=== PATIENT | male | born 1950 | race Caucasian/White ===

== ENCOUNTER 2020-10-01 06:25 | Outpatient (REF) | payer MEDICARE, SELFPAY ==
[2020-10-01 12:31] LABS: Anion Gap 12 (12-20); Blood Urea Nitrogen 15 mg/dL (9-16); Calcium 8.5 mg/dL (8.4-10.2); Carbon Dioxide 25 mmol/L (22-29); Chloride 109 mmol/L (96-108); Cholesterol 161 mg/dL; Estimated Glomerular Filt Rate > 60; Glucose Fasting 89 mg/dL (60-99); HDL Cholesterol 40 mg/dL; LDL Cholesterol Calculated 92 mg/dl; Potassium 4.3 mmol/l (3.3-5.1); Sodium 142 mmol/L (135-145); Triglycerides 146 mg/dL
[2020-10-01 12:37] LABS: Prostate Specific Antigen Scr < 0.05 ng/mL (<0.05-4.0); TSH reflex Free T4 0.71 mIU/mL (0.32-4.0)
[2020-10-02 10:52] LABS: Alanine Aminotransferase 29 U/L (0-40); Albumin Level 4.1 g/dL (3.5-5.0); Alkaline Phosphatase 90 U/L (39-117); Aspartate Amino Transferase 32 U/L (5-37); Bilirubin Direct 0.2 mg/dL (0.0-0.5); Bilirubin Total 0.5 mg/dL (0.0-1.0); Total Protein 6.5 g/dL (6.5-8.0)
== END 2020-10-01 06:26 | disposition home or self-care (01) ==
LOC: HO.HMGCLDS 06:25
PROVIDERS: PCP Nurse Practitioner Family; Visit Provider Nurse Practitioner Family
DX: Z12.5 Encounter for screening for malignant neoplasm of prostate (principal); E78.5 Hyperlipidemia, unspecified; I10 Essential (primary) hypertension
CPT/HCPCS: 80048; 80061; 80076; 84153; 84443

== ENCOUNTER 2021-03-11 06:40 | Outpatient (REF) | payer MEDICARE, SELFPAY ==
[2021-03-11 12:22] LABS: Alanine Aminotransferase 27 U/L (0-40); Albumin Level 4.3 g/dL (3.5-5.0); Alkaline Phosphatase 116 U/L (39-117); Anion Gap 14 (12-20); Aspartate Amino Transferase 28 U/L (5-37); Bilirubin Direct 0.3 mg/dL (0.0-0.5); Bilirubin Total 0.9 mg/dL (0.0-1.0); Blood Urea Nitrogen 18 mg/dL (9-16); Calcium 9.1 mg/dL (8.4-10.2); Carbon Dioxide 24 mmol/L (22-29); Chloride 108 mmol/L (96-108); Cholesterol 148 mg/dL; Estimated Glomerular Filt Rate > 60; Glucose Fasting 87 mg/dL (60-99); HDL Cholesterol 41 mg/dL; LDL Cholesterol Calculated 78 mg/dl; Potassium 4.5 mmol/L (3.3-5.1); Sodium 141 mmol/L (135-145); Total Protein 6.8 g/dL (6.5-8.0); Triglycerides 145 mg/dL
[2021-03-11 12:49] LABS: Prostate Specific Antigen Scr < 0.05 ng/mL (<0.05-4.0); TSH reflex Free T4 1.12 uIU/mL (0.32-4.0)
== END 2021-03-11 06:41 | disposition home or self-care (01) ==
LOC: HO.HMGCLDS 06:40
PROVIDERS: PCP Nurse Practitioner Family; Visit Provider Nurse Practitioner Family
DX: Z12.5 Encounter for screening for malignant neoplasm of prostate (principal); I10 Essential (primary) hypertension; E78.5 Hyperlipidemia, unspecified
CPT/HCPCS: 36415; 80053; 80061; 80076; 82248; 84153; 84443

== ENCOUNTER 2021-12-17 14:31 | Outpatient (REF) | payer MEDICARE, SELFPAY ==
--- NOTE | ~2021-12-17 | XR_ITS ---
EXAMINATION: XR SHOULDER, RIGHT CLINICAL INFORMATION: Pain. COMPARISON: None TECHNIQUE: AP external rotation, Grashey, scapular Y, and axillary views of the right shoulder. FINDINGS: There is mild reduction in the glenohumeral and AC joint space with periarticular spurring. No visible acute fracture, dislocation or lytic process seen. The soft tissues are normal. XR/XR shoulder RT min 2V IMPRESSION: Degenerative arthritic changes right AC joint with inferior spurring. No visible acute fracture or dislocation. Mild loss of right glenohumeral joint space is well. No fracture or dislocation
== END 2021-12-17 14:32 | disposition home or self-care (01) ==
LOC: HO.HMGCX 14:31
PROVIDERS: PCP Nurse Practitioner Family; Visit Provider Nurse Practitioner Family
DX: M25.511 Pain in right shoulder (principal)
CPT/HCPCS: 73030

== ENCOUNTER 2022-02-26 07:48 | Outpatient (REF) | payer MEDICARE, SELFPAY ==
[2022-02-26 11:23] LABS: MANUAL DIFF FLAG NO
[2022-02-26 11:38] LABS: Appearance Urine CLOUDY; Basophils Percent Auto 0.4 % (0-2); Color Urine YELLOW; Eosinophils Absolute Auto 0.2 X10*3/uL (0.0-0.4); Eosinophils Percent Auto 3.2 % (0-4); Glucose Urine UA NEG (NEG); Hematocrit 43.5 % (42.0-52.0); Hemoglobin 14.5 g/dl (14.0-18.0); Imm Gran Abs Auto 0.01 X10*3/uL (0.00-0.03); Imm Gran Pct Auto 0.2 % (0.0-0.4); Leukocyte Esterase Urine NEG (NEG); Lymphocytes Absolute Auto 1.1 X10*3/uL (1.2-4.9); Lymphocytes Percent Auto 22.6 % (20-40); Mean Corpuscular HGB Conc 33.3 g/dl (31.0-36.0); Mean Corpuscular Hemoglobin 31.5 pg (27.0-33.0); Mean Corpuscular Volume 94.6 fL (80.0-98.0); Mean Platelet Volume 11.5 fL (9.4-12.4); Monocytes Absolute Auto 0.5 X10*3/uL (0.1-1.2); Monocytes Percent Auto 11.3 % (2-11); Neutrophils Absolute Auto 2.9 x10*3/uL (2.0-8.3); Neutrophils Percent Auto 62.3 % (45-73); Nitrite Urine NEG (NEG); PH 5.5 (5.0-8.0); Platelet Count 170 X10*3/uL (160-400); Red Cell Distribution Width 13.2 % (11.0-16.0); Specific Gravity - Urine >= 1.030 (1.005-1.025); UACC Culture Trigger NO; Urine Blood 1+ (NEG); Urine Ketones NEG (NEG); Urine Protein NEG (NEG-TRACE); White Blood Count 4.7 X10*3/uL (4.8-10.8)
[2022-02-26 12:06] LABS: Alanine Aminotransferase 26 U/L (0-40); Albumin Level 4.3 g/dL (3.5-5.0); Alkaline Phosphatase 95 U/L (39-117); Anion Gap 12 (12-20); Aspartate Amino Transferase 25 U/L (5-37); Bilirubin Total 0.5 mg/dL (0.0-1.0); Blood Urea Nitrogen 14 mg/dL (9-16); Calcium 9.2 mg/dL (8.4-10.2); Carbon Dioxide 23 mmol/L (22-29); Chloride 109 mmol/L (96-108); Cholesterol 141 mg/dL; Estimated Glomerular Filt Rate > 60; Glucose Fasting 107 mg/dL (60-99); HDL Cholesterol 36 mg/dL; LDL Cholesterol Calculated 87 mg/dl; Potassium 4.1 mmol/L (3.3-5.1); Sodium 140 mmol/L (135-145); Total Protein 6.9 g/dL (6.5-8.0); Triglycerides 94 mg/dL
[2022-02-26 12:25] LABS: Prostate Specific Antigen Scr < 0.05 ng/mL (<0.05-4.0); TSH reflex Free T4 1.05 uIU/mL (0.32-4.0)
[2022-02-26 12:27] LABS: Amorphous Sediment Urine 3+ /LPF; Mucus Urine 3+ /LPF; WBC Urine 0 /HPF (0-4)
== END 2022-02-26 07:49 | disposition home or self-care (01) ==
LOC: HO.HMGCLDS 07:48
PROVIDERS: Visit Provider Nurse Practitioner Family
DX: I10 Essential (primary) hypertension (principal); E78.5 Hyperlipidemia, unspecified; Z12.5 Encounter for screening for malignant neoplasm of prostate
CPT/HCPCS: 36415; 80053; 80061; 81001; 84153; 84443; 85025

== ENCOUNTER 2022-03-31 08:17 | Outpatient (REF) | payer MEDICARE, SELFPAY ==
[2022-03-31 11:13] LABS: Urine Cytology See Pathology rpt
[2022-03-31 11:46] LABS: Appearance Urine CLEAR; Color Urine YELLOW; Glucose Urine UA NEG (NEG); Leukocyte Esterase Urine NEG (NEG); Nitrite Urine NEG (NEG); PH 5.5 (5.0-8.0); Specific Gravity - Urine >= 1.030 (1.005-1.025); Urine Blood NEG (NEG); Urine Ketones NEG (NEG); Urine Protein NEG (NEG-TRACE)
[2022-03-31 12:18] LABS: RBC Urine 0-2 /HPF (0); Squamous Epithelial Cell Urine TRACE /LPF; WBC Urine 0-2 /HPF (0-4)
[2022-03-31 12:19] LABS: Bacteria Urine TRACE /LPF; Hyaline Casts Urine 0-2 /LPF; Mucus Urine 1+ /LPF
== END 2022-03-31 08:18 | disposition home or self-care (01) ==
LOC: HO.HMGCLDS 08:17
PROVIDERS: PCP Nurse Practitioner Family; Visit Provider Nurse Practitioner Family
DX: R31.29 Other microscopic hematuria (principal); I10 Essential (primary) hypertension
CPT/HCPCS: 81003; 87086; 88112

== ENCOUNTER 2022-09-19 07:30 | Outpatient (REF) | payer MEDICARE, SELFPAY ==
[2022-09-19 11:25] LABS: MANUAL DIFF FLAG NO
[2022-09-19 11:35] LABS: Basophils Percent Auto 0.9 % (0-2); Eosinophils Absolute Auto 0.2 X10*3/uL (0.0-0.4); Eosinophils Percent Auto 4.7 % (0-4); Hematocrit 43.7 % (42.0-52.0); Hemoglobin 14.6 g/dl (14.0-18.0); Imm Gran Abs Auto 0.02 X10*3/uL (0.00-0.03); Imm Gran Pct Auto 0.4 % (0.0-0.4); Lymphocytes Absolute Auto 1.2 X10*3/uL (1.2-4.9); Lymphocytes Percent Auto 25.5 % (20-40); Mean Corpuscular HGB Conc 33.4 g/dl (31.0-36.0); Mean Corpuscular Hemoglobin 31.1 pg (27.0-33.0); Mean Platelet Volume 11.1 fL (9.4-12.4); Monocytes Absolute Auto 0.5 X10*3/uL (0.1-1.2); Monocytes Percent Auto 11.2 % (2-11); Neutrophils Absolute Auto 2.7 x10*3/uL (2.0-8.3); Neutrophils Percent Auto 57.3 % (45-73); Platelet Count 164 X10*3/uL (160-400); Red Cell Distribution Width 12.4 % (11.0-16.0); White Blood Count 4.7 X10*3/uL (4.8-10.8)
[2022-09-19 11:54] LABS: Appearance Urine Clear; Color Urine Yellow; Glucose Urine UA Negative (Negative); Leukocyte Esterase Urine Negative (Negative); Nitrite Urine Negative (Negative); Urine Blood Negative (Negative); Urine Ketones Negative (Negative); Urine Protein Negative (Neg-Trace)
[2022-09-19 12:06] LABS: Alanine Aminotransferase 24 U/L (0-40); Albumin Level 4.2 g/dL (3.5-5.0); Alkaline Phosphatase 86 U/L (39-117); Anion Gap 15 (12-20); Aspartate Amino Transferase 27 U/L (5-37); Bilirubin Total 0.4 mg/dL (0.0-1.0); Blood Urea Nitrogen 20 mg/dL (9-16); Calcium 8.8 mg/dL (8.4-10.2); Carbon Dioxide 20 mmol/L (22-29); Chloride 110 mmol/L (96-108); Cholesterol 183 mg/dL; Estimated Glomerular Filt Rate > 60; Glucose Fasting 97 mg/dL (60-99); HDL Cholesterol 42 mg/dL; LDL Cholesterol Calculated 103 mg/dl; Potassium 4.3 mmol/L (3.3-5.1); Sodium 141 mmol/L (135-145); Total Protein 6.7 g/dL (6.5-8.0); Triglycerides 192 mg/dL
[2022-09-19 12:09] LABS: TSH reflex Free T4 1.16 uIU/mL (0.32-4.0)
== END 2022-09-19 07:31 | disposition home or self-care (01) ==
LOC: HO.HMGCLDS 07:30
PROVIDERS: PCP Nurse Practitioner Family; Visit Provider Nurse Practitioner Family
DX: I10 Essential (primary) hypertension (principal)
CPT/HCPCS: 36415; 80053; 80061; 81003; 84443; 85025

== ENCOUNTER 2022-09-30 10:28 | Outpatient (REF) | payer MEDICARE, SELFPAY ==
--- NOTE | ~2022-09-30 | XR_ITS ---
EXAMINATION: XR CHEST CLINICAL INFORMATION: Cough. COMPARISON: 09/22/2019 chest radiographs. TECHNIQUE: 2 views of the chest were obtained. FINDINGS: No significant abnormality is noted involving the heart, lungs, mediastinum, bony thorax or soft tissues. XR/XR chest 2V IMPRESSION: No acute cardiopulmonary process.
== END 2022-09-30 10:29 | disposition home or self-care (01) ==
LOC: HO.HMGCX 10:28
PROVIDERS: PCP Nurse Practitioner Family; Visit Provider Psychiatry & Neurology Neurology
DX: G70.00 Myasthenia gravis without (acute) exacerbation (principal); R05.9 Cough, unspecified
CPT/HCPCS: 71046

== ENCOUNTER 2022-10-24 09:12 | Outpatient (REF) | payer MEDICARE, SELFPAY ==
--- NOTE | ~2022-10-24 | XR_ITS ---
EXAMINATION: XR CHEST CLINICAL INFORMATION: Cough. COMPARISON: 09/30/2022 chest radiographs. TECHNIQUE: 2 views of the chest were obtained. FINDINGS: No significant abnormality is noted involving the heart, lungs, mediastinum, bony thorax or soft tissues. XR/XR chest 2V IMPRESSION: No acute cardiopulmonary process.
[2022-10-24 14:47] LABS: Influenza A PCR POSITIVE (Negative); Influenza B PCR NEGATIVE (Negative); Resp Syncy Virus RNA Qual PCR NEGATIVE (Negative); SARS COV2 PCR INHOUSE NEGATIVE (Negative)
== END 2022-10-24 09:13 | disposition home or self-care (01) ==
LOC: HO.HMGCX 09:12
PROVIDERS: PCP Nurse Practitioner Family; Visit Provider Internal Medicine
DX: Z20.822 Contact with and (suspected) exposure to COVID-19 (principal); R05.9 Cough, unspecified; R09.89 Other specified symptoms and signs involving the circulatory and respiratory systems
CPT/HCPCS: 0241U; 71046

== ENCOUNTER 2022-11-11 08:12 | Outpatient (REF) | payer MEDICARE, SELFPAY ==
--- NOTE | ~2022-11-11 | XR_ITS ---
EXAMINATION: LEFT RIBS. RIGHT FIRST DIGIT CLINICAL INFORMATION: Pain. Rib fracture evaluation COMPARISON: Chest radiograph 10/24/2022 TECHNIQUE: 4 views of the left ribs. 3 views of the right thumb. FINDINGS: Left RIBS: A marker is placed over the lateral hemithorax. Several healed rib fractures are seen but I do not see an acute fracture. There is atelectasis at the lung bases. No pneumothorax. Heart and pulmonary vessels are normal. No pneumothorax. Right thumb. There is degenerative change, and the first MCP joint as well as the IP joint but no acute fracture or destructive process. Degenerative change noted at the first CMC as well. Carpal alignment is preserved. XR/XR ribs LT min 3V w CXR1V IMPRESSION: No acute findings.
--- NOTE | ~2022-11-11 | XR_ITS ---
EXAMINATION: LEFT RIBS. RIGHT FIRST DIGIT CLINICAL INFORMATION: Pain. Rib fracture evaluation COMPARISON: Chest radiograph 10/24/2022 TECHNIQUE: 4 views of the left ribs. 3 views of the right thumb. FINDINGS: Left RIBS: A marker is placed over the lateral hemithorax. Several healed rib fractures are seen but I do not see an acute fracture. There is atelectasis at the lung bases. No pneumothorax. Heart and pulmonary vessels are normal. No pneumothorax. Right thumb. There is degenerative change, and the first MCP joint as well as the IP joint but no acute fracture or destructive process. Degenerative change noted at the first CMC as well. Carpal alignment is preserved. XR/XR finger RT min 2V IMPRESSION: No acute findings.
== END 2022-11-11 08:13 | disposition home or self-care (01) ==
LOC: HO.HMGCX 08:12
PROVIDERS: PCP Nurse Practitioner Family; Visit Provider Nurse Practitioner Family
DX: M79.644 Pain in right finger(s) (principal); S22.49XA Multiple fractures of ribs, unspecified side, initial encounter for closed fracture; X58.XXXA Exposure to other specified factors, initial encounter; Y93.9 Activity, unspecified; Y92.9 Unspecified place or not applicable; Y99.9 Unspecified external cause status
CPT/HCPCS: 71101; 73140

== ENCOUNTER 2023-05-19 08:51 | Outpatient (REF) | payer MEDICARE, SELFPAY | END 2023-05-19 08:52 | disposition home or self-care (01) | LOC: HO.XRAY 08:51 | PROVIDERS: PCP Nurse Practitioner Family; Visit Provider Nurse Practitioner Family | DX: J40 Bronchitis, not specified as acute or chronic (principal); G70.00 Myasthenia gravis without (acute) exacerbation | CPT/HCPCS: 71046; 99212 ==

== ENCOUNTER 2023-05-22 11:52 | Outpatient (REF) | payer MEDICARE, SELFPAY | END 2023-05-22 11:53 | disposition home or self-care (01) | LOC: HO.LNP 11:52 | PROVIDERS: Visit Provider Nurse Practitioner Family | DX: J40 Bronchitis, not specified as acute or chronic (principal) | CPT/HCPCS: 87070; 87205 ==

== ENCOUNTER 2023-06-12 08:45 | Outpatient (REF) | payer MEDICARE, SELFPAY ==
[2023-06-12 09:49] LABS: MANUAL DIFF FLAG NO
[2023-06-12 10:25] LABS: Influenza A PCR NEGATIVE (Negative); Influenza B PCR NEGATIVE (Negative); Resp Syncy Virus RNA Qual PCR NEGATIVE (Negative); SARS COV2 PCR INHOUSE NEGATIVE (Negative)
[2023-06-12 10:39] LABS: Basophils Absolute Auto 0.1 X10*3/uL (0.0-0.2); Basophils Percent Auto 1.1 % (0-2); Eosinophils Absolute Auto 0.2 X10*3/uL (0.0-0.4); Eosinophils Percent Auto 3.9 % (0-4); Hematocrit 42.2 % (42.0-52.0); Hemoglobin 13.7 g/dl (14.0-18.0); Imm Gran Abs Auto 0.03 X10*3/uL (0.00-0.03); Imm Gran Pct Auto 0.7 % (0.0-0.4); Lymphocytes Absolute Auto 1.1 X10*3/uL (1.2-4.9); Lymphocytes Percent Auto 23.4 % (20-40); Mean Corpuscular HGB Conc 32.5 g/dl (31.0-36.0); Mean Corpuscular Hemoglobin 31.2 pg (27.0-33.0); Mean Corpuscular Volume 96.1 fL (80.0-98.0); Mean Platelet Volume 10.9 fL (9.4-12.4); Monocytes Absolute Auto 0.5 X10*3/uL (0.1-1.2); Monocytes Percent Auto 10.8 % (2-11); Neutrophils Absolute Auto 2.8 x10*3/uL (2.0-8.3); Neutrophils Percent Auto 60.1 % (45-73); Platelet Count 179 X10*3/uL (160-400); Red Blood Count 4.39 X10*6/uL (4.60-5.80); Red Cell Distribution Width 13.2 % (11.0-16.0); White Blood Count 4.6 X10*3/uL (4.8-10.8)
[2023-06-15 20:18] LABS: Immunoglobulin E 25 kU/L (<OR=114)
== END 2023-06-12 08:46 | disposition home or self-care (01) ==
LOC: HO.LAB 08:45
PROVIDERS: PCP Nurse Practitioner Family; Visit Provider Nurse Practitioner Family
DX: Z20.822 Contact with and (suspected) exposure to COVID-19 (principal); R05.9 Cough, unspecified; J40 Bronchitis, not specified as acute or chronic; Z91.09 Other allergy status, other than to drugs and biological substances
CPT/HCPCS: 0241U; 36415; 82785; 85025; 94618; 99212

== ENCOUNTER 2023-06-12 08:45 | Outpatient (AMB) | payer MEDICARE, SELFPAY ==
[2023-06-12 08:50] VITALS: BP 116/64; PULSE 72; O2SAT 95
--- NOTE | 2023-06-12 08:50 | MHC.OFFVIS ---
Intake Vital Signs 06/12/23 08:50 Height 5 ft 11 in Weight 214 lb 15.211 oz BMI 30.0 BP 116/64 Blood Pressure Location Lt brachial Position Sitting Pulse 72 Pulse Source Pulse Oximeter Pulse Oximetry (%) 95 Oxygen Delivery Method Room Air Intake Visit Reasons: persistent cough Dairy Frozen Manager Required: No Heel Caser: Heel Caser offered & declined Accompanied by: Spouse Allergies dicloxacillin Adverse Reaction (Unknown, Verified 06/12/23 08:54) diarrhea Medication List - Last Reconciled 06/12/23 by Madelyn Dominguez LPN albuterol sulfate 90 mcg/actuation (Ventolin HFA) 1 inh inhalation QID PRN albuterol sulfate 90 mcg/actuation 2 puffs inhalation Q4-6H PRN atorvastatin 20 mg PO DAILY 90 days azathioprine 50 mg PO DAILY benzonatate 100 mg PO BID-TID PRN famotidine (Pepcid) 40 mg PO BEDTIME fluoxetine 60 mg (3 x 20 mg) PO DAILY 90 days gabapentin mg PO losartan 100 mg PO DAILY 90 days oxybutynin chloride 5 mg PO BID 90 days prednisone 20 mg PO DAILY HPI persistent cough HPI Details Francois is a very pleasant 72 year old male with underlying myasthenia gravis on Azathioprine. He was seen for an acute visit on 05/19/23 as he was having symptoms since early April with productive cough, wheezing and shortness of breath. He was given azithromycin and prednisone 50 mg x 5 days from urgent care with no change then he was given Augmentin and prednisone, again with no change in symptoms. He continues to produce copious amount of clear sputum with cough as well as nasal congestion and eye irritation. He has been using albuterol multiple days per day with partial relief of dyspnea. He continues to play golf four days per week. He has been sleeping upright in his recliner due to persistent cough. Denies orthopnea. His tested + for COVID but he has been tested multiple times and has been negative. [facility] Medical History (Updated 06/12/23 @ 09:33 by Bertha John NP) Bacterial pneumonia Depression Fatty liver GERD (gastroesophageal reflux disease) Hyperlipemia Myasthenia gravis Peripheral polyneuropathy Prostate cancer Surgical History (Updated 05/19/23 @ 09:08 by Madelyn Dominguez LPN) H/O prostatectomy History of hip replacement Family History Father Hypertension Mother Hypertension Social History Housing: House Alcohol intake: current Alcohol intake frequency: holidays/special occasions only Patient Tobacco Use Status: Former Tobacco user Years Smoked: 40 years ago e-Cigarette/Vaping Use: Never Used Second Hand Smoke Exposure: No service: No Current occupational status: retired Cognitive needs: No Hearing needs: No Vision needs: No Review of Systems Const Denies chills, Denies excessive sweating, Denies fever(s), Denies headache(s) and Denies night sweats Eyes Reports irritation ENT Reports Normal hearing present, Denies headache(s), Reports nasal congestion and Reports nasal discharge Card Denies chest pain, Denies chest pain at rest, Denies chest pain with activity, Denies leg edema, Reports dyspnea on exertion, Denies orthopnea and Denies paroxysmal nocturnal dyspnea Resp Reports cough, Reports excessive phlegm production, Denies pain on inspiration, Denies pain with cough, Reports dyspnea on exertion and Denies stridor Musc Denies myalgias Neuro Reports Normal hearing present and Denies headache(s) Endo Denies excessive sweating Lopez/Lymph Denies lymphadenopathy Physical Exam Vital Signs: Last Vital Signs Pulse 72 06/12/23 08:50 BP 116/64 06/12/23 08:50 Pulse Ox 95 06/12/23 08:50 Oxygen Delivery Method Room Air 06/12/23 08:50 BMI result Body Mass Index 30.0 Const General: cooperative, healthy appearing, comfortable, no acute distress, well developed and alert Orientation/consciousness: patient oriented x3 Limitations: no limitations HEENT Head: Yes normal to inspection, Yes normocephalic and Yes atraumatic Ears: hearing grossly normal bilaterally and external ears normal Eyes General: appearance normal, both eyes and all related structures Eyelids: Yes eyelids normal Sclerae: sclerae normal EOM: EOMs intact bilaterally Neck Neck: Yes normal visual inspection and Yes no lymphadenopathy Lymphatic: no lymphadenopathy noted Chest Chest palpation & inspection: normal inspection of the chest Resp Other: rhonchi throughout cleared after cough Effort & Inspection: normal respiratory effort, able to speak in complete sentences, no audible wheezes, no cough, no stridor, not tachypneic, no tripod positioning and no use of accessory muscles Auscultation: clear to auscultation bilaterally Cardio Jugular venous distension: no JVD Rate: regular rate Rhythm: regular rhythm Skin Other: warm, dry General skin exam: no rashes or lesions noted Neuro General: patient oriented x3 Cranial nerves: Yes Normal hearing present Cognition (Neuro): normal cognition Gait exam (Neuro): Normal gait present Extrem General: Yes normal to inspection, Yes capillary refill normal, Yes no clubbing, cyanosis or edema and Yes no pedal edema Psych Appearance: grossly normal and well kempt Speech and movement: Normal speech and movement present and Clear speech present Affect: normal affect Attitude: cooperative Thought process: Normal thought process present Thought content: Normal thought content present Insight: Good insight present (Psych) Judgement: Good judgement present (Psych) Office Procedures 6 Minute Walk Time:: 09:20 SPO2 % at rest: 95 Pulse at rest: 78 SPO2 % during excercise: 93 Pulse during excercise: 84 SPO2 % after excercise: 95 Pulse after excercise: 78 Distance in yards walked: 114 Delia Score: 1 Performance Observations:: Patient walked on level ground at a moderate pace. Maintained SPO2 at 93% with pulse of 84. Patient denies shortness of breath and was able to carry on a conversation during walking. Patient walked 114 yards without the need for supplemental oxygen. [address]2938 - 6 Minute Walk Results Reviewed Results Reviewed: 04/2017 Assessment & Plan Assessment & Plan (1) Cough: Code(s): R05.9 - Cough, unspecified (2) Myasthenia gravis: Code(s): G70.00 - Myasthenia gravis without (acute) exacerbation Plan Francois continues with symptoms of dyspnea on exertion as well as productive cough with copious amounts of clear sputum as well as nasal congestion and eye irritation. He was given two rounds of antibiotics and predisone with no change to symptoms. He attempted a sputum sample but it was contaminated with oral secretions. 6MWT performed today, as patient with continued dyspnea on moderate exertion such as hills, and maintained an oxygen saturation of 93-95% with heart rate sustained in the 80s. Discussed with Dr. Hayden and symptoms may be reflective of underlying allergic component. Will send for CBC and IgE as well as trial ipratropium nasal spray. If negative, consider chest CT as CXR normal and patient with persistent symptoms as well as underlying history of immunosuppressive therapy secondary to myasthenia gravis. All questions were answered and patient is in agreement of plan. Will call patient with results and treatment plan moving forward. Orders: Orders Complete Blood Count Auto Diff Today J40 - Bronchitis, not specified as acute or chronic, Z91.09 - Other allergy status, other than to drugs and biological substances Immunoglobulin E Today Z91.09 - Other allergy status, other than to drugs and biological substances SARS-CoV2/FLU/RSV Today R05.9 - Cough, unspecified AMB 6 minute walk Today J40 - Bronchitis, not specified as acute or chronic Coding Level of Care Code Est Pt Level 4 (11372) Diagnoses Cough R05.9 Myasthenia gravis G70.00 CPT Codes Coding ([id number])
[2023-06-12 10:06] VITALS: PULSE 78; O2SAT 95
== END 2023-06-12 09:36 | disposition home or self-care (01) ==
PROVIDERS: PCP Nurse Practitioner Family; Visit Provider Nurse Practitioner Family
DX: G70.00 Myasthenia gravis without (acute) exacerbation (principal); R05.8 Other specified cough
CPT/HCPCS: 94618; 99214

== ENCOUNTER 2023-07-02 07:05 | Outpatient (REF) | payer MEDICARE, SELFPAY ==
--- NOTE | ~2023-07-02 | CT_ITS ---
EXAMINATION: CT CHEST WITHOUT CONTRAST CLINICAL INFORMATION: Cough. COMPARISON: Previous chest x-ray most recent April [address] October 2019 TECHNIQUE: Multidetector volumetric CT imaging of the chest was done. Axial MIP volume rendering provided. Sagittal and coronal reformatted images were obtained. This CT examination was performed using dose optimization techniques as appropriate, variously including the following: *Automated exposure control *Adjustment of mA and/or kV according to patient size (this includes techniques or standardized protocols for targeted exams where dose is matched to indication/reason for exam; i.e. extremities or head) *Use of iterative reconstruction technique DLP: 226 mGy-cm FINDINGS: LUNGS: Mild emphysema. Stable linear parenchymal density in the posterior segment of the right upper lobe axial image 137 series 5 probably representing area of scarring or subsegmental atelectasis and similar area adjacent to the major fissure axial image 183 series 5. New 2 mm peripheral or subpleural calcified right lower lobe nodule axial image 424 series 5. This is adjacent to area of scarring or subsegmental atelectasis at the right lung base. Increased peripheral dependent markings in both lower lobes, question representing dependent atelectasis versus early interstitial disease. Prone imaging on follow-up exam could be performed if clinically indicated. Previously identified mild airways disease in the right lower lobe airways disease on 2019 exam no longer seen. No endobronchial or endotracheal lesion. MEDIASTINUM: The mediastinum is normal. CORONARY ARTERY CALCIFICATION: Mild PLEURA: There is no pleural effusion. No pleural mass or thickening. AXILLA: No lymphadenopathy. UPPER ABDOMEN: Unremarkable. OSSEOUS STRUCTURES: Degenerative changes of the spine and shoulders. Old sternal and rib fractures. CT/CT chest wo IV con IMPRESSION: New 2 mm calcified right lower lobe nodule adjacent to an area of scarring or subsegmental atelectasis at the right lung base. This may represent a calcified granuloma or parenchymal calcification related to lung disease. According to Fleischner 2017 criteria, no chest CT follow-up would be recommended. Increased peripheral dependent markings in both lower lobes, question representing dependent atelectasis versus early interstitial disease. Prone imaging on follow-up exam could be performed. Stable small areas of scarring or chronic subsegmental atelectasis in the right upper lobe. Fleischner guidelines were followed.
== END 2023-07-02 07:06 | disposition home or self-care (01) ==
LOC: HO.CT 07:05
PROVIDERS: Visit Provider Nurse Practitioner Family
DX: R05.9 Cough, unspecified (principal)
CPT/HCPCS: 71250

== ENCOUNTER 2023-09-17 09:00 | Outpatient (AMB) | payer MEDICARE, SELFPAY ==
[2023-09-17 09:05] VITALS: BP 122/68; PULSE 73; O2SAT 94; BMI 30.4
--- NOTE | 2023-09-17 09:05 | A.OFFVIS_ITS ---
Intake Vital Signs 09/17/23 09:05 Height 5 ft 11 in Weight 218 lb BMI 30.4 BP 122/68 Blood Pressure Location Lt brachial Position Sitting Pulse 73 Pulse Source Pulse Oximeter Pulse Oximetry (%) 94 Oxygen Delivery Method Room Air Intake Visit Reasons: productive cough Intake Note: pt is here for follow up and states cough is better, some slight short of breath. Harbor Pilot Required: No Allergies dicloxacillin Adverse Reaction (Unknown, Verified 09/17/23 09:39) diarrhea Medication List - Last Reconciled 09/17/23 by Biju Zuniga MD albuterol sulfate 90 mcg/actuation (Ventolin HFA) 1 inh inhalation QID PRN atorvastatin 20 mg PO DAILY 90 days azathioprine 50 mg PO DAILY diclofenac sodium 75 mg PO BID famotidine (Pepcid) 40 mg PO BEDTIME PRN fluoxetine 60 mg (3 x 20 mg) PO DAILY 90 days gabapentin mg PO ipratropium bromide 2 sprays intranasal BID losartan 100 mg PO DAILY 90 days oxybutynin chloride 5 mg PO BID 90 days Do you need a note to return to daycare/school/sports/work: No HPI productive cough HPI Details Francois is 72 years old very nice gentleman, who has had cough since the 4-5 months ago. The cough started without any definite respiratory infection. He gets it ticklish feeling in the throat resulting in cough which does not stop, and it happened quite frequently . In the beginning Since April of this year he has been treated with 2 courses of prednisone and antibiotics, without any improvement. Lastly , he was prescribed to use the ipratropium nasal spray p.r.n. for cough, which has helped. He does have some sneezing, especially in the morning hours , Even though he has myasthenia gravis for the past 15+ years, he denies any difficulty in swallowing, however sometimes he feels that there are some food particles sticking in the throat. He does not have active GERD symptoms and takes famotidine 40 mg daily . P.r.n. Her myasthenia gravis he has been on azathioprine 50 mg daily for the past many years, Initially at the onset of myasthenia gravis he was treated with steroids a few times. For hypertension he is on losartan and not on any Pj inhibitors. At the onset of his cough he did have intermittent wheezing and used albuterol p.r.n., but now he does not have any wheezing and using albuterol does not help his cough. [facility] Medical History Bursitis of hip, right Osteoarthritis Greater trochanteric pain syndrome Bacterial pneumonia Depression Prostate cancer GERD (gastroesophageal reflux disease) Hyperlipemia Fatty liver Myasthenia gravis Peripheral polyneuropathy Surgical History History of hip replacement H/O prostatectomy Family History Father Hypertension Mother Hypertension Social History Housing: House Alcohol intake: current Alcohol intake frequency: holidays/special occasions only Patient Tobacco Use Status: Former Tobacco user Years Smoked: 40 years ago e-Cigarette/Vaping Use: Never Used Second Hand Smoke Exposure: No service: No Current occupational status: retired Cognitive needs: No Hearing needs: No Vision needs: No Review of Systems Const All systems reviewed & are unremarkable except as noted in HPI and below ENT Reports nasal congestion (Mild nasal congestion with postnasal discharge off and on) and Reports nasal discharge Card Denies chest pain, Denies irregular heart rhythm and Denies leg edema Resp Reports as per HPI GI Reports heartburn (Controlled with famotidine) Reports urinary incontinence (Controlled with med) Musc Reports muscle weakness (Mild weakness in the lower extremity) Skin/Breast Reports system reviewed and no additional complaints, except as documented Neuro Reports paresthesias (In lower extremities) Psych Reports depression (Controlled with med) Endo Reports no additional complaints Lopez/Lymph Reports no additional complaints Aller/Immun Reports no additional complaints Physical Exam Vital Signs: Last Vital Signs Pulse 73 09/17/23 09:05 BP 122/68 09/17/23 09:05 Pulse Ox 94 09/17/23 09:05 Oxygen Delivery Method Room Air 09/17/23 09:05 BMI result Body Mass Index 30.4 Const General: healthy appearing, comfortable, no acute distress, alert and awake Orientation/consciousness: patient oriented x3 HEENT Other: There is the a mild to moderate hypertrophy of the nasal turbinates. Uvula is slightly reddish No other abnormality noted Head: Yes normal to inspection General nose exam: No nasal polyps present and No nasal discharge present Face and sinus: Yes sinuses nontender Mouth: oropharynx normal Throat: Yes posterior oropharynx normal Eyes General: appearance normal, both eyes and all related structures Neck Neck: Yes normal visual inspection, Yes no lymphadenopathy, Yes trachea midline and Yes no JVD Thyroid: Thyroid normal Chest Chest palpation & inspection: normal inspection of the chest, normal palpation of entire chest wall and no tenderness Resp Effort & Inspection: normal respiratory effort Auscultation: clear to auscultation bilaterally, no crackles, no rhonchi and no wheezes Cardio Palpation: normal PMI Rate: regular rate Rhythm: regular rhythm Heart sounds: no gallops and no murmurs Peripheral pulses: Peripheral pulses 2+ throughout GI Palpation (GI): Soft to palpation, nontender, No hepatosplenomegaly present and no masses Auscultation: normal bowel sounds Back/Spine/Pelvis Thoracic/Lumbar Spine: thoracic and lumbar spine normal to inspection Skin General skin exam: no rashes or lesions noted Neuro General: patient oriented x3 and no focal motor deficits Cranial nerves: Yes CN's II-XII intact bilaterally Extrem General: Yes normal to inspection, Yes no clubbing, cyanosis or edema and Yes no calf tenderness Psych Appearance: grossly normal and well kempt Speech and movement: Normal speech and movement present Results Reviewed Results Reviewed: CT SCAN OF THE CHEST ON 07/02/2023 THERE IS NO DEFINITE LYMPHADENOPATHY OR ANY INTERSTITIAL LUNG DISEASE. IT 2 MM CALCIFIED RIGHT LOWER LOBE NODULE MOST LIKELY A GRANULOMA, PATIENT IS NONSMOKER. PULMONARY FUNCTION TEST DONE IN 2017, WAS NORMAL. CBC, NO EOSINOPHILIA IGE LEVEL NORMAL. Assessment & Plan Assessment & Plan (1) Cough: Comment: COUGH SINCE ABOUT 4 MONTHS AGO, NONSPECIFIC, MOST LIKELY SECONDARY TO ALLERGIC RHINITIS WITH POSTNASAL DISCHARGE. OTHER POSSIBILITY COULD BE, A VERY LOW-GRADE SWALLOWING DISORDER RELATED TO MYASTHENIA GRAVIS. PATIENT DOES NOT SEEM TO HAVE ANY BRONCHOSPASM A REACTIVE AIRWAYS. PLAN : DISCUSSED WITH THE PATIENT AND HIS WHO IS RN , IN DETAIL. PULMONARY FUNCTION TEST TO BE DONE FOR AN UP TO DATE EVALUATION. MODIFIED BARIUM SWALLOW TO BE DONE TO RULE OUT ANY POSSIBILITY OF MICROASPIRATIONS FOR TREATMENT ; USE IPRATROPIUM NASAL SPRAY 1 SPRAY IN EACH NOSTRIL B.I.D. REGULARLY. MAY USE COUGH DROPS NEEDED. ALBUTEROL HFA 2 PUFFS ONLY FOR ANY SUSTAINED BOUTS OF COUGH. Code(s): R05.9 - Cough, unspecified (2) Myasthenia gravis: Comment: PATIENT HAS MYASTHENIA GRAVIS FOR THE PAST 15+ YEARS, CONTROLLED WITH AZATHIAPRINE 50 MG DAILY. THERE IS NO EVIDENCE OF ANY INTERSTITIAL LUNG DISEASE WHICH CAN BE SIDE EFFECT OF HIS OF THIGH UPPER RINSE SOMETIMES. ALSO THE COUGH DOES NOT SEEM TO BE A SIDE EFFECT OF AZATHIOPRINE. FOR POSSIBILITY OF MICRO ASPIRATIONS A MODIFIED BARIUM SWALLOW IS ORDERED. Code(s): G70.00 - Myasthenia gravis without (acute) exacerbation Orders: Orders PFT pulmonary function test Today G70.00 - Myasthenia gravis without (acute) exacerbation, R05.9 - Cough, unspecified [place] barium swallow modified Today G70.00 - Myasthenia gravis without (acute) exacerbation, R05.9 - Cough, unspecified Coding Level of Care Code Est Pt Level 4 (37401) Diagnoses Cough R05.9 Myasthenia gravis G70.00
== END 2023-09-17 09:40 | disposition home or self-care (01) ==
PROVIDERS: PCP Nurse Practitioner Family; Visit Provider Internal Medicine
DX: R05.9 Cough, unspecified (principal); G70.00 Myasthenia gravis without (acute) exacerbation
CPT/HCPCS: 99214

== ENCOUNTER → 2023-09-17 09:00 | Outpatient (BNVA) | payer MEDICARE, SELFPAY | PROVIDERS: PCP Nurse Practitioner Family; Visit Provider Internal Medicine | DX: R05.9 Cough, unspecified (principal); G70.00 Myasthenia gravis without (acute) exacerbation | CPT/HCPCS: 99212 ==

== ENCOUNTER 2023-09-23 10:14 | Outpatient (REF) | payer MEDICARE, SELFPAY ==
[2023-10-03 17:53] LABS: Acetylcholine Recept. Blocking 49 (<15)
[2023-10-07 18:12] LABS: Acetylcholine Recep Modulating 70
== END 2023-09-23 10:15 | disposition home or self-care (01) ==
LOC: HO.LAB 10:14
PROVIDERS: PCP Nurse Practitioner Family; Visit Provider Psychiatry & Neurology Neurology
DX: G70.00 Myasthenia gravis without (acute) exacerbation (principal)
CPT/HCPCS: 36415; 83519

== ENCOUNTER 2023-09-29 14:25 | Outpatient (AMB) | payer MEDICARE, SELFPAY ==
--- NOTE | 2023-09-29 14:28 | A.OFFPC_ITS ---
Vital Signs 09/29/23 14:29 Height 5 ft 11 in Weight 218 lb BMI 30.4 BP 118/74 Blood Pressure Location Lt brachial Position Sitting Pulse 75 Pulse Source Pulse Oximeter Pulse Oximetry (%) 95 Oxygen Delivery Method Room Air Intake Visit Reasons: Follow-up from Nov 2022 appt (per ag) Intake Note: Pt is here today for a follow up visit on HTN. Allergies dicloxacillin Adverse Reaction (Unknown, Verified 09/29/23 15:21) diarrhea Medication List - Last Reconciled 09/29/23 by Francois Adam, [facility] albuterol sulfate 90 mcg/actuation (Ventolin HFA) 1 inh inhalation QID PRN atorvastatin 20 mg PO DAILY 90 days azathioprine 50 mg PO DAILY buspirone 7.5 mg PO BID 30 days diclofenac sodium 75 mg PO BID famotidine (Pepcid) 40 mg PO BEDTIME PRN fluoxetine 60 mg (3 x 20 mg) PO DAILY 90 days gabapentin sometimes 3 tablets a day ipratropium bromide 2 sprays intranasal BID losartan 100 mg PO DAILY 90 days oxybutynin chloride 5 mg PO BID 90 days Tobacco use date assessed: 09/29/23 Fall risk assessment: No Falls in past year Last assessed Fall Risk: 09/29/23 Dental Screening Dental Screen Date: 09/29/23 Did you have a dental visit in the last 12 months?: Yes Did you have a dental problem in the last 6 months where you did not have access to dental care?: No Was dental information given to patient?: Patient has dentist HPI Follow-up from Nov 2022 appt (per ag) HPI Details HTN: Blood pressure is stable, managed with losartan 100mg. 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 Denies chest pain, shortness of breath, headache, dizziness, and blurred vision. Pt reports increased anxiety especially in the morning. He is currently taking fluoxetine 60mg. Will add buspirone 7.5mg bid. Denies any SI and HI. Pt will contact me via portal in 1 month with how he is doing (anxiety and BPs). [facility] Medical History Bursitis of hip, right Osteoarthritis Greater trochanteric pain syndrome Bacterial pneumonia Depression Prostate cancer GERD (gastroesophageal reflux disease) Hyperlipemia Fatty liver Myasthenia gravis Peripheral polyneuropathy Surgical History History of hip replacement H/O prostatectomy Family History Father Hypertension Mother Hypertension Social History Housing: House Alcohol intake: current Alcohol intake frequency: holidays/special occasions only Patient Tobacco Use Status: Former Tobacco user Years Smoked: 40 years ago e-Cigarette/Vaping Use: Never Used Second Hand Smoke Exposure: No service: No Current occupational status: retired Cognitive needs: No Hearing needs: No Vision needs: No Questionnaire PHQ-9 Over the last 2 weeks, how often have you been bothered by any of the following problems? 1. Little interest or pleasure in doing things: not at all 2. Feeling down, depressed, or hopeless: several days 3. Trouble falling or staying asleep, or sleeping too much: several days 4. Feeling tired or having little energy: not at all 5. Poor appetite or overeating: not at all 6. Feeling bad about yourself - or that you are a failure or have let yourself or your family down: several days 7. Trouble concentrating on things, such as reading the newspaper or watching television: not at all 8. Moving or speaking so slowly that other people could have noticed. Or the opposite - being so fidgety or restless that you have been moving around a lot more than usual: not at all 9. Thoughts that you would be better off or of hurting yourself in some way: not at all Total score: 3 Depression Screening Interpretation: Negative Depression Screening Done: Yes Source: Developed by Drs. Avelino Arteaga, Mehreen Groves, Robin Coronado and colleagues, with an educational kamilah from [employer]. Thrive Questionnaire Date Thrive assessed: 09/29/23 I am a: Patient What is your living situation today?: I have a steady place to live Within the past 12 months, did the food you bought not last and you didn't have the money to get more?: Never true Within the past 12 months, did you worry whether your food would run out before you got money to buy more?: Never true Do you have trouble paying for medicines?: No Do you have trouble getting transportation to medical appointments?: No Do you have trouble paying your heating and electricity bill?: No Do you have trouble taking care of your child, family member or friend?: No Do you have trouble with day-to-day activities such as bathing, preparing meals, shopping, managing finances, etc.?: No Are you currently unemployed and looking for a job?: No Are you interested in more education?: No Please select the resources that you would like help with: None MARTIN-7 AMB Questionnaire MARTIN-7 Date MARTIN - 7 assessed: 09/29/23 Feeling nervous, anxious, or on edge: 0 = Not at all Not being able to stop or control worryin = Not at all Worrying too much about different things: 0 = Not at all Trouble relaxin = Not at all Being so restless that it is hard to sit still: 0 = Not at all Becoming easily annoyed or irritable: 0 = Not at all Feeling afraid as if something awful might happen: 0 = Not at all Total MARTIN-7 score (0-4 normal; 5-9 mild; 10-14 moderate; 15-21 severe): 0 Source: Developed by Drs. Avelino Arteaga, Mehreen Groves, Robin Coronado and colleagues, with an educational kamilah from [employer]. Review of Systems Const Reports as per HPI Physical exam (Primary Care) Vital Signs: Last Vital Signs Pulse 75 09/29/23 14:29 BP 118/74 09/29/23 14:29 Pulse Ox 95 09/29/23 14:29 Oxygen Delivery Method Room Air 09/29/23 14:29 BMI result Body Mass Index 30.4 Tobacco/Smoking Status: Tobacco use Status Tobacco use date assessed 09/29/23 09/29/23 14:34 Patient Tobacco Use Status Former Tobacco user 09/29/23 14:34 e-Cigarette/Vaping Use Never Used 09/29/23 14:34 PHQ-9: PHQ-9 Score PHQ-9: Total score 3 09/29/23 15:21 Depression Screening Interpretation: Negative Thrive Assessment: Date of Thrive Assessment Date Thrive assessed 09/29/23 09/29/23 14:34 Const General: cooperative Orientation/consciousness: patient oriented x3 Resp Effort & Inspection: normal respiratory effort Auscultation: clear to auscultation bilaterally Cardio Rate: regular rate Rhythm: regular rhythm Heart sounds: S1 normal heart sound present and S2 normal heart sound present Neuro General: patient oriented x3 Extrem Right lower extremity: no edema Left lower extremity: no edema Psych Appearance: grossly normal Mental Status: mental status grossly normal Speech and movement: Normal speech and movement present Affect: Anxious affect present Attitude: cooperative Thought process: Normal thought process present Thought content: Normal thought content present Insight: Good insight present (Psych) Judgement: Good judgement present (Psych) Assessment and Plan Assessment & Plan (1) HTN (hypertension): Code(s): I10 - Essential (primary) hypertension Plan: will take pt's BP manually (2) Anxiety: Code(s): F41.9 - Anxiety disorder, unspecified Plan: starting buspirone Plan The patient agreed to the use of a medical office supervisor for this encounter. Scribed for LYNSEY Almendarez-BC by Sirisha Sparrow medical office supervisor, on 09/29/2023 at 14:40 EST. Orders: Orders Complete Blood Count Auto Diff Today I10 - Essential (primary) hypertension Lipid Panel Today I10 - Essential (primary) hypertension Comprehensive Starr. Panel Fast Today I10 - Essential (primary) hypertension TSH reflex Free T4 Today I10 - Essential (primary) hypertension UA CC w/rflx Micro + Cult Today I10 - Essential (primary) hypertension Medications: New buspirone 7.5 mg PO BID 30 days 60 tabs 2RF buspirone 7.5 mg PO BID 30 days 60 tabs 2RF Coding Level of Care Code Est Pt Level 3 (54913) Diagnoses HTN (hypertension) I10 Anxiety F41.9 Additional Codes PHQ-9 - 38348 - PHQ-9 Billing: ([id number])
[2023-09-29 14:29] VITALS: BP 118/74; PULSE 75; O2SAT 95; BMI 30.4
== END 2023-09-29 14:41 | disposition home or self-care (01) ==
PROVIDERS: PCP Nurse Practitioner Family; Visit Provider Nurse Practitioner Family
DX: I10 Essential (primary) hypertension (principal); F41.9 Anxiety disorder, unspecified
CPT/HCPCS: 99213

== ENCOUNTER 2023-10-29 08:42 | Outpatient (AMB) | payer MEDICARE, SELFPAY ==
[2023-10-29 09:58] VITALS: BP 110/68; PULSE 71; O2SAT 93; BMI 30.8
--- NOTE | 2023-10-29 09:58 | MHC.OFFVIS ---
Intake Vital Signs 10/29/23 09:58 Height 5 ft 11 in Weight 221 lb BMI 30.8 BP 110/68 Blood Pressure Location Lt brachial Position Sitting Pulse 71 Pulse Source Pulse Oximeter Pulse Oximetry (%) 93 Oxygen Delivery Method Room Air Intake Visit Reasons: Same day PFT Intake Note: pt is here for follow up and states he feels fine, has a cough with some junk in his throat, and he is having a hip issue. 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 Allergies dicloxacillin Adverse Reaction (Unknown, Verified 10/29/23 10:24) diarrhea Medication List - Last Reconciled 10/29/23 by Biju Zuniga MD albuterol sulfate 90 mcg/actuation (Ventolin HFA) 1 inh inhalation QID PRN atorvastatin 20 mg PO DAILY 90 days azathioprine 50 mg PO DAILY diclofenac sodium 75 mg PO BID famotidine (Pepcid) 40 mg PO BEDTIME PRN fluoxetine 60 mg (3 x 20 mg) PO DAILY 90 days gabapentin sometimes 3 tablets a day ipratropium bromide 2 sprays intranasal BID losartan 100 mg PO DAILY 90 days oxybutynin chloride 5 mg PO BID 90 days HPI Same day PFT HPI Details 69 YEARS OLD GENTLEMAN VERY PLEASANT, WITH HISTORY OF NASAL CONGESTION, POSTNASAL DISCHARGE AND INTERMITTENT COUGH, HE DOES HAVE A MILD DEGREE OF MYASTHENIA GRAVIS, SOMETIME THE FOOD IS SLOW TO BE SWALLOWED, BUT HE HAS HAD NO KIMBERLEY ASPIRATIONS. WILL BE HAVING BARIUM SWALLOW NEXT WEEK. CONTINUES TO HAVE MILD INTERMITTENT COUGH MAINL CAUSED BY AN URGE TO CLEAR HIS THROAT. THIS IS PARTLY DUE TO ONGOING CHRONIC NASAL ALLERGIES. 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 [facility] Medical History (Updated 10/29/23 @ 12:08 by Biju Zuniga MD) Allergic rhinitis Bursitis of hip, right Osteoarthritis Greater trochanteric pain syndrome Bacterial pneumonia Depression Prostate cancer GERD (gastroesophageal reflux disease) Hyperlipemia Fatty liver Myasthenia gravis Peripheral polyneuropathy Surgical History History of hip replacement H/O prostatectomy Family History Father Hypertension Mother Hypertension Social History Housing: House Alcohol intake: current Alcohol intake frequency: holidays/special occasions only Patient Tobacco Use Status: Former Tobacco user Years Smoked: 40 years ago e-Cigarette/Vaping Use: Never Used Second Hand Smoke Exposure: No service: No Current occupational status: retired Cognitive needs: No Hearing needs: No Vision needs: No Review of Systems Const All systems reviewed & are unremarkable except as noted in HPI and below ENT Reports nasal congestion (Mild nasal congestion with postnasal discharge off and on) and Reports nasal discharge Card Denies chest pain, Denies irregular heart rhythm and Denies leg edema Resp Reports as per HPI GI Reports heartburn (Controlled with famotidine) Reports urinary incontinence (Controlled with med) Musc Reports muscle weakness (Mild weakness in the lower extremity) Skin/Breast Reports system reviewed and no additional complaints, except as documented Neuro Reports paresthesias (In lower extremities) Psych Reports depression (Controlled with med) Endo Reports no additional complaints Lopez/Lymph Reports no additional complaints Aller/Immun Reports no additional complaints Physical Exam Vital Signs: Last Vital Signs Pulse 71 10/29/23 09:58 BP 110/68 10/29/23 09:58 Pulse Ox 93 10/29/23 09:58 Oxygen Delivery Method Room Air 10/29/23 09:58 BMI result Body Mass Index 30.8 Const General: healthy appearing, comfortable, no acute distress, alert and awake Orientation/consciousness: patient oriented x3 HEENT Other: There is the a mild to moderate hypertrophy of the nasal turbinates. Uvula is slightly reddish No other abnormality noted Head: Yes normal to inspection General nose exam: No nasal polyps present, mucous membranes and turbinates abnormal (MODERATE DEGREE OF HYPERTROPHY OF NASAL TURBINATES) and No nasal discharge present Face and sinus: Yes sinuses nontender Mouth: oropharynx normal Throat: Yes posterior oropharynx normal Eyes General: appearance normal, both eyes and all related structures Neck Neck: Yes normal visual inspection, Yes no lymphadenopathy, Yes trachea midline and Yes no JVD Thyroid: Thyroid normal Chest Chest palpation & inspection: normal inspection of the chest, normal palpation of entire chest wall and no tenderness Resp Effort & Inspection: normal respiratory effort Auscultation: clear to auscultation bilaterally, no crackles, no rhonchi and no wheezes Cardio Palpation: normal PMI Rate: regular rate Rhythm: regular rhythm Heart sounds: no gallops and no murmurs Peripheral pulses: Peripheral pulses 2+ throughout GI Palpation (GI): Soft to palpation, nontender, No hepatosplenomegaly present and no masses Auscultation: normal bowel sounds Back/Spine/Pelvis Thoracic/Lumbar Spine: thoracic and lumbar spine normal to inspection Skin General skin exam: no rashes or lesions noted Neuro General: patient oriented x3 and no focal motor deficits Cranial nerves: Yes CN's II-XII intact bilaterally Extrem General: Yes normal to inspection, Yes no clubbing, cyanosis or edema and Yes no calf tenderness Psych Appearance: grossly normal and well kempt Speech and movement: Normal speech and movement present Results Reviewed Results Reviewed: PULMONARY FUNCTION TEST, ESSENTIALLY NORMAL, NO EVIDENCE OF BRONCHIAL ASTHMA OR COPD. Assessment & Plan Assessment & Plan (1) Myasthenia gravis: Comment: PATIENT HAS MYASTHENIA GRAVIS FOR THE PAST 15+ YEARS, CONTROLLED WITH AZATHIAPRINE 50 MG DAILY. THERE IS NO EVIDENCE OF ANY INTERSTITIAL LUNG DISEASE WHICH CAN BE SIDE EFFECT OF HIS OF THIGH UPPER RINSE SOMETIMES. ALSO THE COUGH DOES NOT SEEM TO BE A SIDE EFFECT OF AZATHIOPRINE. FOR POSSIBILITY OF MICRO ASPIRATIONS A MODIFIED BARIUM SWALLOW WAS ORDERED, WHICH IS SCHEDULED FOR NEXT WEEK. Code(s): G70.00 - Myasthenia gravis without (acute) exacerbation Plan: ABOVE (2) Cough: Comment: COUGH SINCE ABOUT 4 MONTHS AGO, NONSPECIFIC, MOST LIKELY SECONDARY TO ALLERGIC RHINITIS WITH POSTNASAL DISCHARGE. PULMONARY FUNCTION TEST IS ESSENTIALLY NORMAL. Code(s): R05.9 - Cough, unspecified Plan: DISCUSSED AND EXPLAINED . TX : USE IPRATROPIUM NASAL SPRAY 1 SPRAY IN EACH NOSTRIL B.I.D. REGULARLY. MAY USE COUGH DROPS NEEDED. ALBUTEROL HFA 2 PUFFS ONLY FOR ANY SUSTAINED BOUTS OF COUGH. (3) Allergic rhinitis: Comment: CHRONIC, PERINEAL, BUT AGGRAVATED DUE TO SEASONAL CHANGES. Code(s): J30.9 - Allergic rhinitis, unspecified Plan: ABOVE UNDER COUGH Medications: Refilled ipratropium bromide administer into each nostril 2 sprays intranasal BID 30 mL 5RF allergic Rhinitis Coding Level of Care Code Est Pt Level 3 (98953) Diagnoses Myasthenia gravis G70.00 Cough R05.9 Allergic rhinitis J30.9
== END 2023-10-29 10:21 | disposition home or self-care (01) ==
PROVIDERS: PCP Nurse Practitioner Family; Visit Provider Internal Medicine
DX: G70.00 Myasthenia gravis without (acute) exacerbation (principal); R05.9 Cough, unspecified; J30.9 Allergic rhinitis, unspecified
CPT/HCPCS: 99213

== ENCOUNTER 2023-10-29 09:14 | Outpatient (REF) | payer MEDICARE, SELFPAY ==
--- NOTE | 2023-10-29 11:51 | PFT_ITS ---
Indication: Dyspnea Spirometry [FEV1 to FVC 74%; FEV1 3.09 L which is 102% predicted; FVC 4.2 L which is 102% predicted. No significant response to bronchodilators noted. Maximum voluntary ventilation 70% predicted] Lung Volumes [Total lung capacity 87% predicted; expiratory reserve volume 10% predicted] Diffusion Capacity [DLCO 70% predicted] Flow volume loop There is some evidence of saw tooth pattern during the inspiratory and expiratory flows with some plateauing of the inspiratory component. This suggest the possibility of vocal cord dysfunction and/or redundant tissue Comparisons [No] Interpretation [No obstructive nor restrictive ventilatory defect 75. No significant response to bronchodilators noted. There is a mild decrease in the maximum voluntary ventilation. Lung volumes are normal except for decrease in the expiratory reserve volume secondary to an elevated BMI. The patient has a mild diffusion impairment. Of note there was some such is patent and the flow volume loop both in the inspiratory-expiratory phase. Also some slight plateauing of the flows during the inspiratory phase pointing out the possibility of vocal cord dysfunction. Clinical correlation warranted.] MTDD
== END 2023-10-29 09:15 | disposition home or self-care (01) ==
LOC: HO.RESP 09:14
PROVIDERS: PCP Nurse Practitioner Family; Visit Provider Internal Medicine
DX: R05.9 Cough, unspecified (principal); G47.00 Insomnia, unspecified; J30.9 Allergic rhinitis, unspecified
CPT/HCPCS: 94010; 94727; 94729; 99212

== ENCOUNTER 2023-11-06 10:10 | Outpatient (REF) | payer MEDICARE, SELFPAY ==
--- NOTE | ~2023-11-06 | FL_ITS ---
EXAMINATION: XR BARIUM SWALLOW CLINICAL INFORMATION: Rule out microaspiration, cough. COMPARISON: None available. TECHNIQUE: Modified barium swallow examination was performed with the assistance of speech pathologist, with real-time fluoroscopic video recording in the fluoroscopy suite during the patient ingestion of both thick and thin barium, also mixed with solids and liquids of varying consistencies. FINDINGS: Single lateral cine image obtained. No definite aspiration was identified. Please refer to the full speech pathology report to follow for details. FLUOROSCOPY TIME: 56 seconds DOSE AREA PRODUCT: 7062 uGy-m2 (microgray-meter squared) FL/FL barium swallow modified IMPRESSION: Modified barium swallow study demonstrating no definite subglottic aspiration event. Please refer to the full speech pathology report to follow for details. Fluoroscopy examination was performed by Rell patricia PA-C under the supervision of Dr. Lima.
--- NOTE | 2023-11-17 19:52 | MHC.SL.IMP ---
Date of Plan of Treatment: 11/06/23 Onset of Symptoms/Illness: 11/06/23 Date Treatment Started: 11/06/23 Admitting Diagnosis: Myasthenia Gravis Primary Speech & Language Diagnosis: R13.12 Oropharyngeal Phase Dysphagia Reason for Today's Visit: 50275 Modified Barium Swallow Study Pre-evaluation Dietary Consistencies: Regular Pre-evaluation Liquid Consistency: Thin Pre-evaluation Medication Administration: Whole with Liquid Oral Motor Exam Facial Symmetry: Normal for Patient Symmetrical Oral Expression Ability: No Impairment Is patient able to manage secretions?: Yes Is patient able to produce volitional cough?: Yes Food and Liquid Trials: Oral Impairment: Lip Closure: 0=No labial escape Oral Impairment: Tongue Control During Bolus Hold: 0=Cohesive bolus between tongue to palatal seal Oral Impairment: Bolus Preparation/Mastication: 0=Timely and efficient chewing and mashing Oral Impairment: Bolus Transport/Lingual Motion: 0=Brisk tongue motion Oral Impairment: Oral Residue: 1=Trace residue lining oral structures Oral Impairment:Initiation of Pharyngeal Swallow: 2=Bolus head at posterior laryngeal surface of epiglottis Pharyngeal Impairment: Soft Palate Elevation: 0=No bolus between soft palate (SP)/pharyngeal wall (PW) Pharyngeal Impairment: Laryngeal Elevation: 0=Complete superior movement of thyroid cartilage (see description) Pharyngeal Impairment: Anterior Hyoid Excursion: 0=Complete anterior movement Pharyngeal Impairment: Epiglottic Movement: 0=Complete inversion Pharyngeal Impairment: Laryngeal Vestibular Closure:: 0=Complete: no air/contrast in laryngeal vestibule Pharyngeal Impairment: Pharyngeal Stripping Wave: 0=Present: complete Pharyngeal Impairment: Pharyngeal Contraction: 0=Complete Pharyngeal Impairment: Pharyngoesophageal Segment Openin=Partial distention/partial duration: partial obstruction of flow Pharyngeal Impairment: Tongue Base (TB) Retraction: 1=Trace column of contrast/air between TB and posterior PW Pharyngeal Impairment: Pharyngeal Residue: 1=Trace residue within or on pharyngeal structures Pharyngeal Impairment: Esophageal Clearance Upright Position: Did not test Impressions and Recommendations Clinical Observations: Current (pre-evaluation) Intake/Diet: Pre-Study Functional Oral Intake Scale (FOIS): 7- Total oral intake with no restrictions MBSImP Results: Lip closure for intraoral bolus containment resulted in no labial escape. Tongue control during bolus hold maintained a cohesive bolus held between tongue to palate seal. Bolus preparation and mastication resulted in timely and efficient chewing and mashing. Bolus transport/lingual motion was with brisk tongue motion. Oral residue was a trace, lining oral structures. Initiation of the pharyngeal swallow occurred as the bolus head was at the posterior laryngeal surface of the epiglottis. Soft palate elevation resulted in no bolus between the soft palate and the pharyngeal wall. Laryngeal elevation demonstrated complete superior movement of the thyroid cartilage with complete approximation of the arytenoids to the epiglottic petiole. Anterior hyoid excursion demonstrated complete anterior movement. Epiglottic movement resulted in complete inversion. Laryngeal vestibular closure was complete, as indicated by no air or contrast within the laryngeal vestibule at the height of the swallow. Pharyngeal stripping wave was present and complete. Pharyngeal contraction could not be determined due to logistical reasons not related to physiologic impairment. Pharyngoesophageal segment opening demonstrated partial distension/partial duration, with partial obstruction of bolus flow. Tongue base retraction allowed a trace column of contrast or air between the retracted tongue base and the posterior pharyngeal wall. Pharyngeal residue was a trace within or on pharyngeal structures. Esophageal clearance in the upright position could not be assessed due to logistical reasons not related to physiologic impairment. Oral Impairment Score: 2 Pharyngeal Impairment Score: 1 (absence of score, component 13) Esophageal Impairment Score: --- (absence of score, component 17) Laryngeal Penetration and Aspiration: Neither penetration nor aspiration was observed in today's study with Cookie, Pudding-thick, Thin. SUMMARY: Pt was provided Thin, Puree, and Regular Solids with Barium Contrast. No penetration or aspiration was observed across trials. Incidental finding of anterior cervical osteophytes between C5 and C6, possibly contributing to intermittent globus sensation with solids. Significant swallow specific findings include moderate retention of contrast in the vallecular space and mildly delayed swallow initiation with the head of the bolus at the posterior edge of the epiglottis. These findings do not show evidence of micro-aspiration. Overall, his swallowing ability is deemed within functional limits. Liquid Intake Recommendation: Thin Liquid Intake Strategies: Unrestricted Dietary Recommendations: Regular Medication Administration: Whole with Liquid Please contact the pharmacy regarding appropriate crushable or liquid drug formulations that are available whenever modified delivery is recommended. Compensatory Strategies Recommended: Sitting Upright (90 deg) Alternate Liquids/Solids Supervision during eating and or drinking: None Needed Recommended Treatments: Compens. Strategy Educat. Recommendation for Speech Therapy: NA:Typical Evaluation Text Comment: Follow-up with referring provider. Timeline to reassess: PRN Bellows Assembler Clinician/Clinical Fellow: No Supervisory Statement: N/A Speech Language Pathologist: Ruben Chopra M.A., [facility]
== END 2023-11-06 10:11 | disposition home or self-care (01) ==
LOC: HO.XRAY 10:10
PROVIDERS: PCP Nurse Practitioner Family; Visit Provider Internal Medicine
DX: R05.9 Cough, unspecified (principal); G70.00 Myasthenia gravis without (acute) exacerbation
CPT/HCPCS: 74230; 92611

== ENCOUNTER → 2023-11-06 10:12 | Outpatient (BNV) | payer MEDICARE, SELFPAY | PROVIDERS: PCP Nurse Practitioner Family; Visit Provider Radiology Diagnostic Radiology | DX: R05.9 Cough, unspecified (principal) | CPT/HCPCS: 74230 ==

== ENCOUNTER 2023-11-18 09:31 | Outpatient (AMB) | payer MEDICARE, SELFPAY ==
[2023-11-18 09:40] VITALS: BP 102/60; PULSE 89; O2SAT 95
--- NOTE | 2023-11-18 09:40 | MHC.OFFVIS ---
Intake Vital Signs 11/18/23 09:40 BP 102/60 Blood Pressure Location Lt brachial Position Sitting Pulse 89 Pulse Source Pulse Oximeter Pulse Oximetry (%) 95 Oxygen Delivery Method Room Air Intake Visit Reasons: Shortness of breath Intake Note: pt is here for sick visit and states he coughing with a deep cough garbled which gets worse in afternoon, clear and white in color. shortness of breath when coughing, will cause dizziness. RSV was 12 days ago. Consulting Actuary Required: No Allergies dicloxacillin Adverse Reaction (Unknown, Verified 11/18/23 12:56) diarrhea Medication List - Last Reconciled 11/18/23 by Biju Zuniga MD albuterol sulfate 90 mcg/actuation (Ventolin HFA) 1 inh inhalation QID PRN atorvastatin 20 mg PO DAILY 90 days azathioprine 50 mg PO DAILY codeine-guaifenesin 10-100 mg/5 mL 10 mL PO Q4-6H PRN 15 days diclofenac sodium 75 mg PO BID doxycycline hyclate 100 mg PO BID 10 days famotidine (Pepcid) 40 mg PO BEDTIME PRN fluoxetine 60 mg (3 x 20 mg) PO DAILY 90 days gabapentin sometimes 3 tablets a day ipratropium bromide 2 sprays intranasal BID losartan 100 mg PO DAILY 90 days oxybutynin chloride 5 mg PO BID 90 days Do you need a note to return to daycare/school/sports/work: No HPI Shortness of breath HPI Details Francois is 73 years old gentleman, followed up by me for intermittent bouts of cough, His ongoing diagnosis is that of myasthenia gravis and possibility of intermittent micro aspirations. Recent barium swallow does not show any pulmonary aspiration . The official. Reading is still pending On his last visit a few weeks ago he was doing well and advised to use albuterol only once in a while. Now but 12 days ago he was seen and it an urgent care clinic cause of acute, respiratory symptoms diagnosed to have RSV infection, Chest x-ray showed a nonspecific his in his in the right cardiophrenic angle, for which he was supposed to have a CT scan at a later date. He has completed a course of azithromycin and prednisone. Comes today because he still has persistent cough and feels congested in the upper chest, with some wheezing. He does not have any fever or chills. Also does not have any chest pain. [facility] Medical History (Updated 11/18/23 @ 12:46 by Biju Zuniga MD) Lung density on x-ray RSV (acute bronchiolitis due to respiratory syncytial virus) Allergic rhinitis Bursitis of hip, right Osteoarthritis Greater trochanteric pain syndrome Bacterial pneumonia Depression Prostate cancer GERD (gastroesophageal reflux disease) Hyperlipemia Fatty liver Myasthenia gravis Peripheral polyneuropathy Surgical History History of hip replacement H/O prostatectomy Family History Father Hypertension Mother Hypertension Social History Housing: House Alcohol intake: current Alcohol intake frequency: holidays/special occasions only Patient Tobacco Use Status: Former Tobacco user Years Smoked: 40 years ago e-Cigarette/Vaping Use: Never Used Second Hand Smoke Exposure: No service: No Current occupational status: retired Cognitive needs: No Hearing needs: No Vision needs: No Review of Systems Const All systems reviewed & are unremarkable except as noted in HPI and below ENT Reports nasal congestion (Mild nasal congestion with postnasal discharge off and on) and Reports nasal discharge Card Denies chest pain, Denies irregular heart rhythm and Denies leg edema Resp Reports as per HPI GI Reports heartburn (Controlled with famotidine) Reports urinary incontinence (Controlled with med) Musc Reports muscle weakness (Mild weakness in the lower extremity) Skin/Breast Reports system reviewed and no additional complaints, except as documented Neuro Reports paresthesias (In lower extremities) Psych Reports depression (Controlled with med) Endo Reports no additional complaints Lopez/Lymph Reports no additional complaints Aller/Immun Reports no additional complaints Physical Exam Vital Signs: Last Vital Signs Pulse 89 11/18/23 09:40 BP 102/60 11/18/23 09:40 Pulse Ox 95 11/18/23 09:40 Oxygen Delivery Method Room Air 11/18/23 09:40 Const General: healthy appearing, comfortable, no acute distress, alert and awake Orientation/consciousness: patient oriented x3 HEENT Other: There is the a mild to moderate hypertrophy of the nasal turbinates. Uvula is slightly reddish No other abnormality noted Head: Yes normal to inspection General nose exam: No nasal polyps present, mucous membranes and turbinates abnormal (MODERATE DEGREE OF HYPERTROPHY OF NASAL TURBINATES) and No nasal discharge present Face and sinus: Yes sinuses nontender Mouth: oropharynx normal Throat: Yes posterior oropharynx normal Eyes General: appearance normal, both eyes and all related structures Neck Neck: Yes normal visual inspection, Yes no lymphadenopathy, Yes trachea midline and Yes no JVD Thyroid: Thyroid normal Chest Chest palpation & inspection: normal inspection of the chest, normal palpation of entire chest wall and no tenderness Resp Other: Percussion note is resonant. Breath sounds are harsh in the upper part of the chest. There are a few scattered inspiratory wheezes, especially in the right upper chest. Cardio Palpation: normal PMI Rate: regular rate Rhythm: regular rhythm Heart sounds: no gallops and no murmurs Peripheral pulses: Peripheral pulses 2+ throughout GI Palpation (GI): Soft to palpation, nontender, No hepatosplenomegaly present and no masses Auscultation: normal bowel sounds Back/Spine/Pelvis Thoracic/Lumbar Spine: thoracic and lumbar spine normal to inspection Skin General skin exam: no rashes or lesions noted Neuro General: patient oriented x3 and no focal motor deficits Cranial nerves: Yes CN's II-XII intact bilaterally Extrem General: Yes normal to inspection, Yes no clubbing, cyanosis or edema and Yes no calf tenderness Psych Appearance: grossly normal and well kempt Speech and movement: Normal speech and movement present Results Reviewed Results Reviewed: CHEST XRAY : I REVIEWED THE IMAGE MYSELF. THERE IS A NONSPECIFIC HIS ANUS IN THE RIGHT CARDIOPHRENIC ANGLE , WAS DESCRIBED ON A CHEST X-RAY TAKEN AT [facility] 2 WEEKS AGO. THERE IS NO EVIDENCE OF ANY DEFINITE PNEUMONITIS. Assessment & Plan Assessment & Plan (1) Cough: Comment: COUGH SINCE ABOUT 4 MONTHS AGO, NONSPECIFIC, MOST LIKELY SECONDARY TO ALLERGIC RHINITIS WITH POSTNASAL DISCHARGE COUGH IS NOW AGGRAVATED BECAUSE OF OR S WE INFECTION. PULMONARY FUNCTION TEST SHOWS: No obstructive or restrictive pulmonary disorder. Inspiratory and expiratory loop showing some irregularity indicates possible vocal cord dysfunction. Code(s): R05.9 - Cough, unspecified Plan: BECAUSE OF SEVERE BOUTS OF COUGH OFF AND ON, HE NEEDS STRONGER COUGH CONTROLLING MED. GUAIFENESIN - CODEINE SYRUP 2 TSP Q 6 HOURS P.R.N. HAS BEEN PRESCRIBED ALSO USE COUGH DROPS P.R.N.. (2) RSV (acute bronchiolitis due to respiratory syncytial virus): Comment: NOTED ABOVE SHE HE HAS RECENT RSV INFECTION. BEING TREATED WITH SYMPTOMATIC TREATMENT. HAS HAD A COURSE OF Z-ROSA M. HE HAS HAD SHORT COURSE OF PREDNISONE. Code(s): J21.0 - Acute bronchiolitis due to respiratory syncytial virus Plan: POST RSV INFECTION SYMPTOMS ARE STILL CONTINUING. TX: PREDNISONE 10 MG A DAY FOR 1 MORE WEEK. GUAIFENESIN-CODEINE SYRUP 1-2 TEASPOONS Q 4-6 HOURS P.R.N.. (3) Lung density on x-ray: Comment: CHEST X-RAY SHOWS A NONSPECIFIC DENSITY IN THE RIGHT CARDIOPHRENIC ANGLE, IT COULD BE DUE TO LOCALIZED ATELECTASIS IS ARE POSSIBLE RESIDUAL PNEUMONIA. Code(s): J98.4 - Other disorders of lung Plan: FOR FURTHER CLARIFICATION HE WILL HAVE A CT SCAN OF THE CHEST AT A LATER DATE. I WILL EMPIRICALLY TREATED WITH DOXYCYCLINE 100 B.I.D. FOR 10 DAYS FOR POSSIBILITY OF PNEUMONITIS. Orders: Orders XR chest 2V Today J21.0 - Acute bronchiolitis due to respiratory syncytial virus, J40 - Bronchitis, not specified as acute or chronic, R05.9 - Cough, unspecified Medications: New doxycycline hyclate 100 mg PO BID 20 tabs 0RF bronchitis 10 days Refilled codeine-guaifenesin 10-100 mg/5 mL 10 mL PO Q4-6H PRN 473 mL 0RF flu symptoms/COUGH 15 days Coding Level of Care Code Est Pt Level 3 (87317) Diagnoses Cough R05.9 RSV (acute bronchiolitis due to respiratory syncytial virus) J21.0 Lung density on x-ray J98.4
== END 2023-11-18 10:23 | disposition home or self-care (01) ==
PROVIDERS: PCP Nurse Practitioner Family; Visit Provider Internal Medicine
DX: R05.9 Cough, unspecified (principal); J21.0 Acute bronchiolitis due to respiratory syncytial virus; J98.4 Other disorders of lung
CPT/HCPCS: 99213

== ENCOUNTER 2023-11-18 09:31 | Outpatient (REF) | payer MEDICARE, SELFPAY ==
--- NOTE | ~2023-11-18 | XR_ITS ---
EXAMINATION: XR CHEST CLINICAL INFORMATION: Bronchitis. COMPARISON: 07/02/2023 TECHNIQUE: 2 views of the chest were obtained. FINDINGS: Lungs are hyperaerated but grossly clear. No pleural effusions. Heart and pulmonary vessels normal. Spondylitic changes seen in the thoracic spine. XR/XR chest 2V IMPRESSION: No active disease.
== END 2023-11-18 09:32 | disposition home or self-care (01) ==
LOC: HO.XRAY 09:31
PROVIDERS: PCP Nurse Practitioner Family; Visit Provider Internal Medicine
DX: R05.9 Cough, unspecified (principal); J21.0 Acute bronchiolitis due to respiratory syncytial virus; J40 Bronchitis, not specified as acute or chronic
CPT/HCPCS: 71046; 99212

== ENCOUNTER 2023-12-09 14:33 | Outpatient (AMB) | payer MEDICARE, SELFPAY ==
[2023-12-09 14:41] VITALS: BP 136/70; PULSE 70; O2SAT 94; BMI 31.7
--- NOTE | 2023-12-09 14:41 | A.OFFVIS_ITS ---
Intake Vital Signs 12/09/23 14:41 Height 5 ft 11 in Weight 227 lb BMI 31.7 BP 136/70 Blood Pressure Location Rt brachial Position Sitting Pulse 70 Pulse Source Pulse Oximeter Pulse Oximetry (%) 94 Oxygen Delivery Method Room Air Intake Visit Reasons: Shortness of breath Allergies dicloxacillin Adverse Reaction (Unknown, Verified 12/09/23 15:03) diarrhea Medication List - Last Reconciled 12/09/23 by Biju Zuniga MD albuterol sulfate 90 mcg/actuation (Ventolin HFA) 1 inh inhalation QID PRN atorvastatin 20 mg PO DAILY 90 days azathioprine 50 mg PO DAILY codeine-guaifenesin 10-100 mg/5 mL 10 mL PO Q4-6H PRN 15 days diclofenac sodium 75 mg PO BID famotidine (Pepcid) 40 mg PO BEDTIME PRN fluoxetine 60 mg (3 x 20 mg) PO DAILY 90 days gabapentin sometimes 3 tablets a day ipratropium bromide 2 sprays intranasal BID losartan 100 mg PO DAILY 90 days oxybutynin chloride 5 mg PO BID 90 days Do you need a note to return to daycare/school/sports/work: No HPI Shortness of breath HPI Details SCOTTIE IS 73 YEARS OLD VERY PLEASANT GENTLEMAN, NONSMOKER, BEING TREATED FOR MYASTHENIA GRAVIS, . WHICH IS WELL CONTROLLED AND STABLE HE HAS HAD INCREASED COUGH FOLLOWING AN RSV INFECTION, HE WAS TREATED WITH A COURSE OF DOXYCYCLINE FOR POSSIBILITY OF THE CHEST INFECTION, AND ALSO WITH ALBUTEROL HFA P.R.N.. HIS SYMPTOMS ARE COMPLETELY RESOLVED. AT PRESENT HE DOES NOT HAVE MUCH COUGH OR SHORTNESS OF BREATH. HE HAS ONLY MILD NASAL CONGESTION OFF AND ON WHICH MAY BE DUE TO ALLERGIC RHI NITIS. BECAUSE OF MYASTHENIA GRAVIS POSSIBILITY OF SOME PULMONARY ASPIRATIONS WERE CONSIDER. HE HAD MODIFIED BARIUM SWALLOW WHICH DID NOT SHOW ANY ASPIRATION, BUT THERE IS DELAYED CLEARANCE OF THE FOOD PARTICLES. [facility] Medical History Lung density on x-ray RSV (acute bronchiolitis due to respiratory syncytial virus) Allergic rhinitis Bursitis of hip, right Osteoarthritis Greater trochanteric pain syndrome Bacterial pneumonia Depression Prostate cancer GERD (gastroesophageal reflux disease) Hyperlipemia Fatty liver Myasthenia gravis Peripheral polyneuropathy Surgical History History of hip replacement H/O prostatectomy Family History Father Hypertension Mother Hypertension Social History Housing: House Alcohol intake: current Alcohol intake frequency: holidays/special occasions only Patient Tobacco Use Status: Former Tobacco user Years Smoked: 40 years ago e-Cigarette/Vaping Use: Never Used Second Hand Smoke Exposure: No service: No Current occupational status: retired Cognitive needs: No Hearing needs: No Vision needs: No Review of Systems Const All systems reviewed & are unremarkable except as noted in HPI and below ENT Reports nasal congestion (Mild nasal congestion with postnasal discharge off and on) and Reports nasal discharge Card Denies chest pain, Denies irregular heart rhythm and Denies leg edema Resp Reports as per HPI GI Reports heartburn (Controlled with famotidine) Reports urinary incontinence (Controlled with med) Musc Reports muscle weakness (Mild weakness in the lower extremity) Skin/Breast Reports system reviewed and no additional complaints, except as documented Neuro Reports paresthesias (In lower extremities) Psych Reports depression (Controlled with med) Endo Reports no additional complaints Lopez/Lymph Reports no additional complaints Aller/Immun Reports no additional complaints Physical Exam Vital Signs: Last Vital Signs Pulse 70 12/09/23 14:41 BP 136/70 12/09/23 14:41 Pulse Ox 94 12/09/23 14:41 Oxygen Delivery Method Room Air 12/09/23 14:41 BMI result Body Mass Index 31.7 Const General: healthy appearing, comfortable, no acute distress, alert and awake Orientation/consciousness: patient oriented x3 HEENT Other: There is the a mild to moderate hypertrophy of the nasal turbinates. Uvula is slightly reddish No other abnormality noted Head: Yes normal to inspection General nose exam: No nasal polyps present, mucous membranes and turbinates abnormal (MODERATE DEGREE OF HYPERTROPHY OF NASAL TURBINATES) and No nasal discharge present Face and sinus: Yes sinuses nontender Mouth: oropharynx normal Throat: Yes posterior oropharynx normal Eyes General: appearance normal, both eyes and all related structures Neck Neck: Yes normal visual inspection, Yes no lymphadenopathy, Yes trachea midline and Yes no JVD Thyroid: Thyroid normal Chest Chest palpation & inspection: normal inspection of the chest, normal palpation of entire chest wall and no tenderness Resp Other: Percussion note is resonant. Breath sounds equal on both sides. He has no wheezes or crepitations, The abnormal findings described on the last visit are completely resolved. Cardio Palpation: normal PMI Rate: regular rate Rhythm: regular rhythm Heart sounds: no gallops and no murmurs Peripheral pulses: Peripheral pulses 2+ throughout GI Palpation (GI): Soft to palpation, nontender, No hepatosplenomegaly present and no masses Auscultation: normal bowel sounds Back/Spine/Pelvis Thoracic/Lumbar Spine: thoracic and lumbar spine normal to inspection Skin General skin exam: no rashes or lesions noted Neuro General: patient oriented x3 and no focal motor deficits Cranial nerves: Yes CN's II-XII intact bilaterally Extrem General: Yes normal to inspection, Yes no clubbing, cyanosis or edema and Yes no calf tenderness Psych Appearance: grossly normal and well kempt Speech and movement: Normal speech and movement present Results Reviewed Results Reviewed: CHEST Xray on 11/18/23 IMPRESSION: No active disease. BARIUM SWALLOW 11/06/23 IMPRESSION: Modified barium swallow study demonstrating no definite subglottic aspiration event. Please refer to the full speech pathology report to follow for details. Fluoroscopy examination was performed by Rell patricia PA-C under the supervision of Dr. Lima. Assessment & Plan Assessment & Plan (1) RSV (acute bronchiolitis due to respiratory syncytial virus): Comment: Had acute bronchitis due to RSV infection , and was initially treated with a course of prednisone and azithromycin, Subsequently treated with doxycycline 100 b.i.d. for 10 days because of persistent symptoms. At present the cough shortness of breath or wheezing is all completely resolved. Code(s): J21.0 - Acute bronchiolitis due to respiratory syncytial virus Plan: No further treatment needed at this time. (2) Allergic rhinitis: Comment: CHRONIC, PERINEAL, BUT AGGRAVATED DUE TO SEASONAL allergies., in active at this time Code(s): J30.9 - Allergic rhinitis, unspecified Plan: Use Atrovent nasal spray 2 sprays in each nostril b.i.d. only p.r.n.. (3) Cough: Comment: COUGH SINCE ABOUT 4 MONTHS AGO, NONSPECIFIC, MOST LIKELY SECONDARY TO ALLERGIC RHINITIS WITH POSTNASAL DISCHARGE COUGH ,THEN AGGRAVATED BECAUSE OF RSV INFECTION, IS NOW COMPLETELY RESOLVED. PULMONARY FUNCTION TEST SHOWED No obstructive or restrictive pulmonary disorder. Inspiratory and expiratory loop showing some irregularity indicates possible vocal cord dysfunction. Code(s): R05.9 - Cough, unspecified Plan: NO ACTIVE TREATMENT NEEDED. MAY USE COUGH MEDICINE ONLY P.R.N. (4) Lung density on x-ray: Comment: CHEST X-RAY AT [facility] SHOWED A NONSPECIFIC DENSITY IN THE RIGHT CARDIOPHRENIC ANGLE, IT COULD BE DUE TO LOCALIZED ATELECTASIS . CHEST XRAY ON 11/18 WAS COMPLETELY NORMAL AND NO DENSITY WAS NOTED. EXPLAINED TO AND REASSURED. Code(s): J98.4 - Other disorders of lung Plan: ABOVE Coding Level of Care Code Est Pt Level 3 (07541) Diagnoses RSV (acute bronchiolitis due to respiratory syncytial virus) J21.0 Allergic rhinitis J30.9 Cough R05.9 Lung density on x-ray J98.4
== END 2023-12-09 16:02 | disposition home or self-care (01) ==
PROVIDERS: PCP Nurse Practitioner Family; Visit Provider Internal Medicine
DX: J21.0 Acute bronchiolitis due to respiratory syncytial virus (principal); J30.9 Allergic rhinitis, unspecified; R05.9 Cough, unspecified; J98.4 Other disorders of lung
CPT/HCPCS: 99213

== ENCOUNTER → 2023-12-09 14:33 | Outpatient (BNVA) | payer MEDICARE, SELFPAY | PROVIDERS: PCP Nurse Practitioner Family; Visit Provider Internal Medicine | DX: J21.0 Acute bronchiolitis due to respiratory syncytial virus (principal); J30.9 Allergic rhinitis, unspecified; R05.9 Cough, unspecified; J98.4 Other disorders of lung | CPT/HCPCS: 99212 ==

== ENCOUNTER 2024-01-26 08:00 | Outpatient (REF) | payer MEDICARE, SELFPAY ==
[2024-01-26 11:40] LABS: MANUAL DIFF FLAG NO
[2024-01-26 11:50] LABS: Basophils Percent Auto 0.7 % (0-2); Eosinophils Absolute Auto 0.5 X10*3/uL (0.0-0.4); Hematocrit 43.1 % (42.0-52.0); Hemoglobin 14.2 g/dl (14.0-18.0); Imm Gran Abs Auto 0.05 X10*3/uL (0.00-0.03); Imm Gran Pct Auto 0.9 % (0.0-0.4); Lymphocytes Absolute Auto 1.2 X10*3/uL (1.2-4.9); Lymphocytes Percent Auto 21.9 % (20-40); Mean Corpuscular HGB Conc 32.9 g/dl (31.0-36.0); Mean Corpuscular Hemoglobin 31.6 pg (27.0-33.0); Mean Corpuscular Volume 95.8 fL (80.0-98.0); Mean Platelet Volume 11.4 fL (9.4-12.4); Monocytes Absolute Auto 0.6 X10*3/uL (0.1-1.2); Monocytes Percent Auto 10.8 % (2-11); Neutrophils Absolute Auto 3.2 x10*3/uL (2.0-8.3); Neutrophils Percent Auto 56.7 % (45-73); Platelet Count 194 X10*3/uL (160-400); Red Cell Distribution Width 13.7 % (11.0-16.0); White Blood Count 5.7 X10*3/uL (4.8-10.8)
[2024-01-26 11:53] LABS: Appearance Urine Turbid; Color Urine Dark Yellow; Glucose Urine UA Negative (Negative); Leukocyte Esterase Urine Trace (Negative); Nitrite Urine Negative (Negative); PH 5.5 (5.0-9.0); UMIC TRIGGER UACC YES; Urine Blood Negative (Negative); Urine Ketones Negative (Negative); Urine Protein Negative (Neg-Trace)
[2024-01-26 12:09] LABS: Bacteria Urine None Seen (None Seen); Calcium Oxalate Crystals Urine Present; Hyaline Casts Urine 0-2 /LPF (0-2); RBC Urine 0-2 /HPF (0-2); Squamous Epithelial Cell Urine 0-2 /HPF (0-2); UACC Culture Trigger YES
[2024-01-26 12:19] LABS: Alanine Aminotransferase 25 U/L (0-40); Albumin Level 3.9 g/dL (3.5-5.0); Alkaline Phosphatase 91 U/L (39-117); Anion Gap 13 (12-20); Aspartate Amino Transferase 25 U/L (5-37); Bilirubin Total 0.3 mg/dL (0.0-1.0); Blood Urea Nitrogen 12 mg/dL (9-16); Calcium 9.4 mg/dL (8.4-10.2); Carbon Dioxide 25 mmol/L (22-29); Chloride 110 mmol/L (96-108); Cholesterol 178 mg/dL (<200); Estimated Glomerular Filt Rate > 60; Glucose Fasting 94 mg/dL (60-99); HDL Cholesterol 33 mg/dL (>40); LDL Cholesterol Calculated 104 mg/dL (<100); Potassium 3.7 mmol/L (3.3-5.1); Sodium 144 mmol/L (135-145); TSH reflex Free T4 0.85 uIU/mL (0.32-4.0); Total Protein 6.8 g/dL (6.5-8.0); Triglycerides 206 mg/dL (<150)
== END 2024-01-26 08:01 | disposition home or self-care (01) ==
LOC: HO.HMGCLDS 08:00
PROVIDERS: PCP Nurse Practitioner Family; Visit Provider Nurse Practitioner Family
DX: I10 Essential (primary) hypertension (principal); R82.90 Unspecified abnormal findings in urine
CPT/HCPCS: 36415; 80053; 80061; 81001; 84443; 85025; 87086

== ENCOUNTER 2024-03-04 13:04 | Outpatient (AMB) | payer MEDICARE, SELFPAY ==
[2024-03-04 13:33] VITALS: BP 118/70; PULSE 61; TEMP 36.9; O2SAT 95; BMI 31.5
--- NOTE | 2024-03-04 13:33 | AM.OFFWIN_ITS ---
Intake Vital Signs 03/04/24 13:33 Height 5 ft 11 in Weight 226 lb BMI 31.5 BP 118/70 Blood Pressure Location Lt brachial Position Sitting Pulse 61 Pulse Source Pulse Oximeter Temp 98.4 F Temp Source Temporal Artery Scan Pulse Oximetry (%) 95 Oxygen Delivery Method Room Air Intake Visit Reasons: Light Headed (lobby) Intake Note: pt is here today for light headed started 3 days ago tingling Patient Tobacco Use Status: Former Tobacco user Allergies dicloxacillin Adverse Reaction (Unknown, Verified 03/04/24 13:38) diarrhea Do you need a note to return to daycare/school/sports/work: No HPI HPI Comments History of Present Illness Details 73-year-old male presents today complain ing of several near syncopal episodes over the last few days. He also relates to having very low blood blood pressure readings at home. The latest of which was 94/58. He has no longer on antihypertensives. He relates to having some chest pressure but denies chest pain denies shortness of breath his biggest complaint is dizziness and near- syncope [facility] Medical History (Updated 03/04/24 @ 14:25 by MORRO Dupree) Lung density on x-ray RSV (acute bronchiolitis due to respiratory syncytial virus) Allergic rhinitis Bursitis of hip, right Osteoarthritis Greater trochanteric pain syndrome Bacterial pneumonia Depression Prostate cancer GERD (gastroesophageal reflux disease) Hyperlipemia Fatty liver Myasthenia gravis Peripheral polyneuropathy Surgical History (Updated 02/10/24 @ 17:49 by Francois Adam, [facility]) H/O microdiscectomy History of lumbar laminectomy History of hip replacement H/O prostatectomy Family History Father Hypertension Mother Hypertension Social History Housing: House Alcohol intake: current Alcohol intake frequency: holidays/special occasions only Patient Tobacco Use Status: Former Tobacco user Years Smoked: 40 years ago e-Cigarette/Vaping Use: Never Used Second Hand Smoke Exposure: No service: No Current occupational status: retired Cognitive needs: No Hearing needs: No Vision needs: No Review of Systems Const All systems reviewed & are unremarkable except as noted in HPI and below Reports fatigue and Reports weakness Eyes Reports no additional complaints ENT Reports no additional complaints Card Reports chest pain at rest, Reports irregular heart rhythm and Reports lightheadedness Resp Reports no additional complaints GI Reports no additional complaints Neuro Reports weakness Endo Reports fatigue Physical Exam Vital Signs: Last Vital Signs Temp 98.4 F 03/04/24 13:33 Pulse 61 03/04/24 13:33 BP 118/70 03/04/24 13:33 Pulse Ox 95 03/04/24 13:33 Oxygen Delivery Method Room Air 03/04/24 13:33 BMI result Body Mass Index 31.5 HEENT Head: Yes normal to inspection, Yes normocephalic and Yes atraumatic Ears: hearing grossly normal bilaterally General nose exam: Normal external nose present Face and sinus: Yes normal facial exam Resp Effort & Inspection: normal respiratory effort Auscultation: clear to auscultation bilaterally Cardio Rate: bradycardic Rhythm: abnormal rhythm Results Reviewed Results Reviewed: EKG done today shows marked sinus arrhythmia with premature atrial complexes. Should be evaluated for heart block Assessment & Plan Assessment & Plan (1) Cardiac arrhythmia: Code(s): I49.9 - Cardiac arrhythmia, unspecified Plan: The patient will go to the emergency department. His will drive him. Follow up with his PCP after this visit Plan See plan Coding Level of Care Code Est Pt Level 3 (87286) Diagnoses Cardiac arrhythmia I49.9
== END 2024-03-04 14:32 | disposition home or self-care (01) ==
PROVIDERS: PCP Nurse Practitioner Family; Visit Provider Physician Assistant Medical
DX: I49.9 Cardiac arrhythmia, unspecified (principal)
CPT/HCPCS: 99213

== ENCOUNTER 2024-04-08 09:24 | Outpatient (REF) | payer MEDICARE, SELFPAY ==
--- NOTE | ~2024-04-08 | MR_ITS ---
EXAMINATION: MR BRAIN WITHOUT AND WITH CONTRAST CLINICAL INFORMATION: Encephalopathy, myasthenia gravis COMPARISON: CT head on 07/05/2019 TECHNIQUE: Multiplanar, multisequence MRI of the brain was obtained before and after the intravenous administration of 10 mL Gadavist. FINDINGS: No acute intracranial hemorrhage or infarct. Confluent periventricular and deep white matter T2/FLAIR hyperintensities, nonspecific however commonly seen with small vessel ischemic disease. No abnormal intraparenchymal enhancement. No midline shift or hydrocephalus. No acute extra-axial fluid collections. The osseous structures are unremarkable. The pituitary gland, pineal gland and remaining midline structures are unremarkable. No orbital pathology. The paranasal sinuses and mastoid air cells are clear. MR/MR head/brain wo/w con IMPRESSION: No acute intracranial abnormality.
[2024-04-08] MEDS: gadobutroL 10 ML VIAL IVPUSH (10:30)
== END 2024-04-08 09:25 | disposition home or self-care (01) ==
LOC: HO.MRI 09:24
PROVIDERS: PCP Nurse Practitioner Family; Visit Provider Psychiatry & Neurology Neurology
DX: G93.40 Encephalopathy, unspecified (principal); G70.00 Myasthenia gravis without (acute) exacerbation
CPT/HCPCS: 70553; A9585

== ENCOUNTER 2024-04-25 09:34 | Outpatient (REF) | payer MEDICARE, SELFPAY ==
[2024-04-25 11:51] LABS: Folate 10.6 ng/mL (> or = 4.0); Vitamin B12 538 pg/mL (200-900)
[2024-04-27 12:14] LABS: Lyme Blot 1.48 index
[2024-04-28 10:58] LABS: Lyme Abs Screen POSITIVE
[2024-04-28 20:44] LABS: 18 KD (IgG) Band NON-REACTIVE; 23 KD (IgG) Band NON-REACTIVE; 23 KD (IgM) Band REACTIVE; 28 KD (IgG) Band NON-REACTIVE; 30 KD (IgG) Band NON-REACTIVE; 39 KD (IgM) Band NON-REACTIVE; 39KD (IgG) Band NON-REACTIVE; 41 KD (IgM) Band NON-REACTIVE; 41KD (IgG) Band REACTIVE; 45 KD (IgG) Band NON-REACTIVE; 58 KD (IgG) Band NON-REACTIVE; 66 KD (IgG) Band NON-REACTIVE; 93 KD (IgG) Band NON-REACTIVE; Lyme IgG Blot Interp NEGATIVE (NEGATIVE); Lyme IgM Blot Interp NEGATIVE (NEGATIVE)
== END 2024-04-25 09:35 | disposition home or self-care (01) ==
LOC: HO.LAB 09:34
PROVIDERS: PCP Nurse Practitioner Family; Visit Provider Psychiatry & Neurology Neurology
DX: G30.9 Alzheimer's disease, unspecified (principal)
CPT/HCPCS: 36415; 82607; 82746; 86617; 86618

== ENCOUNTER 2024-04-28 13:01 | Outpatient (AMB) | payer MEDICARE, SELFPAY ==
--- NOTE | 2024-04-28 13:03 | A.OFFPC_ITS ---
Vital Signs 04/28/24 13:06 Height 5 ft 11 in Weight 217 lb BMI 30.3 BP 110/74 Blood Pressure Location Lt brachial Position Sitting Pulse 72 Pulse Source Pulse Oximeter Pulse Oximetry (%) 97 Oxygen Delivery Method Room Air Intake Visit Reasons: follow up rescheduled Intake Note: Patient here for HTN/arrhythmias Allergies dicloxacillin Adverse Reaction (Unknown, Verified 04/28/24 17:06) diarrhea Medication List - Last Reconciled 04/28/24 by SHANNAN Haile albuterol sulfate 90 mcg/actuation (Ventolin HFA) 1 inh inhalation QID PRN atorvastatin 20 mg PO DAILY 90 days azathioprine 50 mg PO DAILY fluoxetine 60 mg (3 x 20 mg) PO DAILY 90 days gabapentin sometimes 3 tablets a day losartan 100 mg PO DAILY 90 days oxybutynin chloride 5 mg PO BID 90 days Tobacco use date assessed: 04/28/24 Fall risk assessment: No Falls in past year Last assessed Fall Risk: 04/28/24 Dental Screening Dental Screen Date: 04/28/24 Did you have a dental visit in the last 12 months?: No Did you have a dental problem in the last 6 months where you did not have access to dental care?: No Was dental information given to patient?: No HPI follow up rescheduled HPI Details Pt had a recent MRI of his brain which was negative for acute findings. This was reviewed by pt's neurologist who recommended a PET scan. There was a ? of alzheimer's. Pt had a recent heart monitor that he wore for 1 week due to near syncopal episodes. This showed sinus rhythm with rates ranging from 55 to 133 bpm, supraventricular ectopy 4.1%, ventricular ectopy <0.1%, 130 runs of SVT with longest run 793 beats, longest run lasted 6 minutes, patient activated events correlated with PACs. Will refer to cardiology (Dr. Gibson per pt's request). Pt is following up with neurosurgery. Denies chest pain, shortness of breath, headache, dizziness, blurred vision, vertigo, and headache. [facility] Medical History (Updated 04/28/24 @ 13:53 by SHANNAN Haile) Lung density on x-ray RSV (acute bronchiolitis due to respiratory syncytial virus) Allergic rhinitis Bursitis of hip, right Osteoarthritis Greater trochanteric pain syndrome Bacterial pneumonia Depression Prostate cancer GERD (gastroesophageal reflux disease) Hyperlipemia Fatty liver Myasthenia gravis Peripheral polyneuropathy Surgical History (Updated 02/10/24 @ 17:49 by Francois Adam [facility]) H/O microdiscectomy History of lumbar laminectomy History of hip replacement H/O prostatectomy Family History Father Hypertension Mother Hypertension Social History Housing: House Alcohol intake: current Alcohol intake frequency: holidays/special occasions only Patient Tobacco Use Status: Former Tobacco user Years Smoked: 40 years ago e-Cigarette/Vaping Use: Never Used Second Hand Smoke Exposure: No service: No Current occupational status: retired Cognitive needs: No Hearing needs: No Vision needs: No Questionnaire PHQ-9 Over the last 2 weeks, how often have you been bothered by any of the following problems? 85247 - PHQ-9 Billing: Patient declined-do not bill Source: Developed by Drs. Avelino Arteaga, Robin Chang and colleagues, with an educational kamilah from [employer]. Thrive Questionnaire Date Thrive assessed: 09/29/23 MARTIN-7 AMB Questionnaire MARTIN-7 Date MARTIN - 7 assessed: 09/29/23 Source: Developed by Drs. Avelino Arteaga, Robin Chang and colleagues, with an educational kamilah from [employer]. MARTIN-7 Assessment Billing MARTIN-7 Assessment Tool: pt declined-do not bill Review of Systems Const Reports as per HPI Physical exam (Primary Care) Vital Signs: Last Vital Signs Pulse 72 04/28/24 13:06 BP 110/74 04/28/24 13:06 Pulse Ox 97 04/28/24 13:06 Oxygen Delivery Method Room Air 04/28/24 13:06 BMI result Body Mass Index 30.3 Tobacco/Smoking Status: Tobacco use Status Tobacco use date assessed 04/28/24 04/28/24 13:11 Patient Tobacco Use Status Former Tobacco user 04/28/24 13:04 e-Cigarette/Vaping Use Never Used 04/28/24 13:04 Thrive Assessment: Date of Thrive Assessment Date Thrive assessed 09/29/23 04/28/24 13:04 Const General: cooperative Orientation/consciousness: patient oriented x3 Resp Effort & Inspection: normal respiratory effort Auscultation: clear to auscultation bilaterally Cardio Rate: regular rate Rhythm: regular rhythm Heart sounds: S1 normal heart sound present and S2 normal heart sound present Neuro General: patient oriented x3 Extrem Right lower extremity: edema (trace) Left lower extremity: edema (trace) Psych Appearance: grossly normal Mental Status: mental status grossly normal Speech and movement: Normal speech and movement present Affect: normal affect Attitude: cooperative Thought process: Normal thought process present Thought content: Normal thought content present Insight: Good insight present (Psych) Judgement: Good judgement present (Psych) Assessment and Plan Assessment & Plan (1) Cardiac arrhythmia: Code(s): I49.9 - Cardiac arrhythmia, unspecified Plan: Referring to cardiology (2) SVT (supraventricular tachycardia): Code(s): I47.10 - Supraventricular tachycardia, unspecified Plan: Referring to cardiology (3) Myasthenia gravis: Code(s): G70.00 - Myasthenia gravis without (acute) exacerbation Plan: Following up with neurology (4) Screening PSA (prostate specific antigen): Code(s): Z12.5 - Encounter for screening for malignant neoplasm of prostate Plan: PSA ordered Plan The patient agreed to the use of a associate medical director for this encounter. Scribed for SHANNAN Almendarez by Sirisha Sparrow associate medical director, on 04/28/2024 at 13:20 EST. Orders: Orders Complete Blood Count Auto Diff Today I47.10 - Supraventricular tachycardia, unspecified Comprehensive Met. Panel Today I47.10 - Supraventricular tachycardia, unspecified TSH reflex Free T4 Today I47.10 - Supraventricular tachycardia, unspecified UA CC w/rflx Micro + Cult Today I47.10 - Supraventricular tachycardia, unspeci fied Tick-borne Disease Molecular Today I47.10 - Supraventricular tachycardia, unspecified, I49.9 - Cardiac arrhythmia, unspecified AMB EKG-In Office Today I47.10 - Supraventricular tachycardia, unspecified, I49.9 - Cardiac arrhythmia, unspecified CA echo transthoracic complete Today I47.10 - Supraventricular tachycardia, unspecified Prostate Specific Antigen Scr Today Z12.5 - Encounter for screening for malignant neoplasm of prostate Referrals Cardiology Referral I49.9 - Cardiac arrhythmia, unspecified Coding Level of Care Code Est Pt Level 3 (29031) Diagnoses Cardiac arrhythmia I49.9 SVT (supraventricular tachycardia) I47.10 Myasthenia gravis G70.00 Screening PSA (prostate specific antigen) Z12.5
[2024-04-28 13:06] VITALS: BP 110/74; PULSE 72; O2SAT 97; BMI 30.3
== END 2024-04-28 14:31 | disposition home or self-care (01) ==
PROVIDERS: PCP Nurse Practitioner Family; Visit Provider Nurse Practitioner Family
DX: I49.9 Cardiac arrhythmia, unspecified (principal); I47.10 Supraventricular tachycardia, unspecified; G70.00 Myasthenia gravis without (acute) exacerbation; Z12.5 Encounter for screening for malignant neoplasm of prostate
CPT/HCPCS: 99213

== ENCOUNTER 2024-04-28 14:18 | Outpatient (REF) | payer MEDICARE, SELFPAY ==
[2024-04-28 16:00] LABS: Appearance Urine Clear; Color Urine Dark Yellow; Glucose Urine UA Negative (Negative); Leukocyte Esterase Urine Negative (Negative); Nitrite Urine Negative (Negative); PH 5.5 (5.0-9.0); Specific Gravity - Urine 1.025 (1.005-1.025); Urine Blood Negative (Negative); Urine Ketones Negative (Negative); Urine Protein Negative (Neg-Trace)
[2024-04-28 16:04] LABS: MANUAL DIFF FLAG NO
[2024-04-28 16:19] LABS: Basophils Absolute Auto 0.1 X10*3/uL (0.0-0.2); Basophils Percent Auto 0.7 % (0-2); Eosinophils Absolute Auto 0.2 X10*3/uL (0.0-0.4); Hematocrit 45.2 % (42.0-52.0); Imm Gran Abs Auto 0.06 X10*3/uL (0.00-0.03); Imm Gran Pct Auto 0.9 % (0.0-0.4); Lymphocytes Absolute Auto 1.7 X10*3/uL (1.2-4.9); Lymphocytes Percent Auto 24.4 % (20-40); Mean Corpuscular HGB Conc 33.2 g/dl (31.0-36.0); Mean Corpuscular Hemoglobin 30.8 pg (27.0-33.0); Mean Corpuscular Volume 92.8 fL (80.0-98.0); Mean Platelet Volume 11.6 fL (9.4-12.4); Monocytes Absolute Auto 0.8 X10*3/uL (0.1-1.2); Monocytes Percent Auto 12.1 % (2-11); Neutrophils Percent Auto 58.9 % (45-73); Platelet Count 200 X10*3/uL (160-400); Red Blood Count 4.87 X10*6/uL (4.60-5.80); Red Cell Distribution Width 13.8 % (11.0-16.0); White Blood Count 6.8 X10*3/uL (4.8-10.8)
[2024-04-28 16:38] LABS: Alanine Aminotransferase 24 U/L (0-40); Albumin Level 4.4 g/dL (3.5-5.0); Alkaline Phosphatase 107 U/L (39-117); Anion Gap 10 (12-20); Aspartate Amino Transferase 23 U/L (5-37); Bilirubin Total 0.4 mg/dL (0.0-1.0); Blood Urea Nitrogen 20 mg/dL (9-16); Calcium 10.2 mg/dL (8.4-10.2); Carbon Dioxide 32 mmol/L (22-29); Chloride 105 mmol/L (96-108); Estimated Glomerular Filt Rate > 60; Glucose Random 81 mg/dL (60-115); Potassium 4.4 mmol/L (3.3-5.1); Sodium 143 mmol/L (135-145); Total Protein 7.2 g/dL (6.5-8.0)
[2024-04-28 16:53] LABS: Prostate Specific Antigen Scr < 0.10 ng/mL (<0.05-4.0)
[2024-05-02 15:12] LABS: A. Phagocytphilium DNA,RT-PCR NOT DETECTED (NOT DETECTED); Babesia Microti DNA, RT-PCR NOT DETECTED (NOT DETECTED); Borrelia Miyamotoi,DNA RT-PCR NOT DETECTED (NOT DETECTED); E.Chaffeensis DNA RT-PCR NOT DETECTED (NOT DETECTED); Lyme(Borrelia ssp)DNA RT-PCR NOT DETECTED (NOT DETECTED)
== END 2024-04-28 14:19 | disposition home or self-care (01) ==
LOC: HO.HMGCLDS 14:18
PROVIDERS: PCP Nurse Practitioner Family; Visit Provider Nurse Practitioner Family
DX: I10 Essential (primary) hypertension (principal); I47.10 Supraventricular tachycardia, unspecified; I49.9 Cardiac arrhythmia, unspecified; Z12.5 Encounter for screening for malignant neoplasm of prostate
CPT/HCPCS: 36415; 80053; 81003; 84153; 84443; 85025; 87468; 87469; 87478; 87484; 87798

== ENCOUNTER → 2024-05-06 07:53 | Outpatient (REF) | payer MEDICARE, SELFPAY ==
--- NOTE | 2024-05-06 07:56 | CA_ITS ---
Transthoracic Echocardiogram Patient (Last, First, Middle): Francois Gutierrez L Gender: Male Date of : 1950 Age: 73 Procedure Date: 05/06/2024 Procedure Type: Transthoracic Echocardiogram Location: OP Height: 180.34 cm Weight: 98.43 kg BSA: 2.18 m2 Heart Rate: 56 bpm BP: 114 / 78 mmHg Instant Potato Processor: SB Referring MD: Francois Adam [facility] Symptoms: I47.10 - Supraventricular tachycardia, unspecified Study Quality: Fair but adequate ECG Rhythm: Sinus Conclusions: - The left ventricular systolic function is normal. The calculated ejection fraction is 62% by biplane method. - No obvious valvular pathology seen on this study. Findings Left Ventricle Normal left ventricular cavity size. The left ventricular systolic function is normal. The calculated ejection fraction is 62% by biplane method. There is no evidence of regional wall motion abnormalities. Diastolic function is normal for age. There is mild septal asymmetric hypertrophy. Right Ventricle Normal right ventricular cavity size and systolic function. Atria Both atria are normal in size. Aortic Valve There is a normal trileaflet aortic valve. There is no aortic valve stenosis. There is no aortic valve regurgitation. Mitral Valve The mitral valve appears normal. There is no mitral valve regurgitation. There is no mitral valve stenosis. Pulmonic Valve The pulmonic valve is likely normal. Tricuspid Valve Normal tricuspid valve structure. There is trace tricuspid valve regurgitation. There is no evidence of pulmonary hypertension. Great Vessels The asc aorta is normal in size. Venous The inferior vena cava was not well visualized. Pericardium/Pleural There is no evidence of pericardial effusion. Prior Study Comparison No significant change compared to prior study dated: 04/13/2017. Recommendations, Care & Conclusions No obvious valvular pathology seen on this study. Measurements 2D Linear Measurements IVSd: 1.09 0.6-0.9/0.6-1.0 cm LVIDd: 5.33 3.9-5.3/4.2-5.9 cm LVIDd Index: 2.44 2.4-3.2/2.2-3.1 cm/m2 LVIDs: 3.19 2.0-3.6 cm LVPWd: 0.90 0.7-1.1 cm LA Diam: 3.70 2.7-3.8/3.0-4.0 cm LAIDs Index: 1.70 1.5-2.3 cm/m2 LV Mass: 249.60 67-162/88-224 g LV Mass Index: 114.50 43-95/49-115 g/m2 LVOT Diam: 2.40 3.0+(-)1.3 cm 2D Systolic Function EF 4C: 63.50 >55% EF 2C: 63.60 >55% EF BiP: 62.30 >55% Mitral Valve MV Pk E: 0.63 MV PK A: 0.73 MV Decel Time: 201.00 E/A: 0.90 E'Lateral: 9.03 E'Medial: 6.64 E/E' Med: 9.50 E/E' Lat: 7.00 PHT: 59.00 MVA PHT: 3.73 Decel [place]: 3.13 Aortic Valve AoV Pk Terrance: 1.15 AoV Pk Grad: 5.00 ERNIE: 4.29 LVOT LVOT Pk Terrance: 1.11 LVOT Mn Terrance: 0.77 LVOT VTI: 0.25 LVOT Pk Grad: 5.00 LVOT Mn Grad: 3.00 LVOT Diam: 2.40 LVOT Area: 4.52 Diastolic Function MV Pk E: 0.63 MV Pk A: 0.73 E/A: 0.90 E'Medial: 6.64 E/E' Med: 9.50 E' Laterial: 9.03 E/E' Lat: 7.00 Right Ventricle TAPSE (mm): 29.00 TVS' Terrance: 14.90 Tricuspid Valve TR Pk Terrance: 2.12 TR Pk Grad: 18.00 RA Press: 3.00 RVSP: 21.00 Great Vessels Aorta Sinus of Valsalva: 3.40 2.0-3.5 cm Ao Asc: 3.30 2.1-3.4 cm Ao Arch: 3.00 Pulmonary Valve PV Pk Terrance: 1.38 Peak PV Grad: 8.00 Updated in Other Vendor System with Status of Final Luis Daniel Mullen MD electronically signed on 05/07/2024 12:58:33 PM with status of Final
== END ==
LOC: HO.CARD 07:53
PROVIDERS: Visit Provider Nurse Practitioner Family
DX: I47.10 Supraventricular tachycardia, unspecified (principal)
CPT/HCPCS: 93306

== ENCOUNTER → 2024-05-06 07:56 | Outpatient (BNV) | payer MEDICARE, SELFPAY | PROVIDERS: Visit Provider Internal Medicine | DX: I42.2 Other hypertrophic cardiomyopathy (principal) | CPT/HCPCS: 93306 ==

== ENCOUNTER 2024-08-11 08:43 | Outpatient (AMB) | payer MEDICARE, SELFPAY ==
--- NOTE | 2024-08-11 08:47 | AM.OFFVISMDC ---
Intake Vital Signs 08/11/24 08:48 Height 5 ft 11 in Weight 214 lb BMI 29.8 BP 110/68 Blood Pressure Location Rt brachial Position Sitting Pulse 66 Pulse Source Pulse Oximeter Pulse Oximetry (%) 96 Intake Visit Reasons: SWV G0439 Allergies dicloxacillin Adverse Reaction (Unknown, Verified 08/11/24 09:51) diarrhea Medication List - Last Reconciled 08/11/24 by SHANNAN Haile albuterol sulfate 90 mcg/actuation (Ventolin HFA) 1 inh inhalation QID PRN atorvastatin 20 mg PO DAILY 90 days azathioprine 50 mg PO DAILY fluoxetine 60 mg (3 x 20 mg) PO DAILY 90 days gabapentin sometimes 3 tablets a day losartan 100 mg PO DAILY 90 days oxybutynin chloride 5 mg PO BID 90 days Do you need a note to return to daycare/school/sports/work: No HPI SWV G0439 HPI Details Pt is here for an SWV. Denies fever, chills, and dizziness. Callender of care in scan pile. PPP will be scanned in chart and copy will be given to pt. [facility] Medical History Lung density on x-ray RSV (acute bronchiolitis due to respiratory syncytial virus) Allergic rhinitis Bursitis of hip, right Osteoarthritis Greater trochanteric pain syndrome Bacterial pneumonia Depression Prostate cancer GERD (gastroesophageal reflux disease) Hyperlipemia Fatty liver Myasthenia gravis Peripheral polyneuropathy Surgical History H/O microdiscectomy History of lumbar laminectomy History of hip replacement H/O prostatectomy Family History Father Hypertension Mother Hypertension Social History Housing: House Alcohol intake: current Alcohol intake frequency: holidays/special occasions only Patient Tobacco Use Status: Former Tobacco user Years Smoked: 40 years ago e-Cigarette/Vaping Use: Never Used Second Hand Smoke Exposure: No service: No Current occupational status: retired Cognitive needs: No Hearing needs: No Vision needs: No Questionnaire Medicare Wellness Checkup [age] What gender do you identify with?: male During the past 4 weeks, how much have you been bothered by emotional problems such as feeling anxious, depressed, irritable, sad or downhearted, and blue?: slightly During the past 4 weeks, has your physical & emotional health limited your social activities with family, friends, neighbors, or groups?: not at all During the past 4 weeks, how much bodily pain have you generally had?: mild pain During the past 4 weeks, was someone available to help you if you needed & wanted help?: no, not at all During the past 4 weeks, what was the hardest physical activity you could do for at least 2 minutes?: heavy Can you get to places out of walking distance without help? (For eg., can you travel alone on buses, taxis or drive your car?): Yes Can you go shopping for groceries or clothes without someone's help?: Yes Can you prepare your own meals?: Yes Can you do your housework without help?: Yes Because of any health problems, do you need the help of another person with your personal care needs such as eating, bathing, dressing or getting around the house?: No Can you handle your own money without help?: Yes During the past 4 weeks, how would you rate your health in general?: very good During the past 4 weeks how have things been going for you?: very well; could hardly better Are you having difficulties driving your car?: no Do you always fasten your seat belt when you are in a car?: yes, usually During past 4 weeks, have you been bothered by the following: never: Falling or dizzy when standing up, Sexual problems?, Trouble eating well?, Teeth or denture problems?, Problems using the telephone? and Tiredness or fatigue? Have you fallen 2 or more times in the past year?: No Are you afraid of falling?: No Are you a smoker?: no During the past 4 weeks, how many drinks of wine, beer, or other alcoholic beverages did you have?: 2-5 drinks per week Do you exercise for about 20 minutes 3 or more times a week?: yes, most of the time Have you been given information to help with the following?: no: Hazards in your house that might hurt you? and no: Keeping track of your medications? How often do you have trouble taking medicines the way you have been told to take them?: I do not have to take medicine How confident are you that you can control & manage most of your health problems?: very confident What is your race?: White Mini Mental State Exam (MMSE) Orientation What is the (year) (season) (date) (day) (month)?: year, season, date, day and month Where are we (state) (county) (town or city) (hospital) (floor)?: state, county, town or city, hospital/clinic and floor Registration Name of 3 unrelated objects clearly and slowly, then ask patient to repeat all 3 of them. (1st repeat determines score. Make sure they can repeat all three): object 1, object 2 and object 3 Attention & Calculation (CHOOSE ONE) Spell WORLD backwards (DLROW): 5 letters Recall Ask patient to repeat the 3 items from question #3.: object 1, object 2 and object 3 Language Show patient a wristwatch & ask what it is. Repeat for pencil.: watch and pencil Ask the patient to repeat the phrase 'No ifs, ands, or buts' after you.: correct Ask the patient to 'take a piece of paper with their right hand' 'fold paper in half' 'place paper on floor': take paper in right hand, fold paper in half and place paper on floor Print the sentence 'CLOSE YOUR EYES' on a piece. If patient actually closes eyes then score.: followed written direction Give patient a blank piece of paper & ask to write a sentence. Score if it contains a noun & verb.: sentence contains subject and verb Ask patient to copy figure of intersecting pentagons exactly. Score if all 10 angles & 2 intersects are included.: all 10 angles present & 2 are intersected Score Score: 30 Activity of Daily Living Bathing - sponge bath, tub bath or shower: receives no assistance (gets in/out by self, if usual bathing means Dressing - getting clothes from closets & drawers, including inner/outer garments & fasteners.: gets clothes & gets completely dressed without help Toileting - going to the 'toilet room' for urine/bowel elimination & cleaning self/arranging clothes: goes to toilet room, cleans self, arranges clothes without help Transfer: moves in & out of bed and chair without help (may use support object) Continence: controls urination/bowel movements completely by self Feeding: feeds self without help Total Score: 0 Information obtained from: patient Using telephone: independent Traveling: independent Shopping: independent Preparing meals: independent Housework: independent Taking medicine: independent Managing money: independent PHQ-9 Over the last 2 weeks, how often have you been bothered by any of the following problems? 1. Little interest or pleasure in doing things: not at all 2. Feeling down, depressed, or hopeless: not at all 3. Trouble falling or staying asleep, or sleeping too much: not at all 4. Feeling tired or having little energy: not at all 5. Poor appetite or overeating: not at all 6. Feeling bad about yourself - or that you are a failure or have let yourself or your family down: several days 7. Trouble concentrating on things, such as reading the newspaper or watching television: not at all 8. Moving or speaking so slowly that other people could have noticed. Or the opposite - being so fidgety or restless that you have been moving around a lot more than usual: not at all 9. Thoughts that you would be better off or of hurting yourself in some way: not at all Total score: 1 Depression Screening Interpretation: Negative Depression Screening Done: Yes 87259 - PHQ-9 Billing: Yes Source: Developed by Drs. Avelino Arteaga, Mehreen Groves, Robin Coronado and colleagues, with an educational kamilah from [employer]. Review of Systems Const Reports as per HPI Physical Exam Vital Signs: Last Vital Signs Pulse 66 08/11/24 08:48 BP 110/68 08/11/24 08:48 Pulse Ox 96 08/11/24 08:48 BMI result Body Mass Index 29.8 Const General: cooperative Orientation/consciousness: patient oriented x3 Neuro Other: - romberg, can tandem walk, can walk and turn, can rise from sitting to standing, passed whisper test General: patient oriented x3 Psych Appearance: grossly normal Mental Status: mental status grossly normal Speech and movement: Normal speech and movement present Affect: normal affect Attitude: cooperative Thought process: Normal thought process present Thought content: Normal thought content present Insight: Good insight present (Psych) Judgement: Good judgement present (Psych) Assessment & Plan Assessment & Plan (1) Encounter for subsequent annual wellness visit (AWV) in Medicare patient: Code(s): Z00.00 - Encounter for general adult medical examination without abnormal findings Plan The patient agreed to the use of a medical insurance verifier for this encounter. Scribed for LYNSEY Almendarez-RAJAN by Sirisha Sparrow medical insurance verifier, on 08/11/2024 at 09:10 EST. Quality Reporting (2019) Depression/Bipolar (159/160/161/177) PHQ-9: Total score: 1 Coding Level of Care Code Medicare Subsequent (G0439) Diagnoses Encounter for subsequent annual wellness visit (AWV) in Medicare patient Z00.00 CPT Codes Advance Care Planning - Time spent: 1-15 minutes, on File ([id number]) Advance Care Planning Forms completed: Health Care Proxy (form given to pt), MOLST (form given to pt to fill out at home) and Living will (done, according to to pt) Time spent: 1-15 minutes, on File Actual minutes spent: 15
[2024-08-11 08:48] VITALS: BP 110/68; PULSE 66; O2SAT 96; BMI 29.8
== END 2024-08-11 10:58 | disposition home or self-care (01) ==
PROVIDERS: Visit Provider Nurse Practitioner Family
DX: Z00.00 Encounter for general adult medical examination without abnormal findings (principal)

== ENCOUNTER → 2024-08-11 08:43 | Outpatient (BNVA) | payer MEDICARE, SELFPAY | PROVIDERS: Visit Provider Nurse Practitioner Family ==

== ENCOUNTER 2024-12-15 07:57 | Outpatient (AMB) | payer MEDICARE, SELFPAY ==
[2024-12-15 07:59] VITALS: BP 112/72; PULSE 70; RESP 12; TEMP 36.6; O2SAT 97; BMI 30.4
--- NOTE | 2024-12-15 07:59 | A.OFFPC_ITS ---
Vital Signs 12/15/24 07:59 Height 5 ft 11 in Weight 218 lb BMI 30.4 BP 112/72 Blood Pressure Location Lt brachial Position Sitting Respiration 12 Pulse 70 Pulse Source Pulse Oximeter Temp 97.8 F Temp Source Oral Pulse Oximetry (%) 97 Oxygen Delivery Method Room Air Intake Visit Reasons: 4m follow up Intake Note: pt is here for 4 mon f/up Rf Engineer Required: No Accompanied by: Self / Same As Patient Allergies dicloxacillin Adverse Reaction (Unknown, Verified 12/15/24 08:16) diarrhea Medication List - Last Reconciled 12/15/24 by Francois Adam, P[employer]ER [employer]- albuterol sulfate 90 mcg/actuation (Ventolin HFA) 1 inh inhalation QID PRN amiodarone 100 mg PO DAILY atorvastatin 20 mg PO DAILY 90 days azathioprine 50 mg PO DAILY diclofenac sodium 75 mg PO BID diltiazem HCl ER 120 mg PO DAILY gabapentin sometimes 3 tablets a day losartan 100 mg PO DAILY 90 days oxybutynin chloride 5 mg PO BID 90 days Tobacco use date assessed: 12/15/24 Fall risk assessment: No Falls in past year Last assessed Fall Risk: 12/15/24 Dental Screening Dental Screen Date: 12/15/24 Did you have a dental visit in the last 12 months?: Yes Did you have a dental problem in the last 6 months where you did not have access to dental care?: No Was dental information given to patient?: Patient has dentist HPI 4m follow up HPI Details Chief Complaint The patient presents for a follow-up visit regarding atrial tachycardia and supraventricular tachycardia. History of Present Illness The patient is a 74-year-old male presenting with a follow-up for atrial tachycardia and supraventricular tachycardia. He is under the care of a ca rdiology team in [place] and currently has a loop recorder in place. He reports a significant decrease in the frequency of episodes, having experienced no episodes over the last two weeks. Previously, the episodes were occurring on a daily basis. The patient attributes this improvement to the commencement of amiodarone therapy, which has been beneficial. He denies experiencing any chest pain, shortness of breath, dizziness, or headaches at present. Additionally, the patient has ongoing right hip pain and right knee pain, for which he plans to see an medical specialist and undergo injections soon. He will be traveling to [place] for approximately one month in a week and a half. Social History - Planning to travel to [place] for appro ximately one month in the near future. - No further social history details prov ided. Health Maintenance - Encouraged to identify the nearest [facility] in [place] prior to travel. - Recommended obtaining laboratory tests before departure on the upcoming trip. Review of Systems - Cardiovascular: Denies chest pain. - Respiratory: Denies shortness of breat h. - Neurological: Denies dizziness and hea daches. Physical Exam General: Cooperative, healthy appearing, comfortable, no acute distress and well developed Orientation: Patient oriented x3 Limitations: abnormal gait due to hip discomfort Head: Normal to inspection Ears: Hearing grossly normal bilaterally Nose: Normal external nose present Face and sinus: Normal facial exam Eyes: Appearance normal, both eyes and all related structures Neck: Normal visual inspection and Yes full ROM Respiratory: Fairly clear Cardiovascular: Regular rate and rhythm. Normal S1 and S2 GI: Normal to inspection. Soft to palpation and nontender Skin: No rashes or lesions noted Neuro: Patient oriented x3 Extremities: Normal to inspection Results Plan - The patient will continue to follow up with the cardiology team regarding atrial tachycardia and SVT. - Encouraged to get laboratory tests bef ore travel. - The patient will see an orthopedic spe cialist for right hip and knee pain, with planned injections. - Advised to ascertain the location of [facility] nearest hospital during travel. Patient was informed and verbally consented to the use of an ambient scribe for clinic note documentation during this visit. Discussion Notes I discussed with the patient the improvement in symptoms of atrial tachycardia and SVT with amiodarone treatment. We agreed on the importance of follow-up care with both the cardiology and orthopedics teams. I emphasized the necessity to have laboratory tests completed before his upcoming travel. Furthermore, I advised him to be aware of the nearest hospital location during his stay in [place]. A follow-up appointment was planned for approximately three to four months from now. Patient Instructions - Continue current medication regimen as prescribed by cardiology. - Schedule and complete the recommended lab tests prior to traveling. - Follow up with the orthopedic speciali st for joint pain and planned injections. - Be informed of the nearest healthcare facility in [place] for safety. - Return for follow-up care in three to four months as previously discussed. [facility] Medical History Lung density on x-ray RSV (acute bronchiolitis due to respiratory syncytial virus) Allergic rhinitis Bursitis of hip, right Osteoarthritis Greater trochanteric pain syndrome Bacterial pneumonia Depression Prostate cancer GERD (gastroesophageal reflux disease) Hyperlipemia Fatty liver Myasthenia gravis Peripheral polyneuropathy Surgical History H/O microdiscectomy History of lumbar laminectomy History of hip replacement H/O prostatectomy Family History Father Hypertension Mother Hypertension Social History Housing: House Alcohol intake: current Alcohol intake frequency: holidays/special occasions only Patient Tobacco Use Status: Former Tobacco user Years Smoked: 40 years ago e-Cigarette/Vaping Use: Never Used Second Hand Smoke Exposure: No service: No Current occupational status: retired Cognitive needs: No Hearing needs: No Vision needs: No Questionnaire PHQ-9 Over the last 2 weeks, how often have you been bothered by any of the following problems? 1. Little interest or pleasure in doing things: not at all 2. Feeling down, depressed, or hopeless: not at all 3. Trouble falling or staying asleep, or sleeping too much: not at all 4. Feeling tired or having little energy: not at all 5. Poor appetite or overeating: not at all 6. Feeling bad about yourself - or that you are a failure or have let yourself or your family down: not at all 7. Trouble concentrating on things, such as reading the newspaper or watching television: not at all 8. Moving or speaking so slowly that other people could have noticed. Or the opposite - being so fidgety or restless that you have been moving around a lot more than usual: not at all 9. Thoughts that you would be better off or of hurting yourself in some way: not at all Total score: 0 Depression Screening Interpretation: Negative Depression Screening Done: Yes 71638 - PHQ-9 Billing: Yes Source: Developed by Drs. Avelino Arteaga, Mehreen Groves, Robin Coronado and colleagues, with an educational kamilah from [employer]. Thrive Questionnaire Date Thrive assessed: 12/15/24 I am a: Patient What is your living situation today?: I have a steady place to live Within the past 12 months, did the food you bought not last and you didn't have the money to get more?: Never true Within the past 12 months, did you worry whether your food would run out before you got money to buy more?: Never true Do you have trouble paying for medicines?: No Do you have trouble getting transportation to medical appointments?: No Do you have trouble paying your heating and electricity bill?: No Do you have trouble taking care of your child, family member or friend?: No Do you have trouble with day-to-day activities such as bathing, preparing meals, shopping, managing finances, etc.?: No Are you currently unemployed and looking for a job?: No Are you interested in more education?: No Please select the resources that you would like help with: None Currently or been in a relationship where the following occur: No concerns reported THRIVE Score: 0 AUDIT C Alcohol Use Questionnaire (AUDIT-C) 1. How often do you have a drink containing alcohol?: 2-3 times a week 2. How many drinks containing alcohol do you have on a typical day when you are drinking?: 1 or 2 3. How often do you have six or more drinks on one occasion?: Never Total Score: 3 Score Reviewed/Action Taken: Yes MARTIN-7 AMB Questionnaire MARTIN-7 Date MARTIN - 7 assessed: 12/15/24 Feeling nervous, anxious, or on edge: 0 = Not at all Not being able to stop or control worryin = Not at all Worrying too much about different things: 0 = Not at all Trouble relaxin = Not at all Being so restless that it is hard to sit still: 0 = Not at all Becoming easily annoyed or irritable: 0 = Not at all Feeling afraid as if something awful might happen: 0 = Not at all Total MARTIN-7 score (0-4 normal; 5-9 mild; 10-14 moderate; 15-21 severe): 0 Source: Developed by Drs. Avelino Arteaga, Mehreen Groves, Robin Coronado and colleagues, with an educational kamilah from [employer]. MARTIN-7 Assessment Billing MARTIN-7 Assessment Tool: MARTIN-7 Assessment 54583 Physical exam (Primary Care) Vital Signs: Last Vital Signs Temp 97.8 F 12/15/24 07:59 Pulse 70 12/15/24 07:59 Resp 12 12/15/24 07:59 BP 112/72 12/15/24 07:59 Pulse Ox 97 12/15/24 07:59 Oxygen Delivery Method Room Air 12/15/24 07:59 BMI result Body Mass Index 30.4 Tobacco/Smoking Status: Tobacco use Status Tobacco use date assessed 12/15/24 12/15/24 08:01 Patient Tobacco Use Status Former Tobacco user 12/15/24 08:01 e-Cigarette/Vaping Use Never Used 12/15/24 08:01 PHQ-9: PHQ-9 Score PHQ-9: Total score 0 12/15/24 08:10 Depression Screening Interpretation: Negative Thrive Assessment: Date of Thrive Assessment Date Thrive assessed 12/15/24 12/15/24 08:01 Currently or been in a relationship where the following occur: No concerns reported Coding Level of Care Code Est Pt Level 3 (25495) Diagnoses SVT (supraventricular tachycardia) I47.10 Atrial tachycardia I47.19 Cardiac arrhythmia I49.9 Additional Codes MARTIN-7 Assessment Billing - MARTIN-7 Assessment Tool: MARTIN-7 Assessment 25262 ([id number]) PHQ-9 - 27417 - PHQ-9 Billing: Yes ([id number]) Assessment & Plan Assessment & Plan (1) SVT (supraventricular tachycardia): Code(s): I47.10 - Supraventricular tachycardia, unspecified Category: Medical (2) Atrial tachycardia: Code(s): I47.19 - Other supraventricular tachycardia Category: Medical (3) Cardiac arrhythmia: Code(s): I49.9 - Cardiac arrhythmia, unspecified Category: Medical Plan . Orders: Orders Complete Blood Count Auto Diff Today I47.10 - Supraventricular tachycardia, unspecified, I47.19 - Other supraventricular tachycardia, I49.9 - Cardiac arrhythmia, unspecified Comprehensive [place]. Panel Fast Today I47.10 - Supraventricular tachycardia, unspecified, I47.19 - Other supraventricular tachycardia, I49.9 - Cardiac arrhythmia, unspecified UA CC w/rflx Micro + Cult Today I47.10 - Supraventricular tachycardia, unspecified, I47.19 - Other supraventricular tachycardia, I49.9 - Cardiac arrhythmia, unspecified TSH reflex Free T4 Today I47.10 - Supraventricular tachycardia, unspecified, I47.19 - Other supraventricular tachycardia, I49.9 - Cardiac arrhythmia, unspecified Lipid Panel Today I47.10 - Supraventricular tachycardia, unspecified, I47.19 - Other supraventricular tachycardia, I49.9 - Cardiac arrhythmia, unspecified Medications: Refilled oxybutynin chloride 5 mg PO BID 90 days 180 tabs 1RF
--- OUTSIDE RECORDS SUMMARY | 2024-12-15 08:02 | XMS_ITS | Data Portability ---
Author Organization [place] - [facility], [facility] Address [address] [place] [address] Care Team Providers Care Dean Of Student Services Name Role Phone SCOTTIE HERNANDEZ Primary Care Provider Assessment Encounter Date Assessment Date Assessment LastModified by Organization Details LastModified Time 03/16/2024 03/16/2024 73-year-old man status post lumbar microdiscectomy 6 weeks out. Doing quite well. Started on PT for functionality. Natural history reviewed and questions answered. Follow-up to be arranged. Not available 03/16/2024 16:54:57 04/21/2024 04/21/2024 73-year-old man status post lumbar microdiscectomy L4-5 left 10 weeks ago did well. Now has some right leg symptoms consistent with disc irritation. No focal deficits. Anticipate gradual resolution. Will increase his gabapentin to twice a day and start him on a prednisone burst. Follow-up in a few weeks time for recheck. Natural history reviewed and questions answered. Not available 04/21/2024 16:42:34 05/20/2024 05/20/2024 73-year-old man with lumbar radiculopathy stenosis status post decompression. Now doing well. Exercise and weight loss programs outlined. Tylenol and gabapentin as needed. Follow-up to be arranged. Not available 05/20/2024 15:52:27 11/01/2024 11/01/2024 Imaging: Imaging ordered, independently reviewed and interpreted by Fabrice Guadarrama MD reveals the following findings: XR Hip Right Hip: Two views of the hip were obtained including AP pelvis and groin lateral views. Mild DJD present. Changes consistent with osteoarthritis including subtle joint space narrowing, subchondral sclerosis, and osteophyte formation. Arthrosis primarily affects the superior compartment. Prior imaging is available to review of the patient's knees from 2020 XR Knee Right Knee: Four views of the knee were obtained including AP, graham, sunrise, and lateral views. Severe DJD present. Changes consistent with osteoarthritis including joint space narrowing, subchondral sclerosis, and osteophyte formation. Arthrosis primariliy affects the lateral compartment. Alignment: Valgus Impression: Right hip osteoarthritis, right knee osteoarthritis Plan: I had a fairly lengthy discussion with Scottie today regarding his hip and his knee. The next diagnostic and therapeutic step I would recommend for his hip is an intra-articular steroid injection. I explained to him that the lidocaine portion of this injection would alleviate any pain from inside his hip joint for the first few hours after the injection and if he notices that the pain in his lateral hip girdle and groin disappears immediately following the injection, that is consistent with intra-articular hip pathology. I also explained to him that he can experience referred pain to his knee, and that if he receives no pain relief from the knee injection I provided him today but then his knee pain disappears after his hip injection, then it is likely that his knee pain is coming from referred pain. Follow up as symptoms dictate [email or web address] Not available 11/01/2024 12:36:25 Plan of Treatment Reminders Order Date Submit Date Provider Last Modified By Organization Details Last Modified Time Details Appointments INTRA HIP INJECTIO N 2024 11:00A M Diego Garcia PA-C Not available Not available Not available RECHECK 15 2024 09:45A Carlie Frost PA-C Not available Not available Not available Lab None recorded . Referral None recorded . Procedures None recorded . Surgeries None recorded . Imaging XR, hip + pelvis, unilater al, 2 or 3 view - New right hip, room 201 2023 024 [facility], [address], [facility] [address], [place], [address], 11/22/2024 08:57:43 Medication Orders predniso ne 20 mg tablet 2023 [id number] [address], [place], [id number], 11/01/2024 10:49:54 Patient TargetsNo targets recorded. Patient Instructions Encounter Date Encounter Id Patient Instructions Last Modified By Organization Details Last Modified Time 11/02/2024 post-injection education, corticosteroid [email or web address] Not available 11/02/2024 14:32:14 Reason for Referral None Reported. Results Created Date Observation Date Name Description Value Unit Range Abnormal Flag Note LastModifiedBy Organization Detail LastModifiedTime 07/23/2008/19/2023 imagi ng/di agnos tic resul t No observ ation record ed. [email or web address] Not Available 06/25 00:24:18 07/23/20 24 10/30/2023 imagi ng/di agnos tic resul t No observ ation record ed. [email or web address] Not Available 06/25 00:24:22 07/23/20 24 07/21/2023 imagi ng/di agnos tic resul t No observ ation record ed. [email or web address] Not Available 06/25 00:24:26 07/23/20 24 07/21/2023 imagi ng/di agnos tic resul t No observ ation record ed. [email or web address] Not Available 06/25 00:24:27 07/23/20 24 09/16/2023 imagi ng/di agnos tic resul t No observ ation record ed. [email or web address] Not Available 06/25 00:24:35 07/23/20 24 09/16/2023 imagi ng/di agnos tic resul t No observ ation record ed. [email or web address] Not Available 06/25 00:24:36 07/23/20 24 09/16/2023 imagi ng/di agnos tic resul t No observ ation record ed. [email or web address] Not Available 06/25 00:24:37 07/23/20 24 11/29/2022 imagi ng/di agnos tic resul t No observ ation record ed. [email or web address] Not Available 06/25 00:24:41 07/23/20 24 11/29/2022 imagi ng/di agnos tic resul t No observ ation record ed. [email or web address] Not Available 06/25 00:24:42 07/23/20 24 09/13/2021 imagi ng/di agnos tic resul t No observ ation record ed. [email or web address] Not Available 06/25 00:25:42 07/23/20 24 09/12/2021 imagi ng/di agnos tic resul t No observ ation record ed. [email or web address] Not Available 06/25 00:25:43 11/01/20 24 11/01/2024 XR, hip + pelvi s, unila teral , 2 or 3 view http:/ [email or web address] ?Encry pted=s hAaTro YD8dLq bEUv6g %2BXZw aYqtaq 0bqfl% 2Fg9IQ a4ajBk vP9nXo QUaueC m3YtLR FvZlgJ JJ8mAn HZtai3 6m1682 AC0Kqb n2EU6u lKiQtr MwF INTERFACE [facility] Office [address], [place], [address], 11/01/2024 11:18:17 Result Notes None recorded. Problems Name Problem SNOMED Code Status Onset Date Resolution Date Notes Provider Name and Address Organization Details Recorded Time No complaints 766914094 Active Status : 'I'; Not Available [facility] 4 09:16:02 Arthritis of right hip 0038792770890 101 Active 2023 MEDINA salter [place] - [facility] 4 11:09:51 Osteoarthr itis of right knee joint 1444329006498 00 Active 2023 Fabrice Guadarrama MD [address], [place], [address] , [facility] - [facility] 4 12:36:15 Osteoarthr itis of hip 879375423 Active 2023 Kelsy Frost PA-C [address], [place], [address] , [facility] 14:42:33 Problem Notes None recorded. Procedures Surgical History Date Name Laterality Status Provider Name and Address Organization Details Recorded Time 4 JZHip US completed Kelsy Frost PA-C [address], [place], [address], [facility] 11/01/2024 14:42:11 4 Knee Kenalog 1cc L/R completed Fabrice Guadarrama MD [address], [place], [address], [facility] 11/01/2024 12:36:49 4 Spine Surgery completed MEDINA ORDOÑEZ [facility] 11/01/2024 11:01:57 Imaging Results Imaging Date Name Status LastModified by Organiz ation Details LastModified Time 08/19/2023 imaging/diag nostic result completed Information not available 07/23/2024 00:24:18 10/30/2023 imaging/diag nostic result completed Information not available 07/23/2024 00:24:22 07/21/2023 imaging/diag nostic result completed Information not available 07/23/2024 00:24:26 07/21/2023 imaging/diag nostic result completed Information not available 07/23/2024 00:24:27 09/16/2023 imaging/diag nostic result completed Information not available 07/23/2024 00:24:35 09/16/2023 imaging/diag nostic result completed Information not available 07/23/2024 00:24:36 09/16/2023 imaging/diag nostic result completed Information not available 07/23/2024 00:24:37 11/29/2022 imaging/diag nostic result completed Information not available 07/23/2024 00:24:41 11/29/2022 imaging/diag nostic result completed Information not available 07/23/2024 00:24:42 09/13/2021 imaging/diag nostic result completed Information not available 07/23/2024 00:25:42 09/12/2021 imaging/diag nostic result completed Information not available 07/23/2024 00:25:43 11/01/2024 XR, hip + pelvis, unilateral, 2 or 3 view completed INTERFACE [facility] Office [address], [place], [address], 11/01/2024 11:18:17 Procedure Notes None recorded. Medical Equipment None Reported. Allergies Allergen ID Allergen Name Allergen Category Reaction Reaction Severity Criticality Documentation Date Start Date Code Code System Note Provider Name and Address Organization Details Recorded Time 229948 doxycycli ne Not available Not available Not available Not available 11/01/2024 3640 RxNorm MEDINA salter [place] - [facility] 10:44:10 Medications Name Sig Start Date Stop Date Status Note LastModified by Organization Details LastModified Time amoxicillin 500 mg capsule TAKE 4 CAPSULES BY MOUTH 1 HOUR PRIOR TO DENTAL APPOINTME NT 11/01 completed Not Available Not Available Not Available atorvastati n 20 mg tablet active Not Available Not Available Not Available azithromyci n 250 mg tablet TAKE 2 TABLETS BY MOUTH FOR 1 DAY THEN TAKE 1 TABLET BY MOUTH DAILY FOR 4 DAYS 11/01 completed Not Available Not Available Not Available tizanidine 4 mg tablet TAKE 1 TABLET BY MOUTH THREE TIMES DAILY 11/01 completed Not Available Not Available Not Available benzonatate 200 mg capsule TAKE 1 CAPSULE BY MOUTH THREE TIMES DAILY FOR 10 DAYS 11/01 completed Not Available Not Available Not Available prednisone 20 mg tablet TAKE 1 TABLET BY MOUTH EVERY DAY FOR 5 DAYS 11/01 completed Not Available Not Available Not Available azathioprin e 50 mg tablet active Not Available Not Available Not Available tramadol 50 mg tablet TAKE 1 TABLET BY MOUTH EVERY 8 HOURS DIRECTED NEEDED FOR SEVERE PAIN. DO NOT DRIVE WHILE TAKING THIS MEDICATIO N 11/01 completed Not Available Not Available Not Available benzonatate 100 mg capsule TAKE 1 CAPSULE BY MOUTH 2 TO 3 TIMES A DAY NEEDED FOR COUGH 11/01 completed Not Available Not Available Not Available prednisone 50 mg tablet TAKE 1 TABLET BY MOUTH DAILY IN THE MORNING FOR 5 DAYS 11/01 completed Not Available Not Available Not Available diltiazem ER (XR/XT) 120 mg capsule,ext ended release 24 hr, controlled active Not Available Not Available N ot Available gabapentin 300 mg capsule active Not Available Not Available Not Available buspirone 7.5 mg tablet TAKE 1 TABLET BY MOUTH TWICE DAILY 11/01 completed Not Available Not Available Not Available diclofenac sodium 75 mg tablet,vikas yed release TAKE 1 TABLET TWICE A DAY DIRECTED active Not Available Not Available No t Available codeine 10 mg-guaifene sin 100 mg/5 mL oral liquid TAKE 10 ML BY MOUTH EVERY 4 TO 6 HOURS NEEDED FOR FLU SYMPTOMS 11/01 completed Not Available Not Available Not Available oxycodone-a cetaminophe n 7.5 mg-325 mg tablet TAKE 1 TABLET BY MOUTH EVERY 6 HOURS NEEDED FOR PAIN 11/01 completed Not Available Not Available Not Available albuterol sulfate HFA 90 mcg/actuati on aerosol inhaler INHALE 1 TO 2 PUFFS EVERY 4 TO 6 HOURS NEEDED 11/01 completed Not Available Not Available Not Available oxybutynin chloride 5 mg tablet active Not Available Not Available No t Available losartan 100 mg tablet active Not Available Not Available Not Available fluoxetine 20 mg capsule active Not Available Not Available Not Available doxycycline hyclate 100 mg tablet TAKE 1 TABLET BY MOUTH TWICE DAILY FOR 10 DAYS FOR BRONCHITI S 11/01 completed Not Available Not Available Not Available ipratropium bromide 21 mcg (0.03 %) nasal spray USE 2 SPRAYS IN EACH NOSTRIL TWICE DAILY FOR ALLERGIC RHINITIS 11/01 completed Not Available Not Available Not Available amoxicillin 875 mg-potassiu m clavulanate 125 mg tablet TAKE 1 TABLET BY MOUTH EVERY 12 HOURS 11/01 completed Not Available Not Available Not Available oxycodone 5 mg tablet TAKE 2 TABLETS BY MOUTH EVERY 4 HOURS NEEDED FOR MODERATE PAIN. MAY TAKE LESS 11/01 completed Not Available Not Available Not Available tizanidine 2 mg capsule TAKE 1 CAPSULE BY MOUTH THREE TIMES DAILY NEEDED FOR MUSCLE SPASM. MAY CAUSE DROWSINES S 11/01 completed Not Available Not Available Not Available Dilacor XR 2023 active Not Available Not Available Not Avai labjohn Vitals Date Recorded Body height Body mass index (BMI) Body weight Provider Name and Address Organization Details Last Updated DateTime 03/16/2024 180.34 cm 29.4 kg/m2 21539.99 g Nila riveraandrea [facility] 03/16/2024 15:01:40 Date Recorded Body height Body mass index (BMI) Body weight Provider Name and Address Organization Details Last Updated DateTime 04/21/2024 180.34 cm 30 kg/m2 38732.36 g [facility] 04/21/2024 15:49:55 Date Recorded Body height Body mass index (BMI) Body weight Provider Name and Address Organization Details Last Updated DateTime 05/20/2024 180.34 cm 30 kg/m2 40324.36 g [facility] 05/20/2024 14:49:07 Date Recorded Body height Body mass index (BMI) Body weight Provider Name and Address Organization Details Last Updated DateTime 11/01/2024 175.26 cm 32.2 kg/m2 65930.14 g MEDINA ORDOÑEZ [facility] 11/01/2024 11:09:34 Date Recorded Body height Body mass index (BMI) Body weight Provider Name and Address Organization Details Last Updated DateTime 11/02/2024 175.26 cm 32.2 kg/m2 32685.14 g DAVID PADRON [facility] 11/02/2024 14:03:31 Social History None recorded. Functional Status None recorded. Mental Status None recorded. Family History Nothing Reported. Medical History Condition Response Allergies/Hayfever N Coronary Artery Disease N Anxiety/Depression N Breathing or lung disorders N Emphysema N Nerve Disorders N Thyroid Problems N COPD N Pacemaker N Anemia N Kidney/Bladder Problems Y Vascular Disease N Heart Trouble Y Heart Attack (TN) N Gastrointestinal Disease N Cholesterol Y Diabetes N Autoimmune disease N Inflammatory Joint disease N Bleeding Disorder N Orthotics N Arthritis N Seizures/Epilepsy N Blood Clot N AIDS/HIV N Congestive Heart Failure (CHF) N Acid Reflux (GERD) N Cancer Y Stroke N Asthma N Circulation Problems N Peripheral Vascular Disease N Sleep Apnea N Hepatitis N Heart Disease N Rheumatoid Arthritis N Arrhythmia N Pulmonary Embolism N Headaches N Fibromyalgia N Hypertension Y Osteoporosis N Past Encounters Encounter ID Performer Location Encounter Start Date Encounter Closed Date Diagnosis/Indication Diagnosis SNOMED-CT Code Diagnosis ICD10 Code Diagnosis Note [id number] Avelino Petersen MD [place] [address] [place] [address] 02/17/2024 08:54:30 03/07/2024 14:25:57 Low back pain 801603168 M54.50 [id number] Avelino Petersen MD [place] [address] [place] [address] 03/16/2024 14:19:17 04/05/2024 15:55:59 [id number] Avelino Petersen MD [place] [address] [place] [address] 04/21/2024 14:47:31 05/19/2024 11:16:14 Lumbar radiculopathy 151953046 M54.16 [id number] Avelino Petersen MD [place] [address] [place] [address] 05/20/2024 14:12:44 06/23/2024 12:37:04 Lumbar radiculopathy 694094345 M54.16 [id number] Fabrice Guadarrama MD [facility] [address] [place] [address] 11/01/2024 10:33:45 11/22/2024 08:57:43 Arthritis of right hip 8589107732 036099 M16.11 Osteoarthr itis of right knee joint 8953466487 88377 M17.11 [id number] Kelsy Frost PA-C [facility] [address] [place] [address] 11/02/2024 14:00:18 11/28/2024 10:13:25 Osteoarthritis of hip 743819520 M16.9 M16.11 After a long discussion with the patient which included the risk and benefits of the procedure. The patient is interested in proceeding with ultrasound guided {{Right* L eft}} intra-jordy cular hip injection. After consent was obtained we proceeded with injection. Risks of the procedure were discussed with patient including worsening osteoarthr itis, small risk to blood vessels and tendons and nerves.Aft er consent was obtained from the patient. Under normal sterile fashion using chlorhexid ine, under ultrasound guidance, neurovascu lar bundle was first identified and then 2 cc of 1% lidocaine 1 cc of 40 mg of Kenalog was injected intra-jordy cularly into the patient's hip. Ultrasound documentat ion was saved into PACS. Patient tolerated procedure well. Postproced ure protocol was discussed with the patient. Patient will contact with any questions or worsening symptoms. Follow-up as discussed Health Concerns Section Related Observation LastModified by Organization Detai ls LastModified Time None Recorded Concern Status LastModified by Organization Details LastModified Time None Recorded Advance Directives Directive None Recorded Payers Encounter Date Sequence Insurance Name Policy Number Policy Solorzano Covered Member ID Solorzano Member ID Guarantor Name 03/16/2024 2 [place] [id number] Scottie Gutierrez [id number] Scottie Gutierrez 03/16/2024 1 [place] Scottie Gutierrez [id number] Scottie Gutierrez 04/21/2024 2 [place] [id number] Scottie Gutierrez [id number] Scottie Gutierrez 04/21/2024 1 [place] Scottie Gutierrez [id number] Scottie Gutierrez 05/20/2024 2 [place] [id number] Scottie Gutierrez [id number] Scottie Gutierrez 05/20/2024 1 [place] Scottie Gutierrez [id number] Scottie Gutierrez 11/01/2024 2 [place] [id number] Scottie Gutierrez [id number] Scottie Gutierrez 11/01/2024 1 [place] Scottie Gutierrez [id number] Scottie Gutierrez 11/02/2024 2 [place] [id number] Scottie Baileyon [id number] 19 Scottie Gutierrez 11/02/2024 1 [place] Scottie Gutierrez [id number] 4 Scottie Gutierrez Notes Date Note Type Note Provider Name and Address Organization Details Recorded Time 03/16/2024 text/html HPI: 73-year-old man now 6 weeks status post decompression discectomy L4-5 left. Doing quite well. 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 Transitions easily and ambulates without difficulty. Back range of motion about 80% of normal and nontender. No focal deficits identified distally Avelino Petersen MD [address], [place], [address], [facility] 03/16/2024 16:55:13 04/21/2024 text/html HPI: 73-year-old man status post L4-5 microdiscectomy left 10 weeks ago. Did well. Developed some right leg pain 3 weeks ago. Consistent with sciatica. Worse with activities and particularly standing. No bowel or bladder complaints numbness or weakness described. Takes gabapentin. Xnpk-non-zvcaldb products. 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 Developed some right leg pain last visit. Started on some anti-inflammatory medication and exercise program. Leg pain is now resolved. Has some back pain. Still playing golf and riding his bike. 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 He previously had his left hip replaced by Dr. Holloway and did extremely well from that procedure. He has been having some pain in the lateral hip girdle of his right hip as well as some pain in the groin, and this And concern for the possibility of right hip osteoarthritis. He also reports right knee pain which has recently been worsening, he states that he has never had injections in his right knee.Past family, medical, social history and review of systems has been reviewed and updated, and is located in the patient? s chart. Fabrice Guadarrama MD [address], [place], [address], [facility] 11/01/2024 12:37:05 11/02/2024 text/html I am seeing the patient under the general supervision of {{Dr. Nickerson* Dr. Thierry Oviedo}} who was available but who did not see the patient. Pleasant {{ 74#}} year old {{female male*}} who has known diagnosis of {{right* left bilater al}} hip {{osteoarthritis* lab ral tear}}. Presents today for ultrasound-guided intraarticular cortisone injection. Continues to localize pain to the medial groin. No adverse reactions or side effects from previous injections. No new fall or injury. No neurovascular changes. Kelsy Frost PA-C [address], [place], [address], [facility] 11/02/2024 14:32:27
== END 2024-12-15 08:38 | disposition home or self-care (01) ==
PROVIDERS: PCP Nurse Practitioner Family; Visit Provider Nurse Practitioner Family
DX: I47.10 Supraventricular tachycardia, unspecified (principal); I47.19 Other supraventricular tachycardia; I49.9 Cardiac arrhythmia, unspecified

== ENCOUNTER → 2024-12-15 07:57 | Outpatient (BNVA) | payer MEDICARE, SELFPAY | PROVIDERS: PCP Nurse Practitioner Family; Visit Provider Nurse Practitioner Family | DX: I47.19 Other supraventricular tachycardia (principal); I49.9 Cardiac arrhythmia, unspecified | CPT/HCPCS: 96127; 99212 ==

== ENCOUNTER 2024-12-16 06:48 | Outpatient (REF) | payer MEDICARE, SELFPAY ==
[2024-12-16 10:18] LABS: MANUAL DIFF FLAG NO
[2024-12-16 10:24] LABS: Basophils Percent Auto 0.5 % (0-2); Eosinophils Absolute Auto 0.3 X10*3/uL (0.0-0.4); Eosinophils Percent Auto 5.1 % (0-4); Hematocrit 39.8 % (42.0-52.0); Hemoglobin 13.3 g/dl (14.0-18.0); Imm Gran Abs Auto 0.06 X10*3/uL (0.00-0.03); Lymphocytes Absolute Auto 0.8 X10*3/uL (1.2-4.9); Lymphocytes Percent Auto 13.8 % (20-40); Mean Corpuscular HGB Conc 33.4 g/dl (31.0-36.0); Mean Corpuscular Hemoglobin 32.2 pg (27.0-33.0); Mean Corpuscular Volume 96.4 fL (80.0-98.0); Mean Platelet Volume 11.3 fL (9.4-12.4); Monocytes Absolute Auto 0.7 X10*3/uL (0.1-1.2); Monocytes Percent Auto 12.1 % (2-11); Neutrophils Absolute Auto 4.1 x10*3/uL (2.0-8.3); Neutrophils Percent Auto 67.5 % (45-73); Platelet Count 164 X10*3/uL (160-400); Red Blood Count 4.13 X10*6/uL (4.60-5.80); Red Cell Distribution Width 13.5 % (11.0-16.0); White Blood Count 6.1 X10*3/uL (4.8-10.8)
[2024-12-16 10:41] LABS: Appearance Urine Clear; Color Urine Yellow; Glucose Urine UA Negative (Negative); Leukocyte Esterase Urine Negative (Negative); Nitrite Urine Negative (Negative); PH 5.5 (5.0-9.0); Urine Blood Negative (Negative); Urine Ketones Negative (Negative); Urine Protein Negative (Neg-Trace)
[2024-12-16 13:21] LABS: TSH reflex Free T4 1.13 uIU/mL (0.32-4.0)
[2024-12-16 13:31] LABS: Alanine Aminotransferase 68 U/L (0-40); Albumin Level 3.9 g/dL (3.5-5.0); Anion Gap 11 (12-20); Aspartate Amino Transferase 83 U/L (5-37); Bilirubin Total 0.5 mg/dL (0.0-1.0); Blood Urea Nitrogen 17 mg/dL (9-16); Carbon Dioxide 26 mmol/L (22-29); Chloride 110 mmol/L (96-108); Cholesterol 117 mg/dL (<200); Estimated Glomerular Filt Rate > 60; Glucose Fasting 98 mg/dL (60-99); HDL Cholesterol 31 mg/dL (>40); LDL Cholesterol Calculated 63 mg/dL (<100); Potassium 4.6 mmol/L (3.3-5.1); Sodium 142 mmol/L (135-145); Total Protein 6.9 g/dL (6.5-8.0); Triglycerides 119 mg/dL (<150)
[2024-12-16 14:15] LABS: Alkaline Phosphatase 131 U/L (39-117)
== END 2024-12-16 06:49 | disposition home or self-care (01) ==
LOC: HO.HMGCLDS 06:48
PROVIDERS: PCP Nurse Practitioner Family; Visit Provider Nurse Practitioner Family
DX: I47.19 Other supraventricular tachycardia (principal); I47.10 Supraventricular tachycardia, unspecified; I49.9 Cardiac arrhythmia, unspecified
CPT/HCPCS: 36415; 80053; 80061; 81003; 84443; 85025

== ENCOUNTER 2024-12-22 12:15 | Outpatient (REF) | payer MEDICARE, SELFPAY ==
--- OUTSIDE RECORDS SUMMARY | 2024-12-22 16:05 | XMS_ITS | Patient Health Record ---
Author Organization [facility] [place] Address [address] [facility] [place] [address] Care Team Providers Care Nail Tech Name Role Phone Francois Christiansen Primary Care Provider Unav ailable Nini Keith Unavailable [phone] Allergies No Known Allergies Reason For Referral No Information Medications Medication SIG (Take, Route, Frequency, Duration) Notes Start Date End Date Status Metrogel PRN Active Co Q 10 Active Bee Pollen Active Lysine Active Lutein Active Lipitor Active Imuran 50 MG as directed Orally Active Finacea 15 % Externally PRN Active Omeprazole 20 MG Orally Not -Taking oxyBUTYnin Chloride ER 5 MG 1 tablet Orally Once a day Active Probiotic Active Imuran 50 MG Orally Active Lisinopril 10 MG 1 tablet Orally Once a day for 30 day(s) Active Mestinon PRN Active Magnesium Not-Taking Calcium Citrate Acti ve Fluorouracil Not-Jean ing Social History Tobacco Use: Social History Observation Description Date Details (start date - stop date) Former Smoker NA - NA Tobacco Use/Smoking Question Answer Notes Are you a: former smoker When did you stop smoking? 10 yrs Alcohol Screen Question Answer Notes Did you have a drink containing alcohol in the p ast year? Yes How often did you have 6 or more drinks on one occasion in the past year? Never (0 point) Points 0 Interpretation Negative Sexual History Question Answer Notes Had sex in the past 12 months (vaginal, oral, or anal)? Yes with Women only Tobacco use other than smoking: Question Answer Notes Are you an other tobacco user? 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) Active confirmed Plan Of Treatment Pending Test Test Name Order Date X ray : Foot, left 3V 02/04/2022 [id number] Destruction, 1-14 06/10/2017 Insurance Providers Payer Name Payer Address Payer Phone Subscriber Number Group Number Insured Name Patient Relationship to Insured Coverage Start Date Coverage End Date Medicare National Govt Svcs Inc [address] [place] [address] [id number] Francois Gutierrez Self - patient is the insured 7 [employer] Blue Shield [address] [place] [address] [phone] [id number] Francois Gutierrez Self - patient is the insured Medical (General) History Medical History History ICD Code Cancer prostate Warts Measles Mumps Chicken pox Myasthenia gravis Surgical History Surgery Date(Month/Year) Prostectomy 2009 Bilateral plantar warts removed 2016 Left hip replaced 03/11 cataract surgery both eyes 02/2020
--- OUTSIDE RECORDS SUMMARY | 2024-12-22 16:05 | XMS_ITS | Data Portability ---
Author Organization [place] - [facility], [facility] Address [address] [place] [address] Care Team Providers Care Tower Hoist Operator Name Role Phone SCOTTIE HERNANDEZ Primary [...] referred pain. Follow up as symptoms dictate [email or web address] Not available 11/01/2024 12:36:25 Plan of Treatment [...] 024 [facility], [address], [facility] [address], [place], [address], 11/22/2024 08:57:43 Medication Orders predniso ne 20 mg tablet 2023 024 [id number], [address] [place], [place], [id number], 11/01/2024 10:49:54 Patient TargetsNo targets recorded. Patient [...] [id number] QUaueC m3YtLR FvZlgJ JJ8mAn [id number] n2EU6u lKiQtr MwF INTERFACE [facility] Office [address], [place], [address], 11/01/2024 11:18:17 Result Notes None recorded. Problems Name Problem SNOMED Code Status Onset Date Resolution Date Notes Provider Name and Address Organization Details Recorded Time No complaints 022537132 Active Status : 'I'; Not Available [facility] 4 09:16:02 Arthritis of right hip 8762026848529 101 Active 2023 MEDINA salter [place] - [facility] 4 11:09:51 Osteoarthr itis of right knee joint 2535259571367 00 Active 2023 Fabrice Guadarrama MD [address], [place], [address] , [facility] - [facility] 4 12:36:15 Osteoarthr itis of hip 555131569 Active 2023 Kelsy Frost PA-C [address], [place], [address] , [facility] 14:42:33 Problem Notes None recorded. Procedures Surgical History Date Name Laterality Status Provider Name and Address Organization Details Recorded Time 4 JZHip US completed Kelsy Frost PA-C [address], [place], [address], [facility] 11/01/2024 14:42:11 4 Knee Kenalog 1cc L/R completed Fabrice Guadarrama MD [address], [place], [address], [facility] 11/01/2024 12:36:49 4 Spine Surgery completed MEDINA ORDOÑEZ [facility] 11/01/2024 11:01:57 Imaging Results Imaging Date Name [...] unilateral, 2 or 3 view completed INTERFACE [facility] Office [address], [place], [address], 11/01/2024 11:18:17 Procedure Notes None recorded. Medical Equipment None Reported. Allergies Allergen ID Allergen Name Allergen Category Reaction Reaction Severity Criticality Documentation Date Start Date Code Code System Note Provider Name and Address Organization Details Recorded Time 072210 doxycycli ne Not available Not available Not available Not available 11/01/2024 3640 RxNorm MEDINA salter [place] - [facility] 10:44:10 Medications Name Sig Start Date Stop [...] Updated DateTime 03/16/2024 180.34 cm 29.4 kg/m2 18867.99 g Nila riveraandrea [facility] 03/16/2024 15:01:40 Date Recorded Body height Body mass index (BMI) Body weight Provider Name and Address Organization Details Last Updated DateTime 04/21/2024 180.34 cm 30 kg/m2 52763.36 g [facility] 04/21/2024 15:49:55 Date Recorded Body height Body mass index (BMI) Body weight Provider Name and Address Organization Details Last Updated DateTime 05/20/2024 180.34 cm 30 kg/m2 38956.36 [facility] 05/20/2024 14:49:07 Date Recorded Body height Body mass index (BMI) Body weight Provider Name and Address Organization Details Last Updated DateTime 11/01/2024 175.26 cm 32.2 kg/m2 81193.14 g MEDINA ORDOÑEZ [facility] 11/01/2024 11:09:34 Date Recorded Body height Body mass index (BMI) Body weight Provider Name and Address Organization Details Last Updated DateTime 11/02/2024 175.26 cm 32.2 kg/m2 57589.14 g DAVID PADRON [facility] 11/02/2024 14:03:31 Social History None recorded. Functional Status None recorded. Mental Status None recorded. Family History Nothing Reported. Medical History Condition Response Coronary Artery Disease N Anxiety/Depression N Emphysema N COPD N Pacemaker N Vascular Disease N Heart Trouble Y Gastrointestinal Disease N Autoimmune disease N Inflammatory Joint disease N Orthotics N Arthritis N Blood Clot N Acid Reflux (GERD) N Cancer Y Stroke N Circulation Problems N Rheumatoid Arthritis N Arrhythmia N Headaches N Fibromyalgia N Allergies/Hayfever N Breathing or lung disorders N Nerve Disorders N Thyroid Problems N Kidney/Bladder Problems Y Anemia N Heart Attack (SC) N Cholesterol Y Diabetes N Bleeding Disorder N Seizures/Epilepsy N AIDS/HIV N Congestive Heart Failure (CHF) N Asthma N Peripheral Vascular Disease N Sleep Apnea N Hepatitis N Heart Disease N Pulmonary Embolism N Hypertension Y Osteoporosis N Past Encounters Encounter ID Performer Location Encounter Start Date Encounter Closed Date Diagnosis/Indication Diagnosis SNOMED-CT Code Diagnosis ICD10 Code Diagnosis Note [id number] Avelino Petersen MD [place] [address] [place] [address] 02/17/2024 08:54:30 03/07/2024 14:25:57 Low back pain 703125135 M54.50 [id number] Avelino Petersen MD [place] [address] [place] [address] 03/16/2024 14:19:17 04/05/2024 15:55:59 [id number] Avelino Petersen MD [place] [address] [place] [address] 04/21/2024 14:47:31 05/19/2024 11:16:14 Lumbar radiculopathy 756485560 M54.16 [id number] Avelino Petersen MD [place] [address] [place] [place] [address] 05/20/2024 14:12:44 06/23/2024 12:37:04 Lumbar radiculopathy 387800609 M54.16 [id number] Fabrice Guadarrama MD [place] [address] [place] [address] 11/01/2024 10:33:45 11/22/2024 08:57:43 Arthritis of right hip 7612812830 874159 M16.11 Osteoarthr itis of right knee joint 6071408817 98890 M17.11 [id number] Kelsy Frost PA-C [place] [address] [place] [address] 11/02/2024 14:00:18 11/28/2024 10:13:25 Osteoarthritis of hip 894394277 M16.9 M16.11 After a long discussion with [...] Name 03/16/2024 2 [place] [id number] Scottie Gutierrez [id number] 19 Scottie uGtierrez 03/16/2024 1 [place] Scottie Gutierrez [id number] Scottie Gutierrez 04/21/2024 2 [place] [id number] Scottie Gutierrez [id number] 19 Scottie Gutierrez 04/21/2024 1 [place] Scottie Gutierrez [id number] 4 Scottie Gutierrez 05/20/2024 2 [place] [id number] Scottie Gutierrez [id number] 19 Scottie Gutierrez 05/20/2024 1 [place] Scottie Gutierrez [id number] Scottie Gutierrez 11/01/2024 2 [place] [id number] Scottie Gutierrez [id number] 19 Scottie Gutierrez 11/01/2024 1 [place] Scottie Gutierrez [id number] Scottie Gutierrez 11/02/2024 2 [place] [id number] Scottie Baileyon [id number] 19 Scottie Gutierrez 11/02/2024 1 [place] Scottie Gutierrez [id number] Scottie Gutierrez Notes Date Note Type [...] deficits identified distally Avelino Petersen MD [address], [place], [address], [facility] 03/16/2024 16:55:13 04/21/2024 text/html HPI: 73-year-old man status post L4-5 microdiscectomy left 10 weeks ago. Did well. Developed some right leg pain 3 weeks ago. Consistent with sciatica. Worse with activities and particularly standing. No bowel or bladder complaints numbness or weakness described. Takes gabapentin. Ekxh-wbn-zucnqrp products. WORK STATUS: Not working PFMSH and ROS has been reviewed, updated, and is located in the patient's chart RADIOGRAPHS: Not indicated PHYSICAL EXAMINATION: Avelino Petersen MD [address], [place], [address], [facility] 04/21/2024 16:43:04 05/20/2024 text/html [...] RADIOGRAPHS: PHYSICAL EXAMINATION: Avelino Petersen MD [address], [place], [address], [facility] 05/20/2024 15:52:45 11/01/2024 text/html [...] Guadarrama MD [address], [place], [address], [facility] 11/01/2024 12:37:05 11/02/2024 text/html I am seeing [...] No neurovascular changes. Kelsy Frost PA-C [address], [place], [address], [facility] 11/02/2024 14:32:27
--- OUTSIDE RECORDS SUMMARY | 2024-12-22 16:05 | XMS_ITS | Patient Health Record ---
Author Organization [facility] Address [address] [place] [address] Care Team Providers Care Rf Engineer Name Role Phone SCOTTIE HERNANDEZ Primary Care Provider Avelino Trivedi [phone] REASON FOR REFERRAL No Information MEDICATIONS Medication SIG (Take, Route, Frequency, Duration) Notes Start Date End Date Status Lutein 20 MG 1 capsule with a magda l Orally Once a day Active CoQ10 200 MG 1 capsule with a magda l Orally Once a day Active Bee Pollen Active MoviPrep 100 GM as directed Orally a s directed for 1 dose 09/08/2014 Active Multi Vitamin/Minerals Orally Active Calcium Citrate + D3 250-200 MG-UNIT 1 tablet Orally Twice a day Active FLUoxetine HCl 40 MG 1 capsule in the mo rning Orally Once a day Active PriLOSEC OTC 20 MG 1 tablet Orally Once a day Active Imuran 50 MG Orally Active Lipitor 20 MG 1 tablet Orally Once a day Active SOCIAL HISTORY Sex Assigned At : Social History Observation Description Sex Assigned At Unknown PROBLEMS Problem Type ICD Code Onset Dates Problem Status W/U Status Risk SNOMED Code Notes Problem Clostridium difficile infection (041.84) Active confirmed Clostridium difficile infection (238699053) Problem Diarrhea of presumed infectious origin (009.3) Active confirmed Diarrhea of presumed infectious origin (01501135) Problem Screening for colorectal cancer (V76.51) Active confirmed Screening fo r malignant neoplasm of colon (489731592) Encounters Encounter Location Date Provider Diagnosis [facility] [address] [place] [address] 11/29/2024 Avelino Colin PLAN OF TREATMENT Pending Test Test Name Order Date CLOSTRIDIUM DIFF TOXIN A&B (C DIFF) 08/23 Future Test Test Name Order Date COLONOSCOPY 09/08/2014 Next Appt Details Provider Name:Avelino Colin , 03/03/2025 01:40:00 PM, [address] [facility], [address], [place], [address], Insurance Providers Payer Name Payer Address Payer Phone Subscriber Number Group Number Insured Name Patient Relationship to Insured Coverage Start Date Coverage End Date MED[place] OF [place] [address] [facility] [place] [address] [id number] SCOTTIE RAMSEY Self - patient is the insured MEDEX ATTN CLAIMS [address] [place] [address] [phone] [id number] SCOTTIE RAMSEY Self - patient is the insured MEDICAL (GENERAL) HISTORY Medical History History ICD Code Denies [place],DM,CVA,Lung disease,renal dise ase prostate cancer Myasthenia gravis--ocular Hyperlipidemia GERD--uses Prilosec prn Prostate cancer 2005 Neg. colonoscopy in 1995 except for a hy perplastic polyp Facial cellulitis Relapsing C. diff 2013--fini shed a tapering regimen of Vancomycin in early August Surgical History Surgery Date(Month/Year) prostatectomy for cancer 2005
--- OUTSIDE RECORDS SUMMARY | 2024-12-22 16:05 | XMS_ITS ---
Author Organization [facility] Address [address] [place] [address] Care Team Providers Care Credit Resolution Representative Name Role Phone SCOTTIE HERNANDEZ Primary Care Provider Avelino Trivedi [phone] REASON FOR VISIT SCREENING COLON Encounters Encounter Location Date Provider Diagnosis [facility] [address] [place] [address] 11/29/2024 Avelino Colin PLAN OF TREATMENT Next Appt Details Provider Name:Avelino Colin , 03/03/2025 01:40:00 PM, [address], [address], [place], [address],
[2024-12-22 18:54] LABS: Alanine Aminotransferase 59 U/L (0-40); Alkaline Phosphatase 141 U/L (39-117); Anion Gap 14 (12-20); Aspartate Amino Transferase 39 U/L (5-37); Bilirubin Total 0.6 mg/dL (0.0-1.0); Blood Urea Nitrogen 22 mg/dL (9-16); Calcium 9.4 mg/dL (8.4-10.2); Carbon Dioxide 24 mmol/L (22-29); Chloride 107 mmol/L (96-108); Estimated Glomerular Filt Rate > 60; Glucose Random 96 mg/dL (60-115); Sodium 141 mmol/L (135-145); Total Protein 7.1 g/dL (6.5-8.0)
[2024-12-23 04:27] LABS: HBc Num1 0.13 S/CO (0.00-0.79); Hepatitis A Antibody IgM 0.14 Index (0-0.79); Hepatitis B Core Antibody Nonreactive (Nonreactive); Hepatitis B Surface Antigen Negative (Negative); ~HepC Num1 0.08 S/CO (0.00-0.79); ~Hepatitis A Antibody IgM Nonreactive (Nonreactive); ~Hepatitis B Surface Antibody NONREACTIVE (Nonreactive); ~Hepatitis C Antibody Nonreactive (Nonreactive)
[2024-12-26 12:54] LABS: Smooth Muscle Antibody <20 U (<20)
== END 2024-12-22 12:16 | disposition home or self-care (01) ==
LOC: HO.HMGCLDS 12:15
PROVIDERS: PCP Nurse Practitioner Family; Visit Provider Nurse Practitioner Family
DX: R74.8 Abnormal levels of other serum enzymes (principal)
CPT/HCPCS: 36415; 80053; 86015; 86704; 86706; 86709; 86803; 87340

== ENCOUNTER 2025-01-23 08:25 | Outpatient (REF) | payer MEDICARE, SELFPAY ==
--- NOTE | ~2025-01-23 | US_ITS ---
CLINICAL HISTORY: R74.8 - Abnormal levels of other serum enzymes Ultrasound of the abdomen Comparison: None Findings: The liver is the upper limit of normal size, measuring 17.5 cm. Increased echogenicity without focal lesions. Normal flow is visualized within the portal vein. No intrahepatic biliary ductal dilatation. No cholelithiasis. No gallbladder wall thickening or pericholecystic fluid. Negative Leggett's sign. The common bile duct is normal, measuring 0.3cm. Unremarkable limited evaluation of the pancreas. Horseshoe kidney which is normal in echogenicity without hydronephrosis or nephrolithiasis. Measuring 9.1 cm in length at the right aspect with cysts measuring 1.3 x 0.9 x 1.0 cm and 0.8 x 0.5 x 0.7 cm. Measuring 11.3 cm in length at the left aspect. The spleen is without focal lesions and normal in size, measuring 12.0cm. The aorta and IVC are unremarkable. No ascites. Impression: Hepatic steatosis. Horseshoe kidney. This document has been electronically signed by: Leigh Matson MD on 01/23/2025 17:08:38
--- OUTSIDE RECORDS SUMMARY | 2025-01-23 08:47 | XMS_ITS | Patient Health Record ---
Author Organization 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) Active confirmed Plan Of Treatment Pending Test Test Name Order Date X ray : Foot, left 3V 02/04/2022 [id number] Destruction, 1-14 06/10/2017 Insurance Providers Payer Name Payer Address Payer Phone Subscriber Number Group Number Insured Name Patient Relationship to Insured Coverage Start Date Coverage End Date Medicare National Govt Svcs Inc [address] [place] [address] [id number] Francois Gutierrez Self - patient is the insured 7 [employer] Blue Shield [address] [place] [address] [phone] [id number] Francois Gutierrez Self - patient is the insured Medical (General) History Medical History History ICD Code Cancer prostate Warts Measles Mumps Chicken pox Myasthenia gravis Surgical History Surgery Date(Month/Year) Prostectomy 2009 Bilateral plantar warts removed 2016 Left hip replaced 03/11 cataract surgery both eyes 02/2020
--- OUTSIDE RECORDS SUMMARY | 2025-01-23 08:48 | XMS_ITS | Patient Health Record ---
Author Organization [facility] Address [address] [place] [address] Care Team Providers Care Last Trimmer Name Role Phone SCOTTIE HERNANDEZ Primary Care Provider Avelino Trivedi [phone] REASON FOR REFERRAL No Information MEDICATIONS Medication [...] W/U Status Risk SNOMED Code Notes Problem Diarrhea of presumed infectious origin (009.3) Active confirmed Diarrhea of presumed infectious origin (18893038) Problem Screening for colorectal cancer (V76.51) Active confirmed Screening fo r malignant neoplasm of colon (499529466) Problem Clostridium difficile infection (041.84) Active confirmed Clostridium difficile infection (179274674) Encounters Encounter Location Date Provider Diagnosis [facility] [address] [place] [address] 11/29/2024 Avelino Colin PLAN OF TREATMENT Pending Test Test Name Order Date CLOSTRIDIUM DIFF TOXIN A&B (C DIFF) 08/23 Future Test Test Name Order Date COLONOSCOPY 09/08/2014 Next Appt Details Provider Name:Avelino Colin , 03/03/2025 01:40:00 PM, [address] [facility], [address], [place], [address], Insurance Providers Payer Name Payer Address Payer Phone Subscriber Number Group Number Insured Name Patient Relationship to Insured Coverage Start Date Coverage End Date [place] OF [place] [address] [facility] [place] [address] [id number] SCOTTIE RAMSEY Self - patient is the insured MEDEX ATTN CLAIMS [address] [place] [phone] [id number] SCOTTIE RAMSEY Self - patient is the insured MEDICAL (GENERAL) HISTORY Medical History History ICD Code Denies ID,DM,CVA,Lung disease,renal dise ase prostate cancer Myasthenia gravis--ocular Hyperlipidemia GERD--uses Prilosec prn Prostate cancer 2005 Neg. colonoscopy in 1995 except for a hy perplastic polyp Facial cellulitis Relapsing C. diff 2013--fini shed a tapering regimen of Vancomycin in early August Surgical History Surgery Date(Month/Year) prostatectomy for cancer 2005
--- OUTSIDE RECORDS SUMMARY | 2025-01-23 08:48 | XMS_ITS ---
Author Organization [facility] Address [address] [place] [address] Care Team Providers Care Hansard Reporter Name Role Phone SCOTTIE HERNANDEZ Primary Care Provider Avelino Trivedi [phone] REASON FOR VISIT SCREENING COLON Encounters Encounter Location Date Provider Diagnosis [facility] [address] [place] [address] 11/29/2024 Avelino Colin PLAN OF TREATMENT Next Appt Details Provider Name:Avelino Colin , 03/03/2025 01:40:00 PM, [address], [address], [place], [address],
[2025-01-23 10:20] LABS: MANUAL DIFF FLAG NO
[2025-01-23 10:30] LABS: Basophils Absolute Auto 0.1 X10*3/uL (0.0-0.2); Basophils Percent Auto 0.8 % (0-2); Eosinophils Absolute Auto 0.3 X10*3/uL (0.0-0.4); Eosinophils Percent Auto 4.7 % (0-4); Hematocrit 44.6 % (42.0-52.0); Hemoglobin 14.3 g/dl (14.0-18.0); Imm Gran Abs Auto 0.11 X10*3/uL (0.00-0.03); Imm Gran Pct Auto 1.7 % (0.0-0.4); Lymphocytes Absolute Auto 1.1 X10*3/uL (1.2-4.9); Lymphocytes Percent Auto 16.5 % (20-40); Mean Corpuscular HGB Conc 32.1 g/dl (31.0-36.0); Mean Corpuscular Hemoglobin 31.6 pg (27.0-33.0); Mean Corpuscular Volume 98.5 fL (80.0-98.0); Monocytes Percent Auto 14.8 % (2-11); Neutrophils Percent Auto 61.5 % (45-73); Platelet Count 186 X10*3/uL (160-400); Red Blood Count 4.53 X10*6/uL (4.60-5.80); Red Cell Distribution Width 14.3 % (11.0-16.0); White Blood Count 6.4 X10*3/uL (4.8-10.8)
[2025-01-23 10:58] LABS: Prothrombin Time 11.6 SEC (10.9-12.4)
[2025-01-23 11:15] LABS: Anion Gap 11 (12-20); Blood Urea Nitrogen 18 mg/dL (9-16); Calcium 9.3 mg/dL (8.4-10.2); Carbon Dioxide 30 mmol/L (22-29); Chloride 110 mmol/L (96-108); Estimated Glomerular Filt Rate > 60; Glucose Random 91 mg/dL (60-115); Potassium 4.9 mmol/L (3.3-5.1); Sodium 146 mmol/L (135-145)
== END 2025-01-23 08:26 | disposition home or self-care (01) ==
LOC: HO.HMGCX 08:25
PROVIDERS: Internal Medicine; PCP Nurse Practitioner Family; Visit Provider Nurse Practitioner Family
DX: I47.10 Supraventricular tachycardia, unspecified (principal); R74.8 Abnormal levels of other serum enzymes; Z01.818 Encounter for other preprocedural examination
CPT/HCPCS: 36415; 76700; 80048; 85025; 85610

== ENCOUNTER → 2025-01-23 08:33 | Outpatient (BNV) | payer MEDICARE, SELFPAY | PROVIDERS: PCP Nurse Practitioner Family; Visit Provider Radiology Diagnostic Radiology | DX: K76.0 Fatty (change of) liver, not elsewhere classified (principal); Q63.1 Lobulated, fused and horseshoe kidney | CPT/HCPCS: 76700 ==

== ENCOUNTER 2025-04-07 11:24 | Outpatient (REF) | payer MEDICARE, SELFPAY ==
--- OUTSIDE RECORDS SUMMARY | 2025-04-07 11:44 | XMS_ITS | Patient Health Record ---
Author Organization 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) Active confirmed Plan Of Treatment Pending Test Test Name Order Date X ray : Foot, left 3V 02/04/2022 [id number] Destruction, 1-14 06/10/2017 Insurance Providers Payer Name Payer Address Payer Phone Subscriber Number Group Number Insured Name Patient Relationship to Insured Coverage Start Date Coverage End Date Medicare National Govt Svcs Inc [address] [facility] [address] [id number] Frnacois Gutierrez Self - patient is the insured 7 [employer] Blue Shield [address] [place] [address] [id number] Francois Gutierrez Self - patient is the insured Medical (General) History Medical History History ICD Code Cancer prostate Warts Measles Mumps Chicken pox Myasthenia gravis Surgical History Surgery Date(Month/Year) Prostectomy 2009 Bilateral plantar warts removed 2016 Left hip replaced 03/11 cataract surgery both eyes 02/2020
--- OUTSIDE RECORDS SUMMARY | 2025-04-07 11:44 | XMS_ITS ---
Author Organization [facility] Address [address] [place] [address] Care Team Providers Care Road Train Driver Name Role Phone SCOTTIE HERNANDEZ Primary Care Provider Avelino Trivedi [phone] REASON FOR VISIT Patient presents today for a SCREENING COLON Encounters Encounter Location Date Provider Diagnosis [facility] [address] [place] [address] 03/03/2025 Avelino Colin Plan Of Treatment Next Appt Details Provider Name:Avelino Colin , 06/15/2025 09:40:00 AM, [address], [address], [place], [address], Progress Notes * SCOTTIE RAMSEYDOB:1950 ([age] yo M)Acc No.[id number]:03/03/2025 Progress Notes Patient:?SCOTTIE RAMSEY Provider:?Avelino Colin MD :1950???Age:74 Y???Sex:Male Jose e:03/03/2025 Address:[address] [id number] Pcp:SCOTTIE HERNANDEZ Subjective: * Chief Complaints: * ???1. Patient presents today for a SCREENING COLON. * Medical History:? Objective: * Vitals:? Assessment: Plan: * Treatment: * * The named appointment provid er may or may not be the originator of this progress note, and it is not deemed complete until electronically signed by the appointment provider. Sign off status: Pending * Provider:?Avelino Colin MD Date:? 025 Generated for Devin munoz/Rose Mary/Kamini on:?04/07/2025 11:44 AM EDT
--- OUTSIDE RECORDS SUMMARY | 2025-04-07 11:45 | XMS_ITS ---
Author Organization [facility] Address [address] [place] [address] Care Team Providers Care Chemical Compounder Helper Name Role Phone SCOTTIE HERNANDEZ Primary Care Provider Avelino Trivedi [phone] REASON FOR VISIT SCREENING COLON Encounters Encounter Location Date Provider Diagnosis [facility] [address] [place] [address] 11/29/2024 Avelino Colin Plan Of Treatment Next Appt Details Provider Name:Avelino Colin , 06/15/2025 09:40:00 AM, [address], [address], [place], [address], Progress Notes * SCOTTIE RAMSEYDOB:1950 ([age] yo M)Acc No.[id number]:11/29/2024 Progress Notes Patient:?BRAULIO SCOTTIE Provider:?Avelino Colin MD :1950???Age:74 Y???Sex:Male Jose e:11/29/2024 Address:[address] [place] Pcp:SCOTTIE HERNANDEZ Subjective: * Chief Complaints: * ???1. SCREENING COLON. * Medical History:? Objective: * Vitals:? Assessment: Plan: * Treatment: * * The named appointment provid er may or may not be the originator of this progress note, and it is not deemed complete until electronically signed by the appointment provider. Sign off status: Pending * Provider:?Avelino Colin MD Date:? 025 Generated for Devin munoz/Rose Mary/Tabbyitting on:?04/07/2025 11:44 AM EDT
--- OUTSIDE RECORDS SUMMARY | 2025-04-07 11:45 | XMS_ITS | Patient Health Record ---
Author Organization [facility] Address [address] [place] [address] Care Team Providers Care Patient Access Associate Name Role Phone SCOTTIE HERNANDEZ Primary Care Provider Avelino Trivedi Unavailable [phone] Reason For Referral No Information Medications Medication [...] 1 tablet Orally Once a day Active Problems Problem Type SNOMED Code ICD Code Onset Dates Problem Status W/U Status Risk Notes Problem Diarrhea of presumed infectious origin (31048988) Diarrhea of presumed infectious origin (009.3) Active confirmed Problem Screening for colorectal cancer (V76.51) Active confirmed Problem Clostridium difficile infection (032292252) Clostridium difficile infection (041.84) Active confirmed Plan Of Treatment Pending Test Test Name Order Date CLOSTRIDIUM DIFF TOXIN A&B (C DIFF) 08/23 Future Test Test Name Order Date COLONOSCOPY 09/08/2014 Next Appt Details Provider Name:Avelino Colin , 06/15/2025 09:40:00 AM, [address], [address], [place], [address], Insurance Providers Payer Name Payer Address Payer Phone Subscriber Number Group Number Insured Name Patient Relationship to Insured Coverage Start Date Coverage End Date MEDICARE OF [place] [address] [place] [address] [id number] RAMSEYSCOTTIE Self - patient is the insured MEDEX ATT[employer] CLAIMS [address] [place] [address] [id number] SCOTTIE RAMSEY Self - patient is the insured Medical (General) History Medical History History ICD Code Denies PA,DM,CVA,Lung disease,renal dise ase prostate cancer Myasthenia gravis--ocular Hyperlipidemia GERD--uses Prilosec prn Prostate cancer 2005 Neg. colonoscopy in 1995 except for a hy perplastic polyp Facial cellulitis Relapsing C. diff 2013--fini shed a tapering regimen of Vancomycin in early August Surgical History Surgery Date(Month/Year) prostatectomy for cancer 2005
[2025-04-07 13:13] LABS: MANUAL DIFF FLAG NO
[2025-04-07 13:20] LABS: Basophils Percent Auto 0.9 % (0-2); Eosinophils Absolute Auto 0.2 X10*3/uL (0.0-0.4); Eosinophils Percent Auto 3.6 % (0-4); Hematocrit 42.9 % (42.0-52.0); Hemoglobin 14.4 g/dl (14.0-18.0); Imm Gran Abs Auto 0.01 X10*3/uL (0.00-0.03); Imm Gran Pct Auto 0.2 % (0.0-0.4); Lymphocytes Absolute Auto 1.2 X10*3/uL (1.2-4.9); Lymphocytes Percent Auto 24.5 % (20-40); Mean Corpuscular HGB Conc 33.6 g/dl (31.0-36.0); Mean Corpuscular Hemoglobin 31.2 pg (27.0-33.0); Mean Corpuscular Volume 92.9 fL (80.0-98.0); Mean Platelet Volume 11.6 fL (9.4-12.4); Monocytes Absolute Auto 0.6 X10*3/uL (0.1-1.2); Monocytes Percent Auto 12.1 % (2-11); Neutrophils Absolute Auto 2.8 x10*3/uL (2.0-8.3); Neutrophils Percent Auto 58.7 % (45-73); Platelet Count 174 X10*3/uL (160-400); Red Blood Count 4.62 X10*6/uL (4.60-5.80); Red Cell Distribution Width 13.5 % (11.0-16.0); White Blood Count 4.7 X10*3/uL (4.8-10.8)
[2025-04-07 13:32] LABS: Prothrombin Time 11.6 SEC (10.9-12.4)
[2025-04-07 13:44] LABS: Anion Gap 11 (12-20); Blood Urea Nitrogen 17 mg/dL (9-16); Calcium 9.2 mg/dL (8.4-10.2); Carbon Dioxide 26 mmol/L (22-29); Chloride 109 mmol/L (96-108); Estimated Glomerular Filt Rate > 60; Glucose Random 92 mg/dL (60-115); Potassium 3.8 mmol/L (3.3-5.1); Sodium 142 mmol/L (135-145)
== END 2025-04-07 11:25 | disposition home or self-care (01) ==
LOC: HO.HMGCLDS 11:24
PROVIDERS: PCP Nurse Practitioner Family; Visit Provider Student in an Organized Health Care Education/Training Program
DX: Z01.818 Encounter for other preprocedural examination (principal); I47.19 Other supraventricular tachycardia
CPT/HCPCS: 36415; 80048; 85025; 85610

== ENCOUNTER 2025-04-27 11:24 | Outpatient (AMB) | payer MEDICARE, SELFPAY ==
--- NOTE | 2025-04-27 11:26 | A.OFFPC_ITS ---
Vital Signs 04/27/25 11:27 Height 5 ft 11 in Weight 221 lb BMI 30.8 BP 126/78 Blood Pressure Location Lt brachial Position Sitting Respiration 14 Pulse 57 Pulse Source Pulse Oximeter Temp 97.6 F Temp Source Oral Pulse Oximetry (%) 96 Oxygen Delivery Method Room Air Intake Visit Reasons: 4m follow up Allergies dicloxacillin Adverse Reaction (Unknown, Verified 04/27/25 12:12) diarrhea Medication List - Last Reconciled 04/27/25 by BETZAIDA HaileP- albuterol sulfate 90 mcg/actuation (Ventolin HFA) 1 inh inhalation QID PRN amlodipine 5 mg PO DAILY atorvastatin 20 mg PO DAILY 90 days azathioprine 50 mg PO DAILY diclofenac sodium 75 mg PO BID gabapentin sometimes 3 tablets a day losartan 50 mg PO DAILY 90 days oxybutynin chloride 5 mg PO BID 90 days Tobacco use date assessed: 04/27/25 Fall risk assessment: No Falls in past year Last assessed Fall Risk: 04/27/25 Dental Screening Dental Screen Date: 04/27/25 Did you have a dental visit in the last 12 months?: Yes Did you have a dental problem in the last 6 months where you did not have access to dental care?: No Was dental information given to patient?: Patient has dentist HPI 4m follow up HPI Details Chief Complaint Request for a new neurologist for management of Myasthenia Gravis and evaluation of Raynaud's phenomenon symptoms. History of Present Illness The patient is a 74-year-old male presenting with a generalized follow-up. He seeks management updates for his Myasthenia Gravis, for which he requesting a new neurologist. He also reports experiencing symptoms of Raynaud's phenomenon in both hands. His blood pressure management is under review due to a previous regimen of losartan, and he will begin a new medication, amlodipine, to address this while reducing his current dose of losartan. Social History - Employment, family status, and housing : Not discussed. - Education, exercise, level of activity , nutritional intake, and weight managem ent: Not discussed. Health Maintenance - PSA screening and lipid panel to be or dered as due. - Adjustment of antihypertensive therapy to include amlodipine and reduce losartan. Review of Systems - Cardiovascular: Reports episodes of higgins nds turning white and cold, with a good radial pulse maintained bilaterally. - Musculoskeletal: Denies other related symptoms. Physical Exam General: Cooperative, healthy appearing, comfortable, no acute distress and well developed Orientation: Patient oriented x3 Limitations: No limitations Head: Normal to inspection Ears: Hearing grossly normal bilaterally Nose: Normal external nose present Face and sinus: Normal facial exam Eyes: Appearance normal, both eyes and all related structures Neck: Normal visual inspection and Yes full ROM Respiratory: Normal respiratory effort and able to speak in complete sentences. Clear to auscultation bilaterally Cardiovascular: Regular rate and rhythm. Normal S1 and S2 GI: Normal to inspection. Soft to palpation and nontender Skin: No rashes or lesions noted Neuro: Patient oriented x3 Extremities: trace edema to BLE, + radial pulses to BUE Results Plan For the management of his Myasthenia Gravis, I discussed continuing care with a new neurologist to ensure comprehensive management. As the patient experiences symptoms suggestive of Raynaud's phenomenon, we recognized maintaining good bilateral radial pulses as a positive. The plan includes reducing losartan to 50 mg and starting amlodipine at 5 mg; should swelling occur, the patient will stop amlodipine and contact me. A PSA and lipid panel are to be ordered, and a new urologist consultation is anticipated. Discussion Notes We had a thorough discussion regarding the management of his Myasthenia Gravis and agreed on the necessity of a neurology referral. We addressed potential lifestyle adjustments with Raynaud's phenomenon, acknowledging his strong radial pulses as reassuring. In discussing his hypertension management, I explained the rationale for adjusting his current antihypertensive regimen and monitored amlodipine's potential side effects. He consented to proceed with this medication adjustment, understanding to report any substantial side effects. Upcoming health maintenance involved decisions to order a PSA and lipid panel due this month, along with arranging an appointment with a urologist to continue comprehensive care. Patient Instructions - Begin taking the new amlodipine 5 mg d aily. - Reduce losartan dosage to 50 mg per da y. - Monitor for swelling in legs or arms; if significant, stop amlodipine and call to report. - Undergo PSA and lipid blood tests as s cheduled. - Schedule an appointment with a new red rologist for Myasthenia Gravis management. - Plan to see a new urologist as recomme nded. [facility] Medical History Spinal stenosis of lumbar region Lumbar radiculopathy Horseshoe kidney Osteoarthritis of right hip Atrial tachycardia Lung density on x-ray RSV (acute bronchiolitis due to respiratory syncytial virus) Allergic rhinitis Bursitis of hip, right Osteoarthritis Greater trochanteric pain syndrome Bacterial pneumonia Depression Prostate cancer GERD (gastroesophageal reflux disease) Hyperlipemia Fatty liver Myasthenia gravis Peripheral polyneuropathy Surgical History H/O microdiscectomy History of lumbar laminectomy History of hip replacement H/O prostatectomy Family History Father Hypertension Mother Hypertension Social History Housing: House Alcohol intake: current Alcohol intake frequency: holidays/special occasions only Patient Tobacco Use Status: Former Tobacco user Years Smoked: 40 years ago e-Cigarette/Vaping Use: Never Used Second Hand Smoke Exposure: No service: No Current occupational status: retired Cognitive needs: No Hearing needs: No Vision needs: No Questionnaire PHQ-9 Over the last 2 weeks, how often have you been bothered by any of the following problems? 1. Little interest or pleasure in doing things: not at all 2. Feeling down, depressed, or hopeless: not at all 3. Trouble falling or staying asleep, or sleeping too much: not at all 4. Feeling tired or having little energy: not at all 5. Poor appetite or overeating: not at all 6. Feeling bad about yourself - or that you are a failure or have let yourself or your family down: not at all 7. Trouble concentrating on things, such as reading the newspaper or watching television: not at all 8. Moving or speaking so slowly that other people could have noticed. Or the opposite - being so fidgety or restless that you have been moving around a lot more than usual: not at all 9. Thoughts that you would be better off or of hurting yourself in some way: not at all Total score: 0 Depression Screening Interpretation: Negative Depression Screening Done: Yes 41603 - PHQ-9 Billing: Yes Source: Developed by Drs. Avelino Arteaga, Mehreen B.WRobin Choi and colleagues, with an educational kamilah from [employer]. Thrive Questionnaire Date Thrive assessed: 04/27/25 Within the past 12 months, did you worry whether your food would run out before you got money to buy more?: Never true Do you have trouble paying for medicines?: No Do you have trouble getting transportation to medical appointments?: No Do you have trouble paying your heating and electricity bill?: No Do you have trouble taking care of your child, family member or friend?: No Do you have trouble with day-to-day activities such as bathing, preparing meals, shopping, managing finances, etc.?: No Are you currently unemployed and looking for a job?: No Are you interested in more education?: No Please select the resources that you would like help with: None Currently or been in a relationship where the following occur: I choose not to answer THRIVE Score: 0 AUDIT C Alcohol Use Questionnaire (AUDIT-C) 1. How often do you have a drink containing alcohol?: Monthly or less 2. How many drinks containing alcohol do you have on a typical day when you are drinking?: 1 or 2 3. How often do you have six or more drinks on one occasion?: Never Total Score: 1 Score Reviewed/Action Taken: Yes MARTIN-7 AMB Questionnaire MARTIN-7 Date MARTIN - 7 assessed: 04/27/25 Feeling nervous, anxious, or on edge: 1 = Several days Not being able to stop or control worryin = Not at all Worrying too much about different things: 0 = Not at all Trouble relaxin = Not at all Being so restless that it is hard to sit still: 0 = Not at all Becoming easily annoyed or irritable: 0 = Not at all Feeling afraid as if something awful might happen: 0 = Not at all Total MARTIN-7 score (0-4 normal; 5-9 mild; 10-14 moderate; 15-21 severe): 1 Source: Developed by Drs. Avelino Arteaga, Robin Chang and colleagues, with an educational kamilah from [employer]. MARTIN-7 Assessment Billing MARTIN-7 Assessment Tool: MARTIN-7 Assessment 28904 Physical exam (Primary Care) Vital Signs: Last Vital Signs Temp 97.6 F 04/27/25 11:27 Pulse 57 04/27/25 11:27 Resp 14 04/27/25 11:27 BP 126/78 04/27/25 11:27 Pulse Ox 96 04/27/25 11:27 Oxygen Delivery Method Room Air 04/27/25 11:27 BMI result Body Mass Index 30.8 Tobacco/Smoking Status: Tobacco use Status Tobacco use date assessed 04/27/25 04/27/25 11:28 Patient Tobacco Use Status Former Tobacco user 04/27/25 11:28 e-Cigarette/Vaping Use Never Used 04/27/25 11:28 PHQ-9: PHQ-9 Score PHQ-9: Total score 0 04/27/25 11:56 Depression Screening Interpretation: Negative Thrive Assessment: Date of Thrive Assessment Date Thrive assessed 04/27/25 04/27/25 11:28 Currently or been in a relationship where the following occur: I choose not to answer Coding Level of Care Code Est Pt Level 3 (56711) Diagnoses Dyslipidemia E78.5 Screening PSA (prostate specific antigen) Z12.5 Myasthenia gravis G70.00 Raynauds disease I73.00 Additional Codes MARTIN-7 Assessment Billing - MARTIN-7 Assessment Tool: MARTIN-7 Assessment 74411 ( [id number]) PHQ-9 - 64038 - PHQ-9 Billing: Yes ([id number]) Assessment & Plan Assessment & Plan (1) Dyslipidemia: Code(s): E78.5 - Hyperlipidemia, unspecified Category: Medical (2) Screening PSA (prostate specific antigen): Code(s): Z12.5 - Encounter for screening for malignant neoplasm of prostate Category: Medical (3) Myasthenia gravis: Code(s): G70.00 - Myasthenia gravis without (acute) exacerbation Category: Medical (4) Raynauds disease: Code(s): I73.00 - Raynaud's syndrome without gangrene Category: Medical Plan . Orders: Orders Lipid Panel Today E78.5 - Hyperlipidemia, unspecified Prostate Specific Antigen Scr Today Z12.5 - Encounter for screening for malignant neoplasm of prostate Referrals Neurology Referral G70.00 - Myasthenia gravis without (acute) exacerbation Medications: New amlodipine 5 mg PO DAILY 90 tabs 0RF Changed From losartan 100 mg PO DAILY 90 tabs 3RF 90 days To losartan 50 mg PO DAILY 90 tabs 3RF 90 days
[2025-04-27 11:27] VITALS: BP 126/78; PULSE 57; RESP 14; TEMP 36.4; O2SAT 96; BMI 30.8
--- OUTSIDE RECORDS SUMMARY | 2025-04-27 13:37 | XMS_ITS | Patient Health Record ---
Author Organization [facility] [place] Address [address] [facility] [place] [address] Care Team Providers Care Protection Officer Name Role Phone Francois Christiansen Primary Care Provider Unav ailable Nini Keith Unavailable [phone] Allergies No Known Allergies Reason For Referral [...] Problem Status W/U Status Risk Notes Problem 928352756 Neuropathy (G62.9) Active confirmed Problem 243586831 Osteoarthritis o f joint of toe of left foot (M19.072) Active confirmed Plan Of Treatment Pending Test Test Name Order Date X ray : Foot, left 3V 02/04/2022 [id number] Destruction, 1-14 06/10/2017 Insurance Providers Payer Name Payer Address Payer Phone Subscriber Number Group Number Insured Name Patient Relationship to Insured Coverage Start Date Coverage End Date Medicare National Govt Svcs Inc [address] [facility] [place] [address] [id number] Francois Gutierrez Self - patient is the insured 7 [employer] Blue Shield [address] [place] [address] [phone] [id number] Francois Gutierrez Self - patient is the insured Medical (General) History Medical History History ICD Code Cancer prostate Warts Measles Mumps Chicken pox Myasthenia gravis Surgical History Surgery Date(Month/Year) Prostectomy 2009 Bilateral plantar warts removed 2016 Left hip replaced 03/11 cataract surgery both eyes 02/2020
== END 2025-04-27 12:08 | disposition home or self-care (01) ==
LOC: HO.HMCC 11:25
PROVIDERS: PCP Nurse Practitioner Family; Visit Provider Nurse Practitioner Family
DX: E78.5 Hyperlipidemia, unspecified (principal); Z12.5 Encounter for screening for malignant neoplasm of prostate; G70.00 Myasthenia gravis without (acute) exacerbation; I73.00 Raynaud's syndrome without gangrene

== ENCOUNTER → 2025-04-27 11:24 | Outpatient (BNVA) | payer MEDICARE, SELFPAY | PROVIDERS: PCP Nurse Practitioner Family; Visit Provider Nurse Practitioner Family | DX: E78.5 Hyperlipidemia, unspecified (principal); I73.00 Raynaud's syndrome without gangrene; G70.00 Myasthenia gravis without (acute) exacerbation | CPT/HCPCS: 96127; 99212 ==

== ENCOUNTER 2025-05-09 06:55 | Outpatient (REF) | payer MEDICARE, SELFPAY ==
--- OUTSIDE RECORDS SUMMARY | 2025-05-09 06:57 | XMS_ITS | Patient Health Record ---
Author Organization [facility] [place] Address [address] [facility] [place] [address] Care Team Providers Care Teletypesetter Name Role Phone Francois Christiansen Primary Care Provider Unav ailable Nini Keith Unavailable [phone] Allergies No Known Allergies Reason For Referral [...] Problem Status W/U Status Risk Notes Problem 103900574 Neuropathy (G62.9) Active confirmed Problem 444232627 Osteoarthritis o f joint of toe of left foot (M19.072) Active confirmed Plan Of Treatment Pending Test Test Name Order Date X ray : Foot, left 3V 02/04/2022 06930-Ahss Destruction, 1-14 06/10/2017 Insurance Providers Payer Name Payer Address Payer Phone Subscriber Number Group Number Insured Name Patient Relationship to Insured Coverage Start Date Coverage End Date Medicare National Govt Svcs Inc [address] [facility] [place] [address] [id number] Francois Gutierrez Self - patient is the insured 7 [employer] Blue Shield [address] [place] [address] [id number] Francois Gutierrez Self - patient is the insured Medical (General) History Medical History History ICD Code Cancer prostate Warts Measles Mumps Chicken pox Myasthenia gravis Surgical History Surgery Date(Month/Year) Prostectomy 2009 Bilateral plantar warts removed 2016 Left hip replaced 03/11 cataract surgery both eyes 02/2020
[2025-05-09 10:55] LABS: Cholesterol 154 mg/dL (<200); HDL Cholesterol 39 mg/dL (>40); LDL Cholesterol Calculated 81 mg/dL (<100); Triglycerides 174 mg/dL (<150)
[2025-05-09 11:13] LABS: Prostate Specific Antigen Scr < 0.10 ng/mL (<0.05-4.0)
== END 2025-05-09 06:56 | disposition home or self-care (01) ==
LOC: HO.HMGCLDS 06:55
PROVIDERS: PCP Nurse Practitioner Family; Visit Provider Nurse Practitioner Family
DX: E78.5 Hyperlipidemia, unspecified (principal); Z12.5 Encounter for screening for malignant neoplasm of prostate
CPT/HCPCS: 36415; 80061; 84153

== ENCOUNTER 2025-06-22 12:45 | Outpatient (AMB) | payer MEDICARE, SELFPAY ==
--- OUTSIDE RECORDS SUMMARY | 2024-11-29 06:30 | XMS_ITS ---
Author Organization [facility] Address [address] [place] [phone] Care Team Providers Care Insulation Batting Machine Operator Name Role Phone SCOTTIE HERNANDEZ Primary Care Provider Avelino Trivedi [phone] REASON FOR VISIT SCREENING COLON Encounters Encounter Location Date Provider Diagnosis [facility] [address] [facility] [address] [place] [phone] 11/29/2024 Avelino Colin Plan Of Treatment Next Appt Details Provider Name:Avelino Colin , 09/27/2025 08:30:00 AM, [address] [place] [address] , [place], [place], [phone], Progress Notes * SCOTTIE RAMSEYDOB:1950 ([age] yo M)Acc No.[id number]:11/29/2024 Progress Notes Patient: SCOTTIE GARNETT Provider: Thom Colin MD :1950 A ge:74 Y S ex:Male Date:11/29/2024 Address:[address] [id number] Pcp:SCOTTIE HERNANDEZ Subjective: * Chief Complaints: * [...] Generated for Devin munoz/Rose Mary/Kamini on: 0 06/22/2025 12:56 PM EDT
--- NOTE | 2025-06-22 12:54 | A.OFFVIS_ITS ---
Intake Visit Reasons: 6 mnts / MG Allergies dicloxacillin Adverse Reaction (Unknown, Verified 04/27/25 12:12) diarrhea Medication List - Last Reconciled 06/22/25 by Day Del Toro MD albuterol sulfate 90 mcg/actuation (Ventolin HFA) 1 inh inhalation QID PRN amlodipine 5 mg PO DAILY atorvastatin 20 mg PO DAILY 90 days azathioprine 50 mg PO DAILY diclofenac sodium 75 mg PO BID diltiazem HCl CD 180 mg PO DAILY gabapentin sometimes 3 tablets a day losartan 50 mg PO DAILY 90 days oxybutynin chloride 5 mg PO BID 90 days HPI Comments Details: 74 years old right-handed man with antibody positive mostly ocular myasthenia gravis who I initially saw in 2003 when he was admitted at [facility] with an episode of blurred vision and double vision. Initial suspicion was of microvascular ischemic disease resulting in transient ischemic attack but his workup later suggested myasthenia gravis with high acetyl choline receptor antibody titers. Over the years, he has been managed with azathioprine and has done reasonably well. He also had left sciatic sciatica type of pain syndrome and laminectomy [place] [address] Petersen when it [facility]. In addition, he was evaluated for mild cognitive symptoms with an amyloid brain PET scan in April of 2024, which was negative. He is also treated for mild axonal sensory motor peripheral neuropathy resulting in discomfort in feet and legs. His right eye was getting droopy in his specially at the end of the day sometime he would feel that it was almost closed and sometime he would close 1 eye to watch television. He denied double vision. Sometime he had difficulty swallowing but not breathing.Energy level was not perfect. He has developed right sided sciatica pain and was seeing his surgeon again. [facility] Medical History (Updated 06/22/25 @ 13:17 by Day Del Toro MD) MCI (mild cognitive impairment) Osteoarthritis of right knee Spinal stenosis of lumbar region Lumbar radiculopathy Horseshoe kidney Osteoarthritis of right hip Atrial tachycardia Lung density on x-ray RSV (acute bronchiolitis due to respiratory syncytial virus) Allergic rhinitis Bursitis of hip, right Osteoarthritis Greater trochanteric pain syndrome Bacterial pneumonia Depression Prostate cancer GERD (gastroesophageal reflux disease) Hyperlipemia Fatty liver Myasthenia gravis Peripheral polyneuropathy Surgical History H/O microdiscectomy History of lumbar laminectomy History of hip replacement H/O prostatectomy Family History Father Hypertension Mother Hypertension Social History Housing: House Alcohol intake: current Alcohol intake frequency: holidays/special occasions only Patient Tobacco Use Status: Former Tobacco user Years Smoked: 40 years ago e-Cigarette/Vaping Use: Never Used Second Hand Smoke Exposure: No service: No Current occupational status: retired Cognitive needs: No Hearing needs: No Vision needs: No Review of Systems Const Details: Having right sided sciatica type pain, right eye getting droopy. Hands are cold and feet are painful. Physical Exam Neuro Other: Mental Status: Alert and oriented to person, place, and time. Normal attention. Normal spontaneous speech, fluency, and comprehension. No obvious issues with mood and memory. Affect is appropriate. Cranial Nerves: CN II: Visual garrison full to confrontation, visual acuity intact. CN III, IV, : Pupils equal, round, reactive to light and accommodation. Extraocular movements are normal. CN V: Facial sensation is normal. CN VII: Facial movements symmetrical. CN VIII: Hearing intact to bedside conversation is normal. CN IX, X: Palate elevates symmetrically. CN XI: Shoulder shrug and head turn symmetrical. CN XII: Tongue midline without atrophy or fasciculations. Moderate bilateral extensor digitorum brevis was atrophy. Deep tendon reflexes are absent in ankles with flexor plantars. Knee reflexes are trace. Extrapyramidal: Full facial expressions and blinking. No rigidity. Movements are appropriate with no tremor or abnormality. Speech: Normal; no dysarthria or tremor. 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 ACR ABs titre at [facility] in 2010: OK ACR ABs titre at [facility] in 2012: high binding and modulating abs. ACR ABs titre at [facility] in 2009: OK ACR ABs titre at [facility] in 2011: high binding and modulating abs ACR Abs at [facility] in Sep 2023: All 3 are high. 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: Code(s): G70.00 - Myasthenia gravis without (acute) exacerbation; T56.891A - Toxic effect of other metals, accidental (unintentional), initial encounter (4) Dysautonomia: Code(s): G90.1 - Familial dysautonomia [] Category: Medical Plan Impression: a: Antibody positive Myasthenia gravis, mostly ocular b: Peripheral neuropathy, axonal, chronic, unknown cause c: Neuropathic pain from peripheral neuropathy d: Raynaud's phenemenonon likely due to autonomic neuropathy resulting in dysautonomia Rec: a: EMG/NCS legs b: Prednisone 20mg a day for MG c: Contrinue azathioprine 50mg a day d: Continue gabapentin 300mg tid as needed Orders: Orders NE nerve conduction velocity Today G62.9 - Polyneuropathy, unspecified NE electromyogram (EMG) Today G62.9 - Polyneuropathy, unspecified Medications: New prednisone 20 mg PO DAILY 60 tabs 0RF Changed From gabapentin sometimes 3 tablets a day PRN To gabapentin sometimes 3 tablets a day 300 mg PO TID 270 caps 1RF 90 days Refilled azathioprine 50 mg PO DAILY 90 tabs 1RF Coding Level of Care Code Est Pt Level 5 (01728) Diagnoses Myasthenia gravis G70.00 Peripheral polyneuropathy G62.9 Peripheral neuropathy type: polyneuropathy, unspecified 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
--- OUTSIDE RECORDS SUMMARY | 2025-06-22 12:56 | XMS_ITS | Encounter Summary ---
Author Organization [facility] Address [address] [place] [address] Phone Care Team Providers Care Toy Designer Name Role Phone Francois Adam ADVISOR [employer]ER Primary Care Provider + Encounter Details Date Type Department Care Team (Late st Contact Info) Description 06/21/2025 Orders Only [facility] [address] [facility] 3rd Floor, [address] [place] [address] ProviderSteven MD [facility] [place] [id number] Social History Tobacco Use Types Packs/Day Years Used Date Smoking Tobacco: Former Smokeless Tobacco: Never Alcohol Use Standard Drinks/Week Comments Not Currently 0 (1 standard drink = 0.6 oz pur e alcohol) Education Answer Date Recorded Are you interested in more education? Not on chaya e 03/20/2023 Are you concerned about learning? Not on file 03/20/2023 No 03/20/2023 No 03/20/2023 Digital Access Answer Date Recorded No 04/20/2023 No 04/20/2023 Reliable internet access at home? Not on file 04/20/2023 Device with a working camera? Not on file Intimate Partner Violence Answer Date R ecorded Are you denied basic needs s uch as food, clothing, or medical care? No 11/13/2024 In the past 12 months have y ou been in a relationship with a person who hurts, threatens, or tries to control you? No 11/13/2024 Are you denied basic needs s uch as food, clothing, or medical care? No 11/13/2024 In the past 12 months have y ou been in a relationship with a person who hurts, threatens, or tries to control you? No 11/13/2024 Sex and Gender Information Value Date Recorded Sex Assigned at Male 11/13/2024 11:37 AM EST Legal Sex Male 11:25 AM EDT Gender Identity Male 11/13/2024 11:37 AM EST Sexual Orientation Not on file documented as of this encounter Plan of Treatment Upcoming Encounters Date Type Department Care Team (Late st Contact Info) Description 06/29/2025 3:00 PM EDT Office Visit [facility] [address] [place] [address], [address] [place] [address] Madeleine Ovalle DNP [address] [place] [id number] [email or web address] 09/04/2025 3:00 PM EDT Office Visit [facility] [address] 3rd [facility], [address] [place] [address] Bryon Banks MD [address] [place] [address], [address] [address] [email or web address] documented as of this encounter Procedures Procedure Name Priority Date/Time Associated Diagnosis Comments OUTSIDE EP STUDY Routine 05/28/2025 11:47 AM EDT documented in this encounter Results * Outside EP Study Report Only (05/28/2025 11:47 AM EDT) us Historical Provider CV ELECTROPHYSIOLOGY CHRISTOPHER PARIKH Final Result documented in this encounter Visit Diagnoses Not on filedocumented in this encounter Care Teams Toy Designer Relationship Specialty Start Date End Date Francois Adam NP [address] [place] [address] [email or web address] PCP - General Nurse Practitioner 03/04/24 documented as of this encounter Additional Source Comments The information contained in this document represents components of the legal health record. It is not the complete legal health record.[facility]
--- OUTSIDE RECORDS SUMMARY | 2025-06-22 12:56 | XMS_ITS | Patient Health Record ---
Author Organization [facility] Address [address] [facility] [place] [address] Care Team Providers Care Warehouse Operations Associate Name Role Phone Francois Christiansen Primary Care Provider Unav ailable Nini Keith Unavailable [phone] Allergies No Known Allergies Reason For Referral [...] 10 MG 1 tablet Orally Once a day; Duration: 30 day(s) Active Mestinon PRN Active Magnesium [...] Problem Status W/U Status Risk Notes Problem Neuropathy (193009184) Neuropathy (G62.9) Active confirmed Problem Localized, primary osteoarthritis of the ankle and/or foot (199426852) 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) Active confirmed Plan Of Treatment Pending Test Test Name Order Date X ray : Foot, left 3V 02/04/2022 [id number] Destruction, 1-14 06/10/2017 Insurance Providers Payer Name Payer Address Payer Phone Subscriber Number Group Number Insured Name Patient Relationship to Insured Coverage Start Date Coverage End Date Medicare National Govt Svcs Inc [address] [place] [address] [id number] Francois Gutierrez Self - patient is the insured 7 [employer] Blue Shield [address] [place] [address] [id number] Francois Gutierrez Self - patient is the insured Medical (General) History Medical History History ICD Code Cancer prostate Warts Measles Mumps Chicken pox Myasthenia gravis Surgical History Surgery Date(Month/Year) Prostectomy 2009 Bilateral plantar warts removed 2016 Left hip replaced 03/11 cataract surgery both eyes 02/2020
== END 2025-06-22 13:35 | disposition home or self-care (01) ==
LOC: HO.HSM 12:46
PROVIDERS: PCP Nurse Practitioner Family; Visit Provider Psychiatry & Neurology Neurology
DX: G70.00 Myasthenia gravis without (acute) exacerbation (principal); G62.9 Polyneuropathy, unspecified; T56.891A Toxic effect of other metals, accidental (unintentional), initial encounter; G90.1 Familial dysautonomia [Riley-Day]
CPT/HCPCS: 99214

== ENCOUNTER → 2025-06-22 12:45 | Outpatient (BNVA) | payer MEDICARE, SELFPAY | PROVIDERS: PCP Nurse Practitioner Family; Visit Provider Psychiatry & Neurology Neurology | DX: G70.00 Myasthenia gravis without (acute) exacerbation (principal); G62.9 Polyneuropathy, unspecified; G90.1 Familial dysautonomia [Riley-Day]; T56.891A Toxic effect of other metals, accidental (unintentional), initial encounter | CPT/HCPCS: 99212 ==

== ENCOUNTER 2025-07-05 10:47 | Outpatient (REF) | payer MEDICARE, SELFPAY ==
--- OUTSIDE RECORDS SUMMARY | 2024-11-29 06:30 | XMS_ITS ---
Author Organization [facility] Address [address] [place] [phone] Care Team Providers Care Preschool Substitute Teacher Name Role Phone SCOTTIE HERNANDEZ Primary Care Provider Avelino Trivedi [phone] REASON FOR VISIT SCREENING COLON Encounters Encounter Location Date Provider Diagnosis [facility] [address] [facility] [address] [place] [phone] 11/29/2024 Avelino Colin Plan Of Treatment Next Appt Details Provider Name:Avelino Colin , 09/27/2025 08:30:00 AM, [address] [place] [address] , [place], [place], [phone], Progress Notes * SCOTTIE RAMSEYDOB:1950 ([age] yo M)Acc No.[id number]:11/29/2024 Progress Notes Patient: SCOTTIE GARNETT Provider: Thom Colin MD :1950 A ge:74 Y S ex:Male Date:11/29/2024 Address:[address] [id number] Pcp:SCOTTIE HERNANDEZ Subjective: * Chief Complaints: * 1 . SCREENING COLON. * Medical History: Objective: * Vitals: Assessment: Plan: * Treatment: * * The named appointment provid er may or may not be the originator of this progress note, and it is not deemed complete until electronically signed by the appointment provider. Sign off status: Pending * Provider: Thom Colin MD Date: 0 11/29/2024 Generated for Devin munoz/Rose Mary/Tabbyitting on: 0 07/05/2025 11:39 AM EDT
--- OUTSIDE RECORDS SUMMARY | 2025-07-05 11:40 | XMS_ITS | Patient Health Record ---
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) Active confirmed Plan Of Treatment Pending Test Test Name Order Date X ray : Foot, left 3V 02/04/2022 [id number] Destruction, 1-14 06/10/2017 Insurance Providers Payer Name Payer Address Payer Phone Subscriber Number Group Number Insured Name Patient Relationship to Insured Coverage Start Date Coverage End Date Medicare National Govt Svcs Inc [address] [place] [address] [id number] Francois Gutierrez Self - patient is the insured 7 [employer] Blue Shield [address] [place] [address] [id number] Francois Gutierrez Self - patient is the insured Medical (General) History Medical History History ICD Code Cancer prostate Warts Measles Mumps Chicken pox Myasthenia gravis Surgical History Surgery Date(Month/Year) Prostectomy 2009 Bilateral plantar warts removed 2016 Left hip replaced 03/11 cataract surgery both eyes 02/2020
--- OUTSIDE RECORDS SUMMARY | 2025-07-05 11:40 | XMS_ITS | Encounter Summary ---
Author Organization [facility] Address [address] [place] [address] Phone Care Team Providers Care Speech And Language Specialist Name Role Phone Francois Adam COMMUNITY DEVELOPMENT OFFICER Primary Care Provider + Avelino Colin MD Unavailable [phone] Encounter Details Date Type Department Care Team (Late st Contact Info) Description 06/21/2025 Orders Only [facility] [address] [facility] 3rd Floor, [address] [place] [address] Provider, MD Steven [address] [place], [place] [id number] Social History Tobacco Use Types Packs/Day Years [...] Care Team (Late st Contact Info) Description 09/04/2025 3:00 PM EDT Office Visit [facility] [address] 3[address] Floor, [address] [place] [address] Bryon Banks MD [address] [facility], [address] [address] 01/02/2026 4:00 PM EST Office Visit [facility] [address] 3rd [facility], [address] [place] [address] Christiano Pringle MD [address] [place] [phone] documented as of this encounter Procedures Procedure Name Priority Date/Time Associated Diagnosis Comments OUTSIDE EP STUDY Routine 05/28/2025 11:47 AM EDT documented in this encounter Results * Outside EP Study Report Only (05/28/2025 11:47 AM EDT) us Historical Provider MD DERICK PARIKH Final Result documented in this encounter Visit Diagnoses Not on filedocumented in this encounter Care Teams Speech And Language Specialist Relationship Specialty Start Date End Date Francois Adam NP [address] [facility] [place] [address] PCP - General Nurse Practitioner 03/04/24 Avelino Colin MD [address] [place] [address] Drive [address] [place] [address] Gastroenterology 06/29/25 documented as of this encounter Additional Source Comments The information contained in this document represents components of the legal health record. It is not the complete legal health record.[facility]
--- NOTE | 2025-07-05 11:47 | EMG_ITS ---
Bilateral tibial and peroneal motor studies were performed bilateral superficial peroneal and sural sensory studies were performed tibial H reflexes were obtained and paraspinal muscles were tested with EMG needle. Impression 1. [id number]-mxeydkdo chronic axonal sensory motor peripheral neuropathy 2. Bilateral lower lumbar radiculopathy that seems more prominent on the right side but acute findings are noted on the left side. With previous history of back surgery, either recurrence of discogenic foraminal stenosis or spinal stenosis is suspected. MTDD
== END 2025-07-05 10:48 | disposition home or self-care (01) ==
LOC: HO.NEURO 10:47
PROVIDERS: PCP Nurse Practitioner Family; Visit Provider Psychiatry & Neurology Neurology
DX: G62.9 Polyneuropathy, unspecified (principal); M54.16 Radiculopathy, lumbar region
CPT/HCPCS: 95886; 95911

== ENCOUNTER → 2025-07-05 11:47 | Outpatient (BNV) | payer MEDICARE, SELFPAY | PROVIDERS: PCP Nurse Practitioner Family; Visit Provider Psychiatry & Neurology Neurology | DX: G62.89 Other specified polyneuropathies (principal); M54.16 Radiculopathy, lumbar region | CPT/HCPCS: 95886; 95911 ==

== ENCOUNTER 2025-07-10 15:46 | Outpatient (AMB) | payer MEDICARE, SELFPAY ==
--- OUTSIDE RECORDS SUMMARY | 2024-11-29 06:30 | XMS_ITS ---
Author Organization [facility] Address [address] [place] [phone] Care Team Providers Care Securities Consultant Name Role Phone SCOTTIE HERNANDEZ Primary Care Provider Avelino Trivedi [phone] REASON FOR VISIT SCREENING COLON Encounters Encounter Location Date Provider Diagnosis [facility] [address] [facility] [address] [place] [phone] 11/29/2024 Avelino Colin Plan Of Treatment Next Appt Details Provider Name:Avelino Colin , 09/27/2025 08:30:00 AM, [address] [place] [address] , [place], [place], [phone], Progress Notes * SCOTTIE RAMSEYDOB:1950 ([age] yo M)Acc No.[id number]:11/29/2024 Progress Notes Patient: SCOTTIE GARNETT Provider: Thom Colin MD :1950 A ge:74 Y S ex:Male Date:11/29/2024 Address:[address] [id number] Pcp:SCOTTIE HERNANDEZ Subjective: * Chief Complaints: * [...] Generated for Devin munoz/Rose Mary/Kamini on: 0 07/10/2025 04:10 PM EDT
--- NOTE | 2025-07-10 16:05 | MHC.OFFVIS ---
Intake Visit Reasons: RESULTS Allergies dicloxacillin Adverse Reaction (Unknown, Verified 04/27/25 12:12) diarrhea HPI Comments Details: 74 years old right-handed man with antibody positive mostly ocular myasthenia gravis who I initially saw in 2003 when he was admitted at [facility] with an episode of blurred vision and double vision. Initial suspicion was of microvascular ischemic disease resulting in transient ischemic attack but his workup later suggested myasthenia gravis with high acetyl choline receptor antibody titers. Over the years, he has been managed with azathioprine and has done reasonably well. He also had left sciatic sciatica type of pain syndrome and laminectomy [place] [address] Petersen when it [facility]. In addition, he was evaluated for mild cognitive symptoms with an amyloid brain PET scan in April of 2024, which was negative. He is also treated for mild axonal sensory motor peripheral neuropathy resulting in discomfort in feet and legs. He is presenting with chronic sciatic pain. He reports having experienced right-sided sciatic pain for six months, with some days being considerably more severe than others. He notes that physical activity, particularly cycling, exacerbates his symptoms while deep massages have provided some relief. Despite cortisone injections, the sciatic pain persists. The patient is on prednisone and reports dry eyes at the end of each day. He is also managing neuropathic symptoms with gabapentin, though its effectiveness is uncertain. The patient has a history of back surgery and is scheduled for an MRI to evaluate spinal stenosis and arthritis in conjunction with his upcoming visit to his back surgeon, Dr. Knapp. [facility] Medical History (Updated 07/10/25 @ 16:11 by Day Del Toro MD) MCI (mild cognitive impairment) Osteoarthritis of right knee Spinal stenosis of lumbar region Lumbar radiculopathy Horseshoe kidney Osteoarthritis of right hip Atrial tachycardia Lung density on x-ray RSV (acute bronchiolitis due to respiratory syncytial virus) Allergic rhinitis Bursitis of hip, right Osteoarthritis Greater trochanteric pain syndrome Bacterial pneumonia Depression Prostate cancer GERD (gastroesophageal reflux disease) Hyperlipemia Fatty liver Myasthenia gravis Peripheral polyneuropathy Surgical History H/O microdiscectomy History of lumbar laminectomy History of hip replacement H/O prostatectomy Family History Father Hypertension Mother Hypertension Social History Housing: House Alcohol intake: current Alcohol intake frequency: holidays/special occasions only Patient Tobacco Use Status: Former Tobacco user Years Smoked: 40 years ago e-Cigarette/Vaping Use: Never Used Second Hand Smoke Exposure: No service: No Current occupational status: retired Cognitive needs: No Hearing needs: No Vision needs: No Review of Systems Const Details: - Musculoskeletal: Reports right-sided sciatic pain for six months, worse with exercise. - Neurological: Reports neuropathy symptoms, more apparent at night. - Skin/Soft Tissue: Reports dry eyes, particularly by the end of the day. Physical Exam Neuro Other: Mental Status: Alert and oriented to person, place, and time. Normal attention. Normal spontaneous speech, fluency, and comprehension. Cranial Nerves: CN II: Visual garrison full to confrontation, visual acuity intact. CN III, IV, : Pupils equal, round, reactive to light and accommodation. Extraocular movements are normal. CN V: Facial sensation is normal. CN VII: Facial movements symmetrical. CN VIII: Hearing intact to bedside conversation is normal. CN IX, X: Palate elevates symmetrically. CN XI: Shoulder shrug and head turn symmetrical. CN XII: Tongue midline without atrophy or fasciculations. Extrapyramidal: Full facial expressions and blinking. No rigidity. Movements are appropriate with no tremor or abnormality. Speech: Normal; no dysarthria or tremor. Assessment & Plan Assessment & Plan (1) Myasthenia gravis: Comment: Amyloid PET in April 2024: WNL MRI brain WO at [facility] in March 2024: Mild atrophy suggestive of AD CT brain WO at [facility] in Jun 2019: mild bifrontal atrophy MRI/MRA brain WO at [facility] in 2003: WNL (reported) ACR ABs titer at [facility] in 2009: OK ACR ABs titer at [facility] in 2011: high binding and modulating abs. ACR ABs titer at [facility] in 2009: OK ACR ABs titer at [facility] in 2011: high binding and modulating abs ACR Abs at [facility] in Sep 2023: All 3 are high. Code(s): G70.00 - Myasthenia gravis without (acute) exacerbation Category: Medical (2) Peripheral neuropathy: Comment: EMG/NCS at [facility] in Jun 2025: Mild to mod axonal SM PN, B/L lower lumbar radiculopathy NCV/EMG LE 03/16/19 Mild chronic axonal sensory and motor peripheral neuropathy. Code(s): G62.9 - Polyneuropathy, unspecified Category: Medical Qualifiers: Peripheral neuropathy type: polyneuropathy, unspecified Qualified Code(s): G62.9 - Polyneuropathy, unspecified (3) Lumbar radiculopathy: Code(s): M54.16 - Radiculopathy, lumbar region Category: Medical Plan Impression: a: Antibody + MG b: Chroic axonal SM peripheral neuropathy c: Rigt sided sciatica pain with B/L lower lumbar radiculapathy on EMG Rec: a: MRI LS spine to r/o spinal stenosis b: Azathioprine 50mg a day c: Prednisone 20mg for a month and then 15mg a day d: Gabapentin 300mg 2-3 a day, try to take only at bedtime e: Pyridostigmine 60mg 2-3 a day Medications: New pyridostigmine bromide 60 mg PO BID 180 tabs 0RF Coding Level of Care Code Est Pt Level 5 (36986) Diagnoses Myasthenia gravis G70.00 Peripheral polyneuropathy G62.9 Peripheral neuropathy type: polyneuropathy, unspecified Lumbar radiculopathy M54.16
--- OUTSIDE RECORDS SUMMARY | 2025-07-10 16:10 | XMS_ITS | Patient Health Record ---
Author Organization 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) Active confirmed Plan Of Treatment Pending Test Test Name Order Date X ray : Foot, left 3V 02/04/2022 [id number] Destruction, 1-14 06/10/2017 Insurance Providers Payer Name Payer Address Payer Phone Subscriber Number Group Number Insured Name Patient Relationship to Insured Coverage Start Date Coverage End Date Medicare National Govt Svcs Inc [address] [place] [address] [id number] Francois Gutierrez Self - patient is the insured 7 [employer] Blue Shield [address] [place] [address] [id number] Francois Gutierrez Self - patient is the insured Medical (General) History Medical History History ICD Code Cancer prostate Warts Measles Mumps Chicken pox Myasthenia gravis Surgical History Surgery Date(Month/Year) Prostectomy 2009 Bilateral plantar warts removed 2016 Left hip replaced 03/11 cataract surgery both eyes 02/2020
--- OUTSIDE RECORDS SUMMARY | 2025-07-10 16:11 | XMS_ITS | Encounter Summary ---
Author Organization [facility] Address [address] [place] [address] Phone Care Team Providers Care Pinion And Wheel Truer Name Role Phone Francois Adam BOOK CRITIC Primary Care Provider + Avelino Colin MD Unavailable Encounter Details Date Type Department Care Team (Late st Contact Info) Description 06/21/2025 Orders Only [facility] [address] [facility] 3rd Floor, [address] [place] [address] Provider, MD Steven [address] [place], [place] [id number] Social History Tobacco Use Types Packs/Day Years [...] Description 09/04/2025 3:00 PM EDT Office Visit [facility] [address] 3[address] Floor, [address] [place] [address] Bryon Banks MD [address] [facility], [address] [address] 01/02/2026 4:00 PM EST Office Visit [facility] [address] 3rd [facility], [address] [place] [address] Christiano Pringle MD [address] [place] [address] documented as of this encounter Procedures Procedure Name Priority Date/Time Associated Diagnosis Comments OUTSIDE EP STUDY Routine 05/28/2025 11:47 AM EDT documented in this encounter Results * Outside EP Study Report Only (05/28/2025 11:47 AM EDT) us Historical Provider MD DERICK PARIKH Final Result documented in this encounter Visit Diagnoses Not on filedocumented in this encounter Care Teams Pinion And Wheel Truer Relationship Specialty Start Date End Date Francois Adam NP [address] [facility] [place] [address] PCP - General Nurse Practitioner 03/04/24 Avelino Colin MD [address] [place] [address] Drive [address] [place] [address] Gastroenterology 06/29/25 documented as of this encounter Additional Source Comments The information contained in this document represents components of the legal health record. It is not the complete legal health record.[facility]
== END 2025-07-10 16:32 | disposition home or self-care (01) ==
LOC: HO.HSM 15:47
PROVIDERS: PCP Nurse Practitioner Family; Visit Provider Psychiatry & Neurology Neurology
DX: G70.00 Myasthenia gravis without (acute) exacerbation (principal); G62.9 Polyneuropathy, unspecified; M54.16 Radiculopathy, lumbar region
CPT/HCPCS: 99214

== ENCOUNTER → 2025-07-10 15:46 | Outpatient (BNVA) | payer MEDICARE, SELFPAY | PROVIDERS: PCP Nurse Practitioner Family; Visit Provider Psychiatry & Neurology Neurology | DX: G70.00 Myasthenia gravis without (acute) exacerbation (principal); G62.9 Polyneuropathy, unspecified; M54.16 Radiculopathy, lumbar region | CPT/HCPCS: 99212 ==

== ENCOUNTER 2025-08-21 07:58 | Outpatient (AMB) | payer MEDICARE, SELFPAY ==
--- OUTSIDE RECORDS SUMMARY | 2024-11-29 06:30 | XMS_ITS ---
Author Organization [facility] Address [address] [place] [phone] Care Team Providers Care Medical Driver Name Role Phone SCOTTIE HERNANDEZ Primary Care Provider Avelino Trivedi [phone] REASON FOR VISIT SCREENING COLON Encounters Encounter Location Date Provider Diagnosis [facility] [address] [facility] [address] [place] [phone] 11/29/2024 Avelino Colin Plan Of Treatment Next Appt Details Provider Name:Avelino Colin , 09/27/2025 08:30:00 AM, [address] [place] [address] , [place], [place], [phone], Progress Notes * SCOTTIE RAMSEYDOB:1950 ([age] yo M)Acc No.[id number]:11/29/2024 Progress Notes Patient: SCOTTIE GARNETT Provider: Thom Colin MD :1950 A ge:74 Y S ex:Male Date:11/29/2024 Address:[address] [id number] Pcp:SCOTTIE HERNANDEZ Subjective: * Chief Complaints: * [...] 11/29/2024 Generated for Devin munoz/Rose Mary/Kamini on: 0 08/21/2025 08:00 AM EDT
--- OUTSIDE RECORDS SUMMARY | 2025-03-03 09:40 | XMS_ITS ---
Author Organization [facility] Address [address] [place] [address] Care Team Providers Care Boat Rental Clerk Name Role Phone SCOTTIE HERNANDEZ Primary Care Provider Avelino Trivedi [phone] REASON FOR VISIT Patient presents today for a SCREENING COLON Encounters Encounter Location Date Provider Diagnosis [facility] [address] [place] [address] 03/03/2025 Avelino Colin Plan Of Treatment Next Appt Details Provider Name:Avelino Colin , 09/27/2025 08:30:00 AM, [address] [place] [address] , [place], [place], [phone], Progress Notes * RAMSEYSCOTTIE WEEMSDOB:1950 ([age] yo M)Acc No.[id number]:03/03/2025 Progress Notes Patient: SCOTTIE GARNETT Provider: Thom Colin MD :1950 A ge:74 Y S ex:Male Date:03/03/2025 Address:[address] [id number] Pcp:SCOTTIE HERNANDEZ Subjective: * Chief Complaints: * [...] 03/03/2025 Generated for Devin munoz/Rose Mary/Kamini on: 0 08/21/2025 08:00 AM EDT
--- OUTSIDE RECORDS SUMMARY | 2025-08-21 08:00 | XMS_ITS | Patient Health Record ---
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) Active confirmed Plan Of Treatment Pending Test Test Name Order Date X ray : Foot, left 3V 02/04/2022 [id number] Destruction, 1-14 06/10/2017 Insurance Providers Payer Name Payer Address Payer Phone Subscriber Number Group Number Insured Name Patient Relationship to Insured Coverage Start Date Coverage End Date Medicare National Govt Svcs [employer] [address] [place] [address] [id number] Francois Gutierrez Self - patient is the insured 7 [employer] Blue Shield [address] [place] [address] [id number] Francois Gutierrez Self - patient is the insured Medical (General) History Medical History History ICD Code Cancer prostate Warts Measles Mumps Chicken pox Myasthenia gravis Surgical History Surgery Date(Month/Year) Prostectomy 2009 Bilateral plantar warts removed 2016 Left hip replaced 03/11 cataract surgery both eyes 02/2020
--- OUTSIDE RECORDS SUMMARY | 2025-08-21 08:01 | XMS_ITS | Encounter Summary ---
Author Organization [facility] Address [address] [facility] [address] [place] [address] Phone Care Team Providers Care Pewter Fabricator Name Role Phone Francois Adam ENVIRONMENTAL CONSERVATION OFFICER Primary Care Provider + Avelino Colin MD Unavailable [phone] Encounter Details Date Type Department Care Team (Late st Contact Info) Description 07/27/2024 Procedure Pass Non-Invasive Cardiology [address] [place] [address] Social History Tobacco Use Types Packs/Day Years [...] as food, clothing, or medical care? No 03/04/2024 In the past 12 months have y ou been in a relationship with a person who hurts, threatens, or tries to control you? No 03/04/2024 Are you denied basic needs s uch as food, clothing, or medical care? No 03/04/2024 In the past 12 months have y ou been in a relationship with a person who hurts, threatens, or tries to control you? No 03/04/2024 Sex and Gender Information Value Date Recorded Sex Assigned at Male 11/13/2024 11:37 AM EST Legal Sex Male 11:25 AM EDT Gender Identity Male 11/13/2024 11:37 AM EST Sexual Orientation Not on file documented as of this encounter Plan of Treatment Upcoming Encounters Date Type Department Care Team (Late st Contact Info) Description 09/04/2025 3:00 PM EDT Office Visit [facility] [address] [place] [address] 3rd [facility], [address] [place] [address] Bryon Banks MD [address] [place] [address], [address] [address] 01/02/2026 4:00 PM EST Office Visit [facility] [address] 3rd [facility], [address] [place] [address] Christiano Pringle MD [address] [place] [address] documented as of this encounter Visit Diagnoses Not on filedocumented in this encounter Care Teams Pewter Fabricator Relationship Specialty Start Date End Date Francois Adam NP [facility] [place] [address] PCP - General Nurse Practitioner 03/04/24 Avelino Colin MD [address] [place] [address] Drive [address] [place] [address] Gastroenterology 06/29/25 documented as of this encounter Additional Source Comments The information contained in this document represents components of the legal health record. It is not the complete legal health record.[facility]
--- OUTSIDE RECORDS SUMMARY | 2025-08-21 08:01 | XMS_ITS | Encounter Summary ---
Author Organization [facility] Address [address] [facility] [address] [place] [address] Phone Care Team Providers Care Plaque Maker Name Role Phone Francois Adam MARBLE INSTALLATION HELPER Primary Care Provider + Avelino Colin MD Unavailable [phone] Encounter Details Date Type Department Care Team (Late st Contact Info) Description 12/08/2024 Procedure Pass Non-Invasive Cardiology [address] [place] [address] Social History Tobacco Use Types Packs/Day Years [...] Description 09/04/2025 3:00 PM EDT Office Visit [facility] [address] [place] [address] 3rd [facility], [address] [place] [address] Bryon Banks MD [address] [place] [address], [address] [address] [email or web address] 01/02/2026 4:00 PM EST Office Visit [facility] [address] 3rd [facility], [address] [place] [address] Christiano Pringle MD [address] [place] [address] documented as of this encounter Visit Diagnoses Not on filedocumented in this encounter Care Teams Plaque Maker Relationship Specialty Start Date End Date Francois Adam NP [facility] [place] [address] PCP - General Nurse Practitioner 03/04/24 Avelino Colin MD [address] [place] [address] [address] [place] [address] Gastroenterology 06/29/25 documented as of this encounter Additional Source Comments The information contained in this document represents components of the legal health record. It is not the complete legal health record.[facility]
--- OUTSIDE RECORDS SUMMARY | 2025-08-21 08:01 | XMS_ITS | Patient Health Record ---
Author Organization [facility] Address [address] [place] [address] Care Team Providers Care Coal And Ash Supervisor Name Role Phone SCOTTIE HERNANDEZ Primary Care Provider Avelino Trivedi Unavailable [phone] Reason For Referral No Information Medications Medication SIG (Take, Route, Frequency, Duration) Notes Start Date End Date Status Lipitor 20 MG 1 tablet Orally Once a day Active Probiotic 250 MG as directed Orally Active FLUoxetine HCl 40 MG 1 capsule in the mo rning Orally Once a day Not-Taking Blueberry Flavor - as directed Active PriLOSEC OTC 20 MG 1 tablet Orally Once a day Active Lipoic Acid 150 MG 1 capsule Orally Onc e a day Active Multi Vitamin/Minerals Orally Active Co Q 10 100 MG as directed Orally Active Calcium Citrate + D3 250-200 MG-UNIT 1 tablet Orally Twice a day Active Magnesium 400 MG as directed Orally Active CoQ10 200 MG 1 capsule with a magda l Orally Once a day Active Diclofenac Potassium 50 MG 1 tablet with food or milk as needed Orally Twice a day Active Bee Pollen Active Mestinon 60 MG 1 tablet Orally Thre e times a day Not-Taking Lutein 20 MG 1 capsule with a magda l Orally Once a day Active Gabapentin 300 MG 1 capsule Orally Onc e a day Active oxyBUTYnin Chloride ER 10 MG 1 tablet Orally Once a day Not-Taking Imuran 50 MG Orally Active Immunizations Vaccine Route Administration Date Status Comme nts Influenza Unknown 09/14/2024 Administered Problems Problem Type SNOMED Code ICD Code Onset Dates Problem Status W/U Status Risk Notes Problem Colon cancer screening (026678913) Colon cancer screening (Z12.11) Active confirmed Problem technician terminal and repeater current use of non-steroidal anti-inflammatory drug (068204321909420) long-term (current) use of non-steroidal anti-inflammatori es (NSAID) (Z79.1) Active confirmed Problem Preprocedural examination (064775605610558) Preprocedural examination (Z01.818) Active confirmed Vital Signs Temperature 98.6 degrees Fahrenheit 06/15/2025 Blood pressure diastolic 01 mm Hg 06/15/2025 Height 71.5 in 06/15/2025 Blood pressure systolic 001 mm Hg 06/15/2025 Weight 224.6 lbs 06/15/2025 BMI 30.89 kg/m2 06/15/2025 Procedures Procedure Date Ordered Date Performed Result Body Sit e COLONOSCOPY 06/15/2025 N/A Encounters Encounter Location Date Provider Diagnosis [facility] [address] [place] [address] 06/15/2025 Avelino Colin Colon cancer screeni ng Z12.11 ; technician terminal and repeater (current) use of non-steroidal anti-inflammatories (NSAID) Z79.1 and Preprocedural examination Z01.818 Assessments Encounter Date Diagnosis (ICD Code) Assessment Notes Treatment Notes Treatment Clinical Notes Section Notes 06/15/2025 Colon cancer screening (ICD-10 - Z12.11) Overall, Scottie appears quite well. He is not having any new or worrisome GI complaints. I did recommend a follow-up colonoscopy for screening purposes given his last exam being over 10 years ago. We did review the rationale for this in regard to colon cancer prevention. Full consent has been obtained for this, including risks of bleeding and perforation. The procedure will be done with monitored anesthesia care. He was given the below instructions regarding adjustment of his medication for the procedure. Scottie was comfortable with this plan. Thank you again for allowing me to participate in Scottie's care. I shall continue to keep you advised of his progress. 06/15/2025 technician terminal and repeater (current) use of non-steroidal anti-inflammatori es (NSAID) (ICD-10 - Z79.1) Overall, Scottie appears quite well. He is not having any new or worrisome GI complaints. I did recommend a follow-up colonoscopy for screening purposes given his last exam being over 10 years ago. We did review the rationale for this in regard to colon cancer prevention. Full consent has been obtained for this, including risks of bleeding and perforation. The procedure will be done with monitored anesthesia care. He was given the below instructions regarding adjustment of his medication for the procedure. Scottie was comfortable with this plan. Thank you again for allowing me to participate in Scottie's care. I shall continue to keep you advised of his progress. 06/15/2025 Preprocedural examination (ICD-10 - Z01.818) Overall, Scottie appears quite well. He is not having any new or worrisome GI complaints. I did recommend a follow-up colonoscopy for screening purposes given his last exam being over 10 years ago. We did review the rationale for this in regard to colon cancer prevention. Full consent has been obtained for this, including risks of bleeding and perforation. The procedure will be done with monitored anesthesia care. He was given the below instructions regarding adjustment of his medication for the procedure. Socttie was comfortable with this plan. Thank you again for allowing me to participate in Scottie's care. I shall continue to keep you advised of his progress. Plan Of Treatment Pending Test Test Name Order Date COLONOSCOPY 06/15/2025 CLOSTRIDIUM DIFF TOXIN A&B (C DIFF) 08/23 Future Test Test Name Order Date COLONOSCOPY 09/08/2014 Next Appt Details Provider Name:Avelino Colin , 09/27/2025 08:30:00 AM, [address] [place] [address] , [place], [place], [id number], Insurance Providers Payer Name Payer Address Payer Phone Subscriber Number Group Number Insured Name Patient Relationship to Insured Coverage Start Date Coverage End Date MEDICARE OF [place] [address] [place] [address] [id number] SOCTTIE RAMSEY Self - patient is the insured [employer] ATT[employer] CLAIMS [address] [place] [address] [id number] SCOTTIE RAMSEY Self - patient is the insured Medical (General) History Medical History History ICD Code Denies [place],DM,CVA,Lung disease,renal dise ase Prostate cancer Myasthenia gravis- ocular- Dr. Del Toro Hyperlipidemia GERD- uses Prilosec prn Prostate cancer 2005 Neg. colonoscopy in 1995 except for a hy perplastic polyp Facial cellulitis Relapsing C. diff 2013- fini shed a tapering regimen of Vancomycin in early August Neuropathy- in feet Negative colonoscopy in 09/2014 Sciatica SVT-ablation 03/2025- successful- sees Dr Samuel Banks Surgical History Surgery Date(Month/Year) Left hip replacement Lower back discectomy Prostatectomy for cancer 2005
--- OUTSIDE RECORDS SUMMARY | 2025-08-21 08:01 | XMS_ITS | Encounter Summary ---
Author Organization [facility] Address [address] [facility] [address] [place] [address] Phone Care Team Providers Care Documentation Spec Name Role Phone Francois Adam DIRECTOR CLIENT Primary Care Provider + Avelino Colin MD Unavailable [phone] Encounter Details Date Type Department Care Team (Late st Contact Info) Description 07/15/2024 Procedure Pass Non-Invasive Cardiology [address] [place] [address] Social History Tobacco Use Types Packs/Day Years [...] Description 09/04/2025 3:00 PM EDT Office Visit [facility] [address] [place] [address] [address] [facility], [address] [place] [address] Bryon Banks MD [address] [place] [address], [address] [address] [email or web address] 01/02/2026 4:00 PM EST Office Visit [facility] [address] 3[address] [facility], [address] [place] [address] Christiano Pringle MD [address] [place] [address] documented as of this encounter Visit Diagnoses Not on filedocumented in this encounter Care Teams Documentation Spec Relationship Specialty Start Date End Date Francois Adam NP [facility] [place] [address] PCP - General Nurse Practitioner 03/04/24 Aevlino Colin MD [address] [place] [address] [address] [place] [address] Gastroenterology 06/29/25 documented as of this encounter Additional Source Comments The information contained in this document represents components of the legal health record. It is not the complete legal health record.[facility]
--- OUTSIDE RECORDS SUMMARY | 2025-08-21 08:01 | XMS_ITS | Encounter Summary ---
Author Organization [facility] Address [address] [place] [address] Phone Care Team Providers Care Radiology Transporter Name Role Phone Francois Adam COGNOS BI ADMINISTRATOR Primary Care Provider + Avelino Colin MD Unavailable [phone] Encounter Details Date Type Department Care Team (Late st Contact Info) Description 05/19/2025 Procedure Pass [facility] [address] [place] [address] Social History Tobacco Use Types Packs/Day Years [...] Description 09/04/2025 3:00 PM EDT Office Visit [facility] [address] [place] [address] 3rd [facility], [address] [place] [address] Bryon Banks MD [address] [place] [address], [address] [address] [email or web address] 01/02/2026 4:00 PM EST Office Visit [facility] [address] 3[address] [facility], [address] [place] [address] Christiano Pringle MD [address] [place] [address] documented as of this encounter Visit Diagnoses Not on filedocumented in this encounter Care Teams Radiology Transporter Relationship Specialty Start Date End Date Francois Adam NP [facility] [place] [address] PCP - General Nurse Practitioner 03/04/24 Avelino Colin MD [address] [place] [address] Drive [address] [place] [address] Gastroenterology 06/29/25 documented as of this encounter Additional Source Comments The information contained in this document represents components of the legal health record. It is not the complete legal health record.[facility]
--- OUTSIDE RECORDS SUMMARY | 2025-08-21 08:01 | XMS_ITS | Clinical Summary ---
Author Organization [facility] Address [address] [facility] [address] [place] [address] Phone Care Team Providers Care Line Installer Trolley Name Role Phone Francois Adam SUPERVISOR CAR AND YARD Primary Care Provider + Avelino Colin MD Unavailable [phone] Allergies Active Allergy Reactions Criticality Noted Date Comments Doxycycline Unknown 11/13/2024 Medications atorvastatin (LIPITOR) 20 MG tablet Take 20 mg by mouth daily. 01/25/2024 Active azaTHIOprine (IMURAN) 50 mg tablet Take 50 mg by mouth daily. 10/20/2022 Active gabapentin (NEURONTIN) 300 MG capsule Take 1 capsule (300 mg total) by mouth 2 (two) times a day. 03/05/2024 Active diclofenac sodium (VOLTAREN) 75 MG EC tablet as needed. Active coQ10, ubiquinol, 100 mg Cap Take 100 mg by mouth as needed. 04/18/2025 Active predniSONE (DELTASONE) 20 MG tablet Take 20 mg by mouth daily. Active Active Problems Problem Noted Date Diagnosed Date Implantable loop recorder present 06/29/2025 Assessment & Plan (06/29/2025 3:05 PM EDT): Device interrogated today. Battery status at 100%. Some HVR episodes that appear consistent with sinus tachycardia. Pt denies any cardiac symptoms and has been working in the yard and with PT. No parameter changes. Plan: Continue remote checks Follow-up in [address] 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 Pt had some PAC's after the ablation but this has improved per ILR. He has brief episodes of sinus tachycardia that may be associated with activity. No changes in management at this time. Pre-operative cardiovascular examination Assessment & Plan (06/29/2025 3:07 PM EDT): Revised Cardiac Risk Index for Pre-Operative Risk Pearls/Pitfalls High-risk surgery Intraperitoneal; intrathoracic; suprainguinal vascular NO History of ischemic heart disease History of myocardial infarction ([place]); history of positive exercise test; current chest pain considered due to myocardial ischemia; use of nitrate therapy or ECG with pathological Q waves NO History of congestive heart failure Pulmonary edema, bilateral rales or S3 gallop; paroxysmal nocturnal dyspnea; chest x-ray (CXR) showing pulmonary vascular redistribution NO History of cerebrovascular disease Prior transient ischemic attack (TIA) or stroke NO Pre-operative treatment with insulin NO Pre-operative creatinine >2 mg/dL / 176.8 mol/L NO Total Score 0 SCORE: 0=.4% RISK OF MAJOR CARDIAC EVENT/CLASS I RISK 1=.9% RISK OF MAJOR CARDIAC EVENT/CLASS II RISK 2=6.6% RISK OF MAJOR CARDIAC EVENT/CLASS III RISK 3 OR GREATER=11% RISK OF MAJOR CARDIAC EVENT/CLASS IV RISK REFERENCE: Maricruz Hogshead Weigher Med. 2009Nov 27;152(1):26-35 Pt ok to proceed with colonoscopy from cardiac standpoint. Atrial tachycardia 12/08/2024 Assessment & Plan (04/07/2025 10:37 AM EDT): Noted on ILR. Patient was previously scheduled for an ablation on 01/26/2025 but this was canceled due to the patient still being on amiodarone. This was rescheduled to 04/18/2021. We discussed the procedure in detail.We have discussed maintenance of sinus rhythm with medical versus ablative therapy and management of atrial fibrillation. Given medical therapy has failed, after discussion with patient, opted for more durable arrhythmia management in the form of ablation. I have explained risks of ablative therapy including bleeding, infection, perforation requiring emergent surgery, vascular injury, potential need for pacemaker placement, stroke, heart attack, cardiac arrest, and . Risks are less than 0.5% of patients especially at experience medical centers such as [facility]'s where ablations are performed. The patient verbalized understanding of the information provided. Patient reports that he continues to have occasional palpitations at least for a few seconds multiple times per day and fatigue. Plan: Proceed with ablation on 04/18/25 Assessment & Plan (12/08/2024 8:33 AM EST): It appears he has been having some arrhythmias including possible atrial fibrillation, SVT, atrial tachycardia as well as having some syncopal episodes over the past few years. He does have an ILR in place. He was started on amiodarone 200 mg daily after seeing Dr. Pringle who is our compensation specialist. It was part of the plan to go ahead and have a ablation done which is scheduled for January 26. He and his are concerned that he is still on amiodarone and do not want when to discontinue this medication prior to his procedure. For now I have asked him to continue his amiodarone but could try to reduce it to 100 mg daily to see if this still has the same effect on his rhythm control as to 200 mg dose. If it does not I have asked him to go back to 200 mg daily. We are going to be very hesitant and cautious about starting him on AV hermelindo blockers or calcium channel blockers due to his history of myasthenia gravis and trying to avoid a crisis or an exacerbation. His is concerned about ankle swelling and having headaches and possibly monitoring LFTs for amiodarone however I discussed with her today that we are going to hold off on changing the amiodarone and we could potentially get LFTs in the future but at this time I am going to reach out to Dr. Pringle to see what he would like to do with his amiodarone given his challenges on medications due to his medical history. Episodic lightheadedness 03/04/2024 Assessment & Plan (03/04/2024 9:30 PM EDT): -Patient has been having episodes of dizziness for some time but previously attributed this to either changing of BP meds, hypotension, or dehydration. In the past several days these have been more frequent. Today he was walking in a store and had 4 episodes of lightheadedness associated with palpitations, pallor, spots in his vision. These resolved spontaneously -In the ED he was initially mildly bradycardic with HR of 58, now in the 80's -Orthostatics in the ED negative -Monitor on tele -Follow up cardiology consult -May need holter monitor upon discharge HTN (hypertension) 03/04/2024 Assessment & Plan (06/29/2025 3:03 PM EDT): BP well controlled today. Pt is not currently on any antihypertensives. Will continue current management and keep current follow-up on 09/04/25. Assessment & Plan (12/08/2024 8:31 AM EST): Blood pressure is well-controlled today at 118/82. He is on no AV hermelindo blockers or antihypertensive medications. He is encouraged follow heart healthy including low-sodium and exercise. Assessment & Plan (03/04/2024 9:28 PM EDT): -His blood pressure has been running on the low side lately and he was taken off all his antihypertensives including losartan recently Tinnitus 02/09/2014 Overview (01/12/2015): Tinnitus Encounters Date Type Department Care Team Description 07/27/2025 Telephone [facility] [address], [address] [place] [address] Nilo Marc 07/03/2025 Telephone [facility] [address], [address] [place] [address] Madeleine Ovalle DNP 06/29/2025 3:00 PM EDT Office Visit [facility] [address], [address] [place] [address] Madeleine Ovalle DNP Primary hypertension (Primary Dx); Implantable loop recorder present; Paroxysmal supraventricular tachycardia; Pre-operative cardiovascular examination 06/21/2025 Orders Only [facility] [address], [address] [place] [address] Steven Berger MD 06/15/2025 Orders Only [facility] [address], [address] [place] [address] Steven Berger MD 06/08/2025 Orders Only [facility] [address], [address] [place] [address] Steven Berger MD 06/07/2025 Telephone [facility] [address], [address] [place] [address] Madeleine Ovalle DNP 05/29/2025 10:21 AM EDT - 05/29/2025 11:59 PM EDT Hospital Encounter [facility] [address] [place] [address] Christiano Pringle MD Discharge Disposition: Home or Self Care 05/19/2025 Procedure Pass [facility] [address] [place] [address] from Last 3 Months Social History Tobacco Use Types Packs/Day Years [...] AM EST Sexual Orientation Not on file Last Filed Vital Signs Vital Sign Reading Time Taken Comments Blood Pressure 132/80 06/29/2025 2:46 PM EDT Pulse 68 06/29/2025 2:46 PM EDT Temperature 36.9 C (98.4 F) 11/13/2024 11:38 AM EST Respiratory Rate 14 11/13/2024 5:00 PM EST Oxygen Saturation 95% 06/29/2025 2:46 PM EDT Inhaled Oxygen Concentration - - Weight 102.1 kg (225 lb) 06/29/2025 2:46 PM EDT Height 177 cm (5' 9.69 ) 06/29/2025 2:46 PM EDT Body Mass Index 32.58 06/29/2025 2:46 PM EDT Plan of Treatment Upcoming Encounters Date Type Department Care Team (Late st Contact Info) Description 09/04/2025 3:00 PM EDT Office Visit [facility] [address] [place] [address], [address] [place] [address] Bryon Banks MD [address] [place] [address] 01/02/2026 4:00 PM EST Office Visit [facility] [address] [place] [address], [address] [place] [address] Christiano Pringle MD [address] [place] [address] Health Maintenance Due Date Last Done Comments ALKALINE PHOSPHATASE LEVEL 1949 LIPID PANEL 1949 DEPRESSION SCREENING 1961 SMOKING Hx and SMOKELESS TOBACCO SCREENING 1962 HEPATITIS C SCREENING 1967 ZOSTER VACCINES (1 of 2) 1968 COLOGUARD 1994 COLONOSCOPY 1994 COLORECTAL CANCER SCREENING 1994 FIT TEST 1994 FOBT 1994 SIGMOIDOSCOPY 1994 VIRTUAL COLONOSCOPY 1994 COVID-19 VACCINE (2 - Moderna risk series) 02/19/2021 01/22/2021 RSV VACCINE (1 - 1-dose 75+ series) 2024 INFLUENZA VACCINE (#1) 2025 , 08/11/2019, 09/24/2018, Additional history exists CREATININE LEVEL 11/13/2025 11/13/2024, 03/04/2024 BLOOD PRESSURE 12/30/2025 06/29/2025 Adult Td,Tdap Booster 03/04/2026 03/04/2016 PNEUMOCOCCAL VACCINES (50+ years) Completed 12/12/2020, 12/13/2019, 07/27/2018 HEPATITIS A VACCINES Aged Out No long er eligible based on patient's age to complete this topic HIB VACCINES Aged Out No longer eligi ble based on patient's age to complete this topic MENINGOCOCCAL VACCINES (ACWY) Aged Out No longer eligible based on patient's age to complete this topic MENINGOCOCCAL VACCINES (B) Aged Out N o longer eligible based on patient's age to complete this topic Medical Devices Not on file Procedures Procedure Name Priority Date/Time Associated Diagnosis Comments TTE COMPREHENSIVE Routine 05/29/2025 11: 06 AM EDT Dyspnea, unspecified type OUTSIDE EP STUDY Routine 05/28/2025 11:4 7 AM EDT BASIC METABOLIC PANEL STAT 11/13/2024 11:52 AM EST from Last 3 Months or Most Recently Relevant to Health Maintenance Results * TTE COMPREHENSIVE (05/29/2025 11:06 AM EDT) Body Surface Area 2.20 m2 Height 177 cm Weight 103 kg Systolic BP 132 mmHg Diastolic BP 74 mmHg Left Atrium Dimension Anterior-Posterior 33 15 - 40 mm Aortic Valve Mean Gradient 4 mmHg Aortic Valve Time Velocity Integral 267.0 mm Aortic Valve Peak Velocity 1.3 m/s Aortic Valve Peak Gradient 7 mmHg Aortic Sinus Diameter 32 <40 mm Ascending Aorta Diameter 30 <36 mm Interventricular Septum Thickness 10 6 - 11 mm Left Ventricle Internal Diameter End Diastole 46 42 - 58 mm Left Ventricle Internal Diameter End Systole 30 <40 mm Left Ventricular Outflow Tract Diameter 21.0 mm LVOT VTI REST 190.0 mm Left Ventricular Outflow Tract Velocity 1.1 m/s Left Ventricular Outflow Tract Gradient at Rest 5 mmHg Left Ventricular Posterior Wall Thickness 11 6 - 11 mm Left Ventricle Ea Lateral Wave Speed 8.4 cm/s Left Ventricle Ea Septal Wave Speed 9.0 cm/s Mitral Valve Deceleration Time 141 ms Ejection Fraction 63 50 - 75 Percent Left Ventricle A Wave Speed 86.1 cm/s Left Ventricle E Wave Speed 74.1 cm/s Right Ventricle Basal Diameter 35 25 - 41 mm Tricuspid Valve Peak Velocity 2.7 m/s Raw LV EF% 57 % MV E/E' Tissue Velocity Lateral 8.82 Relative Wall Thickness 0.48 0.22 - 0.42 Left Ventricle indexed to BSA 77.2 g/m2 MV E/A ratio 0.9 MV E/e' septal 8.23 Left Ventricle E/e' Average 8.5 Aortic Valve Prosthetic Peak Gradient 7 mmHg Aortic Valve Prosthetic Mean Gradient 4 mmHg Aortic Valve Sinus Index by BSA 15 mm/m2 Aorta Sinus Index by Height 1.81 cm/m Aorta Sinus CSA index by Height 4.54 cm2/m Ascending Aorta Index 14 mm/m2 Asc Aorta CSA Index by Height 3.99 cm2/m Right Ventricle to Right Atrium Pressure Gradient 29 mmHg Right Ventricle Peak Systolic Pressure (Assuming RAP 10) 39 mmHg MGB CV ECHO TV RVSP (ASSUMING RAP OF 5) 34 mmHg RVSP (Exclusive of RAP) 29 mmHg MGB CV AV DIMENSIONLESS INDEX (PEAK) - STRESS ECHO DOBUT - REST 0.85 Ascending Aorta Index 14 mm Aortic Sinus Index 15 mm Ascending Aorta Diameter 14 mm Aortic Valve Sinus Index 1 15 20 - 32 mm AO ASC DIAM BSA INDEX 13.64 Echo E/Ea 8.23 GLS 20.1 % Right Ventricle TAPSE 25 >=17 mm Right Ventricle Pulse Doppler S Wave 18.6 >=9.5 cm/s Left Atrial Volume Index 24 16 - 34 mL/m2 Right Ventricle Mid Diameter 20 19 - 35 mm Right Ventricle Longitudinal Diameter 74 59 - 83 mm Left Atrial Volume 52 mL Left Atrial Volume Index by Height 29 mL/m Right Atrium Area 13 cm2 Right Atrium Area index 6 cm2/m2 Anatomical Region Laterality Modality Heart Ultrasound Narrative 05/29/2025 1:07 PM EDT Images from the original result were not included. Normal LV size and function EF 60 to 65%. Normal PA pressure estimation. Normal RV size and function. Normal diastolic function for age. Trace mitral regurgitation. No clear cardiac cause for shortness of breath could be found on this study. Left Ventricle The left ventricle is normal in size. There is normal wall thickness. There is normal left ventricular systolic function. The LV ejection fraction is 63% (calculated via the single dimension method). Average global longitudinal strain (GLS) is -20.1% (normal). LV diastolic function appears within normal limits for age. The e' septal wave velocity is 9.0 cm/s. The e' lateral wave velocity is 8.4 cm/s. The average E/e' ratio is 8.5. Right Ventricle The right ventricle is normal in size. The RV basal dimension is 35 mm. The RV mid dimension is 20 mm. The RV longitudinal dimension is 74 mm. There is normal right ventricular systolic function. TAPSE is 25 mm. RV S' wave is 18.6 cm/s. Left Atrium The left atrium is normal in size. The left atrial anterior-posterior dimension is 33 mm. The left atrial volume index by BSA is 24 mL/m2. There are normal flow patterns in the pulmonary vein. Right Atrium The right atrium is normal in size. The right atrial area is 13 cm2. The IVC is suboptimally visualized. Mitral Valve The mitral valve appears normal. There is no mitral stenosis. There is trace mitral regurgitation. Tricuspid Valve The tricuspid valve appears normal. There is no tricuspid stenosis. There is trace to mild tricuspid regurgitation. The RV systolic pressure was calculated at 29 mmHg (using TR peak velocity of 2.7 m/s and exclusive of RA pressure). Normal pulmonary pressure. Aortic Valve The aortic valve is tricuspid. There is no aortic stenosis. There is no aortic regurgitation. The visualized portions of the thoracic aorta appear normal in size. Pulmonic Valve The pulmonic valve appears normal. There is no pulmonic stenosis. There is no pulmonic regurgitation. Pericardium There is no pericardial effusion. General Findings Technically adequate echocardiogram. Strain performed. Technique(s) used in the evaluation: Color flow Doppler and Spectral Doppler. The predominant rhythm during the study was sinus. Comparison Findings There are no prior studies for comparison. IAS/IVS The interatrial septum appears normal. Christiano Pringle MD CV ECHO ORDERABLES Final Resu lt * Outside EP Study Report Only (05/28/2025 11:47 AM EDT) Historical Provider CV ELECTROPHYSIOLOGY CHRISTOPHER PARIKH Final Result * (ABNORMAL) Basic metabolic panel (11/13/2024 11:52 AM EST) SODIUM 138 133 - 146 mmol/L [facility] CHLORIDE 105 96 - 108 mmol/L [facility] POTASSIUM 4.1 3.3 - 5.1 mmol/L [facility] CO2 23 21 - 35 mmol/L [facility] BUN 20(H) 6 - 19 mg/dL [facility] CREATININE 0.80 0.5 - 1.5 mg/dL [facility] GLUCOSE 89 70 - 99 mg/dL [facility] CALCIUM 8.8 8.4 - 10.3 mg/dL [facility] EGFR 92 >59 mL/min/1.7 3m2 [facility] Comment:Estimated glomerular filtration rate calculated using the CKD-EPI refit equation. ANION GAP 14 10 - 20 mmol/L [facility] Blood 11/13/2024 11:5 2 AM EST 11/13/2024 12:01 PM EST Jing Winchester MD LAB BLOOD ORDERABLES Final Re sult [address] [address] from Last 3 Months or Most Recently Relevant to Health Maintenance Insurance MEDICARE PART A & B [employer] CROSS MEDEX SUPPLEMENT MEDICARE PART A & B [employer] CROSS MEDEX SUPPLEMENT MEDICARE PART A & B [employer] CROSS MEDEX SUPPLEMENT MEDICARE PART A & B [employer] MEDEX SUPPLEMENT MEDICARE PART A & B [employer] MEDEX SUPPLEMENT MEDICARE PART A & B [employer] MEDEX SUPPLEMENT Advance Directives For more information, please contact: [phone] (9AM - 5PM [facility], Thursday-Thursday) * Full Code (Latest Code Status on File) Date Activated Date Inactivated Comments 03/04/2024 9:23 PM Question Answer Comments Code Status Confirmed With: Patient Care Teams Line Installer Trolley Relationship Specialty Start Date End Date Francois Adam NP [address] [facility] [place] [address] PCP - General Nurse Practitioner 03/04/24 Avelino Colin MD [address] [place] [address] Drive [address] [place] [address] Gastroenterology 06/29/25 Additional Source Comments The information contained in this document represents components of the legal health record. It is not the complete legal health record.[facility]
--- OUTSIDE RECORDS SUMMARY | 2025-08-21 08:01 | XMS_ITS | Encounter Summary ---
Author Organization [facility] Address [address] [facility] [address] [place] [address] Phone Care Team Providers Care Mortgage Closing Clerk Name Role Phone Francois Adam ASSEMBLY LINE UPHOLSTERER Primary Care Provider + Avelino Colin MD Unavailable [phone] Encounter Details Date Type Department Care Team (Late st Contact Info) Description 08/18/2024 Procedure Pass Non-Invasive Cardiology [address] [place] [address] Social History Tobacco Use Types Packs/Day Years [...] Description 09/04/2025 3:00 PM EDT Office Visit [facility] [address] [place] [address] [address]rd [facility], [address] [place] [address] Bryon Banks MD [address] [place] [address], [address] [address] [email or web address] 01/02/2026 4:00 PM EST Office Visit [facility] [address] 3rd [facility], [address] [place] [address] Christiano Pringle MD [address] [place] [address] documented as of this encounter Visit Diagnoses Not on filedocumented in this encounter Care Teams Mortgage Closing Clerk Relationship Specialty Start Date End Date Francois Adam NP [facility] [place] [address] PCP - General Nurse Practitioner 03/04/24 Avelino Colin MD [address] [place] [address] Drive [address] [place] [address] Gastroenterology 06/29/25 documented as of this encounter Additional Source Comments The information contained in this document represents components of the legal health record. It is not the complete legal health record.[facility]
--- OUTSIDE RECORDS SUMMARY | 2025-08-21 08:01 | XMS_ITS | Encounter Summary ---
Author Organization [facility] Address [address] [place] [address] Phone Care Team Providers Care Brazing Machine Tender Name Role Phone Francois Adam HALF BACKER Primary Care Provider + Avelino Colin MD Unavailable [phone] Encounter Details Date Type Department Care Team (Late st Contact Info) Description 06/07/2025 Telephone [facility] [address] [place] [address] 3rd Floor, [address] [place] [address] Madeleine Ovalle DNP [address] [facility], [address] [address] Social History Tobacco Use Types Packs/Day Years [...] on file documented as of this encounter Progress Notes * Paulina Izaguirre RN - 06/07/2025 9:09 AM EDT Images from the original note were not included. [employer] ILR Remote Reports Atrial Tach post slow pathway ablation 04-18-2025. Appt with you 06-19-2025. Thank you documented in this encounter Plan of Treatment Upcoming Encounters Date Type Department Care Team (Late st Contact Info) Description 09/04/2025 3:00 PM EDT Office Visit [facility] [address] [place] [address] [facility], [address] [place] [address] Bryon Banks MD [address] [place] [address], [address] [address] 01/02/2026 4:00 PM EST Office Visit [facility] [address] Floor, [address] [place] [address] Christiano Pringle MD [address] [place] [address] documented as of this encounter Visit Diagnoses Not on filedocumented in this encounter Care Teams Brazing Machine Tender Relationship Specialty Start Date End Date Francois Adam NP [address] [facility] [place] [address] PCP - General Nurse Practitioner 03/04/24 Avelino Colin MD [address] [place] [address] Drive [address] [place] [address] Gastroenterology 06/29/25 documented as of this encounter Additional Source Comments The information contained in this document represents components of the legal health record. It is not the complete legal health record.[facility]
[2025-08-21 08:06] VITALS: BP 122/78; PULSE 77; RESP 16; TEMP 36.7; O2SAT 96; BMI 31.7
--- NOTE | 2025-08-21 08:06 | AM.OFFVISMDC ---
Intake Vital Signs 08/21/25 08:06 Height 5 ft 11 in Weight 227 lb BMI 31.7 BP 122/78 Blood Pressure Location Lt brachial Position Sitting Respiration 16 Pulse 77 Pulse Source Pulse Oximeter Temp 98.0 F Temp Source Oral Pulse Oximetry (%) 96 Oxygen Delivery Method Room Air Intake Visit Reasons: V G0439 [employer] Advisor Required: No Accompanied by: Self / Same As Patient Allergies dicloxacillin Adverse Reaction (Unknown, Verified 08/21/25 08:13) diarrhea Medication List - Last Reconciled 08/21/25 by SHANNAN Haile albuterol sulfate 90 mcg/actuation (Ventolin HFA) 1 inh inhalation QID PRN amlodipine 5 mg PO DAILY atorvastatin 20 mg PO DAILY 90 days azathioprine 50 mg PO DAILY diclofenac sodium 75 mg PO BID diltiazem HCl CD 180 mg PO DAILY gabapentin 300 mg PO TID 90 days losartan 50 mg PO DAILY 90 days oxybutynin chloride 5 mg PO BID 90 days prednisone 20 mg PO DAILY pyridostigmine bromide 60 mg PO BID HPI SWV G0439 HPI Details here for a AWV: PPP and CCC in scan pile. Pt reports doing well overall. recent lumbar back surg and ablation [facility] Medical History Osteoarthritis of right knee Spinal stenosis of lumbar region Lumbar radiculopathy Horseshoe kidney Osteoarthritis of right hip Atrial tachycardia Lung density on x-ray RSV (acute bronchiolitis due to respiratory syncytial virus) Allergic rhinitis Bursitis of hip, right Osteoarthritis Greater trochanteric pain syndrome Bacterial pneumonia Depression Prostate cancer GERD (gastroesophageal reflux disease) Hyperlipemia Fatty liver Myasthenia gravis Peripheral polyneuropathy Surgical History H/O microdiscectomy History of lumbar laminectomy History of hip replacement H/O prostatectomy Family History Father Hypertension Mother Hypertension Social History Housing: House Alcohol intake: current Alcohol intake frequency: holidays/special occasions only Patient Tobacco Use Status: Former Tobacco user Years Smoked: 40 years ago e-Cigarette/Vaping Use: Never Used Second Hand Smoke Exposure: No service: No Current occupational status: retired Cognitive needs: No Hearing needs: No Vision needs: No Questionnaire Medicare Wellness Checkup [age] What gender do you identify with?: male During the past 4 weeks, how much have you been bothered by emotional problems such as feeling anxious, depressed, irritable, sad or downhearted, and blue?: not at all During the past 4 weeks, has your physical & emotional health limited your social activities with family, friends, neighbors, or groups?: not at all During the past 4 weeks, how much bodily pain have you generally had?: no pain During the past 4 weeks, was someone available to help you if you needed & wanted help?: no, not at all During the past 4 weeks, what was the hardest physical activity you could do for at least 2 minutes?: very heavy Can you get to places out of walking distance without help? (For eg., can you travel alone on buses, taxis or drive your car?): Yes Can you go shopping for groceries or clothes without someone's help?: Yes Can you prepare your own meals?: Yes Can you do your housework without help?: Yes Because of any health problems, do you need the help of another person with your personal care needs such as eating, bathing, dressing or getting around the house?: No Can you handle your own money without help?: Yes During the past 4 weeks, how would you rate your health in general?: excellent During the past 4 weeks how have things been going for you?: very well; could hardly better Are you having difficulties driving your car?: no Do you always fasten your seat belt when you are in a car?: yes, usually During past 4 weeks, have you been bothered by the following: never: Falling or dizzy when standing up, Sexual problems?, Trouble eating well?, Teeth or denture problems?, Problems using the telephone? and Tiredness or fatigue? Have you fallen 2 or more times in the past year?: No Are you afraid of falling?: No Are you a smoker?: no During the past 4 weeks, how many drinks of wine, beer, or other alcoholic beverages did you have?: 1 drink or less per week Do you exercise for about 20 minutes 3 or more times a week?: yes, most of the time Have you been given information to help with the following?: yes: Hazards in your house that might hurt you? and yes: Keeping track of your medications? How often do you have trouble taking medicines the way you have been told to take them?: I always take medicine as prescribed How confident are you that you can control & manage most of your health problems?: very confident What is your race?: White Mini Mental State Exam (MMSE) Orientation What is the (year) (season) (date) (day) (month)?: year, season, date, day and month Where are we (state) (county) (town or city) (hospital) (floor)?: state, county, town or city, hospital/clinic and floor Registration Name of 3 unrelated objects clearly and slowly, then ask patient to repeat all 3 of them. (1st repeat determines score. Make sure they can repeat all three): object 1, object 2 and object 3 Attention & Calculation (CHOOSE ONE) Spell WORLD backwards (DLROW): 5 letters Recall Ask patient to repeat the 3 items from question #3.: object 1, object 2 and object 3 Language Show patient a wristwatch & ask what it is. Repeat for pencil.: watch Ask the patient to repeat the phrase 'No ifs, ands, or buts' after you.: correct Ask the patient to 'take a piece of paper with their right hand' 'fold paper in half' 'place paper on floor': take paper in right hand, fold paper in half and place paper on floor Print the sentence 'CLOSE YOUR EYES' on a piece. If patient actually closes eyes then score.: followed written direction Give patient a blank piece of paper & ask to write a sentence. Score if it contains a noun & verb.: sentence contains subject and verb Ask patient to copy figure of intersecting pentagons exactly. Score if all 10 angles & 2 intersects are included.: all 10 angles present & 2 are intersected Score Score: 29 Activity of Daily Living Bathing - sponge bath, tub bath or shower: receives no assistance (gets in/out by self, if usual bathing means Dressing - getting clothes from closets & drawers, including inner/outer garments & fasteners.: gets clothes & gets completely dressed without help Toileting - going to the 'toilet room' for urine/bowel elimination & cleaning self/arranging clothes: goes to toilet room, cleans self, arranges clothes without help Transfer: moves in & out of bed and chair without help (may use support object) Continence: controls urination/bowel movements completely by self Feeding: feeds self without help Total Score: 0 Information obtained from: patient Using telephone: independent Traveling: independent Shopping: independent Preparing meals: independent Housework: independent Taking medicine: independent Managing money: independent PHQ-9 Over the last 2 weeks, how often have you been bothered by any of the following problems? 1. Little interest or pleasure in doing things: not at all 2. Feeling down, depressed, or hopeless: not at all 3. Trouble falling or staying asleep, or sleeping too much: not at all 4. Feeling tired or having little energy: not at all 5. Poor appetite or overeating: not at all 6. Feeling bad about yourself - or that you are a failure or have let yourself or your family down: not at all 7. Trouble concentrating on things, such as reading the newspaper or watching television: not at all 8. Moving or speaking so slowly that other people could have noticed. Or the opposite - being so fidgety or restless that you have been moving around a lot more than usual: not at all 9. Thoughts that you would be better off or of hurting yourself in some way: not at all Total score: 0 Depression Screening Interpretation: Negative Depression Screening Done: Yes 04415 - PHQ-9 Billing: Yes Source: Developed by Drs. Avelino Arteaga, Mehreen Groves, Robin Coronado and colleagues, with an educational kamilah from [employer]. Physical Exam Vital Signs: Last Vital Signs Temp 98.0 F 08/21/25 08:06 Pulse 77 08/21/25 08:06 Resp 16 08/21/25 08:06 BP 122/78 08/21/25 08:06 Pulse Ox 96 08/21/25 08:06 Oxygen Delivery Method Room Air 08/21/25 08:06 BMI result Body Mass Index 31.7 Neuro Other: able to tandem walk, able to stand from sitting position, passed whisper test, neg rhomberg Assessment & Plan Assessment & Plan (1) Need for hepatitis B screening test: Code(s): Z11.59 - Encounter for screening for other viral diseases (2) Encounter for subsequent annual wellness visit (AWV) in Medicare patient: Code(s): Z00.00 - Encounter for general adult medical examination without abnormal findings Plan . Orders: Orders Hepatitis A,B,C Profile Today Z11.59 - Encounter for screening for other viral diseases Quality Reporting (2019) Depression/Bipolar (159/160/161/177) PHQ-9: Total score: 0 Coding Level of Care Code Medicare Subsequent (G0439) Diagnoses Need for hepatitis B screening test Z11.59 Encounter for subsequent annual wellness visit (AWV) in Medicare patient Z00.00 CPT Codes Advance Care Planning - Time spent: 1-15 minutes, on File ([id number]) Additional Codes PHQ-9 - 74941 - PHQ-9 Billing: Yes ([id number]) Advance Care Planning Forms completed: Health Care Proxy, MOLST and Living will Time spent: 1-15 minutes, on File
== END 2025-08-21 11:32 | disposition home or self-care (01) ==
LOC: HO.HMCC 07:59
PROVIDERS: PCP Nurse Practitioner Family; Visit Provider Nurse Practitioner Family
DX: Z00.00 Encounter for general adult medical examination without abnormal findings (principal); Z11.59 Encounter for screening for other viral diseases

== ENCOUNTER → 2025-08-21 07:58 | Outpatient (BNVA) | payer MEDICARE, SELFPAY | PROVIDERS: PCP Nurse Practitioner Family; Visit Provider Nurse Practitioner Family | DX: Z00.00 Encounter for general adult medical examination without abnormal findings (principal); G70.00 Myasthenia gravis without (acute) exacerbation; M54.16 Radiculopathy, lumbar region; G62.9 Polyneuropathy, unspecified | CPT/HCPCS: 96127; 99212 ==

== ENCOUNTER 2025-08-21 10:50 | Outpatient (AMB) | payer MEDICARE, SELFPAY ==
--- NOTE | 2025-08-21 11:03 | MHC.OFFVIS ---
Intake Visit Reasons: after MRI Allergies dicloxacillin Adverse Reaction (Unknown, Verified 08/21/25 08:13) diarrhea HPI Comments Details: 74 years old right-handed man with antibody positive mostly ocular myasthenia gravis who I initially saw in 2003 when he was admitted at [facility] with an episode of blurred vision and double vision. Initial suspicion was of microvascular ischemic disease resulting in transient ischemic attack but his workup later suggested myasthenia gravis with high acetyl choline receptor antibody titers. Over the years, he has been managed with azathioprine and has done reasonably well. He also had left sciatic sciatica type of pain syndrome and laminectomy in [address] Petersen when it [facility]. In addition, he was evaluated for mild cognitive symptoms with an amyloid brain PET scan in April of 2024, which was negative. He is also treated for mild axonal sensory motor peripheral neuropathy resulting in discomfort in feet and legs. Last time with suspicion of lumbar spinal stenosis an MRI was ordered but apparently he had an MRI few weeks prior to that. Based upon that MRI in with diagnosis of chronic spinal stenosis, and also a previous surgery, he had surgical decompression and fusion with titanium hardware done at [facility]. His sciatica type of symptoms were resolved. He also has stopped taking prednisone. He said that the end of the day his right eye is seem to close but he was not seeing double. He was avoiding to take prednisone because of his tendency to cause weight gain. His last dose of 5 mg was 4 days ago. [facility] Medical History Osteoarthritis of right knee Spinal stenosis of lumbar region Lumbar radiculopathy Horseshoe kidney Osteoarthritis of right hip Atrial tachycardia Lung density on x-ray RSV (acute bronchiolitis due to respiratory syncytial virus) Allergic rhinitis Bursitis of hip, right Osteoarthritis Greater trochanteric pain syndrome Bacterial pneumonia Depression Prostate cancer GERD (gastroesophageal reflux disease) Hyperlipemia Fatty liver Myasthenia gravis Peripheral polyneuropathy Surgical History H/O microdiscectomy History of lumbar laminectomy History of hip replacement H/O prostatectomy Family History Father Hypertension Mother Hypertension Social History Housing: House Alcohol intake: current Alcohol intake frequency: holidays/special occasions only Patient Tobacco Use Status: Former Tobacco user Years Smoked: 40 years ago e-Cigarette/Vaping Use: Never Used Second Hand Smoke Exposure: No service: No Current occupational status: retired Cognitive needs: No Hearing needs: No Vision needs: No Physical Exam Neuro Other: Mental Status: Alert and oriented to person, place, and time. Normal attention. Normal spontaneous speech, fluency, and comprehension. Cranial Nerves: CN II: Visual garrison full to confrontation, visual acuity intact. CN III, IV, : Pupils equal, round, reactive to light and accommodation. Extraocular movements are normal. CN V: Facial sensation is normal. CN VII: Facial movements symmetrical. CN VIII: Hearing intact to bedside conversation is normal. CN IX, X: Palate elevates symmetrically. CN XI: Shoulder shrug and head turn symmetrical. CN XII: Tongue midline without atrophy or fasciculations. Extrapyramidal: Full facial expressions and blinking. No rigidity. Movements are appropriate with no tremor or abnormality. Speech: Normal; no dysarthria or tremor. Assessment & Plan Assessment & Plan (1) Myasthenia gravis: Comment: Amyloid PET in April 2024: WNL MRI brain WO at [facility] in March 2024: Mild atrophy suggestive of AD CT brain WO at [facility] in Jun 2019: mild bifrontal atrophy MRI/MRA brain WO at [facility] in 2003: WNL (reported) ACR ABs titer at [facility] in 2009: OK ACR ABs titer at [facility] in 2011: high binding and modulating abs. ACR ABs titer at [facility] in 2009: OK ACR ABs titer at [facility] in 2011: high binding and modulating abs ACR Abs at [facility] in Sep 2023: All 3 are high. 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 Code(s): G62.9 - Polyneuropathy, unspecified Category: Medical Qualifiers: Peripheral neuropathy type: polyneuropathy, unspecified Qualified Code(s): G62.9 - Polyneuropathy, unspecified Plan Impression: a: Antibody + MG b: Chroic axonal SM peripheral neuropathy c: Lumbar spinal stenosis s/p decompressive surgery Rec: a: Azathioprine 50mg a day b: Prednisone 2.5mg a day d: Gabapentin 300mg 2-3 a day, try to take only at bedtime e: Pyridostigmine 60mg 2-3 a day, as needed Medications: New prednisone 2.5 mg PO DAILY 90 tabs 0RF Discontinued prednisone Discontinued Reason: Doctor's Order 20 mg PO DAILY 60 tabs 0RF Coding Level of Care Code Est Pt Level 5 (94009) Diagnoses Myasthenia gravis G70.00 Lumbar radiculopathy M54.16 Peripheral polyneuropathy G62.9 Peripheral neuropathy type: polyneuropathy, unspecified
== END 2025-08-21 11:25 | disposition home or self-care (01) ==
LOC: HO.HSM 10:51
PROVIDERS: PCP Nurse Practitioner Family; Visit Provider Psychiatry & Neurology Neurology
DX: G70.00 Myasthenia gravis without (acute) exacerbation (principal); M54.16 Radiculopathy, lumbar region; G62.9 Polyneuropathy, unspecified
CPT/HCPCS: 99214

== ENCOUNTER 2025-09-07 12:44 | Outpatient (AMB) | payer MEDICARE, SELFPAY ==
--- OUTSIDE RECORDS SUMMARY | 2024-11-29 06:30 | XMS_ITS ---
Author Organization [facility] Address [address] [place] [phone] Care Team Providers Care Marine Engine Machinist Apprentice Name Role Phone SCOTTIE HERNANDEZ Primary Care Provider Avelino Trivedi [phone] REASON FOR VISIT SCREENING COLON Encounters Encounter Location Date Provider Diagnosis [facility] [address] [facility] [address] [place] [phone] 11/29/2024 Avelino Colin Plan Of Treatment Next Appt Details Provider Name:Avelino Colin , 09/27/2025 08:30:00 AM, [address] [place] [address] , [place], [place], [phone], Progress Notes * SCOTTIE RAMSEYDOB:1950 ([age] yo M)Acc No.[id number]:11/29/2024 Progress Notes Patient: SCOTTIE GARNETT Provider: Thom Colin MD :1950 A ge:74 Y S ex:Male Date:11/29/2024 Address:[id number] Pcp:SCOTTIE HERNANDEZ Subjective: * Chief Complaints: * [...] Date: 0 11/29/2024 Generated for Devin munoz/Rose Mary/Kamini on: 1 03:53 PM EDT
--- OUTSIDE RECORDS SUMMARY | 2025-03-03 09:40 | XMS_ITS ---
Author Organization [facility] Address [address] [place] [address] Care Team Providers Care Health And Wellness Manager Name Role Phone SCOTTIE HERNANDEZ Primary Care Provider Avelino Trivedi [phone] REASON FOR VISIT Patient presents today for a SCREENING COLON Encounters Encounter Location Date Provider Diagnosis [facility] [address] [place] [address] 03/03/2025 Avelino Colin Plan Of Treatment Next Appt Details Provider Name:Avelino Colin , 09/27/2025 08:30:00 AM, [address] [place] [address] , [place], [place], [id number], Progress Notes * RAMSEYSCOTTIE WEEMSDOB:1950 ([age] yo M)Acc No.[id number]:03/03/2025 Progress Notes Patient: SCOTTIE GARNETT Provider: Thom Colin MD :1950 A ge:74 Y S ex:Male Date:03/03/2025 Address:[id number] Pcp:SCOTTIE HERNANDEZ Subjective: * Chief Complaints: * 1 . Patient presents today for a SCREENING COLON. * Medical History: Objective: * Vitals: Assessment: Plan: * Treatment: * * The named appointment provid er may or may not be the originator of this progress note, and it is not deemed complete until electronically signed by the appointment provider. Sign off status: Pending * Provider: Thom Colin MD Date: 0 03/03/2025 Generated for Devin munoz/Rose Mary/Kamini on: 1 03:54 PM EDT
--- OUTSIDE RECORDS SUMMARY | 2025-09-04 15:00 | XMS_ITS | Encounter Summary ---
Author Organization [facility] Address [address] [place] [address] Phone Care Team Providers Care Occupational Therapist'S Assistant Name Role Phone Francois Adam IMPLEMENTATION PROJECT MANAGER Primary Care Provider + Avelino Colin MD Unavailable [phone] Reason for Referral * Consultation (Routine) - Authorized Specialty Diagnoses / Procedures Referred By Krysta kim Referred To Contact Neurology Bryon Banks MD [address] [place] [address], [address] [address] Phone: tel: fax: [email or web address] Referral ID Status Reason Start Date Expiration Date V isits Requested Visits Authorized [id number] Authorized 09/04/2025 09/04/2026 1 1 Encounter Details Date Type Department Care Team (Latest Contact Info) Description 09/04/2025 3:00 PM EDT Office Visit [facility] [address] [place] [address] 3rd Floor, [address] [place] [id number] Bryon Banks MD [address] [place] [address], [address] [address] [email or web address] Implantable loop recorder present (Primary Dx); Paroxysmal supraventricular tachycardia; Primary hypertension; Myasthenia gravis Social History Tobacco Use Types Packs/Day Years Used Date Smoking Tobacco: Former Smokeless Tobacco: Never Tobacco Cessation:Counseling Given: Not Answered Alcohol Use Standard Drinks/Week Comments Not Currently [...] on file documented as of this encounter Last Filed Vital Signs Vital Sign Reading Time Taken Comments Blood Pressure 112/62 09/04/2025 2:52 PM EDT Pulse 72 09/04/2025 2:52 PM EDT Temperature - - Respiratory Rate - - Oxygen Saturation 94% 09/04/2025 2:52 PM EDT Inhaled Oxygen Concentration - - Weight 102.1 kg (225 lb) 09/04/2025 2:52 PM EDT Height 177 cm (5' 9.69 ) 09/04/2025 2:52 PM EDT Body Mass Index 32.58 09/04/2025 2:52 PM EDT documented in this encounter Progress Notes * Bryon Banks MD - 09/04/2025 3:[address] [facility] Cardiology follow-up Date: 09/04/2025 Referring Primary Care Physician: Francois Adam NP Primary Software Solutions Architect: Jocelyn History of Presenting Illness: Francois Gutierrez is a 74 y.o. male with past medical history of pSVT s/p slow pathway modification 2024, Syncope of unclear etiology s/p Biotronik ILR, hypertension, ocular myasthenia gravis, and prostate cancer status post prostatectomy who presents today for follow-up. I last saw him in the office in April, at which time he was still recovering from his SVT ablation (slow pathway modification) by Dr. Pringle at the end of March. He had not had any recurrence of SVT, butwas having very frequent symptomatic PACs. Given his history of ocular myasthenia gravis, I did notthink he was a good candidate for AV hermelindo blockers. He had already had significant side effects fro m amiodarone. To review: I met him in consultation back in June after an episode of syncope. We reviewed his extensive cardiovascular workup that did not show any cardiac cause for syncope. We did talk about his symptomatic PACs with a burden of only 2% and made a joint decision to start medical therapy just yet. I notedhe had bilateral carotid bruits so I recommended a carotid ultrasound. He tells me he has had approximately 3 episodes of near syncope over the last few years. The first 2 episodes were related to dehydration and so a workup was not pursued. His most recent episode occurred in February 2024 when he was with his in a store and very suddenly became diaphoretic and nearly syncopized. He relates that he did see stars , but did not have chest discomfort, palpitations, or shortness of breath. His symptoms lasted several minutes and he was taken to [facility] emergency room where a workup revealed only occasional PACs. He was admitted to the hospital for several days and telemetry at 1 point did reveal an arrhythmia concerning for atrial fibrillation, but this was put down to SVT. After the hospitalization, he wore a 30-day monitor, which I reviewed personally. He does have a 5 to 6-minute episode of what appears to be atrial fibrillation. He also has a 2% PAC burden, which were somewhat symptomatic. In April 2024, he had an echocardiogram at [facility], which showed normal biventricularsize and function and no hemodynamically significant valvular disease. He had his ILR implanted 07/15/24 and device interrogations have not revealed any significant abnormalities that would explain syncope. He has not had any further syncopal events. On 10/11/2024, he called in complaining of exertional neck and back discomfort and I suggested getting a stress test, which was performed on 10/28/2024. He exercised to 10 METS, had no ischemic EKG changes or anginal symptoms, and his nuclear MPI showed no evidence of infarct or ischemia. Francois also tells me that he has a neurologist due to his history of ocular myasthenia gravis. His neurologist has been working up his dizziness as well and he has very recently had CT and MRI of the brain without any significant findings except for a small amount of cerebral atrophy. He also had a PET scan to look for signs of Alzheimer's, which was negative. Past Medical History: Past Medical History: Diagnosis Date History of prostate cancer HTN (hypertension) Hyperlipidemia Ocular myasthenia gravis Past Surgical History: Past Surgical History: Procedure Laterality Date LUMBAR DISCECTOMY PROSTATECTOMY TOTAL HIP ARTHROPLASTY Left Current Medications: Outpatient Medications Marked as Taking for the 09/04/25 encounter (Office Visit) with Bryon Banks MD Medication Sig Dispense Refill Last Dispense atorvastatin (LIPITOR) 20 MG tablet Take 20 mg by mouth daily. Unknown (patient-reported) azaTHIOprine (IMURAN) 50 mg tablet Take 50 mg by mouth daily. Unknown (patient-reported) coQ10, ubiquinol, 100 mg Cap Take 100 mg by mouth as needed. Unknown (patient-reported) diclofenac sodium (VOLTAREN) 75 MG EC tablet as needed. Unknown (patient-reported) gabapentin (NEURONTIN) 300 MG capsule Take 1 capsule (300 mg total) by mouth 2 (two) times a day. Unknown (no pharmacy) MYRBETRIQ 50 mg Tb24 Take 1 tablet by mouth every morning. Unknown (patient-reported) predniSONE (DELTASONE) 2.5 MG tablet Take 2.5 mg by mouth daily. Unknown (patient-reported) pyRIDostigmine (MESTINON) 60 mg tablet Take 60 mg by mouth as needed. Unknown (patient-reported) Allergies: Allergies Allergen Reactions Doxycycline Unknown Family History: No family history on file. Social History: Social History Social History Narrative Not on file Social History Tobacco Use Smoking status: Former Smokeless tobacco: Never Substance Use Topics Alcohol use: Not Currently Physical Examination: Vital Signs: Vitals: 09/04/25 1452 BP: 112/62 Pulse: 72 SpO2: 94% Weight: 102.1 kg (225 lb) Height: 177 cm (5' 9.69 ) BMI: Body mass index is 32.58 kg/m??. Cardiovascular: Normal PMI, no thrills/heave. Normal S1 and S2. No added murmurs, gallops, or rubs. General Appearance: No acute distress, well-nourished. Neurologic: Alert, awake, and oriented, normal affect. Neck: No JVD or hepatojugular reflux. No enlargement of the thyroid. Carotid pulse 2+ bilaterally. No carotid bruits. Respiratory: Appropriate respiratory effort. Lungs clear to auscultation bilaterally, no wheezing/rhonchi/rales. Musculoskeletal: Normal curvature of the spine without kyphosis or scoliosis. Normal gait. Extremities/Skin: Warm and well perfused peripherally, no edema. Relevant Testing: EK07/11/2024 shows sinus rhythm 64 bpm with normal axis and normal voltage. Echo: In April 2024, he had an echocardiogram at [facility], which showed normal biventricularsize and function and no hemodynamically significant valvular disease. Other Cardiovascular Testing: After the hospitalization, he wore a 30-day monitor, which I reviewed personally. He does have a 5 to 6-minute episode of what appears to be atrial fibrillation. He also has a 2% PAC burden, which were somewhat symptomatic. Francois also tells me that he has a neurologist due to his history of ocular myasthenia gravis. His neurologist has been working up his dizziness as well and he has very recently had CT and MRI of the brain without any significant findings except for a small amount of cerebral atrophy. He also had a PET scan to look for signs of Alzheimer's, which was negative. On 10/11/2024, he called in complaining of exertional neck and back discomfort and I suggested getting a stress test, which was performed on 10/28/2024. He exercised to 10 METS, had no ischemic EKG changes or anginal symptoms, and his nuclear MPI showed no evidence of infarct or ischemia. Labs: WBC Date Value Ref Range Status 11/13/2024 8.67 4.00 - 11.00 K/uL Final HGB Date Value Ref Range Status 11/13/2024 14.8 13.5 - 17.5 g/dL Final HCT Date Value Ref Range Status 11/13/2024 44.5 41.0 - 53.0 % Final Lab Results Component Value Date NA 138 11/13/2024 K 4.1 11/13/2024 CL 105 11/13/2024 CO2 23 11/13/2024 BUN 20 (H) 11/13/2024 CRE 0.80 11/13/2024 GLU 89 11/13/2024 CA 8.8 11/13/2024 GFR 92 11/13/2024 ANION 14 11/13/2024 Assessment: Francois Gutierrez is a 74 y.o. male with past medical history of pSVT s/p slow pathway modification 2024, Syncope of unclear etiology s/p Biotronik ILR, hypertension, ocular myasthenia gravis, and prostate cancer status post prostatectomy who presents today for follow-up. He is doing well and denies any symptoms concerning for angina or congestive heart failure. His blood pressure is well controlled and his arrhythmia has been adequately suppressed by his ablation. His PACs are improving slowly, but we are avoiding AV hermelindo blockers and antiarrhythmics due to his history of myasthenia gravis. He is looking for a second opinion on his myasthenia gravis and I suggested he be seen at the [facility]. He is going to get his former neurology testing and records uploaded to our system. Plan: No changes to his current cardiac medications. I entered a referral to the [facility]. Follow-up: 6 months Electronically signed by: Bryon Banks MD [facility] 09/04/2025 Total time spent on this encounter: 40 minutes documented in this encounter Plan of Treatment Upcoming Encounters Date Type Department Care Team (Late st Contact Info) Description 01/31/2026 9:00 AM EDT Office Visit [facility] [address] [facility] [address], [address] [place] [address] Christiano Pringle MD [address] [place] [address] [email or web address] 03/07/2026 10:20 AM EDT Office Visit [facility] [address] [facility] 3rd Floor, [address] [place] [address] Bryon Banks MD [address] [facility], [address] [place] [address] [email or web address] 07/23/2026 1:00 PM EDT Office Visit [facility] Neurology [address] [facility], [address] [place] [address] Daryl Dickson MD [address] [facility] [address] [place] [address] [email or web address] Scheduled Referrals Name Type Priority Associated Diagnoses Order Schedule Ambulatory referral to [facility] Neurology - Employed Practices Outpatient Referral Routine Ordered: 09/04/2025 documented as of this encounter Visit Diagnoses Diagnosis Implantable loop recorder present- Primary Paroxysmal supraventricular tachycardia Primary hypertension Unspecified essential hypertension Myasthenia gravis Myasthenia gravis without exacerbation documented in this encounter Care Teams Occupational Therapist'S Assistant Relationship Specialty Start Date End Date Francois Adam NP [address] [place] [address] PCP - General Nurse Practitioner 03/04/24 Avelino Colin MD [address] [place] [address] Drive [address] [place] [address] Gastroenterology 06/29/25 documented as of this encounter Additional Source Comments The information contained in this document represents components of the legal health record. It is not the complete legal health record.[facility]
--- NOTE | 2025-09-07 12:57 | MHC.PC.OV ---
Vital Signs 09/07/25 12:58 Height 5 ft 11 in Weight 225 lb BMI 31.4 BP 116/68 Blood Pressure Location Lt brachial Position Sitting Respiration 17 Pulse 73 Pulse Source Pulse Oximeter Temp 98.4 F Temp Source Oral Pulse Oximetry (%) 94 Oxygen Delivery Method Room Air Intake Visit Reasons: 4m follow up Intake Note: Pt is here today for 4 months follow up visit. Allergies dicloxacillin Adverse Reaction (Unknown, Verified 09/07/25 13:02) diarrhea Medication List - Last Reconciled 09/07/25 by Francois Adam, [facility]- albuterol sulfate 90 mcg/actuation (Ventolin HFA) 1 inh inhalation QID PRN atorvastatin 20 mg PO DAILY 90 days azathioprine 50 mg PO DAILY Bacillus coagulans (Probiotic (B. coagulans)) PO bee pollen mg PO [Bluberry pill PO] coQ10 (ubiquinol) (Qunol Joshua CoQ10) 200 mg PO DAILY diclofenac sodium 75 mg PO DAILY PRN gabapentin 300 mg PO DAILY PRN magnesium oxide 400 mg PO DAILY mirabegron ER (Myrbetriq) 50 mg PO DAILY mv,Ca,zzc-ljpr-BY-lycopene (Men's Daily Multivitamin) PO prednisone 2.5 mg PO DAILY pyridostigmine bromide 60 mg PO BID PRN R-lipoic acid 800mg daily Tobacco use date assessed: 09/07/25 Fall risk assessment: No Falls in past year Last assessed Fall Risk: 09/07/25 Dental Screening Dental Screen Date: 04/27/25 HPI 4m follow up HPI Details Chief Complaint The patient presents for follow-up on hypertension and dyslipidemia management. History of Present Illness The patient is a 74-year-old male presenting with hypertension and dyslipidemia management. He reports doing well on his current statin therapy, with no adverse effects noted. He denies any current headaches, blurred vision, dizziness, chest pain, or shortness of breath. The patient also reports experiencing muscle spasms, particularly around the eyelids, which he attributes to stress. He is not currently on any hypertensive medications, and his blood pressure remains stable. Additionally, the patient describes symptoms consistent with Raynaud's phenomenon, including coldness and slight discoloration of the fingertips. He has good radial pulses bilaterally and is not interested in starting blood pressure medications for this condition at this time. The patient is encouraged to maintain his physical activity routine, particularly using a stationary bike during the winter months. He is currently undergoing physical therapy for back pain. Social History - Exercise: Engages in biking, plans to use a stationary bike during winter Health Maintenance - Encouraged to maintain physical activity using a stationary bike Review of Systems - Neurological: Reports muscle spasms, denies headaches, dizziness - Cardiovascular: Denies chest pain, shortness of breath - Ophthalmologic: Denies blurred vision Physical Exam General: Cooperative, healthy appearing, comfortable, no acute distress and well developed Orientation: Patient oriented x3 Limitations: No limitations Head: Normal to inspection Ears: Hearing grossly normal bilaterally Nose: Normal external nose present Face and sinus: Normal facial exam Eyes: Appearance normal, both eyes and all related structures, reports some eyelid muscle spasms or twitching Neck: Normal visual inspection and Yes full ROM Respiratory: Normal respiratory effort and able to speak in complete sentences. Clear to auscultation bilaterally Cardiovascular: Regular rate and rhythm. Normal S1 and S2, good radial pulses bilaterally GI: Normal to inspection. Soft to palpation and nontender Skin: No rashes or lesions noted, faint discoloration and to fingertip, + sensation Neuro: Patient oriented x3 Extremities: Normal to inspection, no edema noted Results Plan 1. Hypertension The patient is currently not on any antihypertensive medications, and his blood pressure remains stable. We will continue to monitor his blood pressure and encourage lifestyle modifications, including regular physical activity. 2. Dyslipidemia The patient is on statin therapy and reports doing well without any adverse effects. We will continue with the current regimen and monitor lipid levels periodically. 3. Raynaud's Phenomenon The patient reports coldness and slight discoloration of the fingertips. He has good radial pulses bilaterally and is not interested in starting blood pressure medications for this condition at this time. We discussed non-pharmacological measures such as keeping warm. Discussion Notes We discussed the management of hypertension and dyslipidemia, emphasizing the importance of regular physical activity and adherence to statin therapy. The patient is advised to continue using a stationary bike during the winter months. We also reviewed the symptoms of Raynaud's phenomenon and discussed non-pharmacological management options. Patient Instructions - Continue using the stationary bike regularly, especially during winter. - Monitor blood pressure regularly and report any significant changes. - Keep warm to manage Raynaud's symptoms. [facility] Medical History Osteoarthritis of right knee Spinal stenosis of lumbar region Lumbar radiculopathy Horseshoe kidney Osteoarthritis of right hip Atrial tachycardia Lung density on x-ray RSV (acute bronchiolitis due to respiratory syncytial virus) Allergic rhinitis Bursitis of hip, right Osteoarthritis Greater trochanteric pain syndrome Bacterial pneumonia Depression Prostate cancer GERD (gastroesophageal reflux disease) Hyperlipemia Fatty liver Myasthenia gravis Peripheral polyneuropathy Surgical History History of lumbar fusion H/O microdiscectomy History of lumbar laminectomy History of hip replacement H/O prostatectomy Family History Father Hypertension Mother Hypertension Social History Housing: House Alcohol intake: current Alcohol intake frequency: holidays/special occasions only Patient Tobacco Use Status: Former Tobacco user Years Smoked: 40 years ago e-Cigarette/Vaping Use: Never Used Second Hand Smoke Exposure: No service: No Current occupational status: retired Cognitive needs: No Hearing needs: No Vision needs: No Questionnaire Thrive Questionnaire Date Thrive assessed: 12/15/24 I am a: Patient What is your living situation today?: I have a steady place to live Within the past 12 months, did the food you bought not last and you didn't have the money to get more?: Never true Within the past 12 months, did you worry whether your food would run out before you got money to buy more?: Never true Do you have trouble paying for medicines?: No Do you have trouble getting transportation to medical appointments?: No Do you have trouble paying your heating and electricity bill?: No Do you have trouble taking care of your child, family member or friend?: No Do you have trouble with day-to-day activities such as bathing, preparing meals, shopping, managing finances, etc.?: No Are you currently unemployed and looking for a job?: No Are you interested in more education?: No Please select the resources that you would like help with: None Currently or been in a relationship where the following occur: I choose not to answer THRIVE Score: 0 MARTIN-7 AMB Questionnaire MARTIN-7 Date MARTIN - 7 assessed: 04/27/25 Source: Developed by Drs. Avelino Arteaga, Mehreen Groves, Robin Coronado and colleagues, with an educational kamilah from [employer]. Physical exam (Primary Care) Vital Signs: Last Vital Signs Temp 98.4 F 09/07/25 12:58 Pulse 73 09/07/25 12:58 Resp 17 09/07/25 12:58 BP 116/68 09/07/25 12:58 Pulse Ox 94 09/07/25 12:58 Oxygen Delivery Method Room Air 09/07/25 12:58 BMI result Body Mass Index 31.4 Tobacco/Smoking Status: Tobacco use Status Tobacco use date assessed 04/27/25 04/27/25 11:28 Patient Tobacco Use Status Former Tobacco user 04/27/25 11:28 e-Cigarette/Vaping Use Never Used 04/27/25 11:28 Thrive Assessment: Date of Thrive Assessment Date Thrive assessed 12/15/24 09/07/25 12:45 Currently or been in a relationship where the following occur: I choose not to answer Coding Level of Care Code Est Pt Level 3 (33799) Diagnoses HTN (hypertension) I10 Vitamin D deficiency E55.9 Raynauds disease I73.00 Dyslipidemia E78.5 Assessment & Plan Assessment & Plan (1) HTN (hypertension): Code(s): I10 - Essential (primary) hypertension Category: Medical (2) Vitamin D deficiency: Code(s): E55.9 - Vitamin D deficiency, unspecified Category: Medical (3) Raynauds disease: Code(s): I73.00 - Raynaud's syndrome without gangrene Category: Medical (4) Dyslipidemia: Code(s): E78.5 - Hyperlipidemia, unspecified Category: Medical Plan . Orders: Orders Complete Blood Count Auto Diff Today SHANNAN Haile I10 - Essential (primary) hypertension Comprehensive [place]. Panel Fast Today SHANNAN Haile I10 - Essential (primary) hypertension TSH reflex Free T4 Today SHANNAN Haile I10 - Essential (primary) hypertension Lipid Panel Today SHANNAN Haile I10 - Essential (primary) hypertension Vitamin D 25-OH Total Today SHANNAN Haile E55.9 - Vitamin D deficiency, unspecified, I10 - Essential (primary) hypertension UA CC w/rflx Micro + Cult Today SHANNAN Haile I10 - Essential (primary) hypertension Medications: Changed From gabapentin sometimes 3 tablets a day 300 mg PO TID 90 days 270 caps 1RF To gabapentin 1 in AM and 1 at Bedtime 300 mg PO DAILY PRN Day Del Toro MD From pyridostigmine bromide 60 mg PO BID 180 tabs 0RF To pyridostigmine bromide 60 mg PO BID PRN Day Del Toro MD
[2025-09-07 12:58] VITALS: BP 116/68; PULSE 73; RESP 17; TEMP 36.9; O2SAT 94; BMI 31.4
--- OUTSIDE RECORDS SUMMARY | 2025-09-07 15:54 | XMS_ITS | Encounter Summary ---
Author Organization [facility] Address [address] [facility] [address] [place] [address] Phone Care Team Providers Care City Sanitarian Name Role Phone Francois Adam PHARMACY INFORMATICIST Primary Care Provider + Avelino Colin MD Unavailable [phone] Encounter Details Date Type Department Care Team (Late st Contact Info) Description 12/08/2024 Procedure Pass Non-Invasive Cardiology [address] [place] [address] Social History Tobacco Use Types Packs/Day Years [...] Description 01/31/2026 9:00 AM EDT Office Visit [facility] [address] [place] [address] [address] [facility], [address] [place] [address] Christiano Pringle MD [address] [place] [id number] 03/07/2026 10:20 AM EDT Office Visit [facility] [address], [address] [place] [address] Bryon Banks MD [address] [place] [address], [address] [address] 07/23/2026 1:00 PM EDT Office Visit [facility] General Neurology [address] [facility], [address] [place] [address] Daryl Dickson MD [address] [place] [id number] [email or web address] documented as of this encounter Visit Diagnoses Not on filedocumented in this encounter Care Teams City Sanitarian Relationship Specialty Start Date End Date Francois Adam NP [address] [facility] [place] [address] PCP - General Nurse Practitioner 03/04/24 Avelino Colin MD [address] [place] [address] Drive [address] [place] [address] (work) Gastroenterology 06/29/25 documented as of this encounter Additional Source Comments The information contained in this document represents components of the legal health record. It is not the complete legal health record.[facility]
--- OUTSIDE RECORDS SUMMARY | 2025-09-07 15:54 | XMS_ITS | Encounter Summary ---
Author Organization [facility] Address [address] [facility] [address] [place] [address] Phone Care Team Providers Care Field Adjuster Name Role Phone Francois Adam PUBLICATIONS EDITOR Primary Care Provider + Avelino Colin MD Unavailable [phone] Encounter Details Date Type Department Care Team (Late st Contact Info) Description 07/27/2024 Procedure Pass Non-Invasive Cardiology [address] [place] [address] Social History Tobacco Use Types Packs/Day Years [...] Description 01/31/2026 9:00 AM EDT Office Visit [facility] [address] [place] [address] 3rd [facility], [address] [place] [address] Christiano Pringle MD [address] [place] [address] [email or web address] 03/07/2026 10:20 AM EDT Office Visit [facility] [address], [address] [place] [address] Bryon Banks MD [address] [place] [address], [address] [address] 07/23/2026 1:00 PM EDT Office Visit [facility] General Neurology [address] [facility], [address] [place] [address] Daryl Dickson MD [address] [place] [address] [email or web address] documented as of this encounter Visit Diagnoses Not on filedocumented in this encounter Care Teams Field Adjuster Relationship Specialty Start Date End Date Francois Adam NP [address] [place] [address] PCP - General Nurse Practitioner 03/04/24 Avelino Colin MD [address] [place] [address] Drive [address] [place] [address] (work) Gastroenterology 06/29/25 documented as of this encounter Additional Source Comments The information contained in this document represents components of the legal health record. It is not the complete legal health record.[facility]
--- OUTSIDE RECORDS SUMMARY | 2025-09-07 15:54 | XMS_ITS | Patient Health Record ---
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 Plan Of Treatment Pending Test Test Name Order Date X ray : Foot, left 3V 02/04/2022 [id number] Destruction, 1-14 06/10/2017 Insurance Providers Payer Name Payer Address Payer Phone Subscriber Number Group Number Insured Name Patient Relationship to Insured Coverage Start Date Coverage End Date Medicare National Govt Svcs Inc [address] [place] [address] [id number] Francois Gutierrez Self - patient is the insured 7 [employer] Blue Shield [address] [place] [address] [id number] Francois Gutierrez Self - patient is the insured Medical (General) History Medical History History ICD Code Cancer prostate Warts Measles Mumps Chicken pox Myasthenia gravis Surgical History Surgery Date(Month/Year) Prostectomy 2009 Bilateral plantar warts removed 2016 Left hip replaced 03/11 cataract surgery both eyes 02/2020
--- OUTSIDE RECORDS SUMMARY | 2025-09-07 15:54 | XMS_ITS | Clinical Summary ---
Author Organization [facility] Address [address] [facility] [address] [place] [address] Phone Care Team Providers Care Preparer Making Department Name Role Phone Francois Adam PIPE AND TANK FABRICATOR Primary Care Provider + Avelino Colin MD Unavailable [phone] Allergies Active Allergy Reactions Criticality Noted Date Comments Doxycycline Unknown 11/13/2024 Medications atorvastatin (LIPITOR) 20 MG tablet Take 20 mg by mouth daily. 4 Active azaTHIOprine (IMURAN) 50 mg tablet Take 50 mg by mouth daily. 2 Active gabapentin (NEURONTIN) 300 MG capsule Take 1 capsule (300 mg total) by mouth 2 (two) times a day. 4 Active diclofenac sodium (VOLTAREN) 75 MG EC tablet as needed. Active coQ10, ubiquinol, 100 mg Cap Take 100 mg by mouth as needed. 5 Active MYRBETRIQ 50 mg Tb24 Take 1 tablet by mouth every morning. 5 Active pyRIDostigmine (MESTINON) 60 mg tablet Take 60 mg by mouth as needed. 5 Active predniSONE (DELTASONE) 2.5 MG tablet Take 2.5 mg by mouth daily. 5 Active predniSONE (DELTASONE) 20 MG tablet Take 20 mg by mouth daily. 09/04/20 25 Discontinu ed(No longer taking) Active Problems Problem Noted Date Diagnosed Date [...] with Dr. 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 Pt had some PAC's after the ablation but this has improved per ILR. He has brief episodes of sinus tachycardia that may be associated with activity. No changes in management at this time. Pre-operative cardiovascular examination 025 Assessment & Plan (06/29/2025 3:07 PM EDT): Revised Cardiac Risk Index for Pre-Operative Risk Pearls/Pitfalls High-risk surgery Intraperitoneal; intrathoracic; suprainguinal vascular NO History of ischemic heart disease History of myocardial infarction (NV); history of positive exercise test; current chest [...] MAJOR CARDIAC EVENT/CLASS IV RISK REFERENCE: Maricruz Distillation Operator Helper Med. 2009Nov 27;152(1):26-35 Pt ok to proceed [...] less than 0.5% of patients especially at [facility] medical centers such as [facility]'s where ablations are performed. The patient [...] after seeing Dr. Pringle who is our demo event specialist. It was part of the plan [...] Encounters Date Type Department Care Team Description 09/04/2025 3:00 PM EDT Office Visit [facility] [address] Floor, [address] [place] [address] Bryon Banks MD Implantable loop recorder present (Primary Dx); Paroxysmal supraventricular tachycardia; Primary hypertension; Myasthenia gravis 08/27/2025 Orders Only [facility] [address] 3[address] Floor, [address] [place] [address] ProviderSteven MD 07/27/2025 Telephone [facility] [address] [place] [address], [address] [place] [address] Nilo Marc 07/03/2025 Telephone [facility] [address] [place] [address], [address] [place] [address] Madeleine Ovalle DNP 06/29/2025 3:00 PM EDT Office Visit [facility] [address] 3rd [facility], [address] [place] [address] Madeleine Ovalle DNP Primary hypertension (Primary Dx); Implantable loop recorder present; Paroxysmal supraventricular tachycardia; Pre-operative cardiovascular examination 06/21/2025 Orders Only [facility] [address] [place] [address], [address] [place] [address] Steven Berger MD 06/15/2025 Orders Only [facility] [address] [place] [address], [address] [place] [address] Steven Berger MD 06/08/2025 Orders Only [facility] [address] [place] [address], [address] [place] [address] Steven Berger MD 06/07/2025 Telephone [facility] [address] [place] [address], [address] [place] [address] Madeleine Ovalle DNP from Last 3 Months Social History Tobacco [...] Pulse 72 09/04/2025 2:52 PM EDT Temperature 36.9 C (98.4 F) 11/13/2024 11:38 AM EST Respiratory Rate 14 11/13/2024 5:00 PM EST Oxygen Saturation 94% 09/04/2025 2:52 PM EDT Inhaled Oxygen Concentration - - Weight 102.1 kg (225 lb) 09/04/2025 2:52 PM EDT Height 177 cm (5' 9.69 ) 09/04/2025 2:52 PM EDT Body Mass Index 32.58 09/04/2025 2:52 PM EDT Plan of Treatment Upcoming Encounters Date Type Department Care Team (Late st Contact Info) Description 01/31/2026 9:00 AM EDT Office [facility] 3rd Floor, [address] [place] [address] Christiano Pringle MD [address] [place] [address] 03/07/2026 10:20 AM EDT Office Visit [facility] [address] 3[address] Floor, [address] [place] [address] Bryon Banks MD [address] [place] [address], [address] [place] [address] [place] [address] 07/23/2026 1:00 PM EDT [facility] Visit [facility] [address] [facility], [address] [place] [address] Daryl Dickson MD [address] [address] [email or web address] Health Maintenance Due Date Last Done Comments [...] history exists CREATININE LEVEL 11/13/2025 11/13/2024, 03/04/2024 Adult Td,Tdap Booster 03/04/2026 03/04/2016 BLOOD PRESSURE 03/05/2026 09/04/2025 PNEUMOCOCCAL VACCINES (50+ years) Completed 12/12/2020, 12/13/2019, [...] Associated Diagnosis Comments OUTSIDE EP STUDY Routine 07/02/2025 7:52 PM EDT BASIC METABOLIC PANEL STAT 11/13/2024 11:52 AM EST from Last 3 Months or Most Recently Relevant to Health Maintenance Results * Outside EP Study Report Only (07/02/2025 7:52 PM EDT) Historical Provider CV ELECTROPHYSIOLOGY CHRISTOPHER PARIKH Final Result * (ABNORMAL) Basic metabolic panel (11/13/2024 11:52 AM EST) SODIUM 138 133 - 146 mmol/L [facility] CHLORIDE 105 96 - 108 mmol/L [facility] POTASSIUM 4.1 3.3 - 5.1 mmol/L [facility] CO2 23 21 - 35 mmol/L [facility] BUN 20(H) 6 - 19 mg/dL [facility] CREATININE 0.80 0.5 - 1.5 mg/dL [facility] GLUCOSE 89 70 - 99 mg/dL [facility] CALCIUM 8.8 8.4 - 10.3 mg/dL [facility] EGFR 92 >59 mL/min/1.7 3m2 [facility] Comment:Estimated glomerular filtration rate calculated using the CKD-EPI refit equation. ANION GAP 14 10 - 20 mmol/L [facility] Blood 11/13/2024 11:5 2 AM EST 11/13/2024 12:01 PM EST Jing Winchester MD LAB BLOOD ORDERABLES Final Re sult [address] [address] from Last 3 Months or Most Recently Relevant to Health Maintenance Insurance MEDICARE PART A & B Member Subscriber Plan / Payer (Ef fective 2017-Present) Name:Francois Gutierrez Member ID:[id number] Relation to Subscriber:Self Name:Francois Gutierrez Subscriber ID:[id number] Payer ID:[id number] Group ID:Not on file Type:Medicare Address: [facility] [employer] [address] [place] [phone] Any.DO MEDEX SUPPLEMENT MEDICARE PART A & B Any.DO MEDEX SUPPLEMENT MEDICARE PART A & B Any.DO MEDEX SUPPLEMENT MEDICARE PART A & B Any.DO MEDEX SUPPLEMENT MEDICARE PART A & B Any.DO MEDEX SUPPLEMENT MEDICARE PART A & B Any.DO MEDEX SUPPLEMENT Advance Directives For more information, please contact: [phone] (9AM - 5PM Barbra/[facility] [place] [facility], Thursday-Thursday) * Full Code (Latest Code Status on File) Date Activated Date Inactivated Comments 03/04/2024 9:23 PM Question Answer Comments Code Status Confirmed With: Patient Care Teams Preparer Making Department Relationship Specialty Start Date End Date Francois Adam NP [address] [place] [id number] PCP - General Nurse Practitioner 03/04/24 Avelino Colin MD [address] [place] [address] Drive [address] [place] [address] Gastroenterology 06/29/25 Additional Source Comments The information contained in this document represents components of the legal health record. It is not the complete legal health record.[facility]
--- OUTSIDE RECORDS SUMMARY | 2025-09-07 15:54 | XMS_ITS | Encounter Summary ---
Author Organization [facility] Address [address] [place] [address] Phone Care Team Providers Care Building Drafting Officer Name Role Phone Francois Adam DIE POLISHER Primary Care Provider + Avelino Colin MD Unavailable [phone] Encounter Details Date Type Department Care Team (Late st Contact Info) Description 08/27/2025 Orders Only [facility] [address] [facility] 3rd Floor, [address] [place] [address] Provider, MD Steven [address] [place], [place] [id number] Social History Tobacco Use Types Packs/Day Years [...] Description 01/31/2026 9:00 AM EDT Office Visit [facility] [address] [place] [address] [place] [address], [address] [place] [address] Christiano Pringle MD [address] [place] [address] 03/07/2026 10:20 AM EDT Office Visit [facility] [address] 3rd [facility], [address] [place] [address] Bryon Banks MD [address] [place] [address] 07/23/2026 1:00 PM EDT Office Visit [facility] General Neurology [address] [place] [address], [facility] [address] [place] [address] Daryl Dickson MD [address] [place] [address] [email or web address] documented as of this encounter Procedures Procedure Name Priority Date/Time Associated Diagnosis Comments OUTSIDE EP STUDY Routine 07/02/2025 7:52 PM EDT documented in this encounter Results * Outside EP Study Report Only (07/02/2025 7:52 PM EDT) us Historical Provider CV ELECTROPHYSIOLOGY CHRISTOPHER PARIKH Final Result documented in this encounter Visit Diagnoses Not on filedocumented in this encounter Care Teams Building Drafting Officer Relationship Specialty Start Date End Date Francois Adam NP [address] [place] [address] PCP - General Nurse Practitioner 03/04/24 Avelino Colin MD [address] [place] [address] Drive [address] [place] [address] Gastroenterology 06/29/25 documented as of this encounter Additional Source Comments The information contained in this document represents components of the legal health record. It is not the complete legal health record.[facility]
--- OUTSIDE RECORDS SUMMARY | 2025-09-07 15:54 | XMS_ITS | Patient Health Record ---
Author Organization [facility] Address [address] [place] [address] Care Team Providers Care Motorboat Mechanic Name Role Phone SCOTTIE HERNANDEZ Primary Care Provider Avelino Trivedi Unavailable [phone] Reason For Referral No Information Medications Medication [...] Status Risk Notes Problem Colon cancer screening (815758080) Colon cancer screening (Z12.11) Active confirmed Problem FDC current use of non-steroidal anti-inflammatory drug (312871623224349) termite helper (current) use of non-steroidal anti-inflammatori es (NSAID) (Z79.1) Active confirmed Problem Preprocedural examination (429664020717717) Preprocedural examination (Z01.818) Active confirmed Vital Signs Temperature 98.6 degrees Fahrenheit 06/15/2025 Blood pressure diastolic 01 mm Hg 06/15/2025 Height 71.5 in 06/15/2025 Blood pressure systolic 001 mm Hg 06/15/2025 Weight 224.6 lbs 06/15/2025 BMI 30.89 kg/m2 06/15/2025 Procedures Procedure Date Ordered Date Performed Result Body Sit e COLONOSCOPY 06/15/2025 N/A Encounters Encounter Location Date Provider Diagnosis [facility] [address] [place] [address] 06/15/2025 Avelino Colin Colon cancer screeni ng Z12.11 ; FDC (current) use of non-steroidal anti-inflammatories (NSAID) Z79.1 [...] keep you advised of his progress. 06/15/2025 termite helper (current) use of non-steroidal anti-inflammatori es (NSAID) [...] Provider Name:Avelino Colin , 09/27/2025 08:30:00 AM, [address] [place] [address] , [place], [place], [id number], Insurance Providers Payer Name Payer Address Payer Phone Subscriber Number Group Number Insured Name Patient Relationship to Insured Coverage Start Date Coverage End Date MEDICARE OF [place] [address] [place] [address] [id number] SCOTTIE RAMSYE Self - patient is the insured MEDEX ATTN CLAIMS [address] [place] [address] [id number] SCOTTIE RAMSEY Self - patient is the insured Medical (General) History Medical History History ICD Code Denies [place],DM,CVA,Lung disease,renal dise ase Prostate cancer Myasthenia gravis- [...]
--- OUTSIDE RECORDS SUMMARY | 2025-09-07 15:54 | XMS_ITS | Encounter Summary ---
Author Organization [facility] Address [address] [place] [address] Phone Care Team Providers Care Machine Design Teacher Name Role Phone Francois Adam SHOTGUN SHELL LOADING MACHINE OPERATOR Primary Care Provider + Avelino Colin MD Unavailable [phone] Encounter Details Date Type Department Care Team (Late st Contact Info) Description 05/19/2025 Procedure Pass [facility] [address] [place] [address] Social History Tobacco Use Types Packs/Day Years [...] Description 01/31/2026 9:00 AM EDT Office Visit [facility] [address] [place] [address] 3rd [facility], [address] [place] [address] Christiano Pringle MD [address] [place] [address] 03/07/2026 10:20 AM EDT Office Visit [facility] [address], [address] [place] [address] Bryon Banks MD [address] [place] [address], [address] [address] 07/23/2026 1:00 PM EDT Office Visit [facility] General Neurology [address] [facility], [address] [place] [address] Daryl Dickson MD [address] [place] [address] [email or web address] documented as of this encounter Visit Diagnoses Not on filedocumented in this encounter Care Teams Machine Design Teacher Relationship Specialty Start Date End Date Francois Adam NP [address] [facility] [place] [address] PCP - General Nurse Practitioner 03/04/24 Avelino Colin MD [address] [place] [address] Drive [address] [place] [address] (work) Gastroenterology 06/29/25 documented as of this encounter Additional Source Comments The information contained in this document represents components of the legal health record. It is not the complete legal health record.[facility]
--- OUTSIDE RECORDS SUMMARY | 2025-09-07 15:54 | XMS_ITS | Encounter Summary ---
Author Organization [facility] Address [address] [facility] [address] [place] [address] Phone Care Team Providers Care Comber Operator Name Role Phone Francois Adam DENTAL TECHNICIAN METAL Primary Care Provider + Avelino Colin MD Unavailable [phone] Encounter Details Date Type Department Care Team (Late st Contact Info) Description 08/18/2024 Procedure Pass Non-Invasive Cardiology [address] [place] [address] Social History Tobacco Use Types Packs/Day Years [...] Description 01/31/2026 9:00 AM EDT Office Visit [facility] [address] [place] [address] 3rd [facility], [address] [place] [address] Christiano Pringle MD [address] [place] [address] [email or web address] 03/07/2026 10:20 AM EDT Office Visit [facility] [address], [address] [place] [address] Bryon Banks MD [address] [place] [address], [address] [address] 07/23/2026 1:00 PM EDT Office Visit [facility] General Neurology [address] [facility], [address] [place] [address] Daryl Dickson MD [address] [place] [address] [email or web address] documented as of this encounter Visit Diagnoses Not on filedocumented in this encounter Care Teams Comber Operator Relationship Specialty Start Date End Date Francois Adam NP [address] [facility] [place] [address] PCP - General Nurse Practitioner 03/04/24 Avelino Colin MD [address] [place] [address] Drive [address] [place] [address] (work) Gastroenterology 06/29/25 documented as of this encounter Additional Source Comments The information contained in this document represents components of the legal health record. It is not the complete legal health record.[facility]
--- OUTSIDE RECORDS SUMMARY | 2025-09-07 15:54 | XMS_ITS | Encounter Summary ---
Author Organization [facility] Address [address] [place] [address] Phone Care Team Providers Care Clinical Team Manager Name Role Phone Francois Adam TELEGRAPH INSTALLER Primary Care Provider + Avelino Colin MD Unavailable Encounter Details Date Type Department Care Team (Late st Contact Info) Description 06/07/2025 Telephone [facility] [address] [place] [address] 3rd Floor, [address] [place] [address] Madeleine Ovalle DNP [address] [facility], [address] [address] Social History Tobacco Use Types Packs/Day Years [...] the original note were not included. ТАТЬЯНА [employer] IL[employer] Remote Reports Atrial Tach post slow pathway ablation 04-18-2025. Appt with you 06-19-2025. Thank you documented in this encounter Plan of Treatment Upcoming Encounters Date Type Department Care Team (Late st Contact Info) Description 01/31/2026 9:00 AM EDT Office Visit [facility] [address] [facility], [address] [place] [address] Christiano Pringle MD [address] [place] [address] 03/07/2026 10:20 AM EDT Office Visit [facility] [address] 3rd Floor, [address] [place] [address] Bryon Banks MD [address] [place] [address], [address] [place] [address] 07/23/2026 1:00 PM EDT Office Visit [facility] General Neurology [address] [place] [address], [address] [place] [address] Daryl Dickson MD [address] [place] [address] [email or web address] documented as of this encounter Visit Diagnoses Not on filedocumented in this encounter Care Teams Clinical Team Manager Relationship Specialty Start Date End Date Francois Adam NP [address] [facility] [place] [address] PCP - General Nurse Practitioner 03/04/24 Avelino Colin MD [address] [place] [address] [address] [place] [address] Gastroenterology 06/29/25 documented as of this encounter Additional Source Comments The information contained in this document represents components of the legal health record. It is not the complete legal health record.[facility]
--- OUTSIDE RECORDS SUMMARY | 2025-09-07 15:54 | XMS_ITS | Encounter Summary ---
Author Organization [facility] Address [address] [facility] [address] [place] [address] Phone Care Team Providers Care Patrol Supervisor Name Role Phone Francois Adam LOSS PREVENTION LEAD Primary Care Provider + Avelino Colin MD Unavailable [phone] Encounter Details Date Type Department Care Team (Late st Contact Info) Description 07/15/2024 Procedure Pass Non-Invasive Cardiology [address] [place] [address] Social History Tobacco Use Types Packs/Day Years [...] Description 01/31/2026 9:00 AM EDT Office Visit [facility] [address] [place] [address] 3rd [facility], [address] [place] [address] Christiano Pringle MD [address] [place] [address] [email or web address] 03/07/2026 10:20 AM EDT Office Visit [facility] [address], [address] [place] [address] Bryon Banks MD [address] [place] [address], [address] [address] 07/23/2026 1:00 PM EDT Office Visit [facility] General Neurology [address] [facility], [address] [place] [address] Daryl Dickson MD [address] [place] [address] [email or web address] documented as of this encounter Visit Diagnoses Not on filedocumented in this encounter Care Teams Patrol Supervisor Relationship Specialty Start Date End Date Francois Adam NP [address] [facility] [place] [address] PCP - General Nurse Practitioner 03/04/24 Avelino Colin MD [address] [place] [address] Drive [address] [place] [address] (work) Gastroenterology 06/29/25 documented as of this encounter Additional Source Comments The information contained in this document represents components of the legal health record. It is not the complete legal health record.[facility]
== END 2025-09-07 14:14 | disposition home or self-care (01) ==
LOC: HO.HMCC 12:45
PROVIDERS: PCP Nurse Practitioner Family; Visit Provider Nurse Practitioner Family
DX: I10 Essential (primary) hypertension (principal); E55.9 Vitamin D deficiency, unspecified; I73.00 Raynaud's syndrome without gangrene; E78.5 Hyperlipidemia, unspecified

== ENCOUNTER → 2025-09-07 12:44 | Outpatient (BNVA) | payer MEDICARE, SELFPAY | PROVIDERS: PCP Nurse Practitioner Family; Visit Provider Nurse Practitioner Family | DX: I10 Essential (primary) hypertension (principal); E78.5 Hyperlipidemia, unspecified; I73.00 Raynaud's syndrome without gangrene; E55.9 Vitamin D deficiency, unspecified | CPT/HCPCS: 99212 ==

== ENCOUNTER 2025-10-23 08:59 | Outpatient (AMB) | payer MEDICARE, SELFPAY ==
--- NOTE | 2025-10-23 09:19 | A.OFFVIS_ITS ---
Intake Visit Reasons: 2m MG Allergies dicloxacillin Adverse Reaction (Unknown, Verified 09/07/25 13:02) diarrhea HPI Comments Details: 75 years old right-handed man with antibody positive mostly ocular myasthenia gravis who I initially saw in 2003 when he was admitted at [facility] with an episode of blurred and double vision. Initial suspicion was of microvascular ischemic disease resulting in cranial neuropathy but his workup later suggested myasthenia gravis with high acetyl choline receptor antibody titers. Over the years, he has been managed with azathioprine and has done reasonably well. He also had left sciatic sciatica type of pain syndrome and laminectomy [place] [address] Petersen at [facility]. In addition, he was evaluated for mild cognitive symptoms with an amyloid brain PET scan in April of 2024, which was negative. He is also treated for mild axonal sensory motor peripheral neuropathy resulting in discomfort in feet and legs. He is presenting for a follow-up visit for myasthenia gravis. The patient report s feeling pretty good, with stable breathing and swallowing, and denies any double vision. The patient's current medications include azathioprine 50 mg, prednisone 2.5 mg daily, gabapentin at night, and atorvastatin. The patient reports a new symptom of eyelid twitching, which is described as a benign spasm. The patient also notes cramping in the legs and development of bilateral leg edema. For the past year, the patient has experienced cold fingers, suggestive of Raynaud's. The patient has a history of back pain, which is reportedly getting better with physical therapy two to three times a week, as well as a right knee that has been bothersome and makes it difficult to stand on toes. A CBC in March showed a white cell count of 4.7. Liver enzymes were noted to be high in November. [facility] Medical History Osteoarthritis of right knee Spinal stenosis of lumbar region Lumbar radiculopathy Horseshoe kidney Osteoarthritis of right hip Atrial tachycardia Lung density on x-ray RSV (acute bronchiolitis due to respiratory syncytial virus) Allergic rhinitis Bursitis of hip, right Osteoarthritis Greater trochanteric pain syndrome Bacterial pneumonia Depression Prostate cancer GERD (gastroesophageal reflux disease) Hyperlipemia Fatty liver Myasthenia gravis Peripheral polyneuropathy Surgical History History of lumbar fusion H/O microdiscectomy History of lumbar laminectomy History of hip replacement H/O prostatectomy Family History Father Hypertension Mother Hypertension Social History Housing: House Alcohol intake: current Alcohol intake frequency: holidays/special occasions only Patient Tobacco Use Status: Former Tobacco user Years Smoked: 40 years ago e-Cigarette/Vaping Use: Never Used Second Hand Smoke Exposure: No service: No Current occupational status: retired Cognitive needs: No Hearing needs: No Vision needs: No Review of Systems Narrative - General: Reports feeling pretty good. - Eyes: Reports eyelid twitching. Denies double vision. - Respiratory: Reports breathing is okay. - GI: Reports swallowing is okay. - Musculoskeletal: Reports back is getting better and right knee has been bothersome. Reports leg cramping. - Neurological: Reports peripheral neuropathy symptoms are worse at the end of the day. - Extremities: Reports bilateral leg edema. Reports cold fingers. Physical Exam Neuro Other: Mental Status: Alert and oriented to person, place, and time. Normal attention. Normal spontaneous speech, fluency, and comprehension. Cranial Nerves: CN II: Visual garrison full to confrontation, visual acuity intact. CN III, IV, : Pupils equal, round, reactive to light and accommodation. Extraocular movements are normal. CN V: Facial sensation is normal. CN VII: Facial movements symmetrical. CN VIII: Hearing intact to bedside conversation is normal. CN IX, X: Palate elevates symmetrically. CN XI: Shoulder shrug and head turn symmetrical. CN XII: Tongue midline without atrophy or fasciculations. Motor: Bulk and tone normal in all extremities. No significant muscle weakness in arms and legs. No drift. Reflexes: Deep tendon reflexes 2+ and symmetric. Plantar response down-going bilaterally. Coordination: Giierx-ze-ndbh and lcqb-nd-tmfz testing normal. No dysmetria. Gait and Station: No obvious gait abnormality. No ataxia or instability. Sensory: Intact to light touch, pinprick, and vibration. Romberg is negative. Extrapyramidal: Full facial expressions and blinking. No rigidity. Movements are appropriate with no tremor or abnormality. Speech: Normal; no dysarthria or tremor. Assessment & Plan Assessment & Plan (1) Myasthenia gravis: Comment: Amyloid PET in April 2024: WNL MRI brain WO at [facility] in March 2024: Mild atrophy suggestive of AD CT brain WO at [facility] in Jun 2019: mild bifrontal atrophy MRI/MRA brain WO at [facility] in 2003: WNL (reported) ACR ABs titer at [facility] in 2009: OK ACR ABs titer at [facility] in 2011: high binding and modulating abs. ACR ABs titer at [facility] in 2009: OK ACR ABs titer at [facility] in 2011: high binding and modulating abs ACR Abs at [facility] in Sep 2023: All 3 are high. Code(s): G70.00 - Myasthenia gravis without (acute) exacerbation Category: Medical (2) Peripheral neuropathy: Comment: EMG/NCS at off LEs in Jun 2025: Mild to mod axonal SM PN, B/L lower lumbar radiculopathy NCV/EMG LE 03/16/19 Mild chronic axonal sensory and motor peripheral neuropathy. Code(s): G62.9 - Polyneuropathy, unspecified Category: Medical Qualifiers: Peripheral neuropathy type: polyneuropathy, unspecified Qualified Code(s): G62.9 - Polyneuropathy, unspecified (3) Lumbar radiculopathy: Code(s): M54.16 - Radiculopathy, lumbar region Category: Medical Plan Impression: a: Antibody + MG b: Chroic axonal SM peripheral neuropathy c: Lumbar spinal stenosis s/p decompressive surgery Rec: a: Azathioprine 50mg a day b: Prednisone 2.5mg every other day d: Gabapentin 300mg 2-3 a day, try to take only at bedtime e: Pyridostigmine 60mg 2-3 a day, as needed f: LFTs I discussed with the patient that the current state of myasthenia gravis is stable. I explained that the new eyelid twitching is a benign condition and not a serious concern or a sign of worsening myasthenia. We discussed reducing the prednisone dose to 2.5 mg every other day as an experiment to mitigate side effects, and I advised the patient to contact me if symptoms like eyelid drooping recur. I also clarified that repeating antibody testing is not prognostically useful and that treatment is based on clinical symptoms. I reassured the patient to continue atorvastatin, as its benefits are significant and the risk to myasthenia is questionable. I have ordered blood tests to monitor liver enzymes and CBC due to azathioprine use. A follow-up visit is scheduled in six months, and the patient was advised to contact the office if any questions arise, including during travel to [place]. Orders: Orders Liver Panel Today G70.00 - Myasthenia gravis without (acute) exacerbation Coding Level of Care Code Est Pt Level 4 (30449) Diagnoses Myasthenia gravis G70.00 Peripheral polyneuropathy G62.9 Peripheral neuropathy type: polyneuropathy, unspecified Lumbar radiculopathy M54.16
--- OUTSIDE RECORDS SUMMARY | 2025-10-23 10:22 | XMS_ITS | Encounter Summary ---
Author Organization [facility] Address [address] [facility] [address] [place] [address] Phone Care Team Providers Care Photo Engraver Name Role Phone Francois Adam DRAWER IN JACQUARD LOOM Primary Care Provider + Avelino Colin MD Unavailable [phone] Encounter Details Date Type Department Care Team (Late st Contact Info) Description 07/27/2024 Procedure Pass Non-Invasive Cardiology [address] [place] [address] Social History Tobacco Use Types Packs/Day Years [...] Description 01/31/2026 9:00 AM EDT Office Visit [facility] [address] [place] [address] 3rd [facility], [address] [place] [address] Christiano Pringle MD [address] [place] [address] [email or web address] 03/07/2026 10:20 AM EDT Office Visit [facility] [address], [address] [place] [address] Bryon Banks MD [address] [place] [address], [address] [address] 07/23/2026 1:00 PM EDT Office Visit [facility] General Neurology [address] [facility], [address] [place] [address] Daryl Dickson MD [address] [place] [address] [email or web address] documented as of this encounter Visit Diagnoses Not on filedocumented in this encounter Care Teams Photo Engraver Relationship Specialty Start Date End Date Francois Adam NP [address] [place] [address] PCP - General Nurse Practitioner 03/04/24 Avelino Colin MD [address] [place] [address] Drive [address] [place] [address] (work) Gastroenterology 06/29/25 documented as of this encounter Additional Source Comments The information contained in this document represents components of the legal health record. It is not the complete legal health record.[facility]
--- OUTSIDE RECORDS SUMMARY | 2025-10-23 10:22 | XMS_ITS | Encounter Summary ---
Author Organization [facility] Address [address] [facility] [address] [place] [address] Phone Care Team Providers Care Mannequin Mold Maker Name Role Phone Francois Adam BRAND ADVOCATE Primary Care Provider + Avelino Colin MD Unavailable [phone] Encounter Details Date Type Department Care Team (Late st Contact Info) Description 05/04/2025 Procedure Pass Non-Invasive Cardiology [address] [place] [address] Social History Tobacco Use Types Packs/Day Years [...] Description 01/31/2026 9:00 AM EDT Office Visit [facility] [address] [place] [address] [facility], [address] [place] [address] Christiano Pringle MD [address] [place] [address] 03/07/2026 10:20 AM EDT Office Visit [facility] [address], [address] [place] [address] Bryon Banks MD [address] [place] [address], [address] [address] 07/23/2026 1:00 PM EDT Office Visit [facility] General Neurology [address] [facility], [address] [place] [address] Daryl Dickson MD [address] [place] [address] [email or web address] documented as of this encounter Visit Diagnoses Not on filedocumented in this encounter Care Teams Mannequin Mold Maker Relationship Specialty Start Date End Date Francois Adam NP [address] [facility] [place] [address] PCP - General Nurse Practitioner 03/04/24 Avelino Colin MD [address] [place] [address] Drive [address] [place] [address] (work) Gastroenterology 06/29/25 documented as of this encounter Additional Source Comments The information contained in this document represents components of the legal health record. It is not the complete legal health record.[facility]
--- OUTSIDE RECORDS SUMMARY | 2025-10-23 10:22 | XMS_ITS | Encounter Summary ---
Author Organization [facility] Address [address] [place] [address] Phone Care Team Providers Care Dental Appliance Repairer Name Role Phone Francois Adam PUBLIC ADDRESS SERVICER Primary Care Provider + Avelino Colin MD Unavailable [phone] Reason for Visit * Reason Onset Date Comments ILR dysfunction 10/17/2025 Encounter Details Date Type Department Care Team (Late st Contact Info) Description 10/17/2025 Telephone [facility] [address] [facility] 3rd Floor, [address] [place] [address] Christiano Pringle MD [address] [place] [address] [email or web address] ILR dysfunction Social History Tobacco Use Types Packs/Day Years [...] Description 01/31/2026 9:00 AM EDT Office Visit [facility] [address] [place] [address] [place] [address], [address] [place] [address] Christiano Pringle MD [address] [place] [address] 03/07/2026 10:20 AM EDT Office Visit [facility] [address] [place] [address], [address] [place] [address] Bryon Banks MD [address] [place] [address] 07/23/2026 1:00 PM EDT Office Visit [facility] [address] [place] [address], [address] [place] [address] Daryl Dickson MD [address] [place] [phone] [email or web address] documented as of this encounter Visit Diagnoses Not on filedocumented in this encounter Care Teams Dental Appliance Repairer Relationship Specialty [place] [address] [place] [address] [place] [address] PCP - General Nurse Practitioner 03/04/24 Avelino Colin MD [address] [place] [address] Drive [address] [place] [address] Gastroenterology 06/29/25 documented as of this encounter Additional Source Comments The information contained in this document represents components of the legal health record. It is not the complete legal health record.[facility]
--- OUTSIDE RECORDS SUMMARY | 2025-10-23 10:22 | XMS_ITS | Encounter Summary ---
Author Organization [facility] Address [address] [facility] [address] [place] [address] Phone Care Team Providers Care Touch Up Edger Name Role Phone Francois Adam TELEGRAPH SERVICE CLERK Primary Care Provider + Avelino Colin MD Unavailable [phone] Encounter Details Date Type Department Care Team (Late st Contact Info) Description 08/18/2024 Procedure Pass Non-Invasive Cardiology [address] [place] [address] Social History Tobacco Use Types Packs/Day Years [...] Description 01/31/2026 9:00 AM EDT Office Visit [facility] [address] [place] [address] 3rd [facility], [address] [place] [address] Christiano Pringle MD [address] [place] [address] [email or web address] 03/07/2026 10:20 AM EDT Office Visit [facility] [address], [address] [place] [address] Bryon Banks MD [address] [place] [address], [address] [address] 07/23/2026 1:00 PM EDT Office [facility] [address] [facility], [address] [place] [address] Daryl Dickson MD [address] [place] [address] [email or web address] documented as of this encounter Visit Diagnoses Not on filedocumented in this encounter Care Teams Touch Up Edger Relationship Specialty Start Date End Date Francois Adam NP [address] [place] [address] PCP - General Nurse Practitioner 03/04/24 Avelino Colin MD [address] [place] [address] Drive [address] [place] [address] (work) Gastroenterology 06/29/25 documented as of this encounter Additional Source Comments The information contained in this document represents components of the legal health record. It is not the complete legal health record.[facility]
--- OUTSIDE RECORDS SUMMARY | 2025-10-23 10:23 | XMS_ITS | Clinical Summary ---
Author Organization [facility] Address [address] [employer] [facility] [address] [place] [address] Phone Care Team Providers Care Meter Reader Chief Name Role Phone Francois Adam RUBBER ATTACHER Primary Care Provider + Avelino Colin MD Unavailable [phone] Allergies Active Allergy Reactions Criticality Noted Date [...] mg by mouth as needed. 04/18/2025 Active MYRBETRIQ 50 mg Tb24 Take 1 tablet by mouth every morning. 09/02/2025 Active pyRIDostigmine (MESTINON) 60 mg tablet Take 60 mg by mouth as needed. 07/10/2025 Active predniSONE (DELTASONE) 2.5 MG tablet Take 2.5 mg by mouth daily. 08/21/2025 Active Active Problems Problem Noted Date Diagnosed [...] ischemic heart disease History of myocardial infarction (CT); history of positive exercise test; current chest [...] MAJOR CARDIAC EVENT/CLASS IV RISK REFERENCE: Maricruz Qc Analyst Med. 2009Nov 27;152(1):26-35 Pt ok to proceed [...] less than 0.5% of patients especially at [facility] medical centers such as [facility]'s where ablations are performed. The patient verbalized [...] after seeing Dr. Pringle who is our student development specialist. It was part of the plan [...] Encounters Date Type Department Care Team Description 10/17/2025 Telephone [facility] [address]rd [address], [address] [place] [address] Christiano Pringle MD ILR dysfunction 10/11/2025 2:00 PM EST - 10/11/2025 11:59 PM EST Hospital Encounter Non-Invasive Cardiology [address] [place] [address] Azael Cosby MD Discharge Disposition: Home or Self Care 09/04/2025 3:00 PM EDT Office Visit [facility] [address] 3[address] Floor, [address] [place] [address] Bryon Banks MD Implantable loop recorder present (Primary Dx); Paroxysmal supraventricular tachycardia; Primary hypertension; Myasthenia gravis 08/27/2025 Orders Only [facility] [address] Floor, [address] [place] [address] ProviderSteven MD 07/27/2025 Telephone [facility] [address], [address] [place] [address] Nilo Marc 05/04/2025 Procedure Pass Non-Invasive Cardiology [address] [place] [address] from Last 3 Months Social History Tobacco [...] Description 01/31/2026 9:00 AM EDT Office Visit [facility] [address] [place] [address] [place] [address], [address] [place] [address] Christiano Pringle MD [address] [place] [address] 03/07/2026 10:20 AM EDT Office Visit [facility] [address] [place] [address], [address] [place] [address] Bryon Banks MD [address] [place] [address] 07/23/2026 1:00 PM EDT Office Visit [facility] General Neurology [address] [place] [address], [address] [place] [address] Daryl Dickson MD [address] [place] [address] [email or web address] Health Maintenance Due Date Last Done Comments ALKALINE PHOSPHATASE LEVEL 1949 LIPID PANEL 1949 DEPRESSION SCREENING 1961 SMOKING Hx and SMOKELESS TOBACCO SCREENING 1962 HEPATITIS C SCREENING 1967 ZOSTER VACCINES (1 of 2) 1968 COVID-19 VACCINE (2 - Moderna risk series) 02/19/2021 01/22/2021 RSV VACCINE (1 - 1-dose 75+ series) 2024 INFLUENZA VACCINE (#1) 2025 0, 08/11/2019, 09/24/2018, Additional history exists CREATININE LEVEL [...] Procedure Name Priority Date/Time Associated Diagnosis Comments EP DEVICE CHECK / FOLLOW UP Routine 10/12/2025 8:56 AM EST Pacemaker BASIC METABOLIC PANEL (BMP) STAT 11/13/2024 11:52 AM EST from Last 3 Months or Most Recently Relevant to Health Maintenance Results * DEVICE CHECK: NON-BILLABLE (10/12/2025 8:56 AM EST) Narrative Bryon Banks MD - 10/12/2025 2:49 PM EST Troubleshooting device not transmitting, and Patient Assist Device not working. I saw Francois in the office for an ILR check after he called to inform us that his newly received home monitor and patient uses device were not functioning. It was noted that despite him putting it in his home monitor the day before, the device did not transmit. Change Lane rep Rios recommended bringing him into the office. When attempting to interrogate the device a popup error message revealed the [employer] implantable device could not be interrogated. Reasons for this included outdated software or the implantable device implanted in another country. Neither of these 2 explanations were appropriate in this case. Under the guidance remotely from Gabriel, we replaced the software; however, the error message continued to show. Gabriel will reach out to [facility] for our next steps. Dr. Pringle also stop by to see the patient and discussed with him his most recent symptoms. Sade King, RN us Azael Cosby MD CV CARDIAC SERVICES ORDERABLES Final Result * (ABNORMAL) Basic metabolic panel (11/13/2024 11:52 AM EST) SODIUM 138 133 - 146 mmol/L [facility] CHLORIDE 105 96 - 108 mmol/L [facility] POTASSIUM 4.1 3.3 - 5.1 mmol/L [facility] CO2 23 21 - 35 mmol/L [facility] BUN 20(H) 6 - 19 mg/dL [facility] CREATININE 0.80 0.5 - 1.5 mg/dL [facility] GLUCOSE 89 70 - 99 mg/dL [facility] CALCIUM 8.8 8.4 - 10.3 mg/dL [facility] EGFR 92 >59 mL/min/1.7 3m2 [facility] Comment:Estimated glomerular filtration rate calculated using the CKD-EPI refit equation. ANION GAP 14 10 - 20 mmol/L [facility] Blood 11/13/2024 11:5 2 AM EST 11/13/2024 12:01 PM EST us Jing Winchester MD LAB BLOOD BKR ORDERABLES Sofia mayo Result [address] [address] from Last 3 Months or Most Recently Relevant to Health Maintenance Insurance MEDICARE PART A & B [employer] CROSS MEDEX SUPPLEMENT MEDICARE PART A & B [employer] CROSS MEDEX SUPPLEMENT Member Subscriber Plan / Payer (Ef fective 2014-Present) Name:Gutierrez Francois Celio Relation to Subscriber:Self Name:Gutierrez Francois Celio Payer ID:[id number] (NAIC) Type:Indemnity Address: [place] [id number] MEDICARE PART A & B [employer] MEDEX SUPPLEMENT MEDICARE PART A & B [employer] MEDEX SUPPLEMENT MEDICARE PART A & B Member Subscriber Plan / Payer (Ef fective 2017-Present) Name:Francois Gutierrez Member ID:[id number] Relation to Subscriber:Self Name:Francois Gutierrez Subscriber ID:[id number] Payer ID:[id number] Group ID:Not on file Type:Medicare Address: [employer] [address] [place] [address] [place] [address] MEDEX SUPPLEMENT MEDICARE PART A & B [facility] MEDEX SUPPLEMENT Advance Directives For more information, please contact: [phone] (9AM - 5PM [facility], Thursday-Thursday) * Full Code (Latest Code Status on File) Date Activated Date Inactivated Comments 03/04/2024 9:23 PM Question Answer Comments Code Status Confirmed With: Patient Care Teams Meter Reader Chief Relationship Specialty Start Date End Date Francois Adam NP [address] [facility] [place] [address] PCP - General Nurse Practitioner 03/04/24 Avelino Colin MD [address] [place] [address] Drive [address] [place] [address] Gastroenterology 06/29/25 Additional Source Comments The information contained in this document represents components of the legal health record. It is not the complete legal health record.[facility]
--- OUTSIDE RECORDS SUMMARY | 2025-10-23 10:24 | XMS_ITS | Encounter Summary ---
Author Organization [facility] Address [address] [facility] [address] [place] [address] Phone Care Team Providers Care Director Trial Name Role Phone Francois Adam TRADITIONAL [facility] HEALTH PRACTITIONER Primary Care Provider + Avelino Colin MD Unavailable [phone] Encounter Details Date Type Department Care Team (Late st Contact Info) Description 07/15/2024 Procedure Pass Non-Invasive Cardiology [address] [place] [address] Social History Tobacco Use Types Packs/Day Years [...] Description 01/31/2026 9:00 AM EDT Office Visit [facility] [address] [place] [address] 3rd [facility], [address] [place] [address] Christiano Pringle MD [address] [place] [address] [email or web address] 03/07/2026 10:20 AM EDT Office Visit [facility] [address], [address] [place] [address] Bryon Banks MD [address] [place] [address], [address] [address] 07/23/2026 1:00 PM EDT Office Visit [facility] General Neurology [address] [facility], [address] [place] [address] Daryl Dickson MD [address] [place] [address] [email or web address] documented as of this encounter Visit Diagnoses Not on filedocumented in this encounter Care Teams Director Trial Relationship Specialty Start Date End Date Francois Adam NP [address] [place] [address] PCP - General Nurse Practitioner 03/04/24 Avelino Colin MD [address] [place] [address] Drive [address] [place] [address] (work) Gastroenterology 06/29/25 documented as of this encounter Additional Source Comments The information contained in this document represents components of the legal health record. It is not the complete legal health record.[facility]
--- OUTSIDE RECORDS SUMMARY | 2025-10-23 10:24 | XMS_ITS | Encounter Summary ---
Author Organization [facility] Address [address] [facility] [address] [place] [address] Phone Care Team Providers Care Crozer Operator Name Role Phone Francois Adam TABULAR TYPIST Primary Care Provider + Avelino Colin MD Unavailable [phone] Encounter Details Date Type Department Care Team (Late st Contact Info) Description 12/08/2024 Procedure Pass Non-Invasive Cardiology [address] [place] [address] Social History Tobacco Use Types Packs/Day Years [...] Description 01/31/2026 9:00 AM EDT Office Visit [facility] [address] [place] [address] 3rd [facility], [address] [place] [address] Christiano Pringle MD [address] [place] [address] 03/07/2026 10:20 AM EDT Office Visit [facility] [address], [address] [place] [address] Bryon Banks MD [address] [place] [address], [address] [address] 07/23/2026 1:00 PM EDT Office Visit [facility] General Neurology [address] [facility], [address] [place] [address] Daryl Dickson MD [address] [place] [address] [email or web address] documented as of this encounter Visit Diagnoses Not on filedocumented in this encounter Care Teams Crozer Operator Relationship Specialty Start Date End Date Francois Adam NP [address] [facility] [place] [address] PCP - General Nurse Practitioner 03/04/24 Avelino Colin MD [address] [place] [address] Drive [address] [place] [address] (work) Gastroenterology 06/29/25 documented as of this encounter Additional Source Comments The information contained in this document represents components of the legal health record. It is not the complete legal health record.[facility]
--- OUTSIDE RECORDS SUMMARY | 2025-10-23 10:24 | XMS_ITS | Encounter Summary ---
Author Organization [facility] Address [address] [place] [address] Phone Care Team Providers Care Epic Analyst Name Role Phone Francois Adam STEAM TURBINE ASSEMBLER Primary Care Provider + Avelino Colin MD Unavailable [phone] Encounter Details Date Type Department Care Team (Late st Contact Info) Description 05/19/2025 Procedure Pass [facility] [address] [place] [address] Social History Tobacco Use Types Packs/Day Years [...] Description 01/31/2026 9:00 AM EDT Office Visit [facility] [address] [place] [address] 3rd [facility], [address] [place] [address] Christiano Pringle MD [address] [place] [address] 03/07/2026 10:20 AM EDT Office Visit [facility] [address], [address] [place] [address] Bryon Banks MD [address] [place] [address], [address] [address] 07/23/2026 1:00 PM EDT Office Visit [facility] General Neurology [address] [facility], [address] [place] [address] Daryl Dickson MD [address] [place] [address] [email or web address] documented as of this encounter Visit Diagnoses Not on filedocumented in this encounter Care Teams Epic Analyst Relationship Specialty Start Date End Date Francois Adam NP [address] [place] [address] PCP - General Nurse Practitioner 03/04/24 Avelino Colin MD [address] [place] [address] Drive [address] [place] [address] (work) Gastroenterology 06/29/25 documented as of this encounter Additional Source Comments The information contained in this document represents components of the legal health record. It is not the complete legal health record.[facility]
== END 2025-10-23 09:39 | disposition home or self-care (01) ==
LOC: HO.HSM 09:00
PROVIDERS: PCP Nurse Practitioner Family; Visit Provider Psychiatry & Neurology Neurology
DX: G70.00 Myasthenia gravis without (acute) exacerbation (principal); G62.9 Polyneuropathy, unspecified; M54.16 Radiculopathy, lumbar region
CPT/HCPCS: 99214

== ENCOUNTER → 2025-10-23 08:59 | Outpatient (BNVA) | payer MEDICARE, SELFPAY | PROVIDERS: PCP Nurse Practitioner Family; Visit Provider Psychiatry & Neurology Neurology | DX: G70.00 Myasthenia gravis without (acute) exacerbation (principal); G62.9 Polyneuropathy, unspecified; M54.16 Radiculopathy, lumbar region | CPT/HCPCS: 99212 ==

== ENCOUNTER 2025-10-30 06:34 | Outpatient (REF) | payer MEDICARE, SELFPAY ==
--- OUTSIDE RECORDS SUMMARY | 2024-11-29 05:30 | XMS_ITS ---
Author Organization [facility] Address [address] [place] [phone] Care Team Providers Care Dietician Name Role Phone SCOTTIE HERNANDEZ Primary Care Provider Avelino Trivedi [phone] REASON FOR VISIT SCREENING COLON Encounters Encounter Location Date Provider Diagnosis [facility] [address] [facility] [address] [place] [phone] 11/29/2024 Avelino Colin Plan Of Treatment Next Appt Details Provider Name:Avelino Colin , 11/22/2025 09:30:00 AM, [address] [place] [address] , [place], [place], [phone], Progress Notes * SCOTTIE RAMSEYDOB:1950 ([age] yo M)Acc No.[id number]:11/29/2024 Progress Notes Patient: SCOTTIE GARNETT Provider: Thom Colin MD :1950 A ge:74 Y S ex:Male Date:11/29/2024 Address:[id number] Pcp:SCOTTIE HERNANDEZ Subjective: * Chief Complaints: * S CREENING COLON * The named appointment provid er may or may not be the originator of this progress note, and it is not deemed complete until electronically signed by the appointment provider. Sign off status: Pending * Provider: Thom Colin MD Date: 0 11/29/2024 Generated for Devin munoz/Rose Mary/eTransmitting on: 1 12/31/2024 06:38 AM EST
--- OUTSIDE RECORDS SUMMARY | 2025-03-03 08:40 | XMS_ITS ---
Author Organization [facility] Address [address] [place] [address] Care Team Providers Care Database Reporting Consultant Name Role Phone SCOTTIE HERNANDEZ Primary Care Provider Avelino Trivedi [phone] REASON FOR VISIT Patient presents today for a SCREENING COLON Encounters Encounter Location Date Provider Diagnosis [facility] [address] [place] [address] 03/03/2025 Avelino Colin Plan Of Treatment Next Appt Details Provider Name:Avelino Colin , 11/22/2025 09:30:00 AM, [address] [place] [address] , [place], [place], [phone], Progress Notes * RAMSEYSCOTTIE WEEMSDOB:1950 ([age] yo M)Acc No.[id number]:03/03/2025 Progress Notes Patient: SCOTTIE GARNETT Provider: Thom Colin MD :1950 A ge:74 Y S ex:Male Date:03/03/2025 Address:[address] [place] Pcp:SCOTTIE HERNANDEZ Subjective: * Chief Complaints: * P atient presents today for a SCREENING COLON * The named appointment provid er may or may not be the originator of this progress note, and it is not deemed complete until electronically signed by the appointment provider. Sign off status: Pending * Provider: Thom Colin MD Date: 0 03/03/2025 Generated for Devin munoz/Rose aMry/eTransmitting on: 1 12/31/2024 06:38 AM EST
--- OUTSIDE RECORDS SUMMARY | 2025-09-27 03:30 | XMS_ITS ---
Author Organization [facility] Address [address] [place] [phone] Care Team Providers Care Filling Machine Operator Name Role Phone SCOTTIE HERNANDEZ Primary Care Provider Avelino Trivedi [phone] REASON FOR VISIT screening colon Encounters Encounter Location Date Provider Diagnosis [facility] [place] [address] [place] [id number] 09/27/2025 Avelino Colin Plan Of Treatment Next Appt Details Provider Name:Avelino Colin , 11/22/2025 09:30:00 AM, [address] [place] [address], [id number], Progress Notes * RAMSEYSCOTTIE WEEMSDOB:1950 ([age] yo M)Acc No.[id number]:09/27/2025 COLON WITH MAC Patient: SCOTTIE GARNETT Provider: Thom Colin MD :1950 A ge:74 Y S ex:Male Date:09/27/2025 Address:[place] Pcp:SCOTTIE HERNANDEZ Subjective: * Chief Complaints: * S creening colon * The named appointment provid er may or may not be the originator of this progress note, and it is not deemed complete until electronically signed by the appointment provider. Sign off status: Pending * Provider: Thom Colin MD Date: 1 11/27/2024 Generated for Cassidyi ng/Famichelleg/eTransmitting on: 12/31/2024 06:38 AM EST
--- OUTSIDE RECORDS SUMMARY | 2025-10-30 06:38 | XMS_ITS | Encounter Summary ---
Author Organization [facility] Address [address] [facility] [address] [place] [address] Phone Care Team Providers Care Seo Engineer Name Role Phone Francois Adam LOBSTER CATCHER Primary Care Provider + Avelino Colin MD Unavailable [phone] Encounter Details Date Type Department Care Team (Late st Contact Info) Description 12/08/2024 Procedure Pass Non-Invasive Cardiology [address] [place] [address] Social History Tobacco Use Types Packs/Day Years [...] Care Team (Late st Contact Info) Description 11/28/2025 3:00 PM EST Office Visit [facility] [address], [address] [place] [address] Christiano Pringle MD [address] [place] [address] 01/31/2026 9:00 AM EDT Office Visit [address], [address] [place] [address] Christiano Pringle MD [address] [place] [address] 03/07/2026 10:20 AM EDT Office Visit [facility] [address], [address] [place] [address] Bryon Banks MD [address] [place] [address] 07/23/2026 1:00 PM EDT [facility] [address] [place] [address], [address] [place] [address] Daryl Dickson MD [address] [place] [address] [email or web address] documented as of this encounter Visit Diagnoses Not on filedocumented in this encounter Care Teams Seo Engineer Relationship Specialty Start Date End Date Francois Adam NP [facility] [place] [address] PCP - General Nurse Practitioner 03/04/24 Avelino Colin MD [address] [place] [address] Drive [address] [place] [address] Gastroenterology 06/29/25 documented as of this encounter Additional Source Comments The information contained in this document represents components of the legal health record. It is not the complete legal health record.[facility]
--- OUTSIDE RECORDS SUMMARY | 2025-10-30 06:38 | XMS_ITS | Encounter Summary ---
Author Organization [facility] Address [address] [place] [address] Phone Care Team Providers Care Batteryman Name Role Phone Francois Adam LABORATORY ADMINISTRATIVE DIRECTOR Primary Care Provider + Avelino Colin MD Unavailable [phone] Reason for Visit * Reason Onset Date Comments ILR dysfunction 10/17/2025 Encounter Details Date Type Department Care Team (Late st Contact Info) Description 10/17/2025 Telephone [facility] [address] [facility] 3rd Floor, [address] [place] [address] Christiano Pringle MD [address] [place] [address] [email or web address] ILR dysfunction Social History Tobacco Use Types [...] Description 11/28/2025 3:00 PM EST Office Visit [facility] [address] [place] [address], [address] [place] [address] Christiano Pringle MD [address] [place] [address] 01/31/2026 9:00 AM EDT Office Visit [facility] [address] [place] [address], [address] [place] [address] Christiano Pringle MD [address] [place] [address] 03/07/2026 10:20 AM EDT Office Visit [facility] [address] [place] [address], [address] [place] [address] Bryon Banks MD [address] [place] [address] 07/23/2026 1:00 PM EDT Office Visit [facility] General Neurology [address] [place] [address], [facility] [address] [place] [address] Daryl Dickson MD [address] [place] [address] [email or web address] documented as of this encounter Visit Diagnoses Not on filedocumented in this encounter Care Teams Batteryman Relationship Specialty Start Date End Date Francois Adam NP [address] [facility] [place] [address] PCP - General Nurse Practitioner 03/04/24 Avelino Colin MD [address] [place] [address] Drive [address] [place] [address] Gastroenterology 06/29/25 documented as of this encounter Additional Source Comments The information contained in this document represents components of the legal health record. It is not the complete legal health record.[facility]
--- OUTSIDE RECORDS SUMMARY | 2025-10-30 06:38 | XMS_ITS | Encounter Summary ---
Author Organization [facility] Address [address] [place] [address] Phone Care Team Providers Care Program Arranger Name Role Phone Francois Adam WEARING APPAREL ASSEMBLER Primary Care Provider + Avelino Colin MD Unavailable [phone] Encounter Details Date Type Department Care Team (Late st Contact Info) Description 05/19/2025 Procedure Pass [facility] [address] [place] [address] Social History Tobacco Use Types Packs/Day Years [...] Description 11/28/2025 3:00 PM EST Office Visit [facility] [address], [address] [place] [address] Christiano Pringle MD [address] [place] [address] 01/31/2026 9:00 AM EDT Office Visit [address], [address] [place] [address] Christiano Pringle MD [address] [place] [address] 03/07/2026 10:20 AM EDT Office Visit [facility] [address], [address] [place] [address] Bryon Banks MD [address] [place] [address] 07/23/2026 1:00 PM EDT [facility] Visit [facility] [address] [place] [address], [address] [place] [address] Daryl Dickson MD [address] [place] [address] [email or web address] documented as of this encounter Visit Diagnoses Not on filedocumented in this encounter Care Teams Program Arranger Relationship Specialty Start Date End Date Francois Adam NP [facility] [place] [address] PCP - General Nurse Practitioner 03/04/24 Avelino Colin MD [address] [place] [address] Drive [address] [place] [address] Gastroenterology 06/29/25 documented as of this encounter Additional Source Comments The information contained in this document represents components of the legal health record. It is not the complete legal health record.[facility]
--- OUTSIDE RECORDS SUMMARY | 2025-10-30 06:38 | XMS_ITS | Encounter Summary ---
Author Organization [facility] Address [address] [facility] [address] [place] [address] Phone Care Team Providers Care Steel Welder Name Role Phone Francois Adam WHARF ATTENDANT Primary Care Provider + Avelino Colin MD Unavailable [phone] Encounter Details Date Type Department Care Team (Late st Contact Info) Description 07/15/2024 Procedure Pass Non-Invasive Cardiology [address] [place] [address] Social History Tobacco Use Types Packs/Day Years [...] Description 11/28/2025 3:00 PM EST Office Visit [facility] [address], [address] [place] [address] Christiano Pringle MD [address] [place] [address] 01/31/2026 9:00 AM EDT Office Visit [address], [address] [place] [address] Christiano Pringle MD [address] [place] [address] 03/07/2026 10:20 AM EDT Office Visit [facility] [address], [address] [place] [address] Bryon Banks MD [address] [place] [address] 07/23/2026 1:00 PM EDT [facility] Visit [facility] [address] [place] [address], [address] [place] [address] Daryl Dickson MD [address] [place] [address] [email or web address] documented as of this encounter Visit Diagnoses Not on filedocumented in this encounter Care Teams Steel Welder Relationship Specialty Start Date End Date Francois Adam NP [facility] [place] [address] PCP - General Nurse Practitioner 03/04/24 Avelino Colin MD [address] [place] [address] Drive [address] [place] [address] Gastroenterology 06/29/25 documented as of this encounter Additional Source Comments The information contained in this document represents components of the legal health record. It is not the complete legal health record.[facility]
--- OUTSIDE RECORDS SUMMARY | 2025-10-30 06:38 | XMS_ITS | Clinical Summary ---
Author Organization [facility] Address [address] [facility] [address] [place] [address] Phone Care Team Providers Care Pressfitter Name Role Phone Francois Adam CONFIGURATION MANAGEMENT ADVISOR Primary Care Provider + Avelino Colin MD Unavailable [phone] Allergies Active Allergy Reactions Criticality Noted Date [...] ischemic heart disease History of myocardial infarction ([place]); history of positive exercise test; current chest [...] MAJOR CARDIAC EVENT/CLASS IV RISK REFERENCE: Maricruz Card Hanger Med. 2009Nov 27;152(1):26-35 Pt ok to proceed [...] less than 0.5% of patients especially at [facility] medical centers such as [facility]'s where ablations are performed. The patient [...] after seeing Dr. Pringle who is our mobile security specialist. It was part of the plan [...] Type Department Care Team Description 10/17/2025 Telephone [facility] [address], [address] [place] [address] Christiano Pringle MD ILR dysfunction 10/11/2025 2:00 PM EST - 10/11/2025 11:59 PM EST Hospital Encounter Non-Invasive Cardiology [address] [place] [address] Azael Cosby MD Discharge Disposition: Home or Self Care 09/04/2025 3:00 PM EDT Office Visit [facility] [address], [address] [place] [address] Bryon Banks MD Implantable loop recorder present (Primary Dx); Paroxysmal supraventricular tachycardia; Primary hypertension; Myasthenia gravis 08/27/2025 Orders Only [facility] [address], [address] [place] [address] Provider, MD Steven 05/04/2025 Procedure Pass Non-Invasive Cardiology [address] [place] [address] from Last 3 Months Social History Tobacco [...] Description 11/28/2025 3:00 PM EST Office Visit [facility] [address] [place] [address], [address] [address] Christiano Pringle MD [address] [place] [address] 01/31/2026 9:00 AM EDT Office Visit [facility] [place] [address] [address] [place] [address], [address] [place] [address] Christiano Pringle MD [address] [place] [address] 03/07/2026 10:20 AM EDT Office Visit [facility] [place] [address] [address] [place] [address], [address] [place] [address] Bryon Banks MD [address] [place] [address] 07/23/2026 1:00 PM EDT Office Visit [facility] [address] [place] [address], [address] [place] [address] Daryl Dickson MD [address] [place] [address] [email or web address] Health Maintenance Due Date Last Done Comments [...] day before, the device did not transmit. [employer] rep Gabriel recommended bringing him into the office. When [...] to show. Gabriel will reach out to [employer] for our next steps. Dr. Pringle also stop by to see the patient and discussed with him his most recent symptoms. Sade King RN us Azael Cosby MD CV CARDIAC SERVICES ORDERABLES Final Result * (ABNORMAL) Basic metabolic panel (11/13/2024 11:52 AM EST) SODIUM 138 133 - 146 mmol/L [facility] CHLORIDE 105 96 - 108 mmol/L [facility] POTASSIUM 4.1 3.3 - 5.1 mmol/L [facility] CO2 23 21 - 35 mmol/L [facility] BUN 20(H) 6 - 19 mg/dL [facility] CREATININE 0.80 0.5 - 1.5 mg/dL [facility] GLUCOSE 89 70 - 99 mg/dL [facility] CALCIUM 8.8 8.4 - 10.3 mg/dL [facility] EGFR 92 >59 mL/min/1.7 3m2 [facility] Comment:Estimated glomerular filtration rate calculated using the CKD-EPI refit equation. ANION GAP 14 10 - 20 mmol/L [facility] Blood 11/13/2024 11:5 2 AM EST 11/13/2024 12:01 PM EST us Jing Winchester MD LAB BLOOD BKR ORDERABLES Sofia mayo Result [facility] [address] [place], [place] [id number] from Last 3 Months or Most Recently Relevant to Health Maintenance Insurance MEDICARE PART A & B [employer] MEDEX SUPPLEMENT MEDICARE PART A & B [employer] MEDEX SUPPLEMENT MEDICARE PART A & B [employer] MEDEX SUPPLEMENT MEDICARE PART A & B [employer] MEDEX SUPPLEMENT MEDICARE PART A & B [employer] CROSS MEDEX SUPPLEMENT MEDICARE PART A & B [employer] MEDEX SUPPLEMENT Advance Directives For more information, please contact: [phone] (9AM - 5PM [facility], Thursday-Thursday) * Full Code (Latest Code Status on File) Date Activated Date Inactivated Comments 03/04/2024 9:23 PM Question Answer Comments Code Status Confirmed With: Patient Care Teams Pressfitter Relationship Specialty Start Date End Date Francois Adam NP [address] [facility] [place] [address] PCP - General Nurse Practitioner 03/04/24 Avelino Colin MD [address] [place] [address] [address] [place] [address] Gastroenterology 06/29/25 Additional Source Comments The information contained in this document represents components of the legal health record. It is not the complete legal health record.[facility]
--- OUTSIDE RECORDS SUMMARY | 2025-10-30 06:38 | XMS_ITS | Encounter Summary ---
Author Organization [facility] Address [address] [facility] [address] [place] [address] Phone Care Team Providers Care Table Operator Name Role Phone Francois Adam CONSTRUCTION COORDINATOR Primary Care Provider + Avelino Colin MD Unavailable [phone] Encounter Details Date Type Department Care Team (Late st Contact Info) Description 05/04/2025 Procedure Pass Non-Invasive Cardiology [address] [place] [address] Social History Tobacco Use Types Packs/Day Years [...] Description 11/28/2025 3:00 PM EST Office Visit [facility] [address], [address] [place] [address] Christiano Pringle MD [address] [place] [address] 01/31/2026 9:00 AM EDT Office Visit [address], [address] [place] [address] Christiano Pringle MD [address] [place] [address] 03/07/2026 10:20 AM EDT Office Visit [facility] [address], [address] [place] [address] Bryon Banks MD [address] [place] [address] 07/23/2026 1:00 PM EDT Office Visit [facility] [address] [place] [address], [address] [place] [address] Daryl Dickson MD [address] [place] [address] [email or web address] documented as of this encounter Visit Diagnoses Not on filedocumented in this encounter Care Teams Table Operator Relationship Specialty Start Date End Date Francois Adam NP [facility] [place] [address] PCP - General Nurse Practitioner 03/04/24 Avelino Colin MD [address] [place] [address] Drive [address] [place] [address] Gastroenterology 06/29/25 documented as of this encounter Additional Source Comments The information contained in this document represents components of the legal health record. It is not the complete legal health record.[facility]
--- OUTSIDE RECORDS SUMMARY | 2025-10-30 06:38 | XMS_ITS | Patient Health Record ---
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 Plan Of Treatment Pending Test Test Name Order Date X ray : Foot, left 3V 02/04/2022 [id number] Destruction, 1-14 06/10/2017 Insurance Providers Payer Name Payer Address Payer Phone Subscriber Number Group Number Insured Name Patient Relationship to Insured Coverage Start Date Coverage End Date Medicare National Govt Svcs Inc [address] [place] [address] [id number] Francois Gutierrez Self - patient is the insured 7 [employer] Blue Shield [address] [place] [address] [id number] Francois Gutierrez Self - patient is the insured Medical (General) History Medical History History ICD Code Cancer prostate Warts Measles Mumps Chicken pox Myasthenia gravis Surgical History Surgery Date(Month/Year) Prostectomy 2009 Bilateral plantar warts removed 2016 Left hip replaced 03/11 cataract surgery both eyes 02/2020
--- OUTSIDE RECORDS SUMMARY | 2025-10-30 06:38 | XMS_ITS | Encounter Summary ---
Author Organization [facility] Address [address] [facility] [address] [place] [address] Phone Care Team Providers Care Steersman Name Role Phone Francois Adam STAFF DEVELOPMENT COORDINATOR RN Primary Care Provider + Avelino Colin MD Unavailable [phone] Encounter Details Date Type Department Care Team (Late st Contact Info) Description 07/27/2024 Procedure Pass Non-Invasive Cardiology [address] [place] [address] Social History Tobacco Use Types Packs/Day Years [...] Description 11/28/2025 3:00 PM EST Office Visit [facility] [address], [address] [place] [address] Christiano Pringle MD [address] [place] [address] 01/31/2026 9:00 AM EDT Office Visit [address], [address] [place] [address] Christiano Pringle MD [address] [place] [address] 03/07/2026 10:20 AM EDT Office Visit [facility] [address], [address] [place] [address] Bryon Banks MD [address] [place] [address] 07/23/2026 1:00 PM EDT Office Visit [facility] [address] [place] [address], [address] [place] [address] Daryl Dickson MD [address] [place] [address] [email or web address] documented as of this encounter Visit Diagnoses Not on filedocumented in this encounter Care Teams Steersman Relationship Specialty Start Date End Date Francois Adam NP [facility] [place] [address] PCP - General Nurse Practitioner 03/04/24 Avelino Colin MD [address] [place] [address] Drive [address] [place] [address] Gastroenterology 06/29/25 documented as of this encounter Additional Source Comments The information contained in this document represents components of the legal health record. It is not the complete legal health record.[facility]
--- OUTSIDE RECORDS SUMMARY | 2025-10-30 06:38 | XMS_ITS | Encounter Summary ---
Author Organization [facility] Address [address] [facility] [address] [place] [address] Phone Care Team Providers Care Costume Seamstress Name Role Phone Francois Adam GAS SCRUBBER OPERATOR Primary Care Provider + Avelino Colin MD Unavailable [phone] Encounter Details Date Type Department Care Team (Late st Contact Info) Description 08/18/2024 Procedure Pass Non-Invasive Cardiology [address] [place] [address] Social History Tobacco Use Types Packs/Day Years [...] Description 11/28/2025 3:00 PM EST Office Visit [facility] [address], [address] [place] [address] Christiano Pringle MD [address] [place] [address] 01/31/2026 9:00 AM EDT Office Visit [address], [address] [place] [address] Christiano Pringle MD [address] [place] [address] 03/07/2026 10:20 AM EDT Office Visit [facility] [address], [address] [place] [address] Bryon Banks MD [address] [place] [address] 07/23/2026 1:00 PM EDT Office Visit [facility] [address] [place] [address], [address] [place] [address] Daryl Dickson MD [address] [place] [address] [email or web address] documented as of this encounter Visit Diagnoses Not on filedocumented in this encounter Care Teams Costume Seamstress Relationship Specialty Start Date End Date Francois Adam NP [facility] [place] [address] PCP - General Nurse Practitioner 03/04/24 Avelino Colin MD [address] [place] [address] Drive [address] [place] [address] Gastroenterology 06/29/25 documented as of this encounter Additional Source Comments The information contained in this document represents components of the legal health record. It is not the complete legal health record.[facility]
--- OUTSIDE RECORDS SUMMARY | 2025-10-30 06:38 | XMS_ITS | Patient Health Record ---
Author Organization [facility] Address [address] [place] [address] Care Team Providers Care Churn Tender Name Role Phone SCOTTIE HERNANDEZ Primary Care Provider Alvino anastasia Avelino Colin Unavailable [phone] Reason For Referral No Information Medications Medication SIG (Take, Route, Frequency, Duration) Notes Start Date End Date Status Lipitor 20 MG Tablet 1 tablet Orally Onc e a day Active Probiotic 250 MG Capsule as directed Orally Active FLUoxetine HCl 40 MG Capsule 1 capsule in the morning Orally Once a day Not-Taking/PRN Blueberry Flavor - Liquid as directed Active PriLOSEC OTC 20 MG Tablet Delayed Release 1 tablet Orally Once a day Active Lipoic Acid 150 MG Capsule 1 capsule Orally Once a day Active Multi Vitamin/Minerals Tablet Orally Active Co Q 10 100 MG Capsule as directed Orally Active Calcium Citrate + D3 250-200 MG-UNIT Tablet 1 tablet Orally Twice a day Active Magnesium 400 MG Tablet as directed Orally Active CoQ10 200 MG Capsule 1 capsule with a me al Orally Once a day Active Diclofenac Potassium 50 MG Tablet 1 tablet with food or milk as needed Orally Twice a day Active Bee Pollen Active Mestinon 60 MG Tablet 1 tablet Orally Th ree times a day Not-Taking/PRN Lutein 20 MG Capsule 1 capsule with a me al Orally Once a day Active Gabapentin 300 MG Capsule 1 capsule Orally Once a day Active oxyBUTYnin Chloride ER 10 MG Tablet Extended Release 24 Hour 1 tablet Orally Once a day Not-Taking/PRN Imuran 50 MG Tablet Orally Active Immunizations Vaccine Route Administration Date Status Comme nts Influenza Unknown 09/14/2024 Administered Social History Social History Additional Details Category Social Info Options Details Miscellaneous: Marital status: Occupation: Retired Section Notes: Nonsmoker; no sig alcohol Nonsmoker; no sig alcohol Nonsmoker; no sig alcohol Problems Problem Type SNOMED Code ICD Code Onset Dates Problem Status W/U Status Risk Notes Problem Colon cancer screening (200191155) Colon cancer screening (Z12.11) Active confirmed Problem [facility] current use of non-steroidal anti-inflammatory drug (354020450535757) director long term care (current) use of non-steroidal anti-inflammatori es (NSAID) (Z79.1) Active confirmed Problem Preprocedural examination (964682262695374) Preprocedural examination (Z01.818) Active confirmed Vital Signs Temperature 98.6 degrees Fahrenheit 06/15/2025 Blood pressure diastolic 01 mm Hg 06/15/2025 Height 71.5 in 06/15/2025 Blood pressure systolic 001 mm Hg 06/15/2025 Weight 224.6 lbs 06/15/2025 BMI 30.89 kg/m2 06/15/2025 Procedures Procedure Date Ordered Date Performed Result Body Sit e COLONOSCOPY 06/15/2025 N/A Encounters Encounter Location Date Provider Diagnosis [facility] [address] [place] [address] 06/15/2025 Avelino Colin Colon cancer screeni ng Z12.11 ; director long term care (current) use of non-steroidal anti-inflammatories (NSAID) Z79.1 [...] keep you advised of his progress. 06/15/2025 director long term care (current) use of non-steroidal anti-inflammatori es (NSAID) [...] COLONOSCOPY 09/08/2014 Next Appt Details Provider Name:Avelino Sexton Cristi , 11/22/2025 09:30:00 AM, [address] [place] [address] , [place], [place], [id number], Insurance Providers Payer Name Payer Address Payer Phone Subscriber Number Group Number Insured Name Patient Relationship to Insured Coverage Start Date Coverage End Date MEDICARE OF [place] [address] [place] [address] [id number] SCOTTIE RAMSEY Self - patient is the insured [employer] ATT[employer] CLAIMS [address] [place] [address] [id number] SCOTTIE RAMSEY Self - patient is the insured Medical (General) History Medical History History ICD Code Denies [place],DM,CVA,Lung disease,renal dise ase Prostate cancer Myasthenia gravis- [...] Dr Samuel Banks Surgical History Surgery Date(Month/Year) Prostatectomy for cancer 2005 Lower back discectomy Left hip replacement
[2025-10-30 11:09] LABS: Alanine Aminotransferase 41 U/L (0-40); Albumin Level 4.3 g/dL (3.5-5.0); Alkaline Phosphatase 98 U/L (39-117); Aspartate Amino Transferase 31 U/L (5-37); Total Protein 6.7 g/dL (6.5-8.0)
== END 2025-10-30 06:35 | disposition home or self-care (01) ==
LOC: HO.HMGCLDS 06:34
PROVIDERS: PCP Nurse Practitioner Family; Visit Provider Psychiatry & Neurology Neurology
DX: G70.00 Myasthenia gravis without (acute) exacerbation (principal)
CPT/HCPCS: 36415; 80076

== ENCOUNTER 2025-10-31 07:04 | Outpatient (REF) | payer MEDICARE, SELFPAY ==
--- OUTSIDE RECORDS SUMMARY | 2024-11-29 05:30 | XMS_ITS ---
Author Organization [facility] Address [address] [place] [phone] Care Team Providers Care Cupola Charger Name Role Phone SCOTTIE HERNANDEZ Primary Care Provider Avelino Trivedi [phone] REASON FOR VISIT SCREENING COLON Encounters Encounter Location Date Provider Diagnosis [facility] [address] [facility] [address] [place] [phone] 11/29/2024 Avelino Colin Plan Of Treatment Next Appt Details Provider Name:Avelino Colin , 11/22/2025 09:30:00 AM, [address] [place] [address] , [place], [place], [phone], Progress Notes * SCOTTIE RAMSEYDOB:1950 ([age] yo M)Acc No.[id number]:11/29/2024 Progress Notes Patient: SCOTTIE GARNETT Provider: Thom Colin MD :1950 A ge:74 Y S ex:Male Date:11/29/2024 Address:[address] [id number] Pcp:SCOTTIE HERNANDEZ Subjective: * Chief Complaints: * S CREENING COLON * The named appointment provid er may or may not be the originator of this progress note, and it is not deemed complete until electronically signed by the appointment provider. Sign off status: Pending * Provider: Thom Colin MD Date: 0 11/29/2024 Generated for Devin munoz/Rose Mary/eTransmitting on: 1 01/01/2025 07:07 AM EST
--- OUTSIDE RECORDS SUMMARY | 2025-03-03 08:40 | XMS_ITS ---
Author Organization [facility] Address [address] [place] [address] Care Team Providers Care Air Commodore Name Role Phone SCOTTIE HERNANDEZ Primary Care Provider Avelino Trivedi [phone] REASON FOR VISIT Patient presents today for a SCREENING COLON Encounters Encounter Location Date Provider Diagnosis [facility] [address] [place] [address] 03/03/2025 Avelino Colin Plan Of Treatment Next Appt Details Provider Name:Avelino Colin , 11/22/2025 09:30:00 AM, [address] [place] [address] , [place], [place], [phone], Progress Notes * RAMSEYSCOTTIE WEEMSDOB:1950 ([age] yo M)Acc No.[id number]:03/03/2025 Progress Notes Patient: SCOTTIE GARNETT Provider: Thom Colin MD :1950 A ge:74 Y S ex:Male Date:03/03/2025 Address:[id number] Pcp:SCOTTIE HERNANDEZ Subjective: * Chief Complaints: * P atient presents today for a SCREENING COLON * The named appointment provid er may or may not be the originator of this progress note, and it is not deemed complete until electronically signed by the appointment provider. Sign off status: Pending * Provider: Thom Colin MD Date: 0 03/03/2025 Generated for Devin munoz/Rose Mary/eTransmitting on: 1 01/01/2025 07:07 AM EST
--- OUTSIDE RECORDS SUMMARY | 2025-09-27 03:30 | XMS_ITS ---
Author Organization [facility] Address [address] [place] [address] Care Team Providers Care Window Trimmer Name Role Phone SCOTTIE HERNANDEZ Primary Care Provider Aveilno Trivedi [phone] REASON FOR VISIT screening colon Encounters Encounter Location Date Provider Diagnosis [facility] [place] [address] [place] [phone] 09/27/2025 Avelino Colin Plan Of Treatment Next Appt Details Provider Name:Avelino Colin , 11/22/2025 09:30:00 AM, [address] [place] [address], [id number], Progress Notes * RAMSEYSCOTTIE WEEMSDOB:1950 ([age] yo M)Acc No.[id number]:09/27/2025 COLON WITH MAC Patient: SCOTTIE GARNETT Provider: Thom Colin MD :1950 A ge:74 Y S ex:Male Date:09/27/2025 Address:[place] Pcp:SCOTTIE HERNANDEZ Subjective: * Chief Complaints: * S creening colon * The named appointment provid er may or may not be the originator of this progress note, and it is not deemed complete until electronically signed by the appointment provider. Sign off status: Pending * Provider: Thom Colin MD Date: 1 11/27/2024 Generated for Cassidyi ng/Famichelleg/eTransmitting on: 01/01/2025 07:07 AM EST
--- OUTSIDE RECORDS SUMMARY | 2025-10-31 07:07 | XMS_ITS | Clinical Summary ---
Author Organization [facility] Address [address] [facility] [address] [place] [address] Phone Care Team Providers Care Identification Technician Name Role Phone Francois Adam CAMP DIRECTOR Primary Care Provider + Avelino Colin MD Unavailable [phone] Allergies Active Allergy Reactions Criticality Noted Date [...] ischemic heart disease History of myocardial infarction ([place]); history of positive exercise test; current chest [...] MAJOR CARDIAC EVENT/CLASS IV RISK REFERENCE: Maricruz Retinal Surgeon Med. 2009Nov 27;152(1):26-35 Pt ok to proceed [...] less than 0.5% of patients especially at [facility] medical centers such as [facility]'s where ablations are performed. [...] after seeing Dr. Pringle who is our clinical lab specialist. It was part of the plan [...] Type Department Care Team Description 10/17/2025 Telephone [facility] [address], [address] [place] [address] Christiano Pringle MD ILR dysfunction 10/11/2025 2:00 PM EST - 10/11/2025 11:59 PM EST Hospital Encounter Non-Invasive Cardiology [address] [place] [address] Azael Cosby MD Discharge Disposition: Home or Self Care 09/04/2025 3:00 PM EDT Office Visit [facility] [address], [address] [place] [address] Bryon Banks MD Implantable loop recorder present (Primary Dx); Paroxysmal supraventricular tachycardia; Primary hypertension; Myasthenia gravis 08/27/2025 Orders Only [facility] [address], [address] [place] [address] Provider, MD Steven 05/04/2025 Procedure Pass Non-Invasive Cardiology [address] [place] [address] from Last 3 Months Social History Tobacco [...] Description 11/28/2025 3:00 PM EST Office Visit [facility] [address] [place] [address], [address] [address] Christiano Pringle MD [address] [place] [address] 01/31/2026 9:00 AM EDT Office Visit [facility] [place] [address] [address] [place] [address], [address] [place] [address] Christiano Pringle MD [address] [place] [address] 03/07/2026 10:20 AM EDT Office Visit [facility] [place] [address] [address] [place] [address], [address] [place] [address] Bryon Banks MD [address] [place] [address] 07/23/2026 1:00 PM EDT Office Visit [facility] Neurology [address] [place] [address], [address] [place] [address] Daryl Dickson MD [address] [place] [address] [email or web address] Health Maintenance Due Date Last [...] to show. Gabriel will reach out to [employer] for our next steps. Dr. Pringle also stop by to see the patient and discussed with him his most recent symptoms. Sade King RN us Azael Cosby MD CV CARDIAC SERVICES ORDERABLES Final Result * (ABNORMAL) Basic metabolic panel (11/13/2024 11:52 AM EST) SODIUM 138 133 - 146 mmol/L [facility] CHLORIDE 105 96 - 108 mmol/L [facility] POTASSIUM 4.1 3.3 - 5.1 mmol/L [facility] CO2 23 21 - 35 mmol/L [facility] BUN 20(H) 6 - 19 mg/dL [facility] CREATININE 0.80 0.5 - 1.5 mg/dL [facility] GLUCOSE 89 70 - 99 mg/dL [facility] CALCIUM 8.8 8.4 - 10.3 mg/dL [facility] EGFR 92 >59 mL/min/1.7 3m2 [facility] Comment:Estimated glomerular filtration rate calculated using the CKD-EPI refit equation. ANION GAP 14 10 - 20 mmol/L [facility] Blood 11/13/2024 11:5 2 AM EST 11/13/2024 12:01 PM EST us Jing Winchester MD LAB BLOOD BKR ORDERABLES Sofia mayo Result [facility] [address] [place], [place] [id number] from Last 3 Months or Most Recently Relevant to Health Maintenance Insurance MEDICARE PART A & B [employer] SUPPLEMENT MEDICARE PART A & B [employer] SUPPLEMENT MEDICARE PART A & B [employer] SUPPLEMENT MEDICARE PART A & B [employer]EX SUPPLEMENT MEDICARE PART A & B [employer]OSS MEDEX SUPPLEMENT MEDICARE PART A & B [employer]EX SUPPLEMENT Advance Directives For more information, please contact: [phone] (9AM - 5PM [facility], Thursday-Thursday) * Full Code (Latest Code Status on File) Date Activated Date Inactivated Comments 03/04/2024 9:23 PM Question Answer Comments Code Status Confirmed With: Patient Care Teams Identification Technician Relationship Specialty Start Date End Date Francois Adam NP [address] [place] [address] PCP - General Nurse Practitioner 03/04/24 Avelino Colin MD [address] [place] [address] Drive [address] [place] [address] Gastroenterology 06/29/25 Additional Source Comments The information contained in this document represents components of the legal health record. It is not the complete legal health record.[facility]
--- OUTSIDE RECORDS SUMMARY | 2025-10-31 07:07 | XMS_ITS | Encounter Summary ---
Author Organization Located Within [facility] Address [address] [facility] [address] [place] [address] Phone Care Team Providers Care Independent Jeweler Name Role Phone Francois Adam SLEEVE FIXER Primary Care Provider + Avelino Colin MD Unavailable [phone] Encounter Details Date Type Department Care Team (Late st Contact Info) Description 12/08/2024 Procedure Pass Non-Invasive Cardiology [address] [place] [address] Social History Tobacco Use Types Packs/Day Years [...] Description 11/28/2025 3:00 PM EST Office Visit [facility] [address], [address] [place] [address] Christiano Pringle MD [address] [place] [address] 01/31/2026 9:00 AM EDT Office Visit [address], [address] [place] [address] Christiano Pringle MD [address] [place] [address] 03/07/2026 10:20 AM EDT Office Visit [facility] [address], [address] [place] [address] Bryon Banks MD [address] [place] [address] 07/23/2026 1:00 PM EDT Office Visit [facility] [address] [place] [address], [address] [place] [address] Daryl Dickson MD [address] [place] [address] [email or web address] documented as of this encounter Visit Diagnoses Not on filedocumented in this encounter Care Teams Independent Jeweler Relationship Specialty Start Date End Date Francois Adam NP [facility] [place] [address] PCP - General Nurse Practitioner 03/04/24 Avelino Colin MD [address] [place] [address] Drive [address] [place] [address] Gastroenterology 06/29/25 documented as of this encounter Additional Source Comments The information contained in this document represents components of the legal health record. It is not the complete legal health record.[facility]
--- OUTSIDE RECORDS SUMMARY | 2025-10-31 07:07 | XMS_ITS | Encounter Summary ---
Author Organization [facility] Address [address] [facility] [address] [place] [address] Phone Care Team Providers Care Engine Repairer Service Name Role Phone Francois Adam IRON MELTER Primary Care Provider + Avelino Colin MD Unavailable [phone] Encounter Details Date Type Department Care Team (Late st Contact Info) Description 05/04/2025 Procedure Pass Non-Invasive Cardiology [address] [place] [address] Social History Tobacco Use Types Packs/Day Years [...] Description 11/28/2025 3:00 PM EST Office Visit [facility] [address], [address] [place] [address] Christiano Pringle MD [address] [place] [address] 01/31/2026 9:00 AM EDT Office Visit [address], [address] [place] [address] Christiano Pringle MD [address] [place] [address] 03/07/2026 10:20 AM EDT Office Visit [facility] [address], [address] [place] [address] Bryon Banks MD [address] [place] [address] 07/23/2026 1:00 PM EDT Office Visit [facility] [address] [place] [address], [address] [place] [address] Daryl Dickson MD [address] [place] [address] [email or web address] documented as of this encounter Visit Diagnoses Not on filedocumented in this encounter Care Teams Engine Repairer Service Relationship Specialty Start Date End Date Francois Adam NP [facility] [place] [address] PCP - General Nurse Practitioner 03/04/24 Avelino Colin MD [address] [place] [address] Drive [address] [place] [address] Gastroenterology 06/29/25 documented as of this encounter Additional Source Comments The information contained in this document represents components of the legal health record. It is not the complete legal health record.[facility]
--- OUTSIDE RECORDS SUMMARY | 2025-10-31 07:07 | XMS_ITS | Encounter Summary ---
Author Organization [facility] Address [address] [facility] [address] [place] [address] Phone Care Team Providers Care Computer Repair Instructor Name Role Phone Francois Adam OFFICIAL COURT REPORTER Primary Care Provider + Avelino Colin MD Unavailable [phone] Encounter Details Date Type Department Care Team (Late st Contact Info) Description 07/27/2024 Procedure Pass Non-Invasive Cardiology [address] [place] [address] Social History Tobacco Use Types Packs/Day Years [...] Description 11/28/2025 3:00 PM EST Office Visit [facility] [address], [address] [place] [address] Christiano Pringle MD [address] [place] [address] 01/31/2026 9:00 AM EDT Office Visit [address], [address] [place] [address] Christiano Pringle MD [address] [place] [address] 03/07/2026 10:20 AM EDT Office Visit [facility] [address], [address] [place] [address] Bryon Banks MD [address] [place] [address] 07/23/2026 1:00 PM EDT Office Visit [facility] [address] [place] [address], [address] [place] [address] Daryl Dickson MD [address] [place] [address] [email or web address] documented as of this encounter Visit Diagnoses Not on filedocumented in this encounter Care Teams Computer Repair Instructor Relationship Specialty Start Date End Date Francois Adam NP [facility] [place] [address] PCP - General Nurse Practitioner 03/04/24 Avelino Colin MD [address] [place] [address] Drive [address] [place] [address] Gastroenterology 06/29/25 documented as of this encounter Additional Source Comments The information contained in this document represents components of the legal health record. It is not the complete legal health record.[facility]
--- OUTSIDE RECORDS SUMMARY | 2025-10-31 07:07 | XMS_ITS | Encounter Summary ---
Author Organization [facility] Address [address] [facility] [address] [place] [address] Phone Care Team Providers Care Public Policy Analyst Name Role Phone Francois Adam DRYER FEEDER Primary Care Provider + Avelino Colin MD Unavailable [phone] Encounter Details Date Type Department Care Team (Late st Contact Info) Description 08/18/2024 Procedure Pass Non-Invasive Cardiology [address] [place] [address] Social History Tobacco Use Types Packs/Day Years [...] Description 11/28/2025 3:00 PM EST Office Visit [facility] [address], [address] [place] [address] Christiano Pringle MD [address] [place] [address] 01/31/2026 9:00 AM EDT Office Visit [address], [address] [place] [address] Christiano Pringle MD [address] [place] [address] 03/07/2026 10:20 AM EDT Office Visit [facility] [address], [address] [place] [address] Bryon Banks MD [address] [place] [address] 07/23/2026 1:00 PM EDT Office Visit [facility] [address] [place] [address], [address] [place] [address] Daryl Dickson MD [address] [place] [address] [email or web address] documented as of this encounter Visit Diagnoses Not on filedocumented in this encounter Care Teams Public Policy Analyst Relationship Specialty Start Date End Date Francois Adam NP [facility] [place] [address] PCP - General Nurse Practitioner 03/04/24 Avelino Colin MD [address] [place] [address] Drive [address] [place] [address] Gastroenterology 06/29/25 documented as of this encounter Additional Source Comments The information contained in this document represents components of the legal health record. It is not the complete legal health record.[facility]
--- OUTSIDE RECORDS SUMMARY | 2025-10-31 07:07 | XMS_ITS | Encounter Summary ---
Author Organization [facility] Address [address] [facility] [address] [place] [address] Phone Care Team Providers Care Insights Manager Name Role Phone Francois Adam TRUCK REPAIR SUPERVISOR Primary Care Provider + Avelino Colin MD Unavailable [phone] Encounter Details Date Type Department Care Team (Late st Contact Info) Description 07/15/2024 Procedure Pass Non-Invasive Cardiology [address] [place] [address] Social History Tobacco Use Types Packs/Day Years [...] Description 11/28/2025 3:00 PM EST Office Visit [facility] [address], [address] [place] [address] Christiano Pringle MD [address] [place] [address] 01/31/2026 9:00 AM EDT Office Visit [address], [address] [place] [address] Christiano Pringle MD [address] [place] [address] 03/07/2026 10:20 AM EDT Office Visit [facility] [address], [address] [place] [address] Bryon Banks MD [address] [place] [address] 07/23/2026 1:00 PM EDT Office Visit [facility] [address] [place] [address], [address] [place] [address] Daryl Dickson MD [address] [place] [address] [email or web address] documented as of this encounter Visit Diagnoses Not on filedocumented in this encounter Care Teams Insights Manager Relationship Specialty Start Date End Date Francois Adam NP [facility] [place] [address] PCP - General Nurse Practitioner 03/04/24 Avelino Colin MD [address] [place] [address] Drive [address] [place] [address] Gastroenterology 06/29/25 documented as of this encounter Additional Source Comments The information contained in this document represents components of the legal health record. It is not the complete legal health record.[facility]
--- OUTSIDE RECORDS SUMMARY | 2025-10-31 07:07 | XMS_ITS | Encounter Summary ---
Author Organization [facility] Address [address] [place] [address] Phone Care Team Providers Care Can Solderer Name Role Phone Francois Adam APPLIANCE PARTS COUNTER CLERK Primary Care Provider + Avelino Colin MD Unavailable [phone] Reason for Visit * Reason Onset Date Comments ILR dysfunction 10/17/2025 Encounter Details Date Type Department Care Team (Late st Contact Info) Description 10/17/2025 Telephone [facility] [address] [facility] 3rd Floor, [address] [place] [address] Christiano Pringle MD [address] [place] [address] [email or web address] ILR dysfunction Social History Tobacco Use Types [...] Description 11/28/2025 3:00 PM EST Office Visit [facility] [address] [place] [address], [address] [place] [address] Christiano Pringle MD [address] [place] [address] 01/31/2026 9:00 AM EDT Office Visit [facility] [address] [place] [address], [address] [place] [address] Christiano Pringle MD [address] [place] [address] 03/07/2026 10:20 AM EDT Office Visit [facility] [address] [place] [address], [address] [place] [address] Bryon Banks MD [address] [place] [address] 07/23/2026 1:00 PM EDT Office Visit [facility] General Neurology [address] [place] [address], [facility] [address] [place] [address] Daryl Dickson MD [address] [place] [address] [email or web address] documented as of this encounter Visit Diagnoses Not on filedocumented in this encounter Care Teams Can Solderer Relationship Specialty Start Date End Date Francois Adam NP [address] [place] [address] PCP - General Nurse Practitioner 03/04/24 Avelino Colin MD [address] [place] [address] Drive [address] [place] [address] Gastroenterology 06/29/25 documented as of this encounter Additional Source Comments The information contained in this document represents components of the legal health record. It is not the complete legal health record.[facility]
--- OUTSIDE RECORDS SUMMARY | 2025-10-31 07:07 | XMS_ITS | Patient Health Record ---
Author Organization [facility] [place] Address [address] 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 Plan Of Treatment Pending Test Test Name Order Date X ray : Foot, left 3V 02/04/2022 [id number] Destruction, 1-14 06/10/2017 Insurance Providers Payer Name Payer Address Payer Phone Subscriber Number Group Number Insured Name Patient Relationship to Insured Coverage Start Date Coverage End Date Medicare National Govt Svcs Inc [address] [place] [address] [id number] Francois Gutierrez Self - patient is the insured 7 [employer] Blue Shield [address] [place] [address] [phone] [id number] Francois Gutierrez Self - patient is the insured Medical (General) History Medical History History ICD Code Cancer prostate Warts Measles Mumps Chicken pox Myasthenia gravis Surgical History Surgery Date(Month/Year) Prostectomy 2009 Bilateral plantar warts removed 2016 Left hip replaced 03/11 cataract surgery both eyes 02/2020
--- OUTSIDE RECORDS SUMMARY | 2025-10-31 07:08 | XMS_ITS | Encounter Summary ---
Author Organization Located Within [facility] Address [address] [place] [address] Phone Care Team Providers Care Organizational Development Consultant Name Role Phone Francois Adam COURT REGISTRY OFFICER Primary Care Provider + Avelino Colin MD Unavailable [phone] Encounter Details Date Type Department Care Team (Late st Contact Info) Description 05/19/2025 Procedure Pass [facility] [address] [place] [address] Social History Tobacco Use Types Packs/Day Years [...] Description 11/28/2025 3:00 PM EST Office Visit [facility] [address], [address] [place] [address] Christiano Pringle MD [address] [place] [address] 01/31/2026 9:00 AM EDT Office Visit [address], [address] [place] [address] Christiano Pringle MD [address] [place] [address] 03/07/2026 10:20 AM EDT Office Visit [facility] [address], [address] [place] [address] Bryon Banks MD [address] [place] [address] 07/23/2026 1:00 PM EDT Office Visit [facility] [address] [place] [address], [address] [place] [address] Daryl Dickson MD [address] [place] [address] [email or web address] documented as of this encounter Visit Diagnoses Not on filedocumented in this encounter Care Teams Organizational Development Consultant Relationship Specialty Start Date End Date Francois Adam NP [facility] [place] [address] PCP - General Nurse Practitioner 03/04/24 Avelino Colin MD [address] [place] [address] Drive [address] [place] [address] Gastroenterology 06/29/25 documented as of this encounter Additional Source Comments The information contained in this document represents components of the legal health record. It is not the complete legal health record.[facility]
--- OUTSIDE RECORDS SUMMARY | 2025-10-31 07:08 | XMS_ITS | Patient Health Record ---
Author Organization [facility] Address [address] [place] [address] Care Team Providers Care Cavalry Officer Name Role Phone SCOTTIE HERNANDEZ Primary Care Provider Alvino anastasia Avelino Colin Unavailable [phone] Reason For Referral No Information Medications Medication [...] Status Risk Notes Problem Colon cancer screening (958981276) Colon cancer screening (Z12.11) Active confirmed Problem [facility] current use of non-steroidal anti-inflammatory drug (173356547889552) watermelon harvesting supervisor (current) use of non-steroidal anti-inflammatori es (NSAID) (Z79.1) Active confirmed Problem Preprocedural examination (224418596009666) Preprocedural examination (Z01.818) Active confirmed Vital Signs Temperature 98.6 degrees Fahrenheit 06/15/2025 Blood pressure diastolic 01 mm Hg 06/15/2025 Height 71.5 in 06/15/2025 Blood pressure systolic 001 mm Hg 06/15/2025 Weight 224.6 lbs 06/15/2025 BMI 30.89 kg/m2 06/15/2025 Procedures Procedure Date Ordered Date Performed Result Body Sit e COLONOSCOPY 06/15/2025 N/A Encounters Encounter Location Date Provider Diagnosis [facility] [address] [place] [address] 06/15/2025 Avelino Colin Colon cancer screeni ng Z12.11 ; watermelon harvesting supervisor (current) use of non-steroidal anti-inflammatories (NSAID) Z79.1 [...] keep you advised of his progress. 06/15/2025 watermelon harvesting supervisor (current) use of non-steroidal anti-inflammatori es (NSAID) [...] Name:Avelino Sexton Cristi , 11/22/2025 09:30:00 AM, [address] [place] [address] , [place], [phone], Insurance Providers Payer Name Payer Address Payer Phone Subscriber Number Group Number Insured Name Patient Relationship to Insured Coverage Start Date Coverage End Date [place] [address] [place] [address] [id number] SCOTTIE RAMSEY Self - patient is the insured [employer] ATT[employer] CLAIMS [address] [place] [address] [phone] [id number] SCOTTIE RAMSEY Self - patient is the insured Medical (General) History Medical History History ICD Code Denies ID,DM,CVA,Lung disease,renal dise ase Prostate cancer Myasthenia gravis- [...]
[2025-10-31 10:24] LABS: Appearance Urine Turbid; Glucose Urine UA Negative (Negative); PH 5.0 (5.0-9.0); Specific Gravity - Urine >= 1.030 (1.005-1.025)
[2025-10-31 10:46] LABS: MANUAL DIFF FLAG NO
[2025-10-31 10:51] LABS: Hematocrit 43.5 % (42.0-52.0); Hemoglobin 14.4 g/dl (14.0-18.0); Imm Gran Abs Auto 0.03 X10*3/uL (0.00-0.03); Imm Gran Pct Auto 0.7 % (0.0-0.4); Lymphocytes Absolute Auto 1.3 X10*3/uL (1.2-4.9); Mean Corpuscular HGB Conc 33.1 g/dl (31.0-36.0); Mean Corpuscular Hemoglobin 30.7 pg (27.0-33.0); Mean Corpuscular Volume 92.8 fL (80.0-98.0); NRBC Abs Auto 0.000 X10*3/uL (0.0-0.012); NRBC Pct Auto 0.0 /100WBC (0.0-0.2); Platelet Count 172 X10*3/uL (160-400); Red Blood Count 4.69 X10*6/uL (4.60-5.80); White Blood Count 4.3 X10*3/uL (4.8-10.8)
[2025-10-31 11:45] LABS: Alanine Aminotransferase 42 U/L (0-40); Albumin Level 4.4 g/dL (3.5-5.0); Alkaline Phosphatase 110 U/L (39-117); Anion Gap 12 (12-20); Aspartate Amino Transferase 35 U/L (5-37); Blood Urea Nitrogen 14 mg/dL (9-16); Calcium 9.0 mg/dL (8.4-10.2); Carbon Dioxide 24 mmol/L (22-29); Chloride 112 mmol/L (96-108); Cholesterol 143 mg/dL (<200); Estimated Glomerular Filt Rate > 60; HDL Cholesterol 38 mg/dL (>40); Potassium 4.1 mmol/L (3.3-5.1); Sodium 144 mmol/L (135-145); Total Protein 6.7 g/dL (6.5-8.0); Triglycerides 153 mg/dL (<150)
[2025-10-31 12:01] LABS: HBS Num1 0.00 mIU/mL (0-7.99); HBc Num1 0.09 S/CO (0.00-0.79); HBsAGNum1 0.32 S/CO (0.00-0.99); Hepatitis A Antibody IgM 0.19 Index (0-0.79); Hepatitis B Surface Antigen Negative (Negative); ~HepC Num1 0.11 S/CO (0.00-0.79); ~Hepatitis A Antibody IgM Nonreactive (Nonreactive); ~Hepatitis B Surface Antibody NONREACTIVE (Nonreactive); ~Hepatitis C Antibody Nonreactive (Nonreactive)
== END 2025-10-31 07:05 | disposition home or self-care (01) ==
LOC: HO.HMGCLDS 07:04
PROVIDERS: PCP Nurse Practitioner Family; Visit Provider Nurse Practitioner Family
DX: Z11.59 Encounter for screening for other viral diseases (principal); I10 Essential (primary) hypertension; E55.9 Vitamin D deficiency, unspecified; Z72.89 Other problems related to lifestyle
CPT/HCPCS: 36415; 80053; 80061; 81003; 82306; 84443; 85025; 86704; 86706; 86709; 86803; 87340

== ENCOUNTER 2025-11-22 07:59 | Day surgery (SDC) | payer MEDICARE, SELFPAY ==
--- NOTE | 2025-11-17 11:29 | HO.ANESPROP2 ---
Documented by User: Adelaide Munoz NP 11/17/25 11:33 HPI - Anesthesia Eval Consult details Narrative: 75 yr old male for colonoscopy Antibody positive mostly ocular myasthenia gravis: follows [facility] neuro, recent visit 10/23/25, on azathioprine 50 mg, prednisone 2.5 mg qod (starting 10/24/25). PMFSH Active Problems Active Problems: All Active Problems (Updated 09/07/25 @ 13:25 by Francois Adam, [facility]) Vitamin D deficiency (Acute) Need for hepatitis B screening test (Acute) Lumbar radiculopathy (Acute) Dysautonomia (Acute) Peripheral neuropathy (Acute) Sciatica (Acute) Osteoarthritis of right knee (Acute) Raynauds disease (Acute) Fatty liver (Acute) Elevated liver enzymes (Acute) Atrial tachycardia (Acute) Encounter for subsequent annual wellness visit (AWV) in Medicare patient (Acute) Abnormal MRI scan, head (Acute) SVT (supraventricular tachycardia) (Acute) Cardiac arrhythmia (Acute) Lung density on x-ray (Acute) RSV (acute bronchiolitis due to respiratory syncytial virus) (Acute) Allergic rhinitis (Acute) Anxiety (Acute) Cough (Acute) Environmental allergies (Acute) Myasthenia gravis (Acute) Bronchitis (Acute) Anxiety reaction (Acute) Depression (Acute) Fall from snow skis (Acute) Thumb pain (Acute) Rib fractures (Acute) Microscopic hematuria (Acute) Encounter for annual wellness visit (AWV) in Medicare patient (Acute) Right shoulder pain (Acute) Leg cramps (Acute) Urticaria (Acute) Screening PSA (prostate specific antigen) (Acute) HTN (hypertension) (Acute) Dyslipidemia (Acute) Past Medical History Medical History Osteoarthritis of right knee Spinal stenosis of lumbar region Lumbar radiculopathy Horseshoe kidney Osteoarthritis of right hip Atrial tachycardia Lung density on x-ray RSV (acute bronchiolitis due to respiratory syncytial virus) Allergic rhinitis Bursitis of hip, right Greater trochanteric pain syndrome Bacterial pneumonia Depression Prostate cancer GERD (gastroesophageal reflux disease) Hyperlipemia Fatty liver Myasthenia gravis Peripheral polyneuropathy Family History Family History Father Hypertension Mother Hypertension Surgical History Surgical History History of lumbar fusion H/O microdiscectomy History of lumbar laminectomy History of hip replacement H/O prostatectomy Social History Social History Housing: House Are you a primary acute care nursing assistant to a significant other at home: No Do you presently have visiting nurse or other home services: No Alcohol intake: current Alcohol intake frequency: does not drink Patient Tobacco Use Status: Former Tobacco user Years Smoked: 40 years ago e-Cigarette/Vaping Use: Never Used Second Hand Smoke Exposure: No Use of substances other than those prescribed or required for medical reasons: No Have you been hit, kicked, punched, or otherwise hurt by someone within the past year? If so, by whom?: No Are you DNR?: No Advance Directives: No Advance Directives Information Provided: Yes Advance Directives on File: No service: No Current occupational status: retired Cognitive needs: No Hearing needs: No Vision needs: No Meds Allergies Allergy/AdvReac Type Severity Reaction Status Date / Time dicloxacillin AdvReac Unknown diarrhea Verified 09/07/25 13:02 Home Medications ?Medication ?Instructions ?Recorded ?Confirmed ?Last Taken ?Type Bacillus coagulans [Probiotic (B. PO 09/07/25 09/07/25 Unknown History coagulans)] Bluberry pill PO 09/07/25 09/07/25 Unknown History R-lipoic acid PO 09/07/25 09/07/25 Unknown History bee pollen 500 mg tablet mg PO 09/07/25 09/07/25 Unknown History coQ10 (ubiquinol) 100 mg capsule 200 mg PO DAILY 09/07/25 11/20/25 Unknown History (Qunol Joshua CoQ10) diclofenac sodium 75 mg 75 mg PO DAILY PRN Pain 09/07/25 11/20/25 Unknown History tablet,delayed release magnesium oxide 400 mg PO DAILY 09/07/25 11/20/25 Unknown History mirabegron 50 mg tablet,extended 50 mg PO DAILY 09/07/25 11/20/25 Unknown History release 24 hr (Myrbetriq) mv,Ca,nwy-rxzq-VO-lycopene [Men's PO 09/07/25 09/07/25 Unknown History Daily Multivitamin] Exam Pertinent Lab Results Pertinent Lab Results: Laboratory Tests 10/31/25 07:18 WBC 4.3 L RBC 4.69 Hgb 14.4 Hct 43.5 Plt Count 172 Sodium 144 Potassium 4.1 Chloride 112 H BUN 14 Creatinine 0.91 Narrative Narrative: ECHO 2023 Conclusions: - The left ventricular systolic function is normal. The calculated ejection fraction is 62% by biplane method. - No obvious valvular pathology seen on this study EKG 2023 NSR, rate 70 Assessment and Plan Assessment Anesthesia Assessment: Chart Reviewed Documented by User: Baldev Banuelos MD 11/22/25 09:01 [facility] Past Medical History Medical History Osteoarthritis of right knee Spinal stenosis of lumbar region Lumbar radiculopathy Horseshoe kidney Osteoarthritis of right hip Atrial tachycardia Lung density on x-ray RSV (acute bronchiolitis due to respiratory syncytial virus) Allergic rhinitis Bursitis of hip, right Greater trochanteric pain syndrome Bacterial pneumonia Depression Prostate cancer GERD (gastroesophageal reflux disease) Hyperlipemia Fatty liver Myasthenia gravis Peripheral polyneuropathy Cognitive capacity: normal Functional capacity: independent ambulation Family History Family History Father Hypertension Mother Hypertension Family history of problems with anesthesia: No Surgical History Surgical History History of lumbar fusion H/O microdiscectomy History of lumbar laminectomy History of hip replacement H/O prostatectomy History of Problems with Anesthesia: No Social History Social History Housing: House Are you a primary acute care nursing assistant to a significant other at home: No Do you presently have visiting nurse or other home services: No Alcohol intake: current Alcohol intake frequency: does not drink Patient Tobacco Use Status: Former Tobacco user Years Smoked: 40 years ago e-Cigarette/Vaping Use: Never Used Second Hand Smoke Exposure: No Use of substances other than those prescribed or required for medical reasons: No Have you been hit, kicked, punched, or otherwise hurt by someone within the past year? If so, by whom?: No Are you DNR?: No Advance Directives: No Advance Directives Information Provided: Yes Advance Directives on File: No service: No Current occupational status: retired Cognitive needs: No Hearing needs: No Vision needs: No Meds Allergies Allergy/AdvReac Type Severity Reaction Status Date / Time dicloxacillin AdvReac Unknown diarrhea Verified 09/07/25 13:02 Home Medications ?Medication ?Instructions ?Recorded ?Confirmed ?Last Taken ?Type Bacillus coagulans [Probiotic (B. PO 09/07/25 09/07/25 Unknown History coagulans)] Bluberry pill PO 09/07/25 09/07/25 Unknown History R-lipoic acid PO 09/07/25 09/07/25 Unknown History bee pollen 500 mg tablet mg PO 09/07/25 09/07/25 Unknown History coQ10 (ubiquinol) 100 mg capsule 200 mg PO DAILY 09/07/25 11/20/25 Unknown History (Qunol Joshua CoQ10) diclofenac sodium 75 mg 75 mg PO DAILY PRN Pain 09/07/25 11/20/25 Unknown History tablet,delayed release magnesium oxide 400 mg PO DAILY 09/07/25 11/20/25 Unknown History mirabegron 50 mg tablet,extended 50 mg PO DAILY 09/07/25 11/20/25 Unknown History release 24 hr (Myrbetriq) mv,Ca,isb-ljmu-WB-lycopene [Men's PO 09/07/25 09/07/25 Unknown History Daily Multivitamin] Exam Exam Date and Time: 11/22 Airway Mallampati Class: III TM Dist: >3cm Heart: ok Lungs: ok Other: ok Assessment and Plan Assessment Anesthesia Assessment: Anesthesia Plan Discussed Final Anesthetic Review Family History of Problems with Anesthesia: No History of Problems with Anesthesia: No NPO: Yes ASA Class: III Final Preanesthetic Review: No Changes in Pt Med Stat, Meds/Allgs Chart Reviewed and Consent Obtained/Reviewed Patient Risk: Intermediate Procedure Risk: Low Anesthetic Plan Anesthetic Plan: MAC: Disposition: Standard PACU and Extended PACU
[2025-11-20 14:24] VITALS: BMI 31.4
[2025-11-22 08:39] VITALS: BP 98/71; PULSE 83; RESP 16; TEMP 36.6; O2SAT 96
[2025-11-22] MEDS: Lactated Ringers 1,000 ML 100 ML IVCONT (08:46)
[2025-11-22 10:54] VITALS: BP 110/56; PULSE 68; RESP 16; TEMP 36.6; O2SAT 94
--- NOTE | 2025-11-22 10:56 | PM.OP ---
Brief Operative Note Date of Service: 11/22/25 Pre-op diagnosis: Screening Post-op diagnosis: other (Colon polyps) Procedure: Colonoscopy to the cecum with biopsy and removal of polyps Surgeon: Avelino Colin MD Anesthesia: MAC Was an Railroad Dispatcher used for this Procedure?: No Estimated blood loss (mL): 2.0 Pathology: other (A. Cecal polyp B. Transverse colon polyps) Condition: stable Disposition: PACU
[2025-11-22 11:10] VITALS: BP 99/60; PULSE 70; RESP 16; O2SAT 93
[2025-11-22 11:25] VITALS: BP 96/41; PULSE 64; RESP 16; O2SAT 96
[2025-11-22 11:40] VITALS: BP 99/46; PULSE 68; RESP 16; O2SAT 97
[2025-11-22 11:47] VITALS: BP 122/56; PULSE 76; RESP 16; TEMP 36.6; O2SAT 96
--- NOTE | 2025-11-22 13:23 | OP_ITS ---
DATE OF SERVICE: 11/22/2025 SURGEON: Avelino Colin MD INDICATIONS: The patient presents for evaluation of colorectal cancer screening. Full consent has been obtained from him for this, including risks of bleeding and perforation. PREOPERATIVE DIAGNOSIS: Colorectal cancer screening. POSTOPERATIVE DIAGNOSIS: Colorectal cancer screening, small colon polyps, diverticulosis, internal hemorrhoids. PROCEDURE PERFORMED: Colonoscopy to cecum with biopsy and removal of polyps. ESTIMATED BLOOD LOSS: COMPLICATIONS: ANESTHESIA: Medication used, monitored anesthesia care. ASSISTANTS: SPECIMENS: DESCRIPTION OF PROCEDURE: The patient was placed in the left lateral decubitus position. The digital rectal exam revealed no abnormalities. The Olympus video pediatric colonoscope was entered into the rectum and advanced to the cecum with the assistance of abdominal wall pressure. Advancement to the cecum was somewhat difficult. Once in the cecum, I did identify cecal pouch with appendiceal orifice and a normal-appearing ileocecal valve. The entire cecum was well visualized. There was a 3 mm polyp in the cecum, which was biopsied and completely removed with cold biopsy forceps. The scope was then slowly withdrawn assessing all mucosal surfaces carefully. Preparation was excellent. In the transverse colon were 2 flat 3 or 4 mm polyps, which were each biopsied and completely removed with cold biopsy forceps. I did not visualize any other polyps, colitis, nor angiodysplasia. There was a mild amount of sigmoid diverticulosis. In the rectum, scope was retroflexed visualizing internal hemorrhoids, but no other pathology. The rectal mucosa appeared normal. Scope was straightened and withdrawn from the patient. He tolerated the procedure well and was returned to the recovery area in stable condition. IMPRESSION: 1. Small colon polyps. 2. Diverticulosis. 3. Internal hemorrhoids. PLAN: The results of biopsies will be checked. Even if these are tubular adenomas, I do not think he will need any further screening colonoscopies going forward given his age of 75. He will see me as needed. He was advised not to use any aspirin and NSAIDs for 1 week. This has been discussed with his . MD ANA LUISA Boyd/JANE / [id number]
== END 2025-11-22 11:56 | disposition home or self-care (01) ==
PROVIDERS: PCP Nurse Practitioner Family; Visit Provider Internal Medicine
PROC: 0DJD8ZZ Inspection of Lower Intestinal Tract, Via Natural or Artificial Opening Endoscopic (ICD-10-PCS; CPT 45378; principal; 2025-11-22 09:20)
DX: Z12.11 Encounter for screening for malignant neoplasm of colon (principal); K57.30 Diverticulosis of large intestine without perforation or abscess without bleeding; K64.8 Other hemorrhoids; D12.3 Benign neoplasm of transverse colon; K63.5 Polyp of colon
CPT/HCPCS: 45380; 88305; J2003; J2371; J2704; J3010